=== PATIENT | male | born 1945 | race Caucasian/White ===

== ENCOUNTER 2023-05-30 16:11 | Inpatient (IN) ==
--- NOTE | 2023-05-30 17:18 | Emergency Department Note ---
Impression & Plan Hypotension, Weakness, Anemia, Pericardial effusion, Acute UTI, Debilitated ED Provider Note NAME: REKHA CRUZ AGE: 77 SEX: M : 1945 ARRIVES VIA: Walk-In INFORMANT: [Patient][family] ED PROVIDER(S): [Kristian Gaitan MD] CHIEF COMPLAINT: Pain, weakness HISTORY OF PRESENT ILLNESS: The patient is a 77-year-old male who has had issues for a month. He has been nauseated and has had no appetite and has been diffusely weak. He was discharged from [facility] 3 days ago for acute renal failure. He still has a Rodriguez in place as he was not able to urinate at discharge. As per his family, the patient has gone downhill since discharge. He is too weak to stand, home health today could not help him, his could not help him, they had to call the ambulance. The patient states that he is nauseated and has diffuse abdominal pain. His has noticed that his urine color in the Rodriguez catheter has become quite dark. She is concerned again for dehydration. There has been no cough or cold, no chest pain. He has not fallen. As per his family, the patient is not safe at home. Of note, the patient Xarelto has been on hold now for about a month. PMHx/PSHx/Social Hx: See Below PHYSICAL EXAM: GENERAL: Patient is in no acute distress. HEENT: No acute trauma, normocephalic atraumatic, mucous membranes dry, no nasal congestion. NECK: No stridor, no adenopathy, no meningismus, trachea is midline. LUNGS: Clear to auscultation bilaterally, no wheeze, no rhonchi, breath sounds equal. Breath sounds diminished bilaterally HEART: Without murmurs gallops or rubs, regular rate and rhythm. Heart tones are quite distant. ABDOMEN: Soft, diffusely mildly tender, no significant distention. Rodriguez catheter in place. EXTREMITIES: No cyanosis, full range of motion of all the joints without pain or difficulty. NEUROLOGIC: Oriented x 3, no acute motor or sensory deficits, no focal weakness. SKIN: No jaundice, no diaphoresis. Rectal: Brown stool, heme-negative. DIFFERENTIAL DIAGNOSIS: Acute renal failure, dehydration, electrolyte imbalance, dehydration, UTI, debilitation, cardiac ischemia/MS, among others. EMERGENCY DEPARTMENT PROCEDURES: MEDICAL DECISION MAKING: There is no leukocytosis. The patient is anemic. I did perform a rectal exam, stool was brown and heme-negative. There was a normal platelet count. Sodium slightly low but not in need of emergent correction. There was no renal failure. Magnesium somewhat low at 1.6. No concerning liver enzyme elevation. The patient appeared to be in a euthyroid state. ECG showed atrial fibrillation, no obvious acute ischemia. Cardiac enzyme testing x 1 was not consistent with acute cardiac injury. Urinalysis did show potential infection, urine culture is pending. COVID test returned negative. Chest x-ray did not show any obvious pneumonia or concerning CHF. Abdominal and pelvis CT shows a pericardial effusion, no urinary or bowel obstruction. On exam, the patient was somewhat hypotensive. He appeared dehydrated clinically. The patient was given a total of 1 L of saline for hydration. He received IV magnesium for the low magnesium value. He received IV ceftriaxone as antibiotic coverage. The patient presents weak, somewhat debilitated. He was found to be hypotensive. There was a pericardial effusion noted on CT, he was anemic. He may have a UTI. Given the circumstances, given his recent discharge and failure to improve outpatient, repeat hospitalization was felt warranted. I suspect his presentation is multifactorial. I spoke with the patient and family. I spoke with case management, the on-call hospitalist was consulted. The patient does seem somewhat improved since treatment here in the ED. Prior/Outside records/notes reviewed: None ECG per my interpretation: Indication was weakness. The ECG shows atrial fibrillation with a rate of 109. There is diffuse nonspecific ST change. There is no acute ST elevation, no PVCs. The QTc is 401. Continuous Cardiac Monitoring per my interpretation: An order was placed for continuous cardiac monitoring. The monitor shows a rate of 99 with atrial fibrillation. Imaging/x-ray results per my interpretation: Chest x-ray does not show concerning CHF or obvious pneumonia. There is no pneumothorax. Some atelectasis was seen. Chronic Medical/Social conditions affecting care: Advanced age. Care/Management discussed with: Case management, the on-call hospitalist. Level of care consideration(s): After review of the information above and other included data: --I believe the patient requires escalation of care to admission Critical Care Note: I have personally spent 41 minutes of critical care time in the direct management of this patient. This includes bedside care, interpretation of diagnostic studies, and testing, discussion with consultants, patient, and family members, and other required patient management activities. This 41 minutes is in excess of all separately billable procedures. DISPOSITION: Admission Past Med/Surg History Medical History Esophageal dilatation Weight loss over 35 pounds over past month. History of radiation exposure 1986 History of stroke 2001 - no residual effects. History of colon polyps Mass of colon CT scan [facility] 05/03/23. Hemorrhoids internal Kidney lesion lesions on kidneys per CT scan/ [place] 2-3 weeks ago/talk of samantha with kidney Dr. - pt has not received follow up phone call. Rectal bleeding Neuropathy CAD (coronary artery disease) On anticoagulant therapy Hypothyroidism Prophylactic antibiotic [facility] use of antibiotic>hx artificial joint infection Osteoarthritis History of bladder cancer treated surgically [place] (hard of hearing) reads lips Seizure-like activity hx 2014 - neuro work up neg for seizures - no issues since (follows with [facility]) HLD (hyperlipidemia) HTN (hypertension) History of atrial fibrillation follows with Dr. Carney; on xarelto (currently on hold due to recatal bleeding) hx cardioversion x2 ? History of myocardial infarction x 2 (1986, 2001) History of esophageal dilatation Dysphagia Surgical History History of left-sided carotid endarterectomy History of hernia surgery x2 Pacemaker passing out/reason for pacemaker. last checked : "recent check by Dr. Carney"/[facility] History of tonsillectomy History of appendectomy History of left knee replacement + revision surgery History of cataract surgery rt/left History of parathyroidectomy History of bladder surgery TURBT H/O heart artery stent x 4 History of cardiac cath 05/2020 -- CP -- [facility] - no stents mult cardiac cath between [id number] (4 stents placed total) - [facility] and [facility] in [place], [place] History of colonoscopy History of esophagogastroduodenoscopy (EGD) Family History Other No family history of adverse response to anesthesia Social History Smoking Status: Never smoker Second Hand Exposure: No; Do You Dip or Chew Tobacco: No; Hx Alcohol Use: No Preferred Language: Romanian Communication Ability: Effective Communication Ability Comment: pt is [place]/pt does phone interview/per pt preference. Consulting Solution Director Required: No Beliefs That Will Affect Care: None Current Living Situation: Spouse Feels Safe at Home: Yes Assistive Devices: Cane, Denture - Upper and Denture - Lower Allergies Allergies Allergy/AdvReac Type Severity Reaction Status Date / Time azithromycin Allergy Severe Swelling Verified 05/30/23 19:49 [From Zithromax Z-Brady] of Lip/Tongue/Throat ethyl alcohol Allergy Intermediate "rubbing Verified 05/30/23 23:28 alcohol" caused blisters isopropyl alcohol Allergy Intermediate "rubbing Verified 05/30/23 23:28 alcohol" caused blisters latex Allergy Intermediate blisters Verified 05/30/23 19:49 verapamil AdvReac Severe asystole Verified 05/30/23 19:49 Home Meds Home Medications Medication Instructions Recorded Confirmed atorvastatin 40 mg tablet 40 mg PO HS 02/16/21 05/30/23 cholecalciferol (vitamin D3) 125 125 mcg PO QAM 02/16/21 05/30/23 mcg (5,000 unit) tablet (Vitamin D3) finasteride 5 mg tablet 5 mg PO DAILY 02/16/21 05/30/23 isosorbide mononitrate 60 mg 60 mg PO QPM 02/16/21 05/30/23 tablet,extended release 24 hr lamotrigine 100 mg tablet 100 mg PO BID 02/16/21 05/30/23 levothyroxine 75 mcg tablet 75 mcg PO 5XWK 02/16/21 05/30/23 pantoprazole 40 mg tablet,delayed 40 mg PO QAM 02/16/21 05/30/23 release ranolazine 1,000 mg 1,000 mg PO BID 02/16/21 05/30/23 tablet,extended release,12 hr rivaroxaban 20 mg tablet (Xarelto) 20 mg PO HS 02/16/21 05/30/23 amiodarone 200 mg tablet 200 mg PO QPM 05/03/23 05/30/23 gabapentin 300 mg capsule 300 mg PO TID 05/03/23 05/30/23 ketoconazole 2 % topical cream 1 applic topical UD PRN Skin 05/03/23 05/30/23 Irritation/openings /none current nitroglycerin 0.4 mg sublingual 0.4 mg sublingual .[id number] PRN 05/03/23 05/30/23 tablet Chest Pain ondansetron 8 mg disintegrating 8 mg PO UD PRN Nausea And Vomiting 05/03/23 05/30/23 tablet dicyclomine 10 mg capsule 10 mg PO BID 05/10/23 05/30/23 promethazine 25 mg tablet 25 mg PO UD PRN n/v 05/10/23 05/30/23 sulfamethoxazole 800 1 tab PO Q12H 05/10/23 05/30/23 mg-trimethoprim 160 mg tablet (Bactrim DS) ferrous sulfate 27 mg iron tablet 27 mg PO DAILY 05/30/23 05/30/23 ramipril 5 mg capsule 5 mg PO DAILY 05/30/23 05/30/23 sotalol 120 mg tablet 120 mg PO BID 05/30/23 05/30/23 Previous Rx's Medication Instructions Recorded peg 3350-electrolytes 236 240 ml PO Q10M #4,000 mL 05/08/23 gram-22.74 gram-6.74 gram-5.86 gram solution (Golytely) linaclotide 145 mcg capsule 145 mcg PO DAILY #30 caps 05/14/23 (Linzess) sodium sul 1.479 gram-potas ch See Rx Instructions PO .COMPLEX 05/16/23 0.188 gram-magnes sul 0.225 gram #24 tabs tablet (Sutab) Results & Data (ED) Vital Signs Vital Signs - 24 hr 05/30/23 16:24 05/30/23 16:39 05/30/23 17:13 Temperature 37.2 C Temperature Source Temporal Artery Scan Pulse Rate 98 H Pulse Rate [Apical] 99 H Respiratory Rate 20 18 Respiratory Effort / Characteristics Non-Labored Spontaneous Respiratory Depth Normal Respiratory Pattern Regular Blood Pressure 87/58 L Blood Pressure [Right Arm] 102/70 Blood Pressure Mean 67 Blood Pressure Mean [Right Arm] 80 Blood Pressure Position [Right Arm] Semi-fowlers Pulse Oximetry 96 97 99 Oxygen Delivery Method Room Air Room Air Room Air Sepsis Recent Fever Within 48 Hours No Sepsis New/Unexplained Change in Mental Status N/A Sepsis Action Taken by Nursing No Action Required 05/30/23 18:12 05/30/23 19:00 05/30/23 19:47 Temperature Temperature Source Pulse Rate 107 H Pulse Rate [Apical] 92 H 100 H Respiratory Rate 14 18 Respiratory Effort / Characteristics Non-Labored Spontaneous Non-Labored Spontaneous Respiratory Depth Normal Normal Respiratory Pattern Regular Regular Blood Pressure Blood Pressure [Right Arm] 94/57 L 86/65 L Blood Pressure Mean Blood Pressure Mean [Right Arm] 69 72 Blood Pressure Position [Right Arm] Semi-fowlers Semi-fowlers Pulse Oximetry 92 95 Oxygen Delivery Method Room Air Room Air Sepsis Recent Fever Within 48 Hours Sepsis New/Unexplained Change in Mental Status Sepsis Action Taken by Nursing 05/30/23 20:00 05/30/23 20:43 05/30/23 21:00 Temperature Temperature Source Pulse Rate 95 H Pulse Rate [Apical] 105 H 86 Respiratory Rate 18 16 Respiratory Effort / Characteristics Non-Labored Spontaneous Non-Labored Spontaneous Respiratory Depth Normal Normal Respiratory Pattern Regular Regular Blood Pressure Blood Pressure [Right Arm] 113/67 104/71 Blood Pressure Mean Blood Pressure Mean [Right Arm] 82 82 Blood Pressure Position [Right Arm] Semi-fowlers Semi-fowlers Pulse Oximetry 95 93 Oxygen Delivery Method Room Air Room Air Sepsis Recent Fever Within 48 Hours Sepsis New/Unexplained Change in Mental Status Sepsis Action Taken by Correction Medications Current Medication List: was personally reviewed by me Laboratory Data Attestation: I reviewed the patient's lab results. 05/30/23 17:45 05/30/23 17:45 Lab Results 05/30/23 05/30/23 Range/Units 17:45 17:51 WBC 7.46 (4.8-10.8) K/ul RBC 3.26 L (4.70-6.10) M/uL Hgb 10.5 L (14.0-18.0) g/dl Hct 30.5 L (42.0-52.0) % MCV 93.6 (80.0-100.0) fL MCH 32.2 (25.0-34.0) pg MCHC 34.4 (32.0-36.0) g/dL RDW Std Deviation 45.7 (36.4-46.3) fL RDW Coeff of Seamus 13.4 (11.5-14.5) % Plt Count 267 (130-400) K/uL MPV 9.3 L (9.4-12.4) fL Immature Gran % (Auto) 0.8 % Neut % (Auto) 78.5 % Lymph % (Auto) 9.5 % [place] % (Auto) 9.5 % Eos % (Auto) 1.2 % Baso % (Auto) 0.5 % Neut # (Auto) 5.85 (1.40-6.50) K/uL Lymph # (Auto) 0.71 L (1.20-3.40) K/uL [place] # (Auto) 0.71 H (0.11-0.59) K/uL Eos # (Auto) 0.09 (0.00-0.50) K/uL Baso # (Auto) 0.04 (0.00-0.20) K/uL Immature Gran # (Auto) 0.06 (0.01-0.20) K/uL Sodium 132 L (136-145) mmol/L Potassium 4.1 (3.5-5.1) mmol/L Chloride 100 (98-107) mmol/L Carbon Dioxide 25 (21-32) mmol/L Anion Gap 7 (3-11) BUN 11 (6-23) mg/dl Creatinine 0.66 (0.6-1.4) mg/dl Est Cr Clr Drug Dosing 90.8 ml/min Est GFR ( Amer) 106.6 ml/min Est GFR (Non-Af Amer) 92.0 ml/min BUN/Creatinine Ratio 16.7 (10-20) Glucose 96 (70-99(Fasting)) mg/dl Calcium 8.3 L (8.6-10.3) mg/dl Magnesium 1.6 L (1.7-2.4) mg/dl Total Bilirubin 0.9 (0.2-1.0) mg/dl AST 38 (13-39) U/L ALT 38 (7-52) U/L Alkaline Phosphatase 115 H (34-104) U/L Troponin I High Sens 6.4 (0-20) pg/ml Total Protein 5.3 L (6.0-8.3) gm/dl Albumin 3.2 L (3.4-5.0) gm/dl Globulin 2.1 L (2.5-4.0) gm/dl Albumin/Globulin Ratio 1.5 (0.9-2) TSH 4.287 (0.300-4.500) uIu/ml Urine Color Dark Yellow Urine Appearance Cloudy A (Clear) Urine pH 7.5 (4.5-7.5) Ur Specific [place] 1.016 (1.000-1.030) Urine Protein 1+ H (Negative) Urine Glucose (UA) Negative (Negative) Urine Ketones Negative (Negative) Urine Blood 2+ H (Negative) Urine Nitrite Negative (Negative) Urine Bilirubin Negative (Negative) Urine Urobilinogen Positive H (Negative) Ur Leukocyte Esterase 3+ H (Negative) Urine WBC (Auto) >30 H (0-5) /hpf Urine RBC (Auto) 5-10 H (0-4) /hpf U Hyaline Cast (Auto) 0 (0-5) /lpf U Epithel Cells (Auto) >30 H (0-5) /lpf Urine Bacteria (Auto) 3+ H (Negative) Urine Crystals Calcium Oxalate A (None Prsent) Calcium Oxalate Crystal Present A (None Prsent) SARS-CoV-2, RNA, NAAT NEGATIVE (NEGATIVE) Administered Medications Discontinued Medications Sodium Chloride (Nss) 500 mls @ 999 mls/hr IV .Q31M STEVE Stop: 05/30/23 17:45 Last Infusion: 05/30/23 18:42 Dose: Infused Documented By: Admin: 05/30/23 17:56 Dose: 999 mls/hr Documented By: STEPHANE Magnesium Sulfate/Dextrose (Magnesium Sulfate / D5w) 1 gm in 100 mls @ 100 mls/hr IV NOW STA Stop: 05/30/23 19:28 Last Infusion: 05/30/23 20:13 Dose: Infused Documented By: Admin: 05/30/23 18:42 Dose: 100 mls/hr Documented By: STEPHANE Sodium Chloride (Nss) 500 mls @ 999 mls/hr IV .Q31M ONE Stop: 05/30/23 20:00 Last Infusion: 05/30/23 20:13 Dose: Infused Documented By: Admin: 05/30/23 19:36 Dose: 999 mls/hr Documented By: STEPHANE Ceftriaxone Sodium (Rocephin) 2,000 mg in 50 mls @ 100 mls/hr IV NOW STA Stop: 05/30/23 19:59 Last Infusion: 05/30/23 20:13 Dose: Infused Documented By: Admin: 05/30/23 19:39 Dose: 100 mls/hr Documented By: STEPHANE Albumin Human (Albumin 25%) 25 gm in 100 mls @ 50 mls/hr IV ONE ONE Stop: 05/30/23 22:14 Last Infusion: 05/30/23 22:38 Dose: Infused Documented By: Admin: 05/30/23 20:31 Dose: 50 mls/hr Documented By: STEPHANE Digoxin 250 mcg/ Syringe 10 mls @ 2 mls/min IV NOW STA Stop: 05/30/23 20:20 Last Admin: 05/30/23 20:43 Dose: 2 mls/min Documented By: STEPHANE Magnesium Sulfate/Dextrose (Magnesium Sulfate / D5w) 1 gm in 100 mls @ 50 mls/hr IV ONE ONE Stop: 05/30/23 22:15 Last Infusion: 05/30/23 22:38 Dose: Infused Documented By: Admin: 05/30/23 20:32 Dose: 50 mls/hr Documented By: STEPHANE Piperacillin Sod/Tazobactam Sod (Zosyn) 4.5 gm in 100 mls @ 200 mls/hr IV NOW ONE Stop: 05/30/23 21:14 Last Infusion: 05/30/23 22:38 Dose: Infused Documented By: Admin: 05/30/23 21:25 Dose: 200 mls/hr Documented By: STEPHANE Imaging Data Radiologist's Impression: Abdomen/Pelvis CT 05/30/23 17:13 Exam(s): CT ABDOMEN + PELVIS Without Contrast EXAM: CT Abdomen and Pelvis Without Intravenous Contrast CLINICAL HISTORY: Reason for exam: poss urinary obstruction, pain. TECHNIQUE: Axial computed tomography images of the abdomen and pelvis without intravenous contrast. CTDI is 24.03 mGy and DLP is 1148.66 mGy-cm. Automated exposure control was utilized for the study. A dose lowering technique was utilized adhering to the principles of ALARA. COMPARISON: No relevant prior studies available. FINDINGS: Lung bases: Compressive atelectasis at the lung bases. Pleural space: Small layering pleural effusions. Heart: Coronary artery atherosclerosis. Normal heart size. Large pericardial effusion measuring 14 mm. Low-attenuation cardiac blood pool consistent with anemia. Partially imaged cardiac pacer leads. ABDOMEN: Liver: Unremarkable. Gallbladder and bile ducts: Layering gallbladder sludge or small stones. No cholecystitis or biliary dilatation. Pancreas: Unremarkable. No ductal dilation. Spleen: Unremarkable. No splenomegaly. Adrenals: Unremarkable. No mass. Kidneys and ureters: Multiple nonobstructing bilateral kidney stones measuring up to 3 mm. No hydronephrosis. Stomach and bowel: No bowel obstruction. Increased colonic stool burden. Distal colonic diverticula without diverticulitis. PELVIS: Appendix: Appendix not identified. Bladder: Urinary bladder decompressed around a Rodriguez catheter. Bladder wall appears thickened and inflamed. No stones. Reproductive: Prostate is small in size or surgically absent. ABDOMEN and PELVIS: Intraperitoneal space: Mesenteric edema, presacral fat stranding, and trace pelvic ascites. No free air. Bones/joints: No acute fracture. No dislocation. Age-related degenerative changes in the spine. Joint space narrowing in both hips. Soft tissues: Low anterior abdominal surgical clips suggesting previous hernia repair. Mild anasarca. Vasculature: Atherosclerosis. No aortic aneurysm. Lymph nodes: Unremarkable. No enlarged lymph nodes. IMPRESSION: 1. Nonobstructing kidney stones. No hydronephrosis. 2. Bladder wall thickening concerning for cystitis. Correlate with urinalysis. 3. Small pleural effusions and bibasilar atelectasis. 4. Pericardial effusion measuring 15 mm. 5. Anemia. Electronically signed by: Kraig Sanford M.D. 05/30/23 19:34 PM Chest X-Ray 05/30/23 17:13 XR chest 1V portable HISTORY: weakness COMPARISON: Chest 05/03/2023. FINDINGS: No pneumothorax. The trace right pleural effusion. The heart is normal in size. Left-sided pacemaker noted. No acute fractures. Progressive interstitial/vascular thickening consistent with mild pulmonary edema. Patchy densities within the left lung base. IMPRESSION: 1. Interval development of mild interstitial pulmonary edema and a trace right pleural effusion. 2. Patchy densities at the left lung base may represent atelectasis or a pneumonia. ACT 112: Negative or not required by law. Electronically signed by: Kashif Sanchez M.D. 05/30/2023 6:16 PM Discharge Plan Visit Data Chief Complaint: Pain (Generalized) Stated Complaint: ACUTE KID FAIL, FAIL TO THRIVE, REF BY DOC ED Provider: Kristian Gaitan Discharge Problem: Hypotension, Weakness, Anemia, Pericardial effusion, Acute UTI, Debilitated Patient Disposition: Admitted As Inpatient Condition: Fair Discharge Instructions Interventions: ED Discharge Assessment Last Done: 05/30/23 22:48 Discharge Problem: Hypotension Qualifiers: Hypotension type: unspecified hypotension type Qualified Code(s): I95.9 - Hypotension, unspecified Anemia Qualifiers: Anemia type: unspecified type Qualified Code(s): D64.9 - Anemia, unspecified
[2023-05-30] MEDS: SODIUM CHLORIDE 0.9% 500 ML IV SCH (17:56)
[2023-05-30 18:14] LABS: Basophils # (auto) 0.04 K/uL (0.00-0.20); Basophils % (auto) 0.5 %; Eosinophils # (auto) 0.09 K/uL (0.00-0.50); Eosinophils % (auto) 1.2 %; Hematocrit (blood only) 30.5 % (42.0-52.0); Hemoglobin 10.5 g/dl (14.0-18.0); Immature Granulocytes # (auto) 0.06 K/uL (0.01-0.20); Immature Granulocytes % (auto) 0.8 %; Lymphocytes # (auto) 0.71 K/uL (1.20-3.40); Lymphocytes % (auto) 9.5 %; Mean Corpuscular Hemoglobin 32.2 pg (25.0-34.0); Mean Corpuscular Hgb Conc 34.4 g/dL (32.0-36.0); Mean Corpuscular Volume 93.6 fL (80.0-100.0); Mean Platelet Volume 9.3 fL (9.4-12.4); Monocytes # (auto) 0.71 K/uL (0.11-0.59); Monocytes % (auto) 9.5 %; Neutrophils # (auto) 5.85 K/uL (1.40-6.50); Neutrophils % (auto) 78.5 %; Platelet Count 267 K/uL (130-400); RDW Coefficient of Variation 13.4 % (11.5-14.5); RDW Standard Deviation 45.7 fL (36.4-46.3); Red Blood Count 3.26 M/uL (4.70-6.10); White Blood Count 7.46 K/ul (4.8-10.8)
--- NOTE | 2023-05-30 18:18 | XRay Report ---
XR chest 1V portable HISTORY: weakness COMPARISON: Chest 05/03/2023. FINDINGS: No pneumothorax. The trace right pleural effusion. The heart is normal in size. Left-sided pacemaker noted. No acute fractures. Progressive interstitial/vascular thickening consistent with mil d pulmonary edema. Patchy densities within the left lung base. IMPRESSION: 1. Interval development of mild interstitial pulmonary edema and a trace right pleural effusion. 2. Patchy densities at the left lung base may represent atelectasis or a pneumonia. ACT 112: Negative or not required by law. Electronically signed by: Kashif Sanchez M.D. 05/30/2023 6:16 PM
[2023-05-30 18:24] LABS: Albumin Globulin Ratio 1.5 (0.9-2); Albumin Level 3.2 gm/dl (3.4-5.0); BUN Creatinine Ratio 16.7 (10-20); Bilirubin,Total 0.9 mg/dl (0.2-1.0); Calcium 8.3 mg/dl (8.6-10.3); Creatinine Clr Calc Pharmacy 90.8 ml/min; Est GFR (African American) 106.6 ml/min; Globulin 2.1 gm/dl (2.5-4.0); Magnesium 1.6 mg/dl (1.7-2.4); Potassium 4.1 mmol/L (3.5-5.1); Total Protein 5.3 gm/dl (6.0-8.3)
[2023-05-30 18:31] LABS: Troponin I High Sensitivity 6.4 pg/ml (0-20)
[2023-05-30 18:40] LABS: Thyroid Stimulating Hormone 4.287 uIu/ml (0.300-4.500)
[2023-05-30] MEDS: MAGNESIUM SULFATE / D5W 1 GM/100 ML BAG IV STA (18:42)
[2023-05-30 19:03] LABS: Appearance Urine Cloudy (Clear); Bacteria Urine Automated 3+ (Negative); Bilirubin Urine Negative (Negative); Blood Urine 2+ (Negative); Color Urine Dark Yellow; Epithelial Cell Urine Auto >30 /lpf (0-5); Glucose Urine UA Negative (Negative); Ketones Urine Negative (Negative); Leukocyte Esterase Urine 3+ (Negative); Nitrite Urine Negative (Negative); Specific Gravity Urine 1.016 (1.000-1.030); Urobilinogen Urine Positive (Negative); WBC Urine Automated >30 /hpf (0-5); pH Urine 7.5 (4.5-7.5)
[2023-05-30 19:14] LABS: Protein Urine 1+ (Negative)
[2023-05-30 19:27] LABS: Calcium Oxalate Crystals Urine Present (None Prsent); Cast Urine Automated 0 /lpf (0-5)
--- NOTE | 2023-05-30 19:35 | CT Scan Report ---
Exam(s): CT ABDOMEN + PELVIS Without Contrast EXAM: CT Abdomen and Pelvis Without Intravenous Contrast CLINICAL HISTORY: Reason for exam: poss urinary obstruction, pain. TECHNIQUE: Axial computed tomography images of the abdomen and pelvis without intravenous contrast. CTDI is 24.03 mGy and DLP is 1148.66 mGy-cm. Automated exposure control was utilized for the study. A dose lowering technique was utilized adhering to the principles of ALARA. COMPARISON: No relevant prior studies available. FINDINGS: Lung bases: Compressive atelectasis at the lung bases. Pleural space: Small layering pleural effusions. Heart: Coronary artery atherosclerosis. Normal heart size. Large pericardial effusion measuring 14 mm. Low-attenuation cardiac blood pool consistent with anemia. Partially imaged cardiac pacer leads. ABDOMEN: Liver: Unremarkable. Gallbladder and bile ducts: Layering gallbladder sludge or small stones. No cholecystitis or biliary dilatation. Pancreas: Unremarkable. No ductal dilation. Spleen: Unremarkable. No splenomegaly. Adrenals: Unremarkable. No mass. Kidneys and ureters: Multiple nonobstructing bilateral kidney stones measuring up to 3 mm. No hydronephrosis. Stomach and bowel: No bowel obstruction. Increased colonic stool burden. Distal colonic diverticula without diverticulitis. PELVIS: Appendix: Appendix not identified. Bladder: Urinary bladder decompressed around a Rodriguez catheter. Bladder wall appears thickened and inflamed. No stones. Reproductive: Prostate is small in size or surgically absent. ABDOMEN and PELVIS: Intraperitoneal space: Mesenteric edema, presacral fat stranding, and trace pelvic ascites. No free air. Bones/joints: No acute fracture. No dislocation. Age-related degenerative changes in the spine. Joint space narrowing in both hips. Soft tissues: Low anterior abdominal surgical clips suggesting previous hernia repair. Mild anasarca. Vasculature: Atherosclerosis. No aortic aneurysm. Lymph nodes: Unremarkable. No enlarged lymph nodes. IMPRESSION: 1. Nonobstructing kidney stones. No hydronephrosis. 2. Bladder wall thickening concerning for cystitis. Correlate with urinalysis. 3. Small pleural effusions and bibasilar atelectasis. 4. Pericardial effusion measuring 15 mm. 5. Anemia. Electronically signed by: Kraig Sanford M.D. 05/30/23 19:34 PM
[2023-05-30] MEDS: SODIUM CHLORIDE 0.9% 500 ML IV ONE (19:36)
[2023-05-30] MEDS: cefTRIAXone SODIUM 2,000 MG/50 ML BAG IV STA (19:39)
[2023-05-30] MEDS: ALBUMIN 25% 25 GM/100 ML VIAL IV ONE (20:31)
[2023-05-30] MEDS: MAGNESIUM SULFATE / D5W 1 GM/100 ML BAG IV ONE (20:32)
[2023-05-30] MEDS: DIGOXIN 250 MCG in SYRINGE 9 ML IV STA (20:43)
[2023-05-30] MEDS: PIPERACILLIN/TAZOBACTAM 4.5 GM/100 ML BAG IV ONE (21:25)
--- NOTE | 2023-05-30 21:34 | History & Physical Report ---
Date of Service May 30, 2023 Assessment & Plan (1) Hypotension: Plan: Multifactorial: Hypovolemia from decreased p.o. intake Possible sepsis from complicated UTI, history of BPH, history of bladder cancer status post surgery, patient discharged with Rodriguez catheter for urinary retention during recent confinement at [facility] do boys ? Pericardial effusion contributory Episodic LGIB, possible colonic malignancy; occasional dark stool likely from iron tablets given negative FOBT at the ER as per ER provider account. Multiple home BP meds contributory chronic HF, equivocal volume status given pulmonary congestion on imaging Acute on chronic anemia secondary to above LGIB, possible dilutional anemia given recent confinement at [facility] for renal failure which required IV hydration hx CAD/CVA as per records A-fib, slightly elevated secondary to illness, Xarelto currently on hold hyperlipidemia, on statin Rx history E. 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, patient mentating fairly well but struggles with some historical details GERD, on PPI Bilateral renal masses, possible malignancy Possible functional disability/deconditioning PCU IV albumin for BP support CS, Zosyn TTE Re: Pericardial effusion Hold ramipril and isosorbide mononitrate for now given hypotension Continue ranolazine, sotalol with BP hold parameters May need inpatient Cardiology eval for pericardial effusion pending TTE results Follow H&H, transfuse PRBC if hemoglobin less than 8 and or for symptomatic anemia Retrieve records from recent confinement at [facility] GI consult re: LGIB, history colonic mass (Outpatient colonoscopy scheduled next week as per ) Urology consult Re: Urinary retention, kidney tumors as per patient request ISS BG goal 1 10-1 40, carb count coverage, check hemoglobin A1c PT OT eval once medically stable DVT prophylaxis. SCDs Re: Episodic LGIB DNR as per patient as per patient directives. Patient requesting updates providers. Ms. Linda Ge, contact #[phone]. Total critical care time was 40 minutes. Text document was generated using [employer] voice recognition software. It may contain grammatical or spelling errors. Kindly contact undersigned for clarification of any documentation item in question. History of Present Illness Chief Complaint: Generalized weakness Primary Care Provider: Kristian Smallwood History obtained from patient and records. Medical history significant for chronic diastolic HF, CAD status post stent, CVA as per records, PVD status post surgery, SSS status post PPM currently off Xarelto, hypertension, hyperlipidemia, history E. coli bacteremia secondary to knee surgery on lifelong Bactrim Rx, hypothyroidism, seizure disorder, dementia as per records, BPH, GERD, bladder cancer status post surgery, hyperparathyroidism status post surgery, chronic anemia (baseline hemoglobin of 12). Patient seen at [facility] ER last month for generalized weakness, nausea, abdominal pain. CT abdomen pelvis showed: 1. Masslike circumferential wall thickening of the rectum with perirectal inflammatory stranding and subcentimeter perirectal lymph nodes. Findings are concerning for a primary colorectal malignancy. Nonemergent GI consultation with colonoscopy is needed. 2. There are bilateral renal masses measuring up to 4 cm suggestive of malignancy. Patient and family instructed to follow-up with GI, urology, and cancer specialist outpatient. Outpatient [facility] GI endoscopy 2 weeks ago. EGD showed submucosal nodule in duodenum. Colonoscopy showed stools/inadequate prep which precluded specimen collection. [facility] GI specialist referred patient to G specialist who recommended repeat colonoscopy with transrectal ultrasound following 2-day bowel prep within the next 3 months as per outpatient notes. Tentative schedule at [facility] next week as per . Recent [facility] admission last week for fall, acute renal failure. Patient discharged 3 days ago with a Rodriguez catheter for urinary retention. Patient feels patient got sent home to [facility] and would have benefited from inpatient rehab. At home, patient noted achy generalized abdominal pain. Dark urine. Episodic hematochezia. Stools are occasionally dark as per . Patient denies chest pain, SOB, cough symptoms. Family with patient safety concerns at home given increasing weakness. Home nurse recommended ER evaluation. SBP 80s upon arrival at the ER. 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 Allergies Allergy/AdvReac Type Severity Reaction Status Date / Time azithromycin Allergy Severe Swelling Verified 05/30/23 19:49 [From Zithromax Z-Brady] of Lip/Tongue/Throat ethyl alcohol Allergy Intermediate "rubbing Verified 05/30/23 23:28 alcohol" caused blisters isopropyl alcohol Allergy Intermediate "rubbing Verified 05/30/23 23:28 alcohol" caused blisters latex Allergy Intermediate blisters Verified 05/30/23 19:49 verapamil AdvReac Severe asystole Verified 05/30/23 19:49 Home Medications Medication Instructions Recorded Confirmed Type atorvastatin 40 mg tablet 40 mg PO HS 02/16/21 05/30/23 History cholecalciferol (vitamin D3) 125 125 mcg PO QAM 02/16/21 05/30/23 History mcg (5,000 unit) tablet (Vitamin D3) finasteride 5 mg tablet 5 mg PO DAILY 02/16/21 05/30/23 History isosorbide mononitrate 60 mg 60 mg PO QPM 02/16/21 05/30/23 History tablet,extended release 24 hr lamotrigine 100 mg tablet 100 mg PO BID 02/16/21 05/30/23 History levothyroxine 75 mcg tablet 75 mcg PO 5XWK 02/16/21 05/30/23 History pantoprazole 40 mg tablet,delayed 40 mg PO QAM 02/16/21 05/30/23 History release ranolazine 1,000 mg 1,000 mg PO BID 02/16/21 05/30/23 History tablet,extended release,12 hr rivaroxaban 20 mg tablet (Xarelto) 20 mg PO HS 02/16/21 05/30/23 History amiodarone 200 mg tablet 200 mg PO QPM 05/03/23 05/30/23 History gabapentin 300 mg capsule 300 mg PO TID 05/03/23 05/30/23 History ketoconazole 2 % topical cream 1 applic topical UD PRN Skin 05/03/23 05/30/23 History Irritation/openings /none current nitroglycerin 0.4 mg sublingual 0.4 mg sublingual .[id number] PRN 05/03/23 05/30/23 History tablet Chest Pain ondansetron 8 mg disintegrating 8 mg PO UD PRN Nausea And Vomiting 05/03/23 05/30/23 History tablet peg 3350-electrolytes 236 240 ml PO Q10M #4,000 mL 05/08/23 05/30/23 Rx gram-22.74 gram-6.74 gram-5.86 gram solution (Golytely) dicyclomine 10 mg capsule 10 mg PO BID 05/10/23 05/30/23 History promethazine 25 mg tablet 25 mg PO UD PRN n/v 05/10/23 05/30/23 History sulfamethoxazole 800 1 tab PO Q12H 05/10/23 05/30/23 History mg-trimethoprim 160 mg tablet (Bactrim DS) linaclotide 145 mcg capsule 145 mcg PO DAILY #30 caps 05/14/23 05/30/23 Rx (Linzess) sodium sul 1.479 gram-potas ch See Rx Instructions PO .COMPLEX 05/16/23 05/30/23 Rx 0.188 gram-magnes sul 0.225 gram #24 tabs tablet (Sutab) ferrous sulfate 27 mg iron tablet 27 mg PO DAILY 05/30/23 05/30/23 History ramipril 5 mg capsule 5 mg PO DAILY 05/30/23 05/30/23 History sotalol 120 mg tablet 120 mg PO BID 05/30/23 05/30/23 History Past Med/Surg History Medical History (Updated 05/31/23 @ 03:21 by Jayro Rose MD) Hypotension Esophageal dilatation Weight loss over 35 pounds over past month. History of radiation exposure 1986 History of stroke 2001 - no residual effects. History of colon polyps Mass of colon CT scan [facility] 05/03/23. Hemorrhoids internal Kidney lesion lesions on kidneys per CT scan/ [place] 2-3 weeks ago/talk of samantha with kidney - pt has not received follow up phone call. 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 Carney; on xarelto (currently on hold due to recatal bleeding) hx cardioversion x2 ? History of myocardial infarction x 2 (1986, 2001) History of esophageal dilatation Dysphagia Surgical History History of left-sided carotid endarterectomy History of hernia surgery x2 Pacemaker passing out/reason for pacemaker. last checked : "recent check by Dr. Carney"/[facility] History of tonsillectomy History of appendectomy History of left knee replacement + revision surgery History of cataract surgery rt/left History of parathyroidectomy History of bladder surgery TURBT H/O heart artery stent x 4 History of cardiac cath 05/2020 -- CP -- [facility] - no stents mult cardiac cath between 5120-3516 (4 stents placed total) - [facility] and [facility] in [place], [place] History of colonoscopy History of esophagogastroduodenoscopy (EGD) Family History Other No family history of adverse response to anesthesia Social History Smoking Status: Never smoker Second Hand Exposure: No; Do You Dip or Chew Tobacco: No; Hx Alcohol Use: No Hx Substance Use: No Preferred Language: Luxembourgish Communication Ability: Effective Communication Ability Comment: pt is [place]/pt does phone interview/per pt preference. Hr Assistant Required: No Beliefs That Will Affect Care: None Current Living Situation: Spouse Other Information That Helps Us Care for You: No Feels Safe at Home: Yes Safety Concerns: Feels Safe At This Time Assistive Devices: Cane and Denture - Upper Review of Systems Review of Systems: As per HPI, all other systems reviewed and negative Physical Exam Physical Exam: GENERAL: Comfortable, pleasant, no respiratory distress SKIN: Pallor, warm HEENT: Pale palpebral conjunctivae, no ptosis, dry buccal mucosa NECK : Supple, no tenderness CHEST : Decreased breath sounds, no tenderness HEART : Irregular, no obvious murmurs ABDOMEN: Some distention, nontender EXTREMITIES : no LE swelling/tenderness, no other conspicuous deformities noted NEUROLOGIC : Coherent, no facial asymmetry, no other gross focality Results & Data Results & Data Vital Signs (Past 12 Hours) Vital Signs Temp Pulse Pulse Resp BP BP Pulse Ox 05/30/23 21:00 86 16 104/71 93 05/30/23 20:43 95 H 05/30/23 20:00 105 H 18 113/67 95 05/30/23 19:47 107 H 05/30/23 19:00 100 H 18 86/65 L 95 05/30/23 18:12 92 H 14 94/57 L 92 05/30/23 17:13 99 05/30/23 16:39 99 H 18 102/70 97 05/30/23 16:24 37.2 C 98 H 20 87/58 L 96 O2 Del Method 05/30/23 21:00 Room Air 05/30/23 20:43 05/30/23 20:00 Room Air 05/30/23 19:47 05/30/23 19:00 Room Air 05/30/23 18:12 Room Air 05/30/23 17:13 Room Air 05/30/23 16:39 Room Air 05/30/23 16:24 Room Air Laboratory Results Laboratory Results WBC 7.46 K/ul (4.8-10.8) 05/30/23 17:45 RBC 3.26 M/uL (4.70-6.10) L 05/30/23 17:45 Hgb 10.5 g/dl (14.0-18.0) L 05/30/23 17:45 Hct 30.5 % (42.0-52.0) L 05/30/23 17:45 MCV 93.6 fL (80.0-100.0) 05/30/23 17:45 MCH 32.2 pg (25.0-34.0) 05/30/23 17:45 MCHC 34.4 g/dL (32.0-36.0) 05/30/23 17:45 RDW Std Deviation 45.7 fL (36.4-46.3) 05/30/23 17:45 RDW Coeff of Seamus 13.4 % (11.5-14.5) 05/30/23 17:45 Plt Count 267 K/uL (130-400) 05/30/23 17:45 MPV 9.3 fL (9.4-12.4) L 05/30/23 17:45 Immature Gran % (Auto) 0.8 % 05/30/23 17:45 Neut % (Auto) 78.5 % 05/30/23 17:45 Lymph % (Auto) 9.5 % 05/30/23 17:45 Archuleta % (Auto) 9.5 % 05/30/23 17:45 Eos % (Auto) 1.2 % 05/30/23 17:45 Baso % (Auto) 0.5 % 05/30/23 17:45 Neut # (Auto) 5.85 K/uL (1.40-6.50) 05/30/23 17:45 Lymph # (Auto) 0.71 K/uL (1.20-3.40) L 05/30/23 17:45 Archuleta # (Auto) 0.71 K/uL (0.11-0.59) H 05/30/23 17:45 Eos # (Auto) 0.09 K/uL (0.00-0.50) 05/30/23 17:45 Baso # (Auto) 0.04 K/uL (0.00-0.20) 05/30/23 17:45 Immature Gran # (Auto) 0.06 K/uL (0.01-0.20) 05/30/23 17:45 Sodium 132 mmol/L (136-145) L 05/30/23 17:45 Potassium 4.1 mmol/L (3.5-5.1) 05/30/23 17:45 Chloride 100 mmol/L (98-107) 05/30/23 17:45 Carbon Dioxide 25 mmol/L (21-32) 05/30/23 17:45 Anion Gap 7 (3-11) 05/30/23 17:45 BUN 11 mg/dl (6-23) 05/30/23 17:45 Creatinine 0.66 mg/dl (0.6-1.4) 05/30/23 17:45 Est Cr Clr Drug Dosing 90.8 ml/min 05/30/23 17:45 Est GFR ( Amer) 106.6 ml/min 05/30/23 17:45 Est GFR (Non-Af Amer) 92.0 ml/min 05/30/23 17:45 BUN/Creatinine Ratio 16.7 (10-20) 05/30/23 17:45 Glucose 96 mg/dl (70-99(Fasting)) 05/30/23 17:45 Calcium 8.3 mg/dl (8.6-10.3) L 05/30/23 17:45 Magnesium 1.6 mg/dl (1.7-2.4) L 05/30/23 17:45 Total Bilirubin 0.9 mg/dl (0.2-1.0) 05/30/23 17:45 AST 38 U/L (13-39) 05/30/23 17:45 ALT 38 U/L (7-52) 05/30/23 17:45 Alkaline Phosphatase 115 U/L (34-104) H 05/30/23 17:45 Troponin I High Sens 6.4 pg/ml (0-20) 05/30/23 17:45 Total Protein 5.3 gm/dl (6.0-8.3) L 05/30/23 17:45 Albumin 3.2 gm/dl (3.4-5.0) L 05/30/23 17:45 Globulin 2.1 gm/dl (2.5-4.0) L 05/30/23 17:45 Albumin/Globulin Ratio 1.5 (0.9-2) 05/30/23 17:45 TSH 4.287 uIu/ml (0.300-4.500) 05/30/23 17:45 Urine Color Dark Yellow 05/30/23 17:51 Urine Appearance Cloudy (Clear) A 05/30/23 17:51 Urine pH 7.5 (4.5-7.5) 05/30/23 17:51 Ur Specific [place] 1.016 (1.000-1.030) 05/30/23 17:51 Urine Protein 1+ (Negative) H 05/30/23 17:51 Urine Glucose (UA) Negative (Negative) 05/30/23 17:51 Urine Ketones Negative (Negative) 05/30/23 17:51 Urine Blood 2+ (Negative) H 05/30/23 17:51 Urine Nitrite Negative (Negative) 05/30/23 17:51 Urine Bilirubin Negative (Negative) 05/30/23 17:51 Urine Urobilinogen Positive (Negative) H 05/30/23 17:51 Ur Leukocyte Esterase 3+ (Negative) H 05/30/23 17:51 Urine WBC (Auto) >30 /hpf (0-5) H 05/30/23 17:51 Urine RBC (Auto) 5-10 /hpf (0-4) H 05/30/23 17:51 U Hyaline Cast (Auto) 0 /lpf (0-5) 05/30/23 17:51 U Epithel Cells (Auto) >30 /lpf (0-5) H 05/30/23 17:51 Urine Bacteria (Auto) 3+ (Negative) H 05/30/23 17:51 Urine Crystals Calcium Oxalate (None Prsent) A 05/30/23 17:51 Calcium Oxalate Crystal Present (None Prsent) A 05/30/23 17:51 SARS-CoV-2, RNA, NAAT NEGATIVE (NEGATIVE) 05/30/23 17:51 Impressions Abdomen/Pelvis CT 05/30/23 17:13 Exam(s): CT ABDOMEN + PELVIS Without Contrast EXAM: CT Abdomen and Pelvis Without Intravenous Contrast CLINICAL HISTORY: Reason for exam: poss urinary obstruction, pain. TECHNIQUE: Axial computed tomography images of the abdomen and pelvis without intravenous contrast. CTDI is 24.03 mGy and DLP is 1148.66 mGy-cm. Automated exposure control was utilized for the study. A dose lowering technique was utilized adhering to the principles of ALARA. COMPARISON: No relevant prior studies available. FINDINGS: Lung bases: Compressive atelectasis at the lung bases. Pleural space: Small layering pleural effusions. Heart: Coronary artery atherosclerosis. Normal heart size. Large pericardial effusion measuring 14 mm. Low-attenuation cardiac blood pool consistent with anemia. Partially imaged cardiac pacer leads. ABDOMEN: Liver: Unremarkable. Gallbladder and bile ducts: Layering gallbladder sludge or small stones. No cholecystitis or biliary dilatation. Pancreas: Unremarkable. No ductal dilation. Spleen: Unremarkable. No splenomegaly. Adrenals: Unremarkable. No mass. Kidneys and ureters: Multiple nonobstructing bilateral kidney stones measuring up to 3 mm. No hydronephrosis. Stomach and bowel: No bowel obstruction. Increased colonic stool burden. Distal colonic diverticula without diverticulitis. PELVIS: Appendix: Appendix not identified. Bladder: Urinary bladder decompressed around a Rodriguez catheter. Bladder wall appears thickened and inflamed. No stones. Reproductive: Prostate is small in size or surgically absent. ABDOMEN and PELVIS: Intraperitoneal space: Mesenteric edema, presacral fat stranding, and trace pelvic ascites. No free air. Bones/joints: No acute fracture. No dislocation. Age-related degenerative changes in the spine. Joint space narrowing in both hips. Soft tissues: Low anterior abdominal surgical clips suggesting previous hernia repair. Mild anasarca. Vasculature: Atherosclerosis. No aortic aneurysm. Lymph nodes: Unremarkable. No enlarged lymph nodes. IMPRESSION: 1. Nonobstructing kidney stones. No hydronephrosis. 2. Bladder wall thickening concerning for cystitis. Correlate with urinalysis. 3. Small pleural effusions and bibasilar atelectasis. 4. Pericardial effusion measuring 15 mm. 5. Anemia. Electronically signed by: Kraig Sanford M.D. 05/30/23 19:34 PM Chest X-Ray 05/30/23 17:13 XR chest 1V portable HISTORY: weakness COMPARISON: Chest 05/03/2023. FINDINGS: No pneumothorax. The trace right pleural effusion. The heart is normal in size. Left-sided pacemaker noted. No acute fractures. Progressive interstitial/vascular thickening consistent with mild pulmonary edema. Patchy densities within the left lung base. IMPRESSION: 1. Interval development of mild interstitial pulmonary edema and a trace right pleural effusion. 2. Patchy densities at the left lung base may represent atelectasis or a pneumonia. ACT 112: Negative or not required by law. Electronically signed by: Kashif Sanchez M.D. 05/30/2023 6:16 PM Diagnostic Findings EKG as per my interpretation : Rate 110, A-fib, normal axis, nonspecific T wave abnormalities (1) Hypotension Hypotension type: unspecified hypotension type Qualified Code(s): I95.9 - Hypotension, unspecified
[2023-05-30] MEDS ORDERED: traMADol HCL 50 MG TABLET PO PRN (21:40)
[2023-05-30] MEDS ORDERED: ACETAMINOPHEN 325 MG TAB PO PRN (23:24)
[2023-05-31 00:22] LABS: Hematocrit (blood only) 25.6 % (42.0-52.0); Hemoglobin 8.7 g/dl (14.0-18.0); Reticulocyte % 2.09 % (0.50-2.00); Reticulocytes # 0.06 10^6/uL (0.020-0.100)
[2023-05-31 00:57] LABS: Ferritin 277.7 ng/ml (8-388)
[2023-05-31 01:03] LABS: Folate (Folic Acid),Ser orPlas 8.66 ng/ml (>5.38)
[2023-05-31] MEDS: AMIODARONE 200 MG TAB PO ONE (01:47)
[2023-05-31] MEDS: ATORVASTATIN 40 MG TAB PO SCH (01:47)
[2023-05-31] MEDS ORDERED: CARBOHYDRATES FOR HYPOGLYCEMIA PO PRN (03:01)
[2023-05-31] MEDS ORDERED: GLUCOSE 40% GEL 15 GM TUBE PO PRN (03:01)
[2023-05-31] MEDS ORDERED: GLUCAGON FOR INJ 1 MG VIAL SQ PRN (03:01)
[2023-05-31] MEDS ORDERED: DEXTROSE 50% 50 ML SYRINGE IV PRN (03:01)
[2023-05-31] MEDS ORDERED: GLUCOSE 10 TAB/TUBE PO PRN (03:01)
[2023-05-31] MEDS: PIPERACILLIN/TAZOBACTAM 4.5 GM in DEXTROSE 5% MINI-B 100 ML IV SCH (03:57)
[2023-05-31 04:48] LABS: Basophils # (auto) 0.02 K/uL (0.00-0.20); Basophils % (auto) 0.4 %; Eosinophils % (auto) 2.1 %; Hematocrit (blood only) 25.6 % (42.0-52.0); Hemoglobin 8.8 g/dl (14.0-18.0); Immature Granulocytes # (auto) 0.04 K/uL (0.01-0.20); Immature Granulocytes % (auto) 0.9 %; Lymphocytes # (auto) 0.58 K/uL (1.20-3.40); Lymphocytes % (auto) 12.3 %; Mean Corpuscular Hemoglobin 31.9 pg (25.0-34.0); Mean Corpuscular Hgb Conc 34.4 g/dL (32.0-36.0); Mean Corpuscular Volume 92.8 fL (80.0-100.0); Mean Platelet Volume 9.2 fL (9.4-12.4); Monocytes # (auto) 0.52 K/uL (0.11-0.59); Monocytes % (auto) 11.1 %; Neutrophils # (auto) 3.44 K/uL (1.40-6.50); Neutrophils % (auto) 73.2 %; Platelet Count 221 K/uL (130-400); RDW Coefficient of Variation 13.5 % (11.5-14.5); RDW Standard Deviation 45.6 fL (36.4-46.3); Red Blood Count 2.76 M/uL (4.70-6.10)
[2023-05-31 05:03] LABS: BUN Creatinine Ratio 16.1 (10-20); Calcium 7.9 mg/dl (8.6-10.3); Est GFR (Non-African American) 98.4 ml/min; Potassium 3.8 mmol/L (3.5-5.1)
[2023-05-31] MEDS: LEVOTHYROXINE SODIUM 75 MCG TABLET PO SCH (06:42)
[2023-05-31 07:46] LABS: Estimated Average Glucose 123 mg/dl; Hemoglobin A1C 5.9 % (4.5-5.6)
[2023-05-31] MEDS ORDERED: FERROUS SULFATE 325 MG TAB PO SCH (09:00)
[2023-05-31] MEDS ORDERED: PANTOprazole 40 MG TAB PO SCH (09:00)
[2023-05-31] MEDS ORDERED: PANTOprazole 40 MG in SYRINGE 0 ML IV SCH (09:00)
[2023-05-31] MEDS: INSULIN ASPART PER UNIT CHARGE SC SCH (09:37)
[2023-05-31] MEDS: PANTOprazole 40 MG TAB PO SCH (09:38)
[2023-05-31] MEDS: LINACLOTIDE 145 MCG CAPSULE PO SCH (09:38)
[2023-05-31] MEDS: lamoTRIgine 100 MG TAB PO SCH (09:38)
[2023-05-31] MEDS: GABAPENTIN 100 MG CAP PO SCH (09:38)
[2023-05-31] MEDS: FINASTERIDE 5 MG TAB PO SCH (09:39)
--- NOTE | 2023-05-31 09:54 | Gastrointestinal Consultation ---
Date of Consultation May 31, 2023 Assessment & Plan (1) Anemia: (2) Abnormal CT of the abdomen: Plan Patient does not appear to be actively GI bleeding. He reports none since inpatient and rectal exam in ED was hemoccult negative. He feels like he is weak, which seems to be his biggest concern currently. I discussed the case with Dr. Whitfield who helped advise on plan. - start the patient on clears today. - will start miralax 17gm BID. - will plan to start a golytely prep on Saturday. - Plan is to scope him on Saturday of next week as planned. Supervising Physician Co-Signing Physician Notes I saw the patient and agree with the findings as documented by JOE Reddy History of Present Illness Reason for Consultation: LGIB, planned colonoscopy next week per . Requesting Physician: Jayro Rose Attending Physician: Chaparro Ivory MD History of Present Illness Patient is a 77 year old male who has had issues for the past month with nausea and has had no appetite and has been diffusely weak. He was discharged from [facility] 3 days ago for acute renal failure. he tells me he is upset that they sent him home due to how weak he feels. He then decided to come to [facility] for evaluation. He tells me that outside of some mild rectal bleeding 3 days prior to admission that he has not had any further bleeding. He denies any current nausea. He has not moved his bowels since he has been here but admits he has not been eating well. he denies vomiting, dysphagia, heartburn, abdominal pain, or melena. Upon evaluation in the ED, per ED note, he tested hemoccult negative on rectal exam. He underwent a colonoscopy and EGD on 05/14/23 showing inadequate prep on colonoscopy. there was an esophaeal dilation performed. there was also a submu cosal nodule in the duodenum which he has been referred for an EUS as outpatient. He is planned for repeat colonoscopy on 06/03 due to a masslike thickening of the rectum seen on CT 05/03/23. Allergies Allergy/AdvReac Type Severity Reaction Status Date / Time azithromycin Allergy Severe Swelling Verified 05/30/23 19:49 [From Zithromax Z-Brady] of Lip/Tongue/Throat ethyl alcohol Allergy Intermediate "rubbing Verified 05/30/23 23:28 alcohol" caused blisters isopropyl alcohol Allergy Intermediate "rubbing Verified 05/30/23 23:28 alcohol" caused blisters latex Allergy Intermediate blisters Verified 05/30/23 19:49 verapamil AdvReac Severe asystole Verified 05/30/23 19:49 Home Medications Medication Instructions Recorded Confirmed Type atorvastatin 40 mg tablet 40 mg PO HS 02/16/21 05/30/23 History cholecalciferol (vitamin D3) 125 125 mcg PO QAM 02/16/21 05/30/23 History mcg (5,000 unit) tablet (Vitamin D3) finasteride 5 mg tablet 5 mg PO DAILY 02/16/21 05/30/23 History isosorbide mononitrate 60 mg 60 mg PO QPM 02/16/21 05/30/23 History tablet,extended release 24 hr lamotrigine 100 mg tablet 100 mg PO BID 02/16/21 05/30/23 History levothyroxine 75 mcg tablet 75 mcg PO 5XWK 02/16/21 05/30/23 History pantoprazole 40 mg tablet,delayed 40 mg PO QAM 02/16/21 05/30/23 History release ranolazine 1,000 mg 1,000 mg PO BID 02/16/21 05/30/23 History tablet,extended release,12 hr rivaroxaban 20 mg tablet (Xarelto) 20 mg PO HS 02/16/21 05/30/23 History amiodarone 200 mg tablet 200 mg PO QPM 05/03/23 05/30/23 History gabapentin 300 mg capsule 300 mg PO TID 05/03/23 05/30/23 History ketoconazole 2 % topical cream 1 applic topical UD PRN Skin 05/03/23 05/30/23 History Irritation/openings /none current nitroglycerin 0.4 mg sublingual 0.4 mg sublingual .[id number] PRN 05/03/23 05/30/23 History tablet Chest Pain ondansetron 8 mg disintegrating 8 mg PO UD PRN Nausea And Vomiting 05/03/23 05/30/23 History tablet peg 3350-electrolytes 236 240 ml PO Q10M #4,000 mL 05/08/23 05/30/23 Rx gram-22.74 gram-6.74 gram-5.86 gram solution (Golytely) dicyclomine 10 mg capsule 10 mg PO BID 05/10/23 05/30/23 History promethazine 25 mg tablet 25 mg PO UD PRN n/v 05/10/23 05/30/23 History sulfamethoxazole 800 1 tab PO Q12H 05/10/23 05/30/23 History mg-trimethoprim 160 mg tablet (Bactrim DS) linaclotide 145 mcg capsule 145 mcg PO DAILY #30 caps 05/14/23 05/30/23 Rx (Linzess) sodium sul 1.479 gram-potas ch See Rx Instructions PO .COMPLEX 05/16/23 05/30/23 Rx 0.188 gram-magnes sul 0.225 gram #24 tabs tablet (Sutab) ferrous sulfate 27 mg iron tablet 27 mg PO DAILY 05/30/23 05/30/23 History ramipril 5 mg capsule 5 mg PO DAILY 05/30/23 05/30/23 History sotalol 120 mg tablet 120 mg PO BID 05/30/23 05/30/23 History Patient History Medical History (Updated 05/31/23 @ 10:01 by Gilmar Dooley PA-C) Hypotension Esophageal dilatation Weight loss over 35 pounds over past month. History of radiation exposure 1986 History of stroke 2001 - no residual effects. History of colon polyps Mass of colon CT scan [facility] 05/03/23. Hemorrhoids internal Kidney lesion lesions on kidneys per CT scan/ [place] 2-3 weeks ago/talk of samantha with kidney - pt has not received follow up phone call. 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 Carney; on xarelto (currently on hold due to recatal bleeding) hx cardioversion x2 ? History of myocardial infarction x 2 (1986, 2001) History of esophageal dilatation Dysphagia Surgical History History of left-sided carotid endarterectomy History of hernia surgery x2 Pacemaker passing out/reason for pacemaker. last checked : "recent check by Dr. Carney"/[facility] History of tonsillectomy History of appendectomy History of left knee replacement + revision surgery History of cataract surgery rt/left History of parathyroidectomy History of bladder surgery TURBT H/O heart artery stent x 4 History of cardiac cath 05/2020 -- CP -- [facility] - no stents mult cardiac cath between 4618-0130 (4 stents placed total) - [facility] and [facility] in [place], [place] History of colonoscopy History of esophagogastroduodenoscopy (EGD) Family History Other No family history of adverse response to anesthesia Social History Smoking Status: Never smoker Second Hand Exposure: No; Do You Dip or Chew Tobacco: No; Hx Alcohol Use: No Hx Substance Use: No Preferred Language: Kiswahili Communication Ability: Effective Communication Ability Comment: pt is [place]/pt does phone interview/per pt preference. Contaminated Land Consultant Required: No Beliefs That Will Affect Care: None Current Living Situation: Spouse Other Information That Helps Us Care for You: No Feels Safe at Home: Yes Safety Concerns: Feels Safe At This Time Assistive Devices: Cane and Walker Review of Systems Review of Systems: All systems reviewed & are unremarkable except as noted in HPI & below Physical Exam Constitutional: WD/WN, vitals as above Respiratory: normal respiratory effort, lungs clear to auscultation Cardiovascular: RRR, no murmur, no edema Gastrointestinal (Abdomen): normal bowel sounds, soft, nontender, no hepatosplenomegaly Psychiatric: Orientation: alert and oriented x 3 Affect: euthymic affect Results & Data Vital Signs (Past 12 Hours) Vital Signs Temp Pulse Resp BP Pulse Ox Pulse Ox O2 Del Method 05/31/23 07:17 98.1 F 84 18 108/69 91 Room Air 05/31/23 02:57 98.1 F 95 H 18 114/70 91 Room Air 05/30/23 23:24 97 05/30/23 23:15 97.7 F 97 H 18 96/58 L 97 Room Air O2 Del Method 05/31/23 07:17 05/31/23 02:57 03/21/24 23:24 Room Air 05/30/23 23:[address] ABDOMEN + PELVIS Without Contrast EXAM: CT Abdomen and Pelvis Without Intravenous Contrast CLINICAL HISTORY: Reason for exam: poss urinary obstruction, pain. TECHNIQUE: Axial computed tomography images of the abdomen and pelvis without intravenous contrast. CTDI is 24.03 mGy and DLP is 1148.66 mGy-cm. Automated exposure control was utilized for the study. A dose lowering technique was utilized adhering to the principles of ALARA. COMPARISON: No relevant prior studies available. FINDINGS: Lung bases: Compressive atelectasis at the lung bases. Pleural space: Small layering pleural effusions. Heart: Coronary artery atherosclerosis. Normal heart size. Large pericardial effusion measuring 14 mm. Low-attenuation cardiac blood pool consistent with anemia. Partially imaged cardiac pacer leads. ABDOMEN: Liver: Unremarkable. Gallbladder and bile ducts: Layering gallbladder sludge or small stones. No cholecystitis or biliary dilatation. Pancreas: Unremarkable. No ductal dilation. Spleen: Unremarkable. No splenomegaly. Adrenals: Unremarkable. No mass. Kidneys and ureters: Multiple nonobstructing bilateral kidney stones measuring up to 3 mm. No hydronephrosis. Stomach and bowel: No bowel obstruction. Increased colonic stool burden. Distal colonic diverticula without diverticulitis. PELVIS: Appendix: Appendix not identified. Bladder: Urinary bladder decompressed around a Rodriguez catheter. Bladder wall appears thickened and inflamed. No stones. Reproductive: Prostate is small in size or surgically absent. ABDOMEN and PELVIS: Intraperitoneal space: Mesenteric edema, presacral fat stranding, and trace pelvic ascites. No free air. Bones/joints: No acute fracture. No dislocation. Age-related degenerative changes in the spine. Joint space narrowing in both hips. Soft tissues: Low anterior abdominal surgical clips suggesting previous hernia repair. Mild anasarca. Vasculature: Atherosclerosis. No aortic aneurysm. Lymph nodes: Unremarkable. No enlarged lymph nodes. IMPRESSION: 1. Nonobstructing kidney stones. No hydronephrosis. 2. Bladder wall thickening concerning for cystitis. Correlate with urinalysis. 3. Small pleural effusions and bibasilar atelectasis. 4. Pericardial effusion measuring 15 mm. 5. Anemia. Electronically signed by: Kraig Sanford M.D. 05/30/23 19:34 PM Coding Level of Care Code 06635 INT INP/OBS CARE 2/55MIN Diagnoses Anemia D64.9 Anemia type: unspecified type Abnormal CT of the abdomen R93.5 (1) Anemia Anemia type: unspecified type Qualified Code(s): D64.9 - Anemia, unspecified
--- NOTE | 2023-05-31 12:11 | Electrocardiogram Report ---
Test Reason : Blood Pressure : / mmHG Vent. Rate : 109 BPM Atrial Rate : 000 BPM P-R Int : 000 ms QRS Dur : 092 ms QT Int : 298 ms P-R-T Axes : 000 026 232 degrees QTc Int : 401 ms Atrial fibrillation with rapid ventricular response Nonspecific T wave abnormality Abnormal ECG When compared with ECG of 03-MAY-2023 17:30, Atrial fibrillation has replaced Electronic atrial pacemaker Nonspecific T wave abnormality now evident in Inferior leads Nonspecific T wave abnormality now evident in Anterolateral leads QT has shortened Confirmed by Noe Gooden ([id number]) on 05/31/2023 12:11:00 PM Referred By: REFERRED SELF Confirmed By:Matteo Gooden
[2023-05-31] MEDS: POLYETHYLENE (MIRALAX) 17 GM PACK PO SCH (12:29)
--- OUTSIDE RECORDS SUMMARY | 2023-05-31 12:42 | External Medical Summary | Summary of Care ---
Author Name Unknown Organization [facility] Address [address] [place] [address] Phone [phone] Care Team Providers Care Float Operator Name Role Phone Kristian Smallwood DO Primary Care Provider [phone] Reason for Visit * Reason Onset Date Comments Appointment 05/27/2023 Encounter Details Date Type Department Care Team (Late st Contact Info) Description 05/27/2023 Telephone Gastroenterology, [facility] [address] [place] [address] Sharona Garza DO [address] [place] [address] Appointment Allergies Active Allergy Reactions Criticality Noted Date Comments Alcohol 06/07/2016 Azithromycin Edema face/lips/tongue High 04/04/2016 SOB and swelling of mouth Other reaction(s): Edema face/lips/tongue SOB and swelling of mouth Other reaction(s): Edema face/lips/tongue SOB and swelling of mouth Other reaction(s): Edema face/lips/tongue SOB and swelling of mouth Other reaction(s): Edema face/lips/tongue SOB and swelling of mouth Carvedilol 08/26/2019 Nausea Cephalexin 08/26/2019 Clopidogrel 11/01/2016 Ethanol 08/26/2019 Isopropyl Alcohol Rash High 04/04/2016 Blisters on skin Other reaction(s): Blisters Other reaction(s): Other (Please comment) Blisters on skin Latex Other (Please comment) 04/04/2016 blisters Other reaction(s): Other (Please comment) blisters Verapamil High 08/26/2019 Other reaction(s): Shock Other reaction(s): Shock Intra-arterial administration during cath documented as of this encounter (statuses as of 05/29/2023) Medications Medication Sig Dispensed Refills Start Date End Date Status pantoprazole (PROTONIX) 40 MG TBEC Take 40 mg by mouth daily. 0 Active sulfamethoxazole-t rimethoprim DS (BACTRIM DS) 800-160 MG per tablet Take 1 Tab by mouth every 12 hours. 0 Active finasteride (PROSCAR) 5 MG Tablet Take 5 mg by mouth daily. 0 Active Isosorbide Mononitrate ER 60 MG Oral Tablet Extended Release 24 Hour (Imdur) Take 60 mg by mouth daily. 0 Active Nitroglycerin 0.4 MG Sublingual Tablet Sublingual (Nitrostat) Place 0.4 mg under the tongue every 5 minutes as needed for Pain, Chest. 0 Active Ramipril 5 MG Oral Capsule (Altace) Take 5 mg by mouth daily. 0 Active Ranolazine ER 1000 MG Oral Tablet Extended Release 12 Hour (Ranexa) Take 1,000 mg by mouth 2 times a day. 0 Active Sotalol HCl 120 MG Oral Tablet Take 120 mg by mouth 2 times a day. 0 Active lamoTRIgine 100 MG Oral Tablet (LaMICtal) Take 1 Tab by mouth 2 times a day. 0 10/24/2020 Active Ferrous Gluconate 240 (27 Fe) MG Oral Tablet Take 1 Tablet by mouth in the morning. 0 Active Dicyclomine HCl 10 MG Oral Capsule (Bentyl) Take 1 Capsule (10 mg) by mouth in the morning and 1 Capsule (10 mg) before bedtime. 0 Active Rivaroxaban 20 MG Oral Tablet (Xarelto) Take 1 Tablet (20 mg) by mouth at bedtime. 0 Active Ketoconazole 1 % External Shampoo Apply 1 Application Dosing Unit topically to affected area. Apply to scalp asdiirected 0 Active Vitamin D3 125 MCG (5000 UT) Oral Capsule Take 1 Capsule (5,000 Units) by mouth in the morning. 0 Active Iron 240 (27 Fe) MG Oral Tablet Take 1 Tablet by mouth in the morning. 0 Active Atorvastatin Calcium 40 MG Oral Tablet (Lipitor) Take 1 Tablet (40 mg) by mouth at bedtime. 0 Active Levothyroxine Sodium 75 MCG Oral Capsule (Tirosint) Take 75 mcg by mouth in the morning. (at least 30 min prior to breakfast or other meds) Take Mon-Fri-. Do not take on Sat-Sun. 0 Active Doxycycline Hyclate 100 MG Oral Capsule Take 1 Capsule (100 mg) by mouth in the morning and 1 Capsule (100 mg) before bedtime. For 10 days. 0 Active Pantoprazole Sodium 40 MG Oral Tablet Delayed Release (Protonix) TAKE ONE TABLET BY MOUTH EVERY DAY 90 Tablet 1 08/27/2022 08/27/2023 Active lamoTRIgine 100 MG Oral Tablet (LaMICtal) TAKE ONE TABLET BY MOUTH TWICE A DAY 180 Tablet 3 07/18/2022 07/18/2023 Active Ramipril 5 MG Oral Capsule (Altace) TAKE ONE CAPSULE BY MOUTH EVERY DAY 90 Capsule 4 07/04/2022 07/04/2023 Active Levothyroxine Sodium 75 MCG Oral Tablet (Levoxyl) take 1 tablet by mouth every day 45 minutes before the first meal of the day with a glass of water except for saturday and saturday 90 Tablet 3 10/11/2022 Active Isosorbide Mononitrate ER 60 MG Oral Tablet Extended Release 24 Hour (Imdur) take 1 tablet by mouth every day 90 Tablet 3 10/11/2022 Active Ranolazine ER 1000 MG Oral Tablet Extended Release 12 Hour take 1 tablet by mouth twice a day 180 Tablet 3 01/03/2023 Active documented as of this encounter (statuses as of 05/29/2023) Active Problems No known active problems documented as of this encounter (statuses as of 05/29/2023) Social History Tobacco Use Types Packs/Day Years Used Date Smoking Tobacco: Never Smokeless Tobacco: Never Alcohol Use Standard Drinks/Week Comments No 0 (1 standard drink = 0.6 oz pur e alcohol) Sex and Gender Information Value Date Recorded Sex Assigned at Not on file Gender Identity Not on file Sexual Orientation Not on file Job Start Date Occupation Industry Not on file Not on file Not on file documented as of this encounter Miscellaneous Notes * Telephone Encounter - Susie Gonsales OSA - 05/27/2023 4:16 PM EDT Re: records from Dr. Whitfield for an eus for submocosal colon lesion Please review records and advise. documented in this encounter Plan of Treatment Health Maintenance Due Date Last Done Comments Depression Screening 1957 Hepatitis C Screening 06/12/1961 TSH 06/12/1961 Zoster Vaccines (1 of 2) 06/12/1993 Pneumococcal Vaccine: 65+ Years (1 of 1 - PCV) 06/12/2008 COVID-19 Vaccine (1 - 2022-2 4 season) 2022 Influenza Vaccine (FLU shot) (#1) 2022 11/20/2021, 11/28/2020 DTaP,Tdap,and Td Vaccines (2 - Td or Tdap) 02/01/2031 02/01/2021 GARDASIL-HPV IMMUNIZATION SERIES Aged Out No longer eligible b ased on patient's age to complete this topic Hepatitis B Aged Out No longer eligi ble based on patient's age to complete this topic MENINGOCOCCAL (MENACTRA/MENVEO) Aged Out No longer eligible b ased on patient's age to complete this topic documented as of this encounter Medical Devices Not on filedocumented as of this encounter Care Teams Float Operator Relationship Specialty Start Date End Date Kristian Smallwood DO [address] [place] [address] PCP - General Family Medicine 03/23/16 documented as of this encounter
--- OUTSIDE RECORDS SUMMARY | 2023-05-31 12:42 | External Medical Summary | Summary of Care ---
Author Name Unknown Organization [facility] Address [address] [place] [place] [address] Phone [phone] Care Team Providers Care Chainstitch Elastic Attacher Name Role Phone Kristian Smallwood DO Primary Care Provider [phone] Reason for Visit * Reason Onset Date Comments Appointment 05/27/2023 Encounter Details Date Type Department Care Team (Late st Contact Info) Description 05/27/2023 Telephone Gastroenterology, [facility] [address] [place] [address] Sharona Garza DO [address] [place] [address] Appointment Allergies Active Allergy Reactions Criticality Noted [...] as of this encounter (statuses as of 05/27/2023) Medications Medication Sig Dispensed Refills Start Date [...] as of this encounter (statuses as of 05/27/2023) Active Problems No known active problems documented as of this encounter (statuses as of 05/27/2023) Social History Tobacco Use Types Packs/Day Years [...] filedocumented as of this encounter Care Teams Chainstitch Elastic Attacher Relationship Specialty Start Date End Date Kristian Smallwood DO [address] [place] [address] PCP - General Family Medicine 03/23/16 documented as of this encounter
--- OUTSIDE RECORDS SUMMARY | 2023-05-31 12:42 | External Medical Summary | Summary of Care ---
Author Name Unknown Organization [facility] Address [address] [place] [place] [place] [address] Phone [phone] Care Team Providers Care Graffiti Cleaner Name Role Phone Kristian Smallwood DO Primary Care Provider [phone] Reason for Visit * Reason Onset Date Comments Appointment 05/27/2023 Encounter Details Date Type Department Care Team (Late st Contact Info) Description 05/27/2023 Telephone Gastroenterology, [facility] [address] [place] [address] Sharona Garza DO [address] [place] [address] Appointment Allergies Active Allergy Reactions Criticality Noted [...] as of this encounter (statuses as of 05/30/2023) Medications Medication Sig Dispensed Refills Start Date [...] as of this encounter (statuses as of 05/30/2023) Active Problems No known active problems documented as of this encounter (statuses as of 05/30/2023) Social History Tobacco Use Types Packs/Day Years [...] encounter Miscellaneous Notes * Telephone Encounter - Sharona Garza DO - 05/30/2023 10:00 AM EDT The patient had an incomplete colonoscopy and thus appears to need same time. He will need a 2-day bowel preparation as he had a poor preparation with his examination earlier this month. We can do a transrectal ultrasound at the same time for wallthicking seen on CT. Timing: within 12 weeks Any provider 2 day bowel preparation * Telephone Encounter - Susie Gonsales OSA [...] filedocumented as of this encounter Care Teams Graffiti Cleaner Relationship Specialty Start Date End Date Kristian Smallwood DO [address] [place] [address] PCP - General Family Medicine 03/23/16 documented as of this encounter
--- NOTE | 2023-05-31 14:36 | Urology Consultation ---
Date of Consultation May 31, 2023 Assessment & Plan (1) Urinary retention: (2) Acute UTI: (3) Renal mass: Plan 77 year old male admitted with hypotension, hematochezia, generalized weakness. Urology asked to evaluate patient due to urinary retention and CT findings of renal mass. Afebrile and hemodynamically stable. Labs reviewedWBC 4.70, hemoglobin 8.8, creatinine 0.56. Urine culture prelim gram-negative bacilli; Blood cultures pending. No acute urological intervention warranted. Rodriguez catheter in place for bladder decompression and appears to be draining appropriately. Continue to monitor. Would recommend maintaining Rodriguez catheter for at least 7-10 days and while treating infection. We can arrange void trial as an outpatient in the urology clinic. Further management of the bilateral renal masses can be discussed as an outpatient. Continue antibiotics and tailor as culture data becomes available. Continue supportive care. Plan for outpatient follow-up with urology service as scheduled. Urology will sign off. Please call with any further questions, concerns, or changes in patient status. History of Present Illness Attending Physician: Chaparro Ivory MD History of Present Illness 77 year old male admitted with hypotension, hematochezia, generalized weakness. PMHx includes chronic diastolic HF, CAD status post stent, CVA as per records, PVD status post surgery, SSS status post PPM currently off Xarelto, hypertension, hyperlipidemia, history E. coli bacteremia secondary to knee surgery on lifelong Bactrim Rx, hypothyroidism, seizure disorder, dementia as per records, BPH, GERD, bladder cancer status post surgery, hyperparathyroidism status post surgery, chronic anemia He was recently admitted to [facility] after a fall. Found to have acute renal failure. Had Rodriguez placed for urinary retention. Per patient/, he failed a voiding trial on Friday 05/26 and the Rodriguez catheter was replaced. He presented to [facility] ED on 05/30/23 due to generalized weakness and ill feelings. He was also recently found to have b/l renal masses on CT imaging. Urology consulted for urinary retention and renal mass. Patient was examined at bedside this afternoon. He is awake and sitting in bedside chair on arrival. No acute distress. at bedside. Denies any pain or discomfort at present. Denies fever, chills, nausea, vomiting. Rodriguez draining clear yellow urine. Patient reports a hx of bladder cancer with what sounds like TURBT several years ago. He is unsure of exact details. He is not currently following with a urologist. CT abdomen pelvis without contrast 05/30/2023- 1. Nonobstructing kidney stones. No hydronephrosis. 2. Bladder wall thickening concerning for cystitis. Correlate with urinalysis. 3. Small pleural effusions and bibasilar atelectasis. 4. Pericardial effusion measuring [address] abdomen pelvis with contrast 05/03/2023- 1. Masslike circumferential wall thickening of the rectum with perirectal inflammatory stranding and subcentimeter perirectal lymph nodes. Findings are concerning for a primary colorectal malignancy. Nonemergent GI consultation with colonoscopy is needed. 2. There are bilateral renal masses measuring up to 4 cm suggestive of malignancy. 3. Nonobstructing bilateral nephrolithiasis. 4. Nonspecific urinary bladder wall thickening. Correlate with urinalysis. 5. Constipation. 6. Healing subacute nondisplaced fractures of the left L3 transverse process, right posterior medial 10th, 11th and 12th ribs. Allergies Allergy/AdvReac Type Severity Reaction Status Date / Time azithromycin Allergy Severe Swelling Verified 05/30/23 19:49 [From Zithromax Z-Brady] of Lip/Tongue/Throat ethyl alcohol Allergy Intermediate "rubbing Verified 05/30/23 23:28 alcohol" caused blisters isopropyl alcohol Allergy Intermediate "rubbing Verified 05/30/23 23:28 alcohol" caused blisters latex Allergy Intermediate blisters Verified 05/30/23 19:49 verapamil AdvReac Severe asystole Verified 05/30/23 19:49 Home Medications Medication Instructions Recorded Confirmed Type atorvastatin 40 mg tablet 40 mg PO HS 02/16/21 05/30/23 History cholecalciferol (vitamin D3) 125 125 mcg PO QAM 02/16/21 05/30/23 History mcg (5,000 unit) tablet (Vitamin D3) finasteride 5 mg tablet 5 mg PO DAILY 02/16/21 05/30/23 History isosorbide mononitrate 60 mg 60 mg PO QPM 02/16/21 05/30/23 History tablet,extended release 24 hr lamotrigine 100 mg tablet 100 mg PO BID 02/16/21 05/30/23 History levothyroxine 75 mcg tablet 75 mcg PO 5XWK 02/16/21 05/30/23 History pantoprazole 40 mg tablet,delayed 40 mg PO QAM 02/16/21 05/30/23 History release ranolazine 1,000 mg 1,000 mg PO BID 02/16/21 05/30/23 History tablet,extended release,12 hr rivaroxaban 20 mg tablet (Xarelto) 20 mg PO HS 02/16/21 05/30/23 History amiodarone 200 mg tablet 200 mg PO QPM 05/03/23 05/30/23 History gabapentin 300 mg capsule 300 mg PO TID 05/03/23 05/30/23 History ketoconazole 2 % topical cream 1 applic topical UD PRN Skin 05/03/23 05/30/23 History Irritation/openings /none current nitroglycerin 0.4 mg sublingual 0.4 mg sublingual .[id number] PRN 05/03/23 05/30/23 History tablet Chest Pain ondansetron 8 mg disintegrating 8 mg PO UD PRN Nausea And Vomiting 05/03/23 05/30/23 History tablet peg 3350-electrolytes 236 240 ml PO Q10M #4,000 mL 05/08/23 05/30/23 Rx gram-22.74 gram-6.74 gram-5.86 gram solution (Golytely) dicyclomine 10 mg capsule 10 mg PO BID 05/10/23 05/30/23 History promethazine 25 mg tablet 25 mg PO UD PRN n/v 05/10/23 05/30/23 History sulfamethoxazole 800 1 tab PO Q12H 05/10/23 05/30/23 History mg-trimethoprim 160 mg tablet (Bactrim DS) linaclotide 145 mcg capsule 145 mcg PO DAILY #30 caps 05/14/23 05/30/23 Rx (Linzess) sodium sul 1.479 gram-potas ch See Rx Instructions PO .COMPLEX 05/16/23 05/30/23 Rx 0.188 gram-magnes sul 0.225 gram #24 tabs tablet (Sutab) ferrous sulfate 27 mg iron tablet 27 mg PO DAILY 05/30/23 05/30/23 History ramipril 5 mg capsule 5 mg PO DAILY 05/30/23 05/30/23 History sotalol 120 mg tablet 120 mg PO BID 05/30/23 05/30/23 History Patient History Medical History (Updated 05/31/23 @ 14:29 by DEEPTHI Staton) Hypotension Esophageal dilatation Weight loss over 35 pounds over past month. History of radiation exposure 1986 History of stroke 2001 - no residual effects. History of colon polyps Mass of colon CT scan [facility] 05/03/23. Hemorrhoids internal Kidney lesion lesions on kidneys per CT scan/ [place] 2-3 weeks ago/talk of samantha with kidney - pt has not received follow up phone call. Rectal bleeding Neuropathy CAD (coronary artery disease) On anticoagulant therapy Hypothyroidism Prophylactic antibiotic medical terminologist use of antibiotic>hx artificial joint infection Osteoarthritis History of bladder cancer treated surgically S[place]IA (hard of hearing) reads lips Seizure-like activity hx 2014 - neuro work up neg for seizures - no issues since (follows with [facility]) HLD (hyperlipidemia) HTN (hypertension) History of atrial fibrillation follows with Dr. Carney; on xarelto (currently on hold due to recatal bleeding) hx cardioversion x2 ? History of myocardial infarction x 2 (1986, 2001) History of esophageal dilatation Dysphagia Surgical History History of left-sided carotid endarterectomy History of hernia surgery x2 Pacemaker passing out/reason for pacemaker. last checked : "recent check by Dr. Carney"/[facility] History of tonsillectomy History of appendectomy History of left knee replacement + revision surgery History of cataract surgery rt/left History of parathyroidectomy History of bladder surgery TURBT H/O heart artery stent x 4 History of cardiac cath 05/2020 -- CP -- [facility] - no stents mult cardiac cath between [id number] (4 stents placed total) - [facility] and [facility] in [place], [place] History of colonoscopy History of esophagogastroduodenoscopy (EGD) Family History Other No family history of adverse response to anesthesia Social History Smoking Status: Never smoker Second Hand Exposure: No; Do You Dip or Chew Tobacco: No; Hx Alcohol Use: No Hx Substance Use: No Preferred Language: Angolan Communication Ability: Effective Communication Ability Comment: pt is [place]/pt does phone interview/per pt preference. Nurse Case Manager Required: No Beliefs That Will Affect Care: None Current Living Situation: Spouse Feels Safe at Home: Yes Assistive Devices: Cane and Walker Review of Systems Review of Systems: All systems reviewed & are unremarkable except as noted in HPI & below Physical Exam Constitutional: no acute distress Neck: normal visual inspection Respiratory: no respiratory distress and no labored breathing Musculoskeletal: Head/Neck/Chest: normocephalic Skin: No visible rashes or lesions to exposed skin areas Neurologic: moves all extremities and awake Psychiatric: Orientation: alert, oriented x 3 and cooperative Genitourinary: Rodriguez draining clear yellow urine Results & Data Vital Signs (Past 12 Hours) Vital Signs Temp Pulse Resp BP Pulse Ox O2 Del Method 05/31/23 11:08 36.8 C 87 19 115/75 94 Room Air 05/31/23 07:17 36.7 C 84 18 108/69 91 Room Air 05/31/23 02:57 36.7 C 95 H 18 114/70 91 Room Air PG Care Time/CCT Total # of Minutes Spent Total Time Spent with Patient: Total time spent is greater than 50% in coordination of care (as documented) at patient's floor/unit and/or counseling patient: Coding Level of Care Code 75586 INT INP/OBS CARE 2/55MIN Diagnoses Urinary retention R33.9 Acute UTI N39.0 Renal mass N28.89
--- NOTE | 2023-05-31 15:07 | Hospitalist Progress Note ---
Date of Service May 31, 2023 Assessment & Plan (1) Hypotension: Plan: Per admitting service notes with addendum: Multifactorial: Hypovolemia from decreased p.o. intake Possible sepsis from complicated UTI, history of BPH, history of bladder cancer status post surgery, patient discharged with Rodriguez catheter for urinary retention during recent confinement at [facility] ? Pericardial effusion contributory Episodic LGIB, possible colonic malignancy; occasional dark stool likely from iron tablets given negative FOBT at the ER as per ER provider account. Multiple home BP meds contributory 05/30 Blood pressure improving Hold usual BP meds for now Urine and blood culture pending Continue empiric Zosyn Echocardiogram pending No signs and symptoms of pericarditis at this point but will monitor closely No recurrence of hematochezia Hemoglobin is stable For colonoscopy on Saturday per GI service chronic HF -Euvolemic at this time Acute on chronic anemia secondary to above LGIB, possible dilutional anemia given recent confinement at [facility] for renal failure which required IV hydration -Hemoglobin stable around 8 -Continue to monitor hx CAD/CVA as per records A-fib - Xarelto currently on hold hyperlipidemia, on statin Rx history E. coli bacteremia secondary to knee surgery on lifelong Bactrim -Currently on Zosyn hypothyroidism, euthyroid as of today's TSH seizure disorder on Lamictal dementia GERD, on PPI Bilateral renal masses, possible malignancy Possible functional disability/deconditioning PT OT eval once medically stable DVT prophylaxis. SCDs Re: Episodic LGIB DNR as per patient as per patient directives. Disposition Will need PT and OT evaluation May need to transition to acute rehab versus half-way facility Admission and Anticipated Discharge Date Admission Date: May 30, 2023 Subjective Follow-up for hypotension, abdominal pain, etc. Seen resting in bedside chair, comfortable, in good spirits Patient's Brittany at the bedside visiting Patient states he feels better overall compared to yesterday Is actually able to ambulate in the hallways today Strength is improving Abdominal pain resolved, no nausea or vomiting No fevers or chills No recurrence of hematochezia Denies chest pain, shortness of breath, palpitations, dizziness No other new symptoms Review of Systems Review of Systems: all noted and negative except for above Physical Exam Physical Exam: General- oriented x 3, not in distress, speaks in sentences with no effort or accessory muscle use Eyes- anicteric Neck- no JVD Lungs- clear breath sounds bilaterally, no rales/wheezes Heart- normal rate, regular rhythm; no murmurs Abdomen- normal bowel sounds, nondistended, soft, nontender Rodriguez catheter in place-draining dark yellow urine Extremities- no pretibial edema, no calf tenderness Neuro- alert, oriented x 3; no gross focal neurologic deficits Skin- warm & dry Results & Data Results & Data Vital Signs (Past 12 Hours) Vital Signs Temp Pulse Pulse Resp BP Pulse Ox O2 Del Method 05/31/23 11:08 36.8 C 87 19 115/75 94 Room Air 05/31/23 10:00 95 H 05/31/23 07:17 36.7 C 84 18 108/69 91 Room Air all noted and reviewed including below (1) Hypotension Hypotension type: unspecified hypotension type Qualified Code(s): I95.9 - Hypotension, unspecified
[2023-05-31] MEDS: AMIODARONE 200 MG TAB PO SCH (20:46)
[2023-05-31] MEDS: SOTALOL HCL 80 MG TAB PO SCH (20:48)
[2023-05-31] MEDS: RANOLAZINE 500 MG ER TAB PO SCH (20:50)
[2023-06-01 09:18] LABS: Basophils # (auto) 0.04 K/uL (0.00-0.20); Basophils % (auto) 0.8 %; Eosinophils # (auto) 0.12 K/uL (0.00-0.50); Eosinophils % (auto) 2.3 %; Hematocrit (blood only) 30.6 % (42.0-52.0); Hemoglobin 10.2 g/dl (14.0-18.0); Immature Granulocytes # (auto) 0.04 K/uL (0.01-0.20); Immature Granulocytes % (auto) 0.8 %; Lymphocytes # (auto) 0.48 K/uL (1.20-3.40); Lymphocytes % (auto) 9.1 %; Mean Corpuscular Hemoglobin 31.9 pg (25.0-34.0); Mean Corpuscular Hgb Conc 33.3 g/dL (32.0-36.0); Mean Corpuscular Volume 95.6 fL (80.0-100.0); Mean Platelet Volume 9.1 fL (9.4-12.4); Monocytes # (auto) 0.47 K/uL (0.11-0.59); Monocytes % (auto) 8.9 %; Neutrophils # (auto) 4.11 K/uL (1.40-6.50); Neutrophils % (auto) 78.1 %; Platelet Count 254 K/uL (130-400); RDW Coefficient of Variation 13.6 % (11.5-14.5); RDW Standard Deviation 47.3 fL (36.4-46.3); White Blood Count 5.26 K/ul (4.8-10.8)
[2023-06-01 09:27] LABS: BUN Creatinine Ratio 10.2 (10-20); Calcium 8.3 mg/dl (8.6-10.3); Creatinine Clr Calc Pharmacy 101.5 ml/min; Est GFR (African American) 111.6 ml/min; Est GFR (Non-African American) 96.3 ml/min
[2023-06-01] MEDS: cefTRIAXone SODIUM 2,000 MG in DEXTROSE 5 % MINI-B 50 ML IV SCH (09:58)
--- NOTE | 2023-06-01 11:19 | Hospitalist Progress Note ---
Date of Service June 01, 2023 Assessment & Plan (1) Hypotension: Plan: Per admitting service notes with addendum: Multifactorial: Hypovolemia from decreased p.o. intake Possible sepsis from complicated UTI, history of BPH, history of bladder cancer status post surgery, patient discharged with Rodriguez catheter for urinary retention during recent confinement at [facility] ? Pericardial effusion contributory Episodic LGIB, possible colonic malignancy; occasional dark stool likely from iron tablets given negative FOBT at the ER as per ER provider account. Multiple home BP meds contributory 05/31 Blood pressure improving Hold usual BP meds for now Urine culture (obtained from Rodriguez): E coli Blood culture: negative so far transition empiric Zosyn--> Ceftriaxone IV Echocardiogram noted: moderate pericardial effusion will consult Cardiology No recurrence of hematochezia Hemoglobin is stable For colonoscopy on Saturday per GI service chronic HF -Euvolemic at this time Acute on chronic anemia secondary to above LGIB, possible dilutional anemia given recent confinement at [facility] for renal failure which required IV hydration -Hemoglobin stable around 8->10 -Continue to monitor hx CAD/CVA as per records A-fib - Xarelto currently on hold hyperlipidemia, on statin Rx history E. coli bacteremia secondary to knee surgery on lifelong Bactrim -Currently on Zosyn hypothyroidism, euthyroid as of today's TSH seizure disorder on Lamictal dementia GERD, on PPI Bilateral renal masses, possible malignancy Possible functional disability/deconditioning PT OT eval once medically stable DVT prophylaxis. SCDs Re: Episodic LGIB DNR as per patient as per patient directives. Disposition Will need PT and OT evaluation May need to transition to acute rehab versus group home facility Admission and Anticipated Discharge Date Admission Date: May 30, 2023 Subjective ff up for weakness, etc seen resting in chair, comfortable in good spirits states he feels that he is improving able to ambulate in the halls this morning, no issues no abdominal pain, nausea, hematochezia no fever/chills no chest pain, dyspnea, palpitations, dizziness no other symptoms Review of Systems Review of Systems: all noted and negative except for above Physical Exam Physical Exam: General- oriented x 3, not in distress, speaks in sentences with no effort or accessory muscle use Eyes- anicteric Neck- no JVD Lungs- clear breath sounds bilaterally, no rales/wheezes Heart- normal rate, regular rhythm; no murmurs Abdomen- normal bowel sounds, nondistended, soft, nontender Rodriguez cath: yellow urine Extremities- no pretibial edema, no calf tenderness Neuro- alert, oriented x 3; no gross focal neurologic deficits Skin- warm & dry Results & Data Results & Data Vital Signs (Past 12 Hours) Vital Signs Temp Pulse Resp BP Pulse Ox O2 Del Method 06/01/23 07:29 36.4 C L 77 18 99/64 L 91 Room Air 06/01/23 03:46 36.9 C 80 18 96/63 L 91 Room Air all noted and reviewed including below (1) Hypotension Hypotension type: unspecified hypotension type Qualified Code(s): I95.9 - Hypotension, unspecified
--- NOTE | 2023-06-01 13:46 | Communication Note ---
Date of Service: June 01, 2023 pt had large bm yesterday, doing miralax bid, walking around hallway today, continue miralax bid and will see how he's doing tomorrow to determine scope vs. saturday. Kamron Whitfield MD Gastroenterology
[2023-06-01] MEDS: ADVANCED PROBIOTIC 625 MG CAPSULE PO SCH (14:12)
--- NOTE | 2023-06-01 19:51 | Cardiology Consultation ---
Date of Consultation June 01, 2023 Assessment & Plan (1) Pericardial effusion: (2) Hypotension: (3) Debilitated: (4) Anemia: (5) Weakness: Plan 1. Pericardial effusion 2. Hypotension imporved 3. Generalized weakness 4. Lower GI bleed 5. CAD 6. Atrial fibrillation 7. SSD s/p Dual chamber PPM [facility] Pericardial effusion: echo during this admission shows moderate size pericardial effusion without signs of tamponade. clinically no evidence of tamponade no symptoms of pericarditis. heart rate is stable in atrial fibrillation. rate controlled blood pressure low multifactorial poor PO intake ,multiple medications repeat echocardiogram next week to reassess size of effusion. if effusion size is stable would than consider restarting anticoagulation Atrial fibrillation: do not have his most recent records from cardiology. his med list currently shows both sotalol and amiodarone unable to clarify this with information available. he is known history of paroxysmal atrial fibrillation on Xarelto history of cardioversion in November 2019 and October 2021. as per his most recent cardiology note available heart rates have been fast in March plan was to switch from sotalol to amiod arone we will hold off on sotalol continue with amiodarone Xarelto on hold because of GI bleeds and for colonoscopy Coronary artery disease history of coronary artery disease with multiple stenting in the past most recent cardiac catheterization May 2020 with nonobstructive disease has been on isosorbide mononitrate and Ranexa with low blood pressure agree with discontinuation of isosorbide mononitrate Dual-chamber [employer] pacemaker; as per battery life has close to 6 months and needs a change I spent a total of 70 minutes coordinating, documenting, and providing care for this patient excluding time spent in the performance of separately billed services or time spent by another provider/QHP. History of Present Illness Reason for Consultation: pericardial effusion Requesting Physician: Mateo meeks Attending Physician: Chaparro Ivory MD History of Present Illness 77-year-old male presented to the emergency room with generalized weakness, nausea ,decreased appetite rectal bleeding history of complicated UTI history of bladder cancer post surgery, episodic lower GI bleed, acute on chronic anemia, coronary artery disease. as per patient has not been feeling well since April had admissions in the at [facility] most recent week ago for falls and acute kidney injury, since he was discharged home has been very weak dark urine and occasional lower GI bleed. patient follows with Cardiology at [facility] cardiac history history of coronary artery disease since 2001 cardiac catheterization in 2001 underwent stenting to left circumflex, PCI to OM1 in 2006, permanent pacemaker [employer] dual-chamber May 12, 2008, cardiac cat heterization 2010 left PDA 70% underwent drug-eluting stent complicated by distal wire dissection and occlusion of terminal portion of the left posterior descending artery, October 2010 bare metal stenting to RCA, pacemaker generator change December 2013, cardiac arrest PA immediately after administration of verapamil cardiac catheterization at that time obstructive disease medical management, most recent cardiac catheterization May 2020 lad 30% stenosis small diagonal 50%, distal circumflex 30% mid RCA 30% medical management. Paroxysmal atrial fibrillation cardioversion in 1999October 2021 coronary artery , on sotalol recently started on amiodarone Allergies Allergy/AdvReac Type Severity Reaction Status Date / Time azithromycin Allergy Severe Swelling Verified 05/30/23 19:49 [From Zithromax Z-Brady] of Lip/Tongue/Throat ethyl alcohol Allergy Intermediate "rubbing Verified 05/30/23 23:28 alcohol" caused blisters isopropyl alcohol Allergy Intermediate "rubbing Verified 05/30/23 23:28 alcohol" caused blisters latex Allergy Intermediate blisters Verified 05/30/23 19:49 verapamil AdvReac Severe asystole Verified 05/30/23 19:49 Home Medications Medication Instructions Recorded Confirmed Type atorvastatin 40 mg tablet 40 mg PO HS 02/16/21 05/30/23 History cholecalciferol (vitamin D3) 125 125 mcg PO QAM 02/16/21 05/30/23 History mcg (5,000 unit) tablet (Vitamin D3) finasteride 5 mg tablet 5 mg PO DAILY 02/16/21 05/30/23 History isosorbide mononitrate 60 mg 60 mg PO QPM 02/16/21 05/30/23 History tablet,extended release 24 hr lamotrigine 100 mg tablet 100 mg PO BID 02/16/21 05/30/23 History levothyroxine 75 mcg tablet 75 mcg PO 5XWK 02/16/21 05/30/23 History pantoprazole 40 mg tablet,delayed 40 mg PO QAM 02/16/21 05/30/23 History release ranolazine 1,000 mg 1,000 mg PO BID 02/16/21 05/30/23 History tablet,extended release,12 hr rivaroxaban 20 mg tablet (Xarelto) 20 mg PO HS 02/16/21 05/30/23 History amiodarone 200 mg tablet 200 mg PO QPM 05/03/23 05/30/23 History gabapentin 300 mg capsule 300 mg PO TID 05/03/23 05/30/23 History ketoconazole 2 % topical cream 1 applic topical UD PRN Skin 05/03/23 05/30/23 History Irritation/openings /none current nitroglycerin 0.4 mg sublingual 0.4 mg sublingual .[id number] PRN 05/03/23 05/30/23 History tablet Chest Pain ondansetron 8 mg disintegrating 8 mg PO UD PRN Nausea And Vomiting 05/03/23 05/30/23 History tablet peg 3350-electrolytes 236 240 ml PO Q10M #4,000 mL 05/08/23 05/30/23 Rx gram-22.74 gram-6.74 gram-5.86 gram solution (Golytely) dicyclomine 10 mg capsule 10 mg PO BID 05/10/23 05/30/23 History promethazine 25 mg tablet 25 mg PO UD PRN n/v 05/10/23 05/30/23 History sulfamethoxazole 800 1 tab PO Q12H 05/10/23 05/30/23 History mg-trimethoprim 160 mg tablet (Bactrim DS) linaclotide 145 mcg capsule 145 mcg PO DAILY #30 caps 05/14/23 05/30/23 Rx (Linzess) sodium sul 1.479 gram-potas ch See Rx Instructions PO .COMPLEX 05/16/23 05/30/23 Rx 0.188 gram-magnes sul 0.225 gram #24 tabs tablet (Sutab) ferrous sulfate 27 mg iron tablet 27 mg PO DAILY 05/30/23 05/30/23 History ramipril 5 mg capsule 5 mg PO DAILY 05/30/23 05/30/23 History sotalol 120 mg tablet 120 mg PO BID 05/30/23 05/30/23 History Patient History Medical History (Updated 05/31/23 @ 14:29 by DEEPTHI Staton) Hypotension Esophageal dilatation Weight loss over 35 pounds over past month. History of radiation exposure 1986 History of stroke 2001 - no residual effects. History of colon polyps Mass of colon CT scan [facility] 05/03/23. Hemorrhoids internal Kidney lesion lesions on kidneys per CT scan/ [place] 2-3 weeks ago/talk of samantha with kidney - pt has not received follow up phone call. Rectal bleeding Neuropathy CAD (coronary artery disease) On anticoagulant therapy Hypothyroidism Prophylactic antibiotic shelter use of antibiotic>hx artificial joint infection Osteoarthritis History of bladder cancer treated surgically [place] (hard of hearing) reads lips Seizure-like activity hx 2014 - neuro work up neg for seizures - no issues since (follows with [facility]) HLD (hyperlipidemia) HTN (hypertension) History of atrial fibrillation follows with Dr. Carney; on xarelto (currently on hold due to recatal bleeding) hx cardioversion x2 ? History of myocardial infarction x 2 (1986, 2001) History of esophageal dilatation Dysphagia Surgical History History of left-sided carotid endarterectomy History of hernia surgery x2 Pacemaker passing out/reason for pacemaker. last checked : "recent check by Dr. Carney"/[facility] History of tonsillectomy History of appendectomy History of left knee replacement + revision surgery History of cataract surgery rt/left History of parathyroidectomy History of bladder surgery TURBT H/O heart artery stent x 4 History of cardiac cath 05/2020 -- CP -- [facility] - no stents mult cardiac cath between [id number] (4 stents placed total) - [facility] and [facility] in [place], [place] History of colonoscopy History of esophagogastroduodenoscopy (EGD) Family History Other No family history of adverse response to anesthesia Social History Smoking Status: Never smoker Second Hand Exposure: No; Do You Dip or Chew Tobacco: No; Hx Alcohol Use: No Hx Substance Use: No Preferred Language: Icelandic Communication Ability: Effective Communication Ability Comment: pt is [place]ak/pt does phone interview/per pt preference. Shipping Inspector Required: No Beliefs That Will Affect Care: None Current Living Situation: Spouse Feels Safe at Home: Yes Safety Concerns: Feels Safe At This Time Assistive Devices: Cane and Walker Review of Systems Constitutional: + fatigue, + malaise and + anorexia Eyes: no worsening vision Respiratory: + dyspnea and + dyspnea on exertion Cardiovascular: + dyspnea, + dyspnea on exertion and + o rthopnea; no chest pain, no paroxysmal nocturnal dyspnea and no syncope Gastrointestinal: + nausea and + blood in stools Genitourinary: + urinary frequency Musculoskeletal: + muscle weakness Neurologic: + unsteadiness, + falls and + generalize d weakness Psychiatric: + change in appetite Endocrine: + fatigue Physical Exam Constitutional: + frail appearing Eyes: no conjunctival abnormality Neck: Thyroid: no thyromegaly Respiratory: normal respiratory effort; no audible wheezes Auscultation: no rales and no rhonchi Cardiovascular: Rate/Rhythm: regular rate and regular rhythm Heart Sounds: + murmur Extremities: no edema Gastrointestinal (Abdomen): Percussion/Palpation: abdomen soft; no guarding Neurologic: awake Psychiatric: Orientation: alert and oriented to place Results & Data Vital Signs (Past 12 Hours) Vital Signs Temp Pulse Pulse Resp BP Pulse Ox O2 Del Method 06/01/23 16:50 36.4 C L 81 18 108/62 93 Room Air 06/01/23 16:10 67 06/01/23 11:55 36.8 C 60 18 107/69 94 Room Air 06/01/23 08:10 60 (2) Hypotension Hypotension type: unspecified hypotension type Qualified Code(s): I95.9 - Hypotension, unspecified (4) Anemia Anemia type: unspecified type Qualified Code(s): D64.9 - Anemia, unspecified
--- NOTE | 2023-06-02 10:04 | Hospitalist Progress Note ---
Date of Service June 02, 2023 Assessment & Plan (1) Hypotension: Plan: Per admitting service notes with addendum: Multifactorial: Hypovolemia from decreased p.o. intake Possible sepsis from complicated UTI, history of BPH, history of bladder cancer status post surgery, patient discharged with [facility] catheter for urinary retention during recent confinement at [facility] ? Pericardial effusion contributory Episodic LGIB, possible colonic malignancy; occasional dark stool likely from iron tablets given negative FOBT at the ER as per ER provider account. Multiple home BP meds contributory 06/01 Blood pressure improving Hold usual BP meds for now Urine culture (obtained from [facility]): E coli Blood culture: negative so far transition empiric Zosyn--> Ceftriaxone IV Echocardiogram noted: moderate pericardial effusion consulted Cardiology "repeat echocardiogram next week to reassess size of effusion. if effusion size is stable would than consider restarting anticoagulation" No recurrence of hematochezia Hemoglobin is stable For colonoscopy tomorrow per GI service golytely prep tonight chronic HF -Euvolemic at this time Acute on chronic anemia secondary to above LGIB, possible dilutional anemia given recent confinement at [facility] for renal failure which required IV hydration -Hemoglobin stable around 8->10 -Continue to monitor hx CAD/CVA as per records A-fib - Xarelto currently on hold hyperlipidemia, on statin Rx history E. 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 SCDs Re: Episodic LGIB DNR as per patient as per patient directives. Disposition PT and OT evaluation May need to transition to acute rehab versus long-term facility Admission and Anticipated Discharge Date Admission Date: May 30, 2023 Subjective ff up for weakness, GI bleed, etc seen resting in chair, comfortable, pleasant states he feels fine overall no hematochezia, abdominal pain, nausea no chest pain, dyspnea, palpitations, dizziness no other symptoms Review of Systems Review of Systems: all noted and negative except for above Physical Exam Physical Exam: General- oriented x 3, not in distress, speaks in sentences with no effort or accessory muscle use Eyes- anicteric Neck- no JVD Lungs- clear BS BL Heart- normal rate, regular rhythm; no murmurs Abdomen- normal bowel sounds, nondistended, soft, nontender Extremities- no pretibial edema, no calf tenderness Neuro- alert, oriented x 3; no gross focal neurologic deficits Skin- warm & dry Results & Data Results & Data Vital Signs (Past 12 Hours) Vital Signs Temp Pulse Resp BP Pulse Ox Pulse Ox O2 Del Method 06/02/23 07:35 36.6 C 63 18 131/74 96 Room Air 06/02/23 03:00 36.6 C 69 16 99/50 L 91 Room Air 06/01/23 23:02 36.8 C 58 L 18 103/64 93 Room Air 06/01/23 23:00 93 O2 Del Method 06/02/23 07:35 06/02/23 03:00 06/01/23 23:02 06/01/23 23:00 Room Air all noted and reviewed including below (1) Hypotension Hypotension type: unspecified hypotension type Qualified Code(s): I95.9 - Hypotension, unspecified
--- NOTE | 2023-06-02 13:32 | Communication Note ---
Date of Service: June 02, 2023 pt having good bowel movements, had one this morning, doing well. recs: --golytely 4 L prep starting 6 pm tonight --colonoscopy tomorrow to further evaluate his abnormal imaging --continue miralax BID --clear liquids today, NPO post midnight except for prep Kamron Whitfield MD Gastroenterology
[2023-06-02] MEDS: LAVAGE SOLUTION 4000ML PO SCH (18:01)
--- NOTE | 2023-06-02 18:22 | Cardiology Progress Note ---
Date of Service June 02, 2023 Assessment & Plan (1) Pericardial effusion: (2) Hypotension: (3) Debilitated: (4) Anemia: (5) Weakness: Plan 1. Pericardial effusion 2. Hypotension improved 3. Generalized weakness 4. Lower GI bleed 5. CAD with mutiple PCI 6. Atrial fibrillation prior cardioversion 7. SSD s/p Dual chamber PPM [facility] Pericardial effusion: echo during this admission shows moderate size pericardial effusion without signs of tamponade. clinically no evidence of tamponade no symptoms of pericarditis. repeat echocardiogram next week to reassess size of effusion. if effusion size is stable restart anticoagulation Atrial fibrillation: known history of paroxysmal atrial fibrillation on Xarelto history of cardioversion in November 2019 and October 2021. as per his most recent cardiology note available heart rates have been fast in March plan was to switch from sotalol to amiodarone but on home meds has been on both sotalol and amiodarone unable to clarify based on records available if he was weaned of sotalol discontinue sotalol continue with amiodarone Xarelto on hold for colonoscopy on saturday Coronary artery disease history of coronary artery disease with multiple stenting in the past most recent cardiac catheterization May 2020 with nonobstructive disease has been on isosorbide mononitrate and Ranexa with low blood pressure agree with discontinuation of isosorbide mononitrate Dual-chamber [employer] pacemaker; as per battery life has less than 6 months I spent a total of 40 minutes coordinating, documenting, and providing care for this patient excluding time spent in the performance of separately billed services or time spent by another provider/QHP. Admission and Anticipated Discharge Date Admission Date: May 30, 2023 Subjective Patient seen and examined he is feeling better was able to walk in the hallways today Shortness of breath is improved no further blood in stools Review of Systems Constitutional: + fatigue Respiratory: + cough and + dyspnea on exertion Cardiovascular: + dyspnea on exertion; no chest pain, no orthopnea, no paroxysmal nocturnal dyspnea and no edema Gastrointestinal: + change in stools and + blood in stools Musculoskeletal: + muscle weakness Results & Data Vital Signs (Past 12 Hours) Vital Signs Temp Pulse Resp BP Pulse Ox O2 Del Method 06/02/23 15:48 36.6 C 76 18 101/75 92 Room Air 06/02/23 11:16 36.8 C 79 18 123/79 97 Room Air 06/02/23 07:35 36.6 C 63 18 131/74 96 Room Air Laboratory Results Laboratory Results WBC 5.26 K/ul (4.8-10.8) 06/01/23 08:47 RBC 3.20 M/uL (4.70-6.10) L 06/01/23 08:47 Hgb 10.2 g/dl (14.0-18.0) L 06/01/23 08:47 Hct 30.6 % (42.0-52.0) L 06/01/23 08:47 MCV 95.6 fL (80.0-100.0) 06/01/23 08:47 MCH 31.9 pg (25.0-34.0) 06/01/23 08:47 MCHC 33.3 g/dL (32.0-36.0) 06/01/23 08:47 RDW Std Deviation 47.3 fL (36.4-46.3) H 06/01/23 08:47 RDW Coeff of Seamus 13.6 % (11.5-14.5) 06/01/23 08:47 Plt Count 254 K/uL (130-400) 06/01/23 08:47 MPV 9.1 fL (9.4-12.4) L 06/01/23 08:47 Immature Gran % (Auto) 0.8 % 06/01/23 08:47 Neut % (Auto) 78.1 % 06/01/23 08:47 Lymph % (Auto) 9.1 % 06/01/23 08:47 Mower % (Auto) 8.9 % 06/01/23 08:47 Eos % (Auto) 2.3 % 06/01/23 08:47 Baso % (Auto) 0.8 % 06/01/23 08:47 Reticulocyte % (Auto) 2.09 % (0.50-2.00) H 05/30/23 23:43 Neut # (Auto) 4.11 K/uL (1.40-6.50) 06/01/23 08:47 Lymph # (Auto) 0.48 K/uL (1.20-3.40) L 06/01/23 08:47 Mower # (Auto) 0.47 K/uL (0.11-0.59) 06/01/23 08:47 Eos # (Auto) 0.12 K/uL (0.00-0.50) 06/01/23 08:47 Baso # (Auto) 0.04 K/uL (0.00-0.20) 06/01/23 08:47 Reticulocyte # 0.060 10^6/uL (0.020-0.100) 05/30/23 23:43 Immature Gran # (Auto) 0.04 K/uL (0.01-0.20) 06/01/23 08:47 Sodium 130 mmol/L (136-145) L 06/01/23 08:47 Potassium 4.0 mmol/L (3.5-5.1) 06/01/23 08:47 Chloride 100 mmol/L (98-107) 06/01/23 08:47 Carbon Dioxide 25 mmol/L (21-32) 06/01/23 08:47 Anion Gap 5 (3-11) 06/01/23 08:47 BUN 6 mg/dl (6-23) 06/01/23 08:47 Creatinine 0.59 mg/dl (0.6-1.4) L 06/01/23 08:47 Est Cr Clr Drug Dosing 101.5 ml/min 06/01/23 08:47 Est GFR ( Amer) 111.6 ml/min 06/01/23 08:47 Est GFR (Non-Af Amer) 96.3 ml/min 06/01/23 08:47 BUN/Creatinine Ratio 10.2 (10-20) 06/01/23 08:47 Glucose 105 mg/dl (70-99(Fasting)) H 06/01/23 08:47 POC Glucose 85 mg/dl (70-99) 06/01/23 08:00 Estimat Average Glucose 123 mg/dl 05/31/23 04:27 Hemoglobin A1c 5.9 % (4.5-5.6) H 05/31/23 04:27 Lactate 1.0 mmol/L (0.4-2.0) 05/30/23 23:32 Calcium 8.3 mg/dl (8.6-10.3) L 06/01/23 08:47 Magnesium 1.6 mg/dl (1.7-2.4) L 05/30/23 17:45 Iron 22 mcg/dl (35-175) L 05/30/23 23:32 Transferrin 126 mg/dl (200-360) L 05/30/23 23:32 Ferritin 277.7 ng/ml (8-388) 05/30/23 23:32 Total Bilirubin 0.9 mg/dl (0.2-1.0) 05/30/23 17:45 AST 38 U/L (13-39) 05/30/23 17:45 ALT 38 U/L (7-52) 05/30/23 17:45 Alkaline Phosphatase 115 U/L (34-104) H 05/30/23 17:45 Troponin I High Sens 6.4 pg/ml (0-20) 05/30/23 17:45 B-Natriuretic Peptide 330 pg/ml (0-100) H 05/30/23 23:32 Total Protein 5.3 gm/dl (6.0-8.3) L 05/30/23 17:45 Albumin 3.2 gm/dl (3.4-5.0) L 05/30/23 17:45 Globulin 2.1 gm/dl (2.5-4.0) L 05/30/23 17:45 Albumin/Globulin Ratio 1.5 (0.9-2) 05/30/23 17:45 Vitamin B12 308 pg/ml (180-914) 05/30/23 23:32 Folate 8.66 ng/ml (>5.38) 05/30/23 23:32 TSH 4.287 uIu/ml (0.300-4.500) 05/30/23 17:45 Urine Color Dark Yellow 05/30/23 17:51 Urine Appearance Cloudy (Clear) A 05/30/23 17:51 Urine pH 7.5 (4.5-7.5) 05/30/23 17:51 Ur Specific [place] 1.016 (1.000-1.030) 05/30/23 17:51 Urine Protein 1+ (Negative) H 05/30/23 17:51 Urine Glucose (UA) Negative (Negative) 05/30/23 17:51 Urine Ketones Negative (Negative) 05/30/23 17:51 Urine Blood 2+ (Negative) H 05/30/23 17:51 Urine Nitrite Negative (Negative) 05/30/23 17:51 Urine Bilirubin Negative (Negative) 05/30/23 17:51 Urine Urobilinogen Positive (Negative) H 05/30/23 17:51 Ur Leukocyte Esterase 3+ (Negative) H 05/30/23 17:51 Urine WBC (Auto) >30 /hpf (0-5) H 05/30/23 17:51 Urine RBC (Auto) 5-10 /hpf (0-4) H 05/30/23 17:51 U Hyaline Cast (Auto) 0 /lpf (0-5) 05/30/23 17:51 U Epithel Cells (Auto) >30 /lpf (0-5) H 05/30/23 17:51 Urine Bacteria (Auto) 3+ (Negative) H 05/30/23 17:51 Urine Crystals Calcium Oxalate (None Prsent) A 05/30/23 17:51 Calcium Oxalate Crystal Present (None Prsent) A 05/30/23 17:51 SARS-CoV-2, RNA, NAAT NEGATIVE (NEGATIVE) 05/30/23 17:51 Blood Type A Positive 05/30/23 23:43 Antibody Screen NEGATIVE 05/30/23 23:43 Impressions (2) Hypotension Hypotension type: unspecified hypotension type Qualified Code(s): I95.9 - Hypotension, unspecified (4) Anemia Anemia type: unspecified type Qualified Code(s): D64.9 - Anemia, unspecified
[2023-06-03 05:15] LABS: Basophils # (auto) 0.03 K/uL (0.00-0.20); Basophils % (auto) 0.5 %; Eosinophils # (auto) 0.12 K/uL (0.00-0.50); Eosinophils % (auto) 2.1 %; Hematocrit (blood only) 29.7 % (42.0-52.0); Immature Granulocytes # (auto) 0.04 K/uL (0.01-0.20); Immature Granulocytes % (auto) 0.7 %; Lymphocytes # (auto) 0.52 K/uL (1.20-3.40); Lymphocytes % (auto) 8.9 %; Mean Corpuscular Hemoglobin 31.7 pg (25.0-34.0); Mean Corpuscular Hgb Conc 33.7 g/dL (32.0-36.0); Mean Corpuscular Volume 94.3 fL (80.0-100.0); Mean Platelet Volume 9.1 fL (9.4-12.4); Monocytes # (auto) 0.66 K/uL (0.11-0.59); Monocytes % (auto) 11.3 %; Neutrophils # (auto) 4.45 K/uL (1.40-6.50); Neutrophils % (auto) 76.5 %; Platelet Count 279 K/uL (130-400); RDW Coefficient of Variation 13.3 % (11.5-14.5); RDW Standard Deviation 45.7 fL (36.4-46.3); Red Blood Count 3.15 M/uL (4.70-6.10); White Blood Count 5.82 K/ul (4.8-10.8)
[2023-06-03 05:26] LABS: Calcium 8.2 mg/dl (8.6-10.3); Creatinine Clr Calc Pharmacy 139.3 ml/min; Est GFR (African American) 127.1 ml/min; Est GFR (Non-African American) 109.7 ml/min; Potassium 3.4 mmol/L (3.5-5.1)
[2023-06-03] MEDS: POTASSIUM CHLORIDE CRTAB 20 MEQ TABCR PO STA (08:46)
--- NOTE | 2023-06-03 08:55 | History & Physical Bridge Note ---
Date of Service June 03, 2023 History & Physical Bridge Note I have examined the patient, reviewed the History & Physical and in the interval since the performance of the History & Physical I have noted the following changes of clinical significance: no changes noted Supervising Physician Co-Signing Physician Notes proceed with colonoscopy. risks/benefits and procedure discussed with patient, who agrees to proceed
--- NOTE | 2023-06-03 09:25 | Anesthesiology Consultation ---
Date of Service June 03, 2023 History Surgery Operation Date: 06/03/23 17:15 Proposed Procedures p Colonoscopy Dr. Roseann Whitfield MD Height/Weight Height: 5 ft 9 in Weight: 80.4 kg Allergies Allergy/AdvReac Type Severity Reaction Status Date / Time azithromycin Allergy Severe Swelling Verified 05/30/23 19:49 [From Zithromax Z-Brady] of Lip/Tongue/Throat ethyl alcohol Allergy Intermediate "rubbing Verified 05/30/23 23:28 alcohol" caused blisters isopropyl alcohol Allergy Intermediate "rubbing Verified 05/30/23 23:28 alcohol" caused blisters latex Allergy Intermediate blisters Verified 05/30/23 19:49 verapamil AdvReac Severe asystole Verified 05/30/23 19:49 Medications Home Medications Medication Instructions Recorded Confirmed Last Taken atorvastatin 40 mg tablet 40 mg PO HS 02/16/21 05/30/23 05/29/23 cholecalciferol (vitamin D3) 125 125 mcg PO QAM 02/16/21 05/30/23 05/30/23 mcg (5,000 unit) tablet (Vitamin D3) finasteride 5 mg tablet 5 mg PO DAILY 02/16/21 05/30/23 05/30/23 isosorbide mononitrate 60 mg 60 mg PO QPM 02/16/21 05/30/23 05/29/23 tablet,extended release 24 hr lamotrigine 100 mg tablet 100 mg PO BID 02/16/21 05/30/23 05/30/23 08:00 levothyroxine 75 mcg tablet 75 mcg PO 5XWK 02/16/21 05/30/23 05/30/23 pantoprazole 40 mg tablet,delayed 40 mg PO QAM 02/16/21 05/30/23 05/30/23 release ranolazine 1,000 mg 1,000 mg PO BID 02/16/21 05/30/23 05/30/23 08:00 tablet,extended release,12 hr rivaroxaban 20 mg tablet (Xarelto) 20 mg PO HS 02/16/21 05/30/23 04/30/23 amiodarone 200 mg tablet 200 mg PO QPM 05/03/23 05/30/23 05/13/23 gabapentin 300 mg capsule 300 mg PO TID 05/03/23 05/30/23 05/13/23 ketoconazole 2 % topical cream 1 applic topical UD PRN Skin 05/03/23 05/30/23 05/12/23 Irritation/openings /none current nitroglycerin 0.4 mg sublingual 0.4 mg sublingual .[id number] PRN 05/03/23 05/30/23 Unknown tablet Chest Pain ondansetron 8 mg disintegrating 8 mg PO UD PRN Nausea And Vomiting 05/03/23 05/30/23 Unknown tablet peg 3350-electrolytes 236 240 ml PO Q10M #4,000 mL 05/08/23 05/30/23 05/14/23 05:30 gram-22.74 gram-6.74 gram-5.86 gram solution (Golytely) dicyclomine 10 mg capsule 10 mg PO BID 05/10/23 05/30/23 Unknown promethazine 25 mg tablet 25 mg PO UD PRN n/v 05/10/23 05/30/23 Unknown sulfamethoxazole 800 1 tab PO Q12H 05/10/23 05/30/23 05/30/23 08:00 mg-trimethoprim 160 mg tablet (Bactrim DS) linaclotide 145 mcg capsule 145 mcg PO DAILY #30 caps 05/14/23 05/30/23 05/30/23 (Linzess) sodium sul 1.479 gram-potas ch See Rx Instructions PO .COMPLEX 05/16/23 05/30/23 Unknown 0.188 gram-magnes sul 0.225 gram #24 tabs tablet (Sutab) ferrous sulfate 27 mg iron tablet 27 mg PO DAILY 05/30/23 05/30/23 05/30/23 ramipril 5 mg capsule 5 mg PO DAILY 05/30/23 05/30/23 05/30/23 sotalol 120 mg tablet 120 mg PO BID 05/30/23 05/30/23 05/30/23 08:00 Active Medications Generic Name Dose Route Start Last Admin Trade Name Freq PRN Reason Stop Dose Admin Amiodarone HCl 200 mg 05/31/23 21:00 06/02/23 20:53 Amiodarone 200 Mg Tab PO 06/30/23 20:59 200 mg QPM STEVE Administration Atorvastatin Calcium 40 mg 05/30/23 23:24 06/02/23 20:53 Atorvastatin 40 Mg Tab PO 06/29/23 23:23 40 mg HS STEVE Administration Finasteride 5 mg 05/31/23 09:00 06/03/23 08:44 Finasteride 5 Mg Tab PO 06/30/23 08:59 5 mg DAILY STEVE Administration Gabapentin 100 mg 05/31/23 09:00 06/03/23 08:44 Gabapentin 100 Mg Cap PO 06/30/23 08:59 100 mg TID STEVE Administration Ceftriaxone Sodium 2,000 mg/ 50 mls @ 100 mls/hr 06/01/23 09:30 06/03/23 09:19 Dextrose IV 06/11/23 09:29 Infused Q24H STEVE Infusion Protocol Lactobacillus Acidophilus 1,250 mg 06/01/23 11:30 06/03/23 08:44 Advanced Probiotic 625 Mg Capsule PO 07/01/23 11:29 1,250 mg DAILY STEVE Administration Lamotrigine 100 mg 05/31/23 09:00 06/03/23 08:45 Lamotrigine 100 Mg Tab PO 06/30/23 08:59 100 mg BID STEVE Administration Protocol Levothyroxine Sodium 75 mcg 05/31/23 06:30 06/03/23 05:56 Levothyroxine Sodium 75 Mcg Tablet PO 06/30/23 06:29 75 mcg [id number] STEVE Administration Linaclotide 145 mcg 05/31/23 09:00 06/03/23 08:45 Linaclotide 145 Mcg Capsule PO 06/30/23 08:59 145 mcg DAILY STEVE Administration Pantoprazole Sodium 40 mg 05/31/23 09:00 06/03/23 08:45 Pantoprazole 40 Mg Tab PO 06/30/23 08:59 40 mg QAM STEVE Administration Polyethylene Glycol 17 gm 05/31/23 10:15 06/03/23 08:40 Polyethylene (Miralax) 17 Gm Pack PO 06/30/23 10:14 Not Given BID STEVE Polyethylene Glycol/Electrolytes 16 dose 06/02/23 17:00 06/02/23 18:01 Lavage Solution 4000ml PO 07/02/23 16:59 16 dose TODAY@1700 STEVE Administration Ranolazine 1,000 mg 05/31/23 21:00 06/03/23 08:45 Ranolazine 500 Mg Er Tab PO 06/30/23 20:59 1,000 mg BID STEVE Administration NPO Date Last Intake of Fluids: 06/03/23 Time Last Intake of Fluids: 08:44 Date Last Intake of Solids: 05/29/23 Past Medical History Medical History (Updated 06/03/23 @ 00:08 by Background Dadaphnie) Hypotension Esophageal dilatation Weight loss over 35 pounds over past month. History of radiation exposure 1986 History of stroke 2001 - no residual effects. History of colon polyps Mass of colon CT scan [facility] 05/03/23. Hemorrhoids internal Kidney lesion lesions on kidneys per CT scan/ [place] 2-3 weeks ago/talk of samantha with kidney - pt has not received follow up phone call. 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 Carney; on xarelto (currently on hold due to recatal bleeding) hx cardioversion x2 ? History of myocardial infarction x 2 (1986, 2001) History of esophageal dilatation Dysphagia Past Family History Family History Other No family history of adverse response to anesthesia Past Surgical History Surgical History History of left-sided carotid endarterectomy History of hernia surgery x2 Pacemaker passing out/reason for pacemaker. last checked : "recent check by Dr. Carney"/[facility] History of tonsillectomy History of appendectomy History of left knee replacement + revision surgery History of cataract surgery rt/left History of parathyroidectomy History of bladder surgery TURBT H/O heart artery stent x 4 History of cardiac cath 05/2020 -- CP -- [facility] - no stents mult cardiac cath between [id number] (4 stents placed total) - [facility] and [facility] in [place], [place] History of colonoscopy History of esophagogastroduodenoscopy (EGD) Social History Smoking Status: Never smoker Do You Dip or Chew Tobacco: No Hx Alcohol Use: No Hx Substance Use: No substance use type: does not use Physical Exam Vital Signs Last Vital Signs Temp 36.5 C 06/03/23 09:13 Pulse 60 06/03/23 09:13 Resp 16 06/03/23 09:13 BP 137/78 06/03/23 09:13 Pulse Ox 94 06/03/23 09:13 O2 Del Method Room Air 06/03/23 09:13 Testing Laboratory Results 06/03/23 04:23 06/03/23 04:23 Hemoglobin A1c 5.9 % (4.5-5.6) H 05/31/23 04:27 Urine Color Dark Yellow 05/30/23 17:51 Urine Appearance Cloudy (Clear) A 05/30/23 17:51 Urine pH 7.5 (4.5-7.5) 05/30/23 17:51 Ur Specific [place] 1.016 (1.000-1.030) 05/30/23 17:51 Urine Protein 1+ (Negative) H 05/30/23 17:51 Urine Glucose (UA) Negative (Negative) 05/30/23 17:51 Urine Ketones Negative (Negative) 05/30/23 17:51 Urine Nitrite Negative (Negative) 05/30/23 17:51 Ur Leukocyte Esterase 3+ (Negative) H 05/30/23 17:51 Urine WBC (Auto) >30 /hpf (0-5) H 05/30/23 17:51 Urine RBC (Auto) 5-10 /hpf (0-4) H 05/30/23 17:51 U Hyaline Cast (Auto) 0 /lpf (0-5) 05/30/23 17:51 U Epithel Cells (Auto) >30 /lpf (0-5) H 05/30/23 17:51 Urine Bacteria (Auto) 3+ (Negative) H 05/30/23 17:51 Blood Type A Positive 05/30/23 23:43 Antibody Screen NEGATIVE 05/30/23 23:43 05/30/23 23:32 Aerobic Blood Culture - Preliminary Blood No growth in Aerobic bottle after 48 hours. Anaerobic Blood Culture - Preliminary No growth in Anaerobic bottle after 48 hours. 05/30/23 23:43 Aerobic Blood Culture - Preliminary Blood No growth in Aerobic bottle after 48 hours. Anaerobic Blood Culture - Preliminary No growth in Anaerobic bottle after 48 hours. 05/30/23 17:51 Urine Culture - Final Urine,Clean Catch Escherichia coli
[2023-06-03] MEDS ORDERED: LAVAGE SOLUTION 4000ML PO SCH (10:15)
--- NOTE | 2023-06-03 10:36 | GI REPORT ---
Patient Name: Greg Ge Procedure Date: 06/03/2023 9:22 AM Date of : 1945 Admit Type: Inpatient Age: 77 Gender: Male Attending MD: Kamron Whitfield MD, Procedure: Colonoscopy Providers: Kamron Whitfield MD Referring MD: Chaparro Ivory Indications: Abnormal CT of the GI tract Medicines: Monitored Anesthesia Care Complications: No immediate complications. Estimated blood loss: None. Estimated Blood Loss: Estimated blood loss: none. Procedure: Pre-Anesthesia Assessment: - Prior Anticoagulants: The patient has taken no anticoagulant or antiplatelet agents. - ASA Grade Assessment: III - A patient with severe systemic disease. After I obtained informed consent, the scope was passed under direct vision. Throughout the procedure, the patient's blood pressure, pulse, and oxygen saturations were monitored continuously. The Colonoscope was introduced through the anus and advanced to the cecum, identified by appendiceal orifice and ileocecal valve. The colonoscopy was performed without difficulty. The patient tolerated the procedure well. The quality of the bowel preparation was poor. Findings: A moderate amount of liquid semi-liquid stool was found in the rectum, in the recto-sigmoid colon, in the sigmoid colon and in the cecum, interfering with visualization. Multiple small-mouthed diverticula were found in the sigmoid colon. Non-bleeding internal hemorrhoids were found during retroflexion. The hemorrhoids were small. No significant abnormality was noted in the rectum. Biopsies were taken with a cold forceps in the rectum for histology. Estimated blood loss: none. Impression: - Preparation of the colon was poor. - Stool in the rectum, in the recto-sigmoid colon, in the sigmoid colon and in the cecum. - Diverticulosis in the sigmoid colon. - Non-bleeding internal hemorrhoids. - Biopsies were taken with a cold forceps for histology in the rectum. Recommendation: - Return patient to [facility] for [facility] care. - Advance diet as tolerated today. - Await pathology results. -outpatient lower EUS to evaluate rectum further. Kamron Whitfield MD 06/03/2023 10:36:34 AM This report has been signed electronically. Note Initiated On: 06/03/2023 9:22 AM Number of Addenda: 0 I attest to the content of the Intraoperative Record and orders documented therein, exceptions below {[id number]}
[2023-06-03] MEDS: PROPOFOL IV EMULSION 10 MG/ML 20 ML VIAL IV ONE (11:18)
[2023-06-03] MEDS: LIDOCAINE 2% 2 ML VIAL/AMP(20MG/ML) INFIL ONE (11:18)
--- NOTE | 2023-06-03 13:05 | Cardiology Progress Note ---
Date of Service June 03, 2023 Assessment & Plan (1) Pericardial effusion: (2) Hypotension: (3) Debilitated: (4) Anemia: (5) Weakness: Plan 1. Pericardial effusion 2. Hypotension improved 3. Generalized weakness 4. Lower GI bleed 5. CAD with mutiple PCI 6. Atrial fibrillation prior cardioversion 7. SSD s/p Dual chamber PPM [facility] Pericardial effusion: Initial echo during this admission shows moderate size pericardial effusion without signs of tamponade. clinically no evidence of tamponade no symptoms of pericarditis. Repeat echocardiogram today demonstrates reduction in size of effusion. Will discuss with Dr. Lewis in regards for consideration of restarting anticoagulation Hypotension: Demonstrates improvement in blood pressures. Currently at target. Generalized weakness/Lower GI bleed: patient for colonoscopy today, will await report. Atrial fibrillation: known history of paroxysmal atrial fibrillation on Xarelto history of cardioversion in November 2019 and October 2021. as per his most recent cardiology note available heart rates have been fast in March plan was to switch from sotalol to amiodarone but on home meds has been on both sotalol and amiodarone unable to clarify based on records available if he was weaned of sotalol discontinue sotalol continue with amiodarone Xarelto on hold for colonoscopy on today Coronary artery disease history of coronary artery disease with multiple stenting in the past most recent cardiac catheterization May 2020 with nonobstructive disease had been on isosorbide mononitrate and Ranexa with low blood pressure. Isosorbide mononitrate has been stopped and BP has normalized. SSS s/p Dual-chamber [facility] pacemaker; as per battery life has less than 6 months Case has been discussed with Dr. Lewis. Further recommendations regarding plan of care as per his assessment. I spent a total of 30 minutes on the date of service in preparation, delivery, documentation of the care provided to the patient excluding any time spent in the performance of separately billed services. DEEPTHI Oglesby [facility] Admission and Anticipated Discharge Date Admission Date: May 30, 2023 Supervising Physician Co-Signing Physician Notes Patient was seen and personally examined. Nauseated after returning from GI procedure. No chest pains or dizziness. No arrhythmias on telemetry. Patient with atrial fibrillation and ventricular paced rhythm GI workup unrevealing at this point still with some nausea Echocardiogram demonstrates slightly smaller pericardial effusion currently without hemodynamic effect Recommend: Reevaluate pacemaker in a.m. given history of possible diminished battery life EKG in a.m. Heart rates currently controlled with amiodarone but in atrial fibrillation. May consider transition to beta-hali alone versus outpatient manage Would repeat echocardiogram in 2 weeks time and if effusion stable resume anticoagulation at that time. Follows with Dr. Rommel Prasad cardiology Subjective 06/03/23: patient was seen an examined at bedside. Recently returned for an endoscopy procedure. Resting comfortably offering no compliants. Denies chest pain, pressure, palpitations, shortness of breath, PND, pre-syncope, or syncope. Labs, vitals, diagnostics, and documentation reviewed. Telemetry demonstrates Paced with underlying SR rates 60-70's, No acute events overnight. Review of Systems Review of Systems: All systems reviewed & are unremarkable except as noted in HPI & below Physical Exam Constitutional: well developed and well nourished; no acute distress Neck: normal visual inspection and trachea midline Respiratory: normal respiratory effort; no respiratory distress and no cough Auscultation: lungs clear to auscultation bilaterally; no crackles, no rales and no rhonchi Cardiovascular: Rate/Rhythm: regular rate and regular rhythm Heart Sounds: normal S1 and normal S2; no murmur Vessels: dorsalis pedis pulses present; no JVD Skin: no rashes, warm and dry Psychiatric: A+Ox3, euthymic affect Results & Data Vital Signs (Past 12 Hours) Vital Signs Temp Pulse Resp BP Pulse Ox O2 Del Method 06/03/23 10:50 60 16 118/76 97 Room Air 06/03/23 10:30 60 16 118/64 95 Room Air 06/03/23 10:16 60 16 89/54 L 100 Room Air 06/03/23 09:13 36.5 C 60 16 137/78 94 Room Air 06/03/23 07:02 36.4 C L 85 18 125/81 91 Room Air 06/03/23 03:00 36.4 C L 62 16 114/71 95 Room Air Laboratory Results CBC 06/03/23 Range/Units 04:23 WBC 5.82 (4.8-10.8) K/ul RBC 3.15 L (4.70-6.10) M/uL Hgb 10.0 L (14.0-18.0) g/dl Hct 29.7 L (42.0-52.0) % Plt Count 279 (130-400) K/uL Neut # (Auto) 4.45 (1.40-6.50) K/uL Lymph # (Auto) 0.52 L (1.20-3.40) K/uL Wells # (Auto) 0.66 H (0.11-0.59) K/uL Eos # (Auto) 0.12 (0.00-0.50) K/uL Baso # (Auto) 0.03 (0.00-0.20) K/uL Comprehensive Metabolic Panel 06/03/23 Range/Units 04:23 Sodium 132 L (136-145) mmol/L Potassium 3.4 L (3.5-5.1) mmol/L Chloride 100 (98-107) mmol/L Carbon Dioxide 25 (21-32) mmol/L BUN 6 (6-23) mg/dl Creatinine 0.43 L (0.6-1.4) mg/dl Glucose 86 (70-99(Fasting)) mg/dl Calcium 8.2 L (8.6-10.3) mg/dl Intake and Output 06/02/23 06/03/23 06/03/23 22:59 06:59 14:59 Intake Total 50 / 50 Output Total 601 / 1227 300 / 1227 Balance -601 / -637 -300 / -637 50 / 50 Intake: IV 50 / 50 cefTRIAXone SODIUM 2,000 mg In 50 / 50 Dextrose 5 % Mini-B 50 ml @ 100 mls/hr IV Q24H [facility] Rx#: [id number] Output: Urine Amount (Catheter) 600 / 1225 300 / 1225 Rodriguez/Indwelling 600 / 1225 300 / 1225 # Bowel Movements 1 / 2 Other: Other Intake Source NPO NPO Weight 80.4 kg 80.4 kg Weight Measurement Method Built in [facility] Patient Weight 06/04/23 06:59 Weight 80.4 kg (2) Hypotension Hypotension type: unspecified hypotension type Qualified Code(s): I95.9 - Hypotension, unspecified (4) Anemia Anemia type: unspecified type Qualified Code(s): D64.9 - Anemia, unspecified
[2023-06-03] MEDS: PROMETHAZINE HCL 6.25 MG in SODIUM CHLORIDE 0.9% 50 ML IV PRN (13:49)
--- NOTE | 2023-06-03 15:39 | Anesthesiology Progress Note ---
Date of Service June 03, 2023 Anesthesia Post Procedure Vital Signs Vital Signs: Temp Pulse Resp BP Pulse Ox Pulse Ox O2 Del Method 06/03/23 10:50 60 16 118/76 97 Room Air 06/03/23 10:30 60 16 118/64 95 Room Air 06/03/23 10:16 60 16 89/54 L 100 Room Air 06/03/23 09:13 36.5 C 60 16 137/78 94 Room Air 06/03/23 07:02 36.4 C L 85 18 125/81 91 Room Air 06/03/23 03:00 36.4 C L 62 16 114/71 95 Room Air 06/02/23 23:00 95 06/02/23 23:00 36.5 C 82 18 106/81 93 Room Air 06/02/23 20:00 36.7 C 61 18 143/88 H 97 Room Air 06/02/23 15:48 36.6 C 76 18 101/75 92 Room Air O2 Del Method 06/03/23 10:50 06/03/23 10:30 06/03/23 10:16 06/03/23 09:13 06/03/23 07:02 06/03/23 03:00 06/02/23 23:00 Room Air 06/02/23 23:00 06/02/23 20:00 06/02/23 15:48 Transfer of Care Handoff Completed per policy Notes Mental Status: alert / awake / arousable and participated in evaluation Nausea / Vomiting: adequately controlled Pain: adequately controlled Airway Patency, RR, SpO2: stable & adequate BP & HR: stable & adequate Hydration State: stable & adequate Anesthetic Complications: no major complications apparent and Pt Satisfied with anesthetic care
--- NOTE | 2023-06-03 16:27 | Hospitalist Progress Note ---
Date of Service June 03, 2023 Assessment & Plan (1) Hypotension: Plan: Per admitting service notes with addendum: Multifactorial: Hypovolemia from decreased p.o. intake Possible sepsis from complicated UTI, history of BPH, history of bladder cancer status post surgery, patient discharged with Rodriguez catheter for urinary retention during recent confinement at [facility] do boys ? Pericardial effusion contributory Episodic LGIB, possible colonic malignancy; occasional dark stool likely from iron tablets given negative FOBT at the ER as per ER provider account. Multiple home BP meds contributory 06/01 Blood pressure improving Hold usual BP meds for now Urine culture (obtained from Rodriguez): E coli Blood culture: negative so far transition empiric Zosyn--> Ceftriaxone IV Echocardiogram noted: moderate pericardial effusion consulted Cardiology "repeat echocardiogram next week to reassess size of effusion. if effusion size is stable would than consider restarting anticoagulation" No recurrence of hematochezia Hemoglobin is stable For colonoscopy tomorrow per GI service feliciano prep tonight 06/02 Blood pressure on the lower end this afternoon Hold usual BP meds for now Continue IV ceftriaxone Repeat echocardiogram showing reduced pericardial effusion, awaiting further recommendations by cardiology service Status post colonoscopy Positive diverticulosis, internal hemorrhoids, biopsy taken chronic HF -Euvolemic at this time Acute on chronic anemia secondary to above LGIB, possible dilutional anemia given recent confinement at [facility] for renal failure which required IV hydration -Hemoglobin stable around 8->10 -Continue to monitor hx CAD/CVA as per records A-fib - Xarelto currently on hold hyperlipidemia, on statin Rx history E. 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 SCDs Re: Episodic LGIB DNR as per patient as per patient directives. Disposition PT and OT evaluation May need to transition to acute rehab versus [facility] facility Admission and Anticipated Discharge Date Admission Date: May 30, 2023 Subjective Follow-up for weakness, GI bleed, UTI, pericardial effusion, etc. Seen resting in bed, sitting up Patient's at the bedside Status post EGD earlier today Had some nausea after drinking apple juice Seems to be resolving Abdominal pain No chest pain, shortness of breath, palpitations, dizziness No other new symptoms Review of Systems Review of Systems: all noted and negative except for above Physical Exam Physical Exam: General- oriented x 3, not in distress, speaks in sentences with no effort or accessory muscle use Eyes- anicteric Neck- no JVD Lungs- clear breath sounds bilaterally, no rales/wheezes Heart- normal rate, regular rhythm; no murmurs Abdomen- normal bowel sounds, nondistended, soft, nontender Extremities- no pretibial edema, no calf tenderness Neuro- alert, oriented x 3; no gross focal neurologic deficits Skin- warm & dry Results & Data Results & Data Vital Signs (Past 12 Hours) Vital Signs Temp Pulse Resp BP Pulse Ox O2 Del Method 06/03/23 15:48 36.5 C 55 L 17 105/64 93 Room Air 06/03/23 10:50 60 16 118/76 97 Room Air 06/03/23 10:30 60 16 118/64 95 Room Air 06/03/23 10:16 60 16 89/54 L 100 Room Air 06/03/23 09:13 36.5 C 60 16 137/78 94 Room Air 06/03/23 07:02 36.4 C L 85 18 125/81 91 Room Air all noted and reviewed including below (1) Hypotension Hypotension type: unspecified hypotension type Qualified Code(s): I95.9 - Hypotension, unspecified
[2023-06-04] MEDS: POTASSIUM CHLORIDE CRTAB 20 MEQ TABCR PO SCH (08:11)
--- NOTE | 2023-06-04 11:53 | Hospitalist Progress Note ---
Date of Service June 04, 2023 Assessment & Plan (1) Hypotension: Plan: Per admitting service notes with addendum: Multifactorial: Hypovolemia from decreased p.o. intake Given IV fluids Blood pressure improved Usual blood pressure medications held Possible sepsis from complicated UTI, history of BPH, history of bladder cancer status post surgery, patient discharged with Rodriguez catheter for urinary retention during recent confinement at [facility] Urine culture (obtained from Rodriguez): E coli Blood culture: negative so far transition empiric Zosyn--> Ceftriaxone IV ?Pericardial effusion contributory no signs of tamponade Echocardiogram noted: moderate pericardial effusion consulted Cardiology "repeat echocardiogram next week to reassess size of effusion. if effusion size is stable would than consider restarting anticoagulation" Episodic LGIB, possible colonic malignancy; occasional dark stool likely from iron tablets given negative FOBT at the ER as per ER provider account. No recurrence of hematochezia Hemoglobin is stable Status post colonoscopy 06/02 Positive diverticulosis, internal hemorrhoids, biopsy taken will need outpatient EUS per GI Possible underlying rectal cancer, renal CA Patient seen at [facility] ER last month for generalized weakness, nausea, abdominal pain. CT abdomen pelvis showed: 1. Masslike circumferential wall thickening of the rectum with perirectal inflammatory stranding and subcentimeter perirectal lymph nodes. Findings are concerning for a primary colorectal malignancy. Nonemergent GI consultation with colonoscopy is needed. 2. There are bilateral renal masses measuring up to 4 cm suggestive of malignancy. Set to follow-up with outpatient oncology chronic HF -Euvolemic at this time Acute on chronic anemia secondary to above LGIB, possible dilutional anemia given recent confinement at [facility] for renal failure which required IV hydration -Hemoglobin stable around 8->10 -Continue to monitor hx CAD/CVA as per records Sick sinus syndrome status post pacemaker -Battery life less than 6 months as per Cardiology service following A-fib - Xarelto currently on hold -On amiodarone, sotalol, ranolazine Cardiology service evaluating above regimen, may need to discontinue some of above meds hyperlipidemia, on statin Rx history E. 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 SCDs Re: Episodic LGIB DNR as per patient as per patient directives. Disposition PT and OT evaluation Lives with his Brittany Admission and Anticipated Discharge Date Admission Date: May 30, 2023 Subjective Follow-up for weakness, hematochezia, etc. Seen resting in bed, sleeping but easily awakened States he feels improved compared to yesterday Nausea resolved, no abdominal pain no chest pain, dyspnea, palpitations, dizziness Would like to ambulate again today No other new symptoms Review of Systems Review of Systems: all noted and negative except for above Physical Exam Physical Exam: General- oriented x 3, not in distress, speaks in sentences with no effort or accessory muscle use Eyes- anicteric Neck- no JVD Lungs- clear breath sounds bilaterally, no crackles Heart- normal rate, regular rhythm; no murmurs Abdomen- normal bowel sounds, nondistended, soft, nontender Extremities- no pretibial edema, no calf tenderness Neuro- alert, oriented x 3; no gross focal neurologic deficits Skin- warm & dry Results & Data Results & Data Vital Signs (Past 12 Hours) Vital Signs Temp Pulse Resp BP Pulse Ox O2 Del Method 06/04/23 11:00 36.6 C 73 18 105/74 94 Room Air 06/04/23 09:00 Room Air 06/04/23 07:50 36.5 C 79 18 116/74 94 Room Air 06/04/23 03:25 36.6 C 77 16 106/68 92 Room Air all noted and reviewed including below (1) Hypotension Hypotension type: unspecified hypotension type Qualified Code(s): I95.9 - Hypotension, unspecified
--- NOTE | 2023-06-04 13:07 | Electrocardiogram Report ---
Test Reason : Blood Pressure : / mmHG Vent. Rate : 056 BPM Atrial Rate : 055 BPM P-R Int : 000 ms QRS Dur : 082 ms QT Int : 608 ms P-R-T Axes : 000 016 004 degrees QTc Int : 586 ms Poor data quality, interpretation may be adversely affected Junctional rhythm Nonspecific ST and T wave abnormality Abnormal ECG When compared with ECG of 30-MAY-2023 17:59, Junctional rhythm has replaced Atrial fibrillation Vent. rate has decreased BY [address] elevation now present in Lateral leads QT has lengthened Confirmed by Rodger Almonte ([id number]) on 06/04/2023 1:07:02 PM Referred By: REFERRED SELF Confirmed By:Rodger Almonte
--- NOTE | 2023-06-04 14:01 | Cardiology Progress Note ---
Date of Service June 04, 2023 Assessment & Plan (1) Pericardial effusion: (2) Hypotension: (3) Debilitated: (4) Anemia: (5) Weakness: Plan 1. Pericardial effusion 2. Hypotension improved 3. Generalized weakness 4. Lower GI bleed 5. CAD with mutiple PCI 6. Atrial fibrillation prior cardioversion 7. SSD s/p Dual chamber PPM st Armaan Pericardial effusion: -Initial echo during this admission shows moderate size pericardial effusion without signs of tamponade. clinically no evidence of tamponade no symptoms of pericarditis. - Repeat echocardiogram yesterday demonstrates reduction in size of effusion. patient is showing clinical improvement from a cardiovascular standpoint. -Recommend that he has a repeat limited echo in 2 weeks to continue to monitor pericardial effusion/resolution. -He should follow up with his laboratory engineer Dr. Carney from [facility] within 2 weeks of discharge. -patient remains in SR at this time. -Decision to restart oral AC therapy can be made pending repeat echo evaluation Hypotension: Demonstrates improvement in blood pressures. Currently at target. Generalized weakness/Lower GI bleed: -No evidence of acute bleed per GI evaluation -Continued monitoring/management per GI/primary team Atrial fibrillation: known history of paroxysmal atrial fibrillation on Xarelto history of cardioversion in November 2019 and October 2021. as per his most recent cardiology note available heart rates have been fast in March plan was to switch from sotalol to amiodarone but on home meds has been on both sotalol and amiodarone unable to clarify based on records available if he was weaned of sotalol discontinue sotalol continue with amiodarone Xarelto on hold. Plan is for repeat echo in 2 weeks, close cardiology follow up with Dr. Carney ([facility]) and decision to be made post echo with regards to restarting oral AC therapy. Coronary artery disease history of coronary artery disease with multiple stenting in the past most recent cardiac catheterization May 2020 with nonobstructive disease had been on isosorbide mononitrate and Ranexa with low blood pressure. Isosorbide mononitrate has been stopped and BP has normalized. SSS s/p Dual-chamber [employer] pacemaker; as per battery life has less than 6 months Case has been discussed with Dr. Lewis. Further recommendations regarding plan of care as per his assessment. I spent a total of 30 minutes on the date of service in preparation, delivery, documentation of the care provided to the patient excluding any time spent in the performance of separately billed services. DEEPTHI Oglesby [facility] Admission and Anticipated Discharge Date Admission Date: May 30, 2023 Supervising Physician Co-Signing Physician Notes Patient was seen and personally examined. Chart medications telemetry reviewed. Full plan and assessment discussed with advanced provider Additional 15 minutes of evaluation time in chart review, documentation performed Patient clinically feels improved but unsteady on his feet earlier today. No arrhythmias on telemetry. No atrial fibrillation. No signs or symptoms of tamponade or volume overload. EKG still with QT prolongation Will continue amiodarone at current dosing. No further sotalol. Will hold Ranexa. No chest pains in hospital Anticipate echocardiogram to be repeated in 2 weeks time Discussed plans with patient and Subjective 06/04/23: Patient seen and examined in follow up today. labs, diagnostics, vitals and documentation reviewed. Patient is out of bed to the chair today and reports feeling much better. Family is also at bedside. Denies any chest pain, pressure, palpitations, shortness of breath, PND, pre-syncope, syncope or edema. Reports improvement in his appetite. Review of telemetry demonstrated paced rhythm rates 56-60bpm BP shows marked improvement since admission. Review of Systems Review of Systems: All systems reviewed & are unremarkable except as noted in HPI & below Physical Exam Constitutional: well developed and well nourished; no acute distress Neck: normal visual inspection and trachea midline Respiratory: normal respiratory effort; no respiratory distress and no cough Auscultation: lungs clear to auscultation bilaterally; no crackles, no rales and no rhonchi Cardiovascular: Rate/Rhythm: regular rate and regular rhythm Heart Sounds: normal S1 and normal S2; no murmur Vessels: dorsalis pedis pulses present; no JVD Skin: no rashes, warm and dry Psychiatric: A+Ox3, euthymic affect Results & Data Vital Signs (Past 12 Hours) Vital Signs Temp Pulse Resp BP Pulse Ox O2 Del Method 06/04/23 11:00 36.6 C 73 18 105/74 94 Room Air 06/04/23 09:00 Room Air 06/04/23 07:50 36.5 C 79 18 116/74 94 Room Air 06/04/23 03:25 36.6 C 77 16 106/68 92 Room Air Laboratory Results Intake and Output 06/03/23 06/04/23 06/04/23 22:59 06:59 14:59 Intake Total 500 / 660.25 60 / 660.25 50 / 50 Output Total 630 / 980 350 / 980 Balance -130 / -319.75 -290 / -319.75 50 / 50 Intake: IV 50 / 50 cefTRIAXone SODIUM 2,000 mg In 50 / 50 Dextrose 5 % Mini-B 50 ml @ 100 mls/hr IV Q24H [facility] Rx#: [id number] Oral 500 / 560 60 / 560 Output: Urine Amount (Catheter) 630 / 980 350 / 980 Rodriguez/Indwelling 630 / 980 350 / 980 Other: Other Intake Source npo/sips Weight 79.5 kg Weight Measurement Method Built in [facility] Diagnostic Findings Echocardiogram 05/31/23 LVEF 65-70% aortic valve sclerosis mild, without significant moderate circumferential pericardial effusion with moderate organization No evidence of tamponade Repeat limited echo 06/03/23 Small to moderate sized pericardial effusion with fibrinous organization involving the apex and right lateral wall predominantly In comparison to study dated 05/31/23 there has been a reduction in effusion size No evidence of tamponade (2) Hypotension Hypotension type: unspecified hypotension type Qualified Code(s): I95.9 - Hypotension, unspecified (4) Anemia Anemia type: unspecified type Qualified Code(s): D64.9 - Anemia, unspecified
--- NOTE | 2023-06-05 15:45 | Cardiology Progress Note ---
Date of Service June 05, 2023 Assessment & Plan (1) Pericardial effusion: (2) Hypotension: (3) Debilitated: (4) Anemia: (5) Weakness: Plan 1. Pericardial effusion 2. Hypotension improved 3. Generalized weakness 4. Lower GI bleed 5. CAD with mutiple PCI 6. Atrial fibrillation prior cardioversion 7. SSD s/p Dual chamber PPM st Armaan Pericardial effusion: -Initial echo during this admission shows moderate size pericardial effusion without signs of tamponade. clinically no evidence of tamponade no symptoms of pericarditis. - Repeat echocardiogram yesterday demonstrates reduction in size of effusion. patient is showing clinical improvement from a cardiovascular standpoint. -Recommend that he has a repeat limited echo in 2 weeks to continue to monitor pericardial effusion/resolution. -He should follow up with his ballaster Dr. Carney from [facility] within 2 weeks of discharge. -patient remains in SR at this time. -Decision to restart oral AC therapy can be made pending repeat echo evaluation Hypotension: Demonstrates improvement in blood pressures. Currently at target. Generalized weakness/Lower GI bleed: -No evidence of acute bleed per GI evaluation -Continued monitoring/management per GI/primary team Atrial fibrillation: known history of paroxysmal atrial fibrillation on Xarelto history of cardioversion in November 2019 and October 2021. as per his most recent cardiology note available heart rates have been fast in March plan was to switch from sotalol to amiodarone but on home meds has been on both sotalol and amiodarone unable to clarify based on records available if he was weaned of sotalol discontinue sotalol continue with amiodarone Xarelto on hold. Plan is for repeat echo in 2 weeks, close cardiology follow up with Dr. Carney ([facility]) and decision to be made post echo with regards to restarting oral AC therapy. Coronary artery disease history of coronary artery disease with multiple stenting in the past most recent cardiac catheterization May 2020 with nonobstructive disease had been on isosorbide mononitrate and Ranexa with low blood pressure. Isosorbide mononitrate has been stopped and BP has normalized. SSS s/p Dual-chamber [employer] pacemaker; as per battery life has less than 6 months Plan as outlined above. Reassess pericardial effusion post hospital discharge. Hold anticoagulation until. Ranolazine discontinued given QT prolongation. Maintaining sinus rhythm with amiodarone 200 mg daily no other changes made. Discussed in detail with patient and family Contact with any additional questions Admission and Anticipated Discharge Date Admission Date: May 30, 2023 Subjective Patient seen and examined, chart, medications, telemetry reviewed. Standing up in room. Lungs improved auscultation. No acute complaints. Telemetry without significant arrhythmias No chest pains or discomfort. Rhythm atrial paced with normal AV conduction Review of Systems Review of Systems: All systems reviewed & are unremarkable except as noted in Subjective Physical Exam Constitutional: no acute distress Eyes: PERRL, conjunctivae normal, anicteric sclerae Neck: trachea midline, no thyromegaly Respiratory: normal respiratory effort, lungs clear to auscultation Cardiovascular: Rate/Rhythm: regular rate and regular rhythm Results & Data Vital Signs (Past 12 Hours) Vital Signs Temp Pulse Resp BP Pulse Ox O2 Del Method 06/05/23 15:24 36.6 C 80 18 126/85 92 Room Air 06/05/23 11:00 36.7 C 80 19 108/75 97 Room Air 06/05/23 07:25 36.7 C 85 19 116/78 94 Room Air 06/05/23 04:09 36.7 C 60 16 117/67 93 Room Air (2) Hypotension Hypotension type: unspecified hypotension type Qualified Code(s): I95.9 - Hypotension, unspecified (4) Anemia Anemia type: unspecified type Qualified Code(s): D64.9 - Anemia, unspecified
--- NOTE | 2023-06-05 16:42 | Hospitalist Progress Note ---
Date of Service June 05, 2023 Assessment & Plan (1) Hypotension: Plan: Possible sepsis from complicated UTI, history of BPH, history of bladder cancer status post surgery. CAUTI, POA Patient presented with hypotension No leukocytosis on presentation Urine culture shows E. coli Blood cultureno growth Continue on IV ceftriaxone; plan to treat for 7 days Remove Rodriguez, trial of void. Pericardial effusion No signs of tamponade Echocardiogram on 05/30 shows EF to 65 to 70%; moderate circumferential pericardial effusion. Echocardiogram on 06/02 shows improvement of tamponade Cardiology recommends following up with his lithographic plate maker to reevaluate; prior to restarting anticoagulation Episodic LGIB, possible colonic malignancy; occasional dark stool likely from iron tablets given negative FOBT at the ER as per ER provider account. No recurrence of hematochezia Hemoglobin is stable Status post colonoscopy 06/02 Positive diverticulosis, internal hemorrhoids, biopsy taken will need outpatient EUS per GI chronic HF -Euvolemic at this time Acute on chronic anemia secondary to above LGIB, possible dilutional anemia given recent confinement at [facility] for renal failure which required IV hydration -Hemoglobin stable around 8->10 -Continue to monitor hx CAD/CVA as per records Sick sinus syndrome status post pacemaker A-fib - Xarelto currently on hold -On amiodarone, sotalol, ranolazine Cardiology service evaluating above regimen, may need to discontinue some of above meds hyperlipidemia, on statin Rx history E. 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 DVT prophylaxis. SCDs Re: Episodic LGIB DNR as per patient as per patient directives. Disposition: Home after digestion of medical issues. Time spent evaluating patient, direct bedside care, chart review, placing orders, interpretation of diagnostic studies, discussion with consultants, patient, and family members, as well as other required patient management activities is 50 minutes Please note the above document was generated using voice recognition software. It may contain grammatical, syntax or spelling errors. Any formal questions or concerns about the content, text or information contained within the body of this dictation should be directly addressed to the provider for clarification Admission and Anticipated Discharge Date Admission Date: May 30, 2023 Subjective Patient seen and examined at bedside. He is sitting up on the chair at the side of the bed comfortably. Review of Systems Review of Systems: All systems reviewed & are unremarkable except as noted in Subjective Physical Exam Physical Exam: Constitutional: Alert oriented x 3; not in distress. Respiratory: b/l clear breath sounds Cardiovascular: RRR, no murmur, no edema Vessels: no JVD or carotid bruit Chest: normal inspection of chest Abdomen: Soft, nontender. Musculoskeletal: no cyanosis or clubbing, extremities motor strength 5/5 Skin: no rashes, warm and dry normal turgor Neurologic: PERRL, EOMI, accommodation nl, no face palsy, no dysarthria CN's II- XI intact bilaterally and moves all extremities Psychiatric: A+Ox3, euthymic affect Results & Data Results & Data Vital Signs (Past 12 Hours) Vital Signs Temp Pulse Resp BP Pulse Ox O2 Del Method 06/05/23 15:24 36.6 C 80 18 126/85 92 Room Air 06/05/23 11:00 36.7 C 80 19 108/75 97 Room Air 06/05/23 07:25 36.7 C 85 19 116/78 94 Room Air (1) Hypotension Hypotension type: unspecified hypotension type Qualified Code(s): I95.9 - Hypotension, unspecified
[2023-06-06 06:33] LABS: Basophils # (auto) 0.05 K/uL (0.00-0.20); Eosinophils # (auto) 0.12 K/uL (0.00-0.50); Eosinophils % (auto) 2.3 %; Hematocrit (blood only) 28.9 % (42.0-52.0); Hemoglobin 9.7 g/dl (14.0-18.0); Immature Granulocytes # (auto) 0.04 K/uL (0.01-0.20); Immature Granulocytes % (auto) 0.8 %; Lymphocytes # (auto) 0.89 K/uL (1.20-3.40); Mean Corpuscular Hgb Conc 33.6 g/dL (32.0-36.0); Mean Corpuscular Volume 95.4 fL (80.0-100.0); Mean Platelet Volume 8.9 fL (9.4-12.4); Monocytes # (auto) 0.55 K/uL (0.11-0.59); Monocytes % (auto) 10.5 %; Neutrophils # (auto) 3.59 K/uL (1.40-6.50); Neutrophils % (auto) 68.4 %; Platelet Count 304 K/uL (130-400); RDW Coefficient of Variation 13.2 % (11.5-14.5); RDW Standard Deviation 46.2 fL (36.4-46.3); Red Blood Count 3.03 M/uL (4.70-6.10); White Blood Count 5.24 K/ul (4.8-10.8)
[2023-06-06 06:34] LABS: Albumin Globulin Ratio 1.5 (0.9-2); Albumin Level 2.9 gm/dl (3.4-5.0); BUN Creatinine Ratio 7.7 (10-20); Bilirubin,Total 0.6 mg/dl (0.2-1.0); Calcium 8.1 mg/dl (8.6-10.3); Creatinine Clr Calc Pharmacy 115.2 ml/min; Est GFR (African American) 117.6 ml/min; Est GFR (Non-African American) 101.4 ml/min; Globulin 1.9 gm/dl (2.5-4.0); Potassium 4.1 mmol/L (3.5-5.1); Total Protein 4.8 gm/dl (6.0-8.3)
--- NOTE | 2023-06-06 15:41 | Discharge Summary ---
Date of Service June 06, 2023 Admission HPI Per Admitting Provider History obtained from patient and records. Medical history significant for chronic diastolic HF, CAD status post stent, CVA as per records, PVD status post surgery, SSS status post PPM currently off Xarelto, hypertension, hyperlipidemia, history E. coli bacteremia secondary to knee surgery on lifelong Bactrim Rx, hypothyroidism, seizure disorder, dementia as per records, BPH, GERD, bladder cancer status post surgery, hyperparathyroidism status post surgery, chronic anemia (baseline hemoglobin of 12). Patient seen at [facility] last month for generalized weakness, nausea, abdominal pain. CT abdomen pelvis showed: 1. Masslike circumferential wall thickening of the rectum with perirectal inflammatory stranding and subcentimeter perirectal lymph nodes. Findings are concerning for a primary colorectal malignancy. Nonemergent GI consultation with colonoscopy is needed. 2. There are bilateral renal masses measuring up to 4 cm suggestive of malignancy. Patient and family instructed to follow-up with GI, urology, and cancer specialist outpatient. Outpatient [facility] endoscopy 2 weeks ago. EGD showed submucosal nodule in duodenum. Colonoscopy showed stools/inadequate prep which precluded specimen collection. [facility] GI specialist referred patient to [facility] specialist who recommended repeat colonoscopy with transrectal ultrasound following 2-day bowel prep within the next 3 months as per outpatient notes. Tentative schedule at [facility] next week as per . Recent [facility] admission last week for fall, acute renal failure. Patient discharged 3 days ago with a Rodriguez catheter for urinary retention. Patient feels patient got sent home to [facility] and would have benefited from inpatient rehab. At home, patient noted achy generalized abdominal pain. Dark urine. Episodic hematochezia. Stools are occasionally dark as per . Patient denies chest pain, SOB, cough symptoms. Family with patient safety concerns at home given increasing weakness. Home nurse recommended ER evaluation. SBP 80s upon arrival at the ER. 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 CAUTI, POA Pericardial effusion Discharge Exam Constitutional: Alert oriented x 3; not in distress. Respiratory: b/l clear breath sounds Cardiovascular: RRR, no murmur, no edema Vessels: no JVD or carotid bruit Chest: normal inspection of chest Abdomen: Soft, nontender. Musculoskeletal: no cyanosis or clubbing, extremities motor strength 5/5 Skin: no rashes, warm and dry normal turgor Neurologic: PERRL, EOMI, accommodation nl, no face palsy, no dysarthria CN's II- XI intact bilaterally and moves all extremities Psychiatric: A+Ox3, euthymic affect Discharge Data Allergies Allergy/AdvReac Type Severity Reaction Status Date / Time azithromycin Allergy Severe Swelling Verified 05/30/23 19:49 [From Zithromax Z-Brady] of Lip/Tongue/Throat ethyl alcohol Allergy Intermediate "rubbing Verified 05/30/23 23:28 alcohol" caused blisters isopropyl alcohol Allergy Intermediate "rubbing Verified 05/30/23 23:28 alcohol" caused blisters latex Allergy Intermediate blisters Verified 05/30/23 19:49 verapamil AdvReac Severe asystole Verified 05/30/23 19:49 Consultations 05/30/23 19:35 ED Decision to Admit Stat 05/30/23 21:40 HIM [Consult Health Information Management] Routine 05/31/23 07:04 Consult Urology Routine 05/31/23 07:05 Consult Gastroenterology Routine 06/01/23 08:31 HIM [Consult Health Information Management] Routine 06/01/23 08:34 Consult Cardiology Routine Procedures Performed Operation Date: 06/03/23 17:15 Actual Procedures p Colonoscopy Biopsy Cytology - Kamron Whitfield MD Ordered Studies 05/30/23 17:13 CT abd pelvis wo con Stat Hospital Course (1) Hypotension: Possible sepsis from complicated UTI, history of BPH, history of bladder cancer status post surgery. CAUTI, POA Patient presented with hypotension No leukocytosis on presentation Urine culture shows E. coli Blood cultureno growth Patient was treated with IV ceftriaxone during the hospitalization. Trial of void was done on June 06, 2023 which was unsuccessful. Patient to follow-up with urology as outpatient for trial of void and evaluation of renal mass Pericardial effusion No signs of tamponade Echocardiogram on 05/30 shows EF to 65 to 70%; moderate circumferential pericardial effusion. Echocardiogram on 06/02 shows improvement of tamponade Cardiology recommends following up with his engineer sergeant to reevaluate; prior to restarting anticoagulation At discharge, sotalol, ranolazine was discontinued. Anemia Episodic LGIB, possible colonic malignancy; occasional dark stool likely from iron tablets given negative FOBT at the ER as per ER provider account. No recurrence of hematochezia Hemoglobin is stable Status post colonoscopy 06/02 Positive diverticulosis, internal hemorrhoids, biopsy taken will need outpatient EUS per GI Patient to follow-up with GI for endoscopic ultrasound as outpatient Please note the above document was generated using voice recognition software. It may contain grammatical, syntax or spelling errors. Any formal questions or concerns about the content, text or information contained within the body of this dictation should be directly addressed to the provider for clarification Total Time Total Time Spent Total Time Spent (In Minutes): 35 Total Time Includes: Examination of the Patient, Discharge Planning, Medication Reconciliation, Communication With Other Providers and Other Discharge Plan Discharge Items Patient Disposition: Home - Self-Care Reason For Visit: HYPOTENSION, COMP UTI Discharge Diagnosis: UTI Pericardial effusion Condition on Discharge: Fair Activity: Resume your previous activity Non-emergency contact: Primary Care Provider Call non-emergency contact if: you have any medication questions and your symptoms worsen Follow-up/Referrals: Wilber Weber MD [Physician] - 06/18/23 11:00 am Dulce Perez MD [Physician] - (The GI office will contact you for a follow up appointment/testing.) Kristian Smallwood D.O. [Primary Care Provider] - 06/11/23 2:40 pm Diet: Regular Addtl Attending Provider Instructions: You were admitted to the hospital due to low blood pressure. The likely cause of the low blood pressure is urinary tract infection and pericardial effusion(fluid surrounding your heart). You completed antibiotic course for the UTI during the hospitalization. You have appointment set up with your PCP on June 11, 2023. You were evaluated by cardiology for pericardial effusion. They recommend that you do not take Xarelto till you follow-up with your engineer sergeant in the next 2 weeks and repeat echocardiogram. The decision about restarting the anticoagulation should be made by your engineer sergeant after the repeat echocardiogram. Stop taking sotalol and ranolazine. The CT abdomen and pelvis done in April 2023 showed masslike circumferential wall thickening of the rectum. You underwent colonoscopy by Dr. Whitfield(from gastroenterology) on June 03, 2023. He recommends that you do outpatient lower endoscopic ultrasound to evaluate further. Please follow-up with gastroenterology. In regards to the urinary retention and bilateral renal mass seen in the CT scan, please follow-up with Dr. Wilber Weber on June 18, 2023. Pending Studies at Discharge: No Stand-Alone Forms: My [place], Smoking Cessation Medications and DC Order Prescriptions: Continued Sutab 1.479-0.188- 0.225 gram tablet See Rx Instructions PO .COMPLEX Qty: 24 0RF Rx Instructions: FOR TEST ON 06/04/23-----TAKE FIRST DOSE AT 6 PM AND SECOND DOSE 6 HOURS PRIOR TO PROCEDURE BIN: [id number] PCN: CN GROUP: [id number] peg 3350-electrolytes [Golytely] 236-22.74-6.74 -5.86 gram recon soln 240 ml PO Q10M Qty: 4000 0RF Rx Instructions: until fecal effluent is clear atorvastatin 40 mg Tablet 40 mg PO HS levothyroxine 75 mcg Tablet 75 mcg PO [id number] Patient Comments: mon - sat in the morning hours. Rx Instructions: Sat//Sat//Sat isosorbide mononitrate 60 mg Tablet Extended Release 24 Hr 60 mg PO QPM pantoprazole 40 mg Tablet,Delayed Release (Dr/Ec) 40 mg PO QAM lamotrigine 100 mg Tablet 100 mg PO BID finasteride 5 mg Tablet 5 mg PO DAILY Patient Comments: might be off of right now cholecalciferol (vitamin D3) [Vitamin D3] 125 mcg (5,000 unit) Tablet 125 mcg PO QAM amiodarone 200 mg tablet 200 mg PO QPM Rx Instructions: NOT ON [facility] MED LIST nitroglycerin 0.4 mg tablet, sublingual 0.4 mg sublingual .[id number] PRN (Reason: Chest Pain) Patient Comments: last use 4 mon ago gabapentin 300 mg capsule 300 mg PO TID Rx Instructions: UNSURE IF PT IS STILL TAKING THIS MED, LAST REFILL 04/18/23 FOR 30 DAYS. ketoconazole 2 % Cream 1 applic TOPICAL UD PRN (Reason: Skin Irritation/openings /none current ) Rx Instructions: buttocks sulfamethoxazole-trimethoprim [Bactrim DS] 800-160 mg Tablet 1 tab PO Q12H Patient Comments: on for life due to ecoli after knee surgery promethazine 25 mg Tablet 25 mg PO UD PRN (Reason: n/v) dicyclomine 10 mg Capsule 10 mg PO BID Patient Comments: off now for surgery/not sure if will re start Rx Instructions: not sure/off now for surgery ramipril 5 mg Capsule 5 mg PO DAILY ferrous sulfate 27 mg iron Tablet 27 mg PO DAILY Held Xarelto 20 mg Tablet 20 mg PO HS Hold Instructions: Resume on 06/25/23. Hold anticoagulation until you see ca rdiology and obtaining echocardiogram Patient Comments: not currently taking off of due to rectal bleeding Rx Instructions: Patient currently holding due to rectal bleeding. Discontinued Linzess 145 mcg capsule 145 mcg PO DAILY Qty: 30 2RF ranolazine 1,000 mg Tablet Extended Release 12 Hr 1,000 mg PO BID ondansetron 8 mg tablet,disintegrating 8 mg PO UD PRN (Reason: Nausea And Vomiting) sotalol 120 mg tablet 120 mg PO BID Discharge Orders: Discharge Order (Routine); Ordered 06/06/23 Ordered By: Umair Garner Admission Data Admit Date/Time: 05/30/23 21:37 Attending Provider: Umair Garner Admit Provider: Jayro Rose Primary Care Provider: Kristian Smallwood Other Providers: Jayro Rose; Ryan Cleveland; Arturo Franklin; Noe Garcia; Minerva Koo; Syed Collins; Diamond Marshall; Grazyna Gillis; Wilber Weber; Cheryl Rothman; Anuel Marks; Jose Hernández; Michael Ariza; Sharona Garza; Christin Ocasio; Willian Zimmer; Saeid Lewis; Anuel Junior; Nick Dillon; Jacobo Borrero; Elizabeth Fair; Andria Butler; Linda Esquivel; Christin Rasheed; Jefry Pollock; Jarret Ramos; Beth Callaway; Erin Vaca; Elder Franco; Christopher Malone Other Interventions: Discharge Summary Assessment (RN) Last Done: 06/06/23 12:02
== END 2023-06-06 13:38 | disposition home health service (06) | DRG 698 ==
LOC: ED 16:11 → SUATTDRO 21:37 → 4W 21:37

== ENCOUNTER 2023-12-23 13:04 | Inpatient (IN) ==
[2023-12-23 14:00] LABS: Basophils # (auto) 0.03 K/uL (0.00-0.20); Basophils % (auto) 0.6 %; Eosinophils # (auto) 0.03 K/uL (0.00-0.50); Eosinophils % (auto) 0.6 %; Hematocrit (blood only) 36.1 % (42.0-52.0); Hemoglobin 11.6 g/dl (14.0-18.0); Immature Granulocytes # (auto) 0.03 K/uL (0.01-0.20); Immature Granulocytes % (auto) 0.6 %; Lymphocytes # (auto) 0.52 K/uL (1.20-3.40); Lymphocytes % (auto) 9.6 %; Mean Corpuscular Hemoglobin 28.9 pg (25.0-34.0); Mean Corpuscular Hgb Conc 32.1 g/dL (32.0-36.0); Mean Platelet Volume 9.3 fL (9.4-12.4); Monocytes % (auto) 11.1 %; Neutrophils # (auto) 4.19 K/uL (1.40-6.50); Neutrophils % (auto) 77.5 %; Platelet Count 132 K/uL (130-400); RDW Standard Deviation 42.7 fL (36.4-46.3); Red Blood Count 4.01 M/uL (4.70-6.10)
[2023-12-23 14:08] LABS: Alanine Aminotransferase 19 U/L (7-52); Albumin Globulin Ratio 1.7 (0.9-2); Albumin Level 3.7 gm/dl (3.4-5.0); Alkaline Phosphatase 178 U/L (34-104); Anion Gap 7 (3-11); Aspartate Aminotransferase 29 U/L (13-39); BUN Creatinine Ratio 11.1 (10-20); Bilirubin,Total 0.7 mg/dl (0.2-1.0); Blood Urea Nitrogen 9 mg/dl (6-23); Calcium 8.2 mg/dl (8.6-10.3); Carbon Dioxide 25 mmol/L (21-32); Chloride 100 mmol/L (98-107); Globulin 2.2 gm/dl (2.5-4.0); Glucose 124 mg/dl (70-99(Fasting)); Potassium 4.2 mmol/L (3.5-5.1); Sodium 132 mmol/L (136-145); Total Protein 5.9 gm/dl (6.0-8.3)
[2023-12-23 14:39] LABS: Appearance Urine Clear (Clear); Bacteria Urine Automated None Seen (None Seen); Bilirubin Urine Negative (Negative); Blood Urine Trace (Negative); Cast Urine Automated 0-2 /lpf (0-2); Color Urine Yellow; Epithelial Cell Urine Auto 0-2 /hpf (0-2); Glucose Urine UA Negative (Negative); Ketones Urine Negative (Negative); Leukocyte Esterase Urine 2+ (Negative); Nitrite Urine Negative (Negative); Protein Urine Trace (Negative); RBC Urine Automated 0-2 /hpf (0-2); Specific Gravity Urine 1.016 (1.000-1.030); Urobilinogen Urine Negative (Negative); WBC Urine Automated >50 /hpf (0-5); pH Urine 6.5 (4.5-7.5)
[2023-12-23] MEDS: SODIUM CHLORIDE 0.9% 500 ML IV STA (14:55)
--- NOTE | 2023-12-23 15:24 | Emergency Department Note ---
History of Present Illness General Chief Complaint: Flank Pain Stated Complaint: RT FLANK/UNDER RIB PAIN Time Seen by Provider: 12/23/23 14:10 Source: patient and family History of Present Illness Provider Complaint: abdominal pain and flank pain Onset (ago): 3 month(s) Pain Consistency: intermittent Location: R flank Radiation: RLQ Severity: moderate Maximum Pain Intensity: 8 Current Pain Intensity: 8 Quality: + aching Relieved By: + nothing Exacerbated By: + nothing Context: no foreign travel, no possible food poisoning, no sick contacts, no recent antibiotic use, no recent surgery/procedure or no recent injury Associated Symptoms: + nausea and + vomiting; no fever, no chills, no dysuria, no hematemesis, no melena, no hematuria, no headache, no chest pain and no breathing difficulty Home Medications Medication Instructions Recorded Confirmed Type atorvastatin 40 mg tablet 40 mg PO HS 02/16/21 12/23/23 History cholecalciferol (vitamin D3) 125 125 mcg PO QAM 02/16/21 12/23/23 History mcg (5,000 unit) tablet (Vitamin D3) isosorbide mononitrate 60 mg 60 mg PO UD 02/16/21 12/23/23 History tablet,extended release 24 hr pantoprazole 40 mg tablet,delayed 40 mg PO QAM 02/16/21 12/23/23 History release rivaroxaban 20 mg tablet (Xarelto) 20 mg PO UD 02/16/21 12/23/23 History gabapentin 300 mg capsule 300 mg PO TID 05/03/23 12/23/23 History ketoconazole 2 % topical cream 1 applic topical UD PRN Skin 05/03/23 12/23/23 History Irritation/openings /none current nitroglycerin 0.4 mg sublingual 0.4 mg sublingual .[id number] PRN 05/03/23 12/23/23 History tablet Chest Pain dicyclomine 10 mg capsule 10 mg PO BID 05/10/23 12/23/23 History sulfamethoxazole 800 1 tab PO Q12H 05/10/23 12/23/23 History mg-trimethoprim 160 mg tablet (Bactrim DS) ramipril 5 mg capsule 5 mg PO DAILY 05/30/23 12/23/23 History tamsulosin 0.4 mg capsule 0.4 mg PO DAILY #90 caps 06/18/23 12/23/23 Rx lamotrigine 100 mg tablet 100 mg PO BID 12/23/23 12/23/23 History lenvatinib 20 mg/day (10 mg x 2) 20 mg PO BID 12/23/23 12/23/23 History capsule (Lenvima) vibegron 75 mg tablet 75 mg PO UD 12/23/23 12/23/23 History Allergies Allergy/AdvReac Type Severity Reaction Status Date / Time azithromycin Allergy Severe Swelling Verified 12/06/23 07:56 [From Zithromax Z-Brady] of Lip/Tongue/Throat ethyl alcohol Allergy Intermediate "rubbing Verified 12/06/23 07:56 alcohol" caused blisters isopropyl alcohol Allergy Intermediate "rubbing Verified 12/06/23 07:56 alcohol" caused blisters latex Allergy Intermediate blisters Verified 12/06/23 07:56 carvedilol Allergy Verified 12/06/23 07:56 clopidogrel Allergy Verified 12/06/23 07:56 verapamil AdvReac Severe asystole Verified 12/06/23 07:56 Past Med/Surg History Problem List (Updated 12/23/23 @ 18:02 by Nikita Chapman MD) Cholelithiasis (Acute) Right sided abdominal pain (Acute) Pulmonary nodule Transient visual loss (Acute) TIA (transient ischemic attack) (Acute) Urinary urgency Phimosis Abdominal distention Scrotal swelling Renal mass Urinary retention Abnormal CT of the abdomen Hypotension (Acute) Debilitated (Acute) Acute UTI (Acute) Pericardial effusion (Acute) Anemia (Acute) Weakness (Acute) Dysphagia Encounter for pre-operative examination Medical History Esophageal dilatation Weight loss over 35 pounds over past month. History of radiation exposure 1986 History of stroke 2001 - no residual effects. History of colon polyps Mass of colon CT scan [facility] 05/03/23. Hemorrhoids internal Kidney lesion lesions on kidneys per CT scan/ [place] 2-3 weeks ago/talk of samantha with kidney - pt has not received follow up phone call. Rectal bleeding Neuropathy CAD (coronary artery disease) On anticoagulant therapy Hypothyroidism Prophylactic antibiotic assisted use of antibiotic>hx artificial joint infection Osteoarthritis History of bladder cancer treated surgically 1980s CIRCLE (hard of hearing) reads lips Seizure-like activity hx 2014 - neuro work up neg for seizures - no issues since (follows with [facility]) HLD (hyperlipidemia) HTN (hypertension) History of atrial fibrillation follows with Dr. Carney; on xarelto (currently on hold due to recatal bleeding) hx cardioversion x2 ? History of myocardial infarction x 2 (1986, 2001) History of esophageal dilatation Dysphagia Surgical History History of left-sided carotid endarterectomy History of hernia surgery x2 Pacemaker passing out/reason for pacemaker. last checked : "recent check by Dr. Carney"/[facility] History of tonsillectomy History of appendectomy History of left knee replacement + revision surgery History of cataract surgery rt/left History of parathyroidectomy History of bladder surgery TURBT H/O heart artery stent x 4 History of cardiac cath 05/2020 -- CP -- [facility] - no stents mult cardiac cath between [id number] (4 stents placed total) - [facility] and [facility] in [place], [place] History of colonoscopy History of esophagogastroduodenoscopy (EGD) Family History Father Prostate cancer Diabetes Heart disease Hypertension Mother Diabetes Hypertension Breast cancer Other No family history of adverse response to anesthesia Social History Smoking Status: Never smoker Second Hand Exposure: No; Do You Dip or Chew Tobacco: No; Hx Alcohol Use: No Hx Substance Use: No Preferred Language: Korean Communication Ability: Effective Communication Ability Comment: pt is jena/pt does phone interview/per pt preference. 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 Feels Safe at Home: Yes Assistive Devices: Cane and Walker Physical Exam 2 Vital Signs: Vital Signs - 24 hr 12/23/23 13:17 12/23/23 14:28 12/23/23 14:42 Temperature 36.9 C Temperature Source Temporal Artery Sc an Pulse Rate 105 H 92 H Pulse Rate [Right Finger] 98 H Respiratory Rate 18 26 H Respiratory Effort / Characteristics Non-Labored Sponta neous Non-Labored Sponta neous Respiratory Depth Normal Normal Respiratory Patter n Regular Blood Pressure 118/85 Blood Pressure [Ri ght Arm] 115/87 Blood Pressure Dee n 96 Blood Pressure Dee n [Right Arm] 96 Pulse Oximetry 95 98 Oxygen Delivery Me thod Room Air Room Air Sepsis Recent Feve r Within 48 Hours No Sepsis New/Unexpla ined Change in Men sherry Status N/A Sepsis Action Take n by Nursing No Action Required 12/23/23 16:28 Temperature Temperature Source Pulse Rate Pulse Rate [Right Finger] 89 Respiratory Rate 18 Respiratory Effort / Characteristics Respiratory Depth Respiratory Patter n Blood Pressure Blood Pressure [Ri ght Arm] 135/109 H Blood Pressure Dee n Blood Pressure Dee n [Right Arm] 117 Pulse Oximetry 93 Oxygen Delivery Me thod Room Air Sepsis Recent Feve r Within 48 Hours Sepsis New/Unexpla ined Change in Men sherry Status Sepsis Action Take n by Nursing Physical Exam: Physical Exam GENERAL: oriented to person, place, and time. appears well-developed and well- nourished. She does not appear distressed. HENT: Exam performed. -Head: Normocephalic and atraumatic. -Right Ear: External ear normal. No mastoid erythema -Left Ear: External ear normal. No mastoid erythema -Mouth/Throat: The oropharynx is clear and moist. No trismus in the jaw. No dental abscesses or uvula swelling. No oropharyngeal exudate or tonsillar abscesses. EYES: Conjunctivae and EOM are normal.Right eye exhibits no discharge. Left eye exhibits no discharge. No scleral icterus. NECK: Normal range of motion. Neck supple. No JVD present. No tracheal deviation and normal range of motion present. CV: Normal rate, regular rhythm, normal heart sounds and intact distal pulses. There is no peripheral edema. Palpable radial pulses bue. PULM/CHEST: Effort normal and breath sounds normal. No respiratory distress. No stridor. no wheezes.no rales. -Chest Wall: no tenderness to palpation ABD: The abdomen is soft. Bowel sounds are normal. no distension. No mass is present. There is tenderness to palpation of the right upper quadrant and right lower quadrant. There is no rebound, no guarding, no Gomez's sign. Rovsig negative. No CVA tenderness bilaterally. MUSC/SKEL: Normal range of motion. There is no peripheral edema, tenderness or deformity. NEURO: Motor and sensation grossly intact. SKIN: Skin is warm and dry. not diaphoretic. PSYCH: normal mood and affect. Behavior is normal. Judgment and thought content normal. Course Course 1410: The patient was evaluated in room A3. A complete history and physical exam was performed Cardiac monitoring: An order was placed for continuous cardiac monitoring. The monitor shows a rate of 90 with sinus rhythm interpreted by me 1638: Vital signs stable. Labs show normal white blood cell count 5.4. Hemoglobin 11.6. Total bilirubin within normal limits. AST ALT within normal limits. Alkaline phosphatase at 178 which is chronically elevated. Imaging shows possible cholelithiasis with pericholecystic stranding suggestive of acute cholecystitis. Discussed the case with Karie Pierre who is working with Dr. Weiss today. She recommends admission to medicine and ultrasound. Patient be admitted to the [facility] hospitalist team. Administered Medications Discontinued Medications Sodium Chloride (Nss) 500 mls @ 999 mls/hr IV .Q31M STA Stop: 12/23/23 13:53 Last Infusion: 12/23/23 16:12 Dose: Infused Documented By: MARIA ALEJANDRA Admin: 12/23/23 14:55 Dose: 999 mls/hr Documented By: LEONA Medical Decision Making Medical Records Attestation: I reviewed the patient's medical records. External medical records reviewed. External medical records were obtained by Fani collections manager from the [employer] system. 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 According to the paperwork from [facility] the patient has a family history of clear-cell carcinoma. Patient met with urology and given the small size of it they elected to have it treated by percutaneous ablation of the tumor which was done by IR on November 19, 2023. Laboratory Data Attestation: I reviewed the patient's lab results. 12/23/23 13:32 12/23/23 13:32 Lab Results 12/23/23 12/23/23 Range/Units 13:32 Unknown WBC 5.40 (4.8-10.8) K/ul RBC 4.01 L (4.70-6.10) M/uL Hgb 11.6 L (14.0-18.0) g/dl Hct 36.1 L (42.0-52.0) % MCV 90.0 (80.0-100.0) fL MCH 28.9 (25.0-34.0) pg MCHC 32.1 (32.0-36.0) g/dL RDW Std Deviation 42.7 (36.4-46.3) fL RDW Coeff of Seamus 13.0 (11.5-14.5) % Plt Count 132 (130-400) K/uL MPV 9.3 L (9.4-12.4) fL Immature Gran % (Auto) 0.6 % Neut % (Auto) 77.5 % Lymph % (Auto) 9.6 % [place] % (Auto) 11.1 % Eos % (Auto) 0.6 % Baso % (Auto) 0.6 % Neut # (Auto) 4.19 (1.40-6.50) K/uL Lymph # (Auto) 0.52 L (1.20-3.40) K/uL [place] # (Auto) 0.60 H (0.11-0.59) K/uL Eos # (Auto) 0.03 (0.00-0.50) K/uL Baso # (Auto) 0.03 (0.00-0.20) K/uL Immature Gran # (Auto) 0.03 (0.01-0.20) K/uL Sodium 132 L (136-145) mmol/L Potassium 4.2 (3.5-5.1) mmol/L Chloride 100 (98-107) mmol/L Carbon Dioxide 25 (21-32) mmol/L Anion Gap 7 (3-11) BUN 9 (6-23) mg/dl Creatinine 0.81 (0.6-1.4) mg/dl Est Cr Clr Drug Dosing Not Reportable eGFR 89.13 BUN/Creatinine Ratio 11.1 (10-20) Glucose 124 H (70-99(Fasting)) mg/dl Calcium 8.2 L (8.6-10.3) mg/dl Total Bilirubin 0.7 (0.2-1.0) mg/dl AST 29 (13-39) U/L ALT 19 (7-52) U/L Alkaline Phosphatase 178 H (34-104) U/L Total Protein 5.9 L (6.0-8.3) gm/dl Albumin 3.7 (3.4-5.0) gm/dl Globulin 2.2 L (2.5-4.0) gm/dl Albumin/Globulin Ratio 1.7 (0.9-2) Urine Color Yellow Urine Appearance Clear (Clear) Urine pH 6.5 (4.5-7.5) Ur Specific [place] 1.016 (1.000-1.030) Urine Protein Trace H (Negative) Urine Glucose (UA) Negative (Negative) Urine Ketones Negative (Negative) Urine Blood Trace H (Negative) Urine Nitrite Negative (Negative) Urine Bilirubin Negative (Negative) Urine Urobilinogen Negative (Negative) Ur Leukocyte Esterase 2+ H (Negative) Urine WBC (Auto) >50 H (0-5) /hpf Urine RBC (Auto) 0-2 (0-2) /hpf U Hyaline Cast (Auto) 0-2 (0-2) /lpf U Epithel Cells (Auto) 0-2 (0-2) /hpf Urine Bacteria (Auto) None Seen (None Seen) Imaging Data Radiologist's Impression: Abdomen/Pelvis CT 12/23/23 14:11 CT OF THE ABDOMEN AND PELVIS WITHOUT CONTRAST CLINICAL HISTORY: Right flank pain. COMPARISON STUDY: CT of the abdomen and pelvis November 13, 2023. TECHNIQUE: Axial images of the abdomen and pelvis were obtained without IV contrast. Images were reviewed in the axial, sagittal, and coronal planes. Automated exposure control was utilized for the study. A dose lowering technique was utilized adhering to the principles of ALARA. FINDINGS: Small bilateral pleural effusions, right larger than left, have slightly decreased in size since CT of November 13, 2023. A small pericardial effusion is unchanged. Ground glass opacities within the lower lobes are present. No pneumatosis, free air or portal venous gas is present. Small bilateral renal calculi measure up to 3 mm. There are no ureteral calculi. There is no hydronephrosis. Bilateral renal lesions are better depicted on CT of August 20, 2023. These include a 3.3 cm left renal lesion on image [id number]. Dilation of the abdomen and pelvis is suboptimal on this unenhanced exam. There is mild body wall edema. Enhanced images of liver, spleen, adrenal glands and pancreas are unremarkable. There are gallstones within the gallbladder. There is pericholecystic stranding. This was shown on prior exam. The gallbladder is not significantly distended. There is no evidence for a bowel obstruction. Bladder wall thickening is unchanged. No fluid collections are present. No lymphadenopathy. IMPRESSION: 1. Cholelithiasis with pericholecystic stranding which was shown on prior exam. Although not highly suggestive, acute cholecystitis cannot be excluded. If right upper quadrant pain, ultrasound is recommended. 2. Bilateral nephrolithiasis. No ureteral calculi or hydronephrosis. 3. Bilateral renal masses better depicted on contrast enhanced CT of August 20, 2023. 4. Small bilateral pleural effusions which have decreased in size since prior exam. Associated airspace opacities favor atelectasis. An infectious process is considered less likely. ACT 112: Negative or not required by law. Electronically signed by: Andrew Hankins M.D. 12/23/2023 3:43 PM ECG Data Attestation: I personally reviewed and interpreted this ECG as follows: Rate (beats per minute): 106 Rhythm: atrial fibrillation Findings: no ST depression, no ST elevation or no prolonged QT MDM Narrative 1410: The patient was evaluated in room A3. A complete history and physical exam was performed Cardiac monitoring: An order was placed for continuous cardiac monitoring. The monitor shows a rate of 90 with sinus rhythm interpreted by me 1638: Vital signs stable. Labs show normal white blood cell count 5.4. Hemoglobin 11.6. Total bilirubin within normal limits. AST ALT within normal limits. Alkaline phosphatase at 178 which is chronically elevated. Imaging shows possible cholelithiasis with pericholecystic stranding suggestive of acute cholecystitis. Discussed the case with Karie Pierre who is working with Dr. Weiss today. She recommends admission to medicine and ultrasound. Patient be admitted to the [facility] hospitalist team. Impression & Plan Cholelithiasis, Right sided abdominal pain Discharge Plan Visit Data Chief Complaint: Flank Pain Stated Complaint: RT FLANK/UNDER RIB PAIN ED Provider: Nikita Chapman Discharge Problem: Cholelithiasis, Right sided abdominal pain Patient Disposition: Being Evaluated by Hospitalist Forms Stand Alone Forms: My IfOnly Prescriptions Prescriptions: No Action tamsulosin 0.4 mg capsule 0.4 mg PO DAILY Qty: 90 3RF atorvastatin 40 mg Tablet 40 mg PO HS isosorbide mononitrate 60 mg Tablet Extended Release 24 Hr 60 mg PO UD Rx Instructions: 60 mg po daily They think he takes it BID. Fill history 10/20 shows daily pantoprazole 40 mg Tablet,Delayed Release (Dr/Ec) 40 mg PO QAM cholecalciferol (vitamin D3) [Vitamin D3] 125 mcg (5,000 unit) Tablet 125 mcg PO QAM Xarelto 20 mg Tablet 20 mg PO UD Hold Instructions: Resume on 06/25/23. Hold anticoagulation until you see cardiology and obtaining echocardiogram Patient Comments: not currently taking off of due to rectal bleeding Rx Instructions: 20 mg po hs. Still on hold nitroglycerin 0.4 mg tablet, sublingual 0.4 mg sublingual .[id number] PRN (Reason: Chest Pain) Patient Comments: last use 4 mon ago gabapentin 300 mg capsule 300 mg PO TID Rx Instructions: UNSURE IF PT IS STILL TAKING THIS MED, LAST REFILL 04/18/23 FOR 30 DAYS. ketoconazole 2 % Cream 1 applic TOPICAL UD PRN (Reason: Skin Irritation/openings /none current ) Rx Instructions: buttocks sulfamethoxazole-trimethoprim [Bactrim DS] 800-160 mg Tablet 1 tab PO Q12H Patient Comments: on for life due to ecoli after knee surgery dicyclomine 10 mg Capsule 10 mg PO BID Patient Comments: off now for surgery/not sure if will re start Rx Instructions: not sure/off now for surgery ramipril 5 mg Capsule 5 mg PO DAILY lamotrigine 100 mg tablet 100 mg PO BID Lenvima 20 mg/day (10 mg x 2) capsule 20 mg PO BID vibegron 75 mg tablet 75 mg PO UD Rx Instructions: 75 mg po daily theyre not sure of medication Referrals Referrals: Kristian Smallwood D.O. [Primary Care Provider] -
--- NOTE | 2023-12-23 15:46 | CT Scan Report ---
CT OF THE ABDOMEN AND PELVIS WITHOUT CONTRAST CLINICAL HISTORY: Right flank pain. COMPARISON STUDY: CT of the abdomen and pelvis November 13, 2023. TECHNIQUE: Axial images of the abdomen and pelvis were obtained without IV contrast. Images were revi ewed in the axial, sagittal, and coronal planes. Automated exposure control was utilized for the charissa dy. A dose lowering technique was utilized adhering to the principles of ALARA. FINDINGS: Small bilateral pleural effusions, right larger than left, have slightly decreased in size since CT of November 13, 2023. A small pericardial effusion is unchanged. Ground glass opacities with in the lower lobes are present. No pneumatosis, free air or portal venous gas is present. Small bilat eral renal calculi measure up to 3 mm. There are no ureteral calculi. There is no hydronephrosis. Michael ateral renal lesions are better depicted on CT of August 20, 2023. These include a 3.3 cm left renal le milind on image [id number]. Dilation of the abdomen and pelvis is suboptimal on this unenhanced exam. Ther e is mild body wall edema. Enhanced images of liver, spleen, adrenal glands and pancreas are unremark able. There are gallstones within the gallbladder. There is pericholecystic stranding. This was shown on prior exam. The gallbladder is not significantly distended. There is no evidence for a bowel obst ruction. Bladder wall thickening is unchanged. No fluid collections are present. No lymphadenopathy. IMPRESSION: 1. Cholelithiasis with pericholecystic stranding which was shown on prior exam. Although not highly s uggestive, acute cholecystitis cannot be excluded. If right upper quadrant pain, ultrasound is recomm ended. 2. Bilateral nephrolithiasis. No ureteral calculi or hydronephrosis. 3. Bilateral renal masses better depicted on contrast enhanced CT of August 20, 2023. 4. Small bilateral pleural effusions which have decreased in size since prior exam. Associated airspa ce opacities favor atelectasis. An infectious process is considered less likely. ACT 112: Negative or not required by law. Electronically signed by: Andrew Hankins M.D. 12/23/2023 3:43 PM
--- NOTE | 2023-12-23 17:05 | History & Physical Report ---
Date of Service December 23, 2023 Assessment & Plan (1) Cholelithiasis: (2) Right sided abdominal pain: (3) Metastatic clear cell carcinoma of kidney: (4) HTN (hypertension): (5) History of atrial fibrillation: (6) Dysphagia: (7) (HFpEF) heart failure with preserved ejection fraction: Plan This is an 78yo M with a PMH of metastatic clear-cell carcinoma of the kidney, HFpEF, CAD status post stent, CVA as per records, PVD status post surgery, SSS status post PPM, hypertension, hyperlipidemia, history E. 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 Right sided abdominal pain Chloelithiasis Progressive R sided abd pain x 3 months No F/C, VSS CT abd/pelvis with cholelithiasis with pericholecystic stranding which was shown on prior exam. Although not highly suggestive, acute cholecystitis cannot be excluded. If right upper quadrant pain, ultrasound is recommended Gen surg evaluated - feel CT findings are non-specific and recommended GB u ltrasound - results pending If ultrasound equivocal may need HIDA scan to rule out acute cholecystitis Gen surg following - clears for dinner and NPO after midnight Gentle IV fluids, empiric Zosyn for possible cholecystitis and abnormal UA with urine cx pending Tylenol/tramadol for pain control Metastatic clear cell carcinoma of the kidney S/p recent ablation procedure at [facility], following with Dr. Chew Start Keytruda on 12/17, due in 2 weeks. Hold Lenvima for now given acute issues History of CAD Continue statin, Imdur HTN Optimize pain control, continue ramipril Sick sinus syndrome S/p pacemaker Atrial fibrillation Xarelto currently on hold due to history of multiple GI bleeds Continue Sotalol BID History E. coli bacteremia 2/2 to knee surgery on lifelong Bactrim Currently on Zosyn Resume Bactrim once empiric abx dc'd Seizure disorder Continue Lamictal Dementia DVT Ppx: SCDs for now Code status: DNR/DNI PCP: Selin Alcaraz) Dispo: admitted to med/surg Patient seen in collaboration with Dr. Whitaker. Please see addendum. I spent a total of 75 minutes coordinating, documenting, and providing care for this patient excluding time spent in the performance of separately billed services. History of Present Illness Chief Complaint: abdominal pain Primary Care Provider: Kristian Smallwood This is an 78yo M with a PMH of metastatic clear-cell carcinoma of the kidney, HFpEF, CAD status post stent, CVA as per records, PVD status post surgery, SSS status post PPM, hypertension, hyperlipidemia, history E. coli bacteremia secondary to knee surgery on lifelong Bactrim Rx, hypothyroidism, seizure diso rder, dementia as per records, BPH, GERD, bladder cancer status post surgery, hyperparathyroidism status post surgery, chronic anemia (baseline hemoglobin of 12) who presents with worsening flank and abdominal pain x 3 months. Patient recently ablation to a large kidney mass at [facility]. Is following with Dr. Chew [facility] and started Keytruda last week. Has had ongoing right sided abdominal pain that is described as intermittent and sharp. Pain is exacerbated with any type of movement and eating. However has not been able to determine any specific foods that make pain worse. Generally feels better when reclined in his chair. Last night, states patient started to cry and moan in his sleep, which prompted her to bring him in to ED for further evaluation. Denies any associated fever, chills, nausea or vomiting. No constipation or change to bowel habits. History of recurrent UTIs but denies any symptoms at this time. Allergies Allergy/AdvReac Type Severity Reaction Status Date / Time azithromycin Allergy Severe Swelling Verified 12/06/23 07:56 [From Zithromax Z-Brady] of Lip/Tongue/Throat ethyl alcohol Allergy Intermediate "rubbing Verified 12/06/23 07:56 alcohol" caused blisters isopropyl alcohol Allergy Intermediate "rubbing Verified 12/06/23 07:56 alcohol" caused blisters latex Allergy Intermediate blisters Verified 12/06/23 07:56 carvedilol Allergy Verified 12/06/23 07:56 clopidogrel Allergy Verified 12/06/23 07:56 verapamil AdvReac Severe asystole Verified 12/06/23 07:56 Home Medications Medication Instructions Recorded Confirmed Type atorvastatin 40 mg tablet 40 mg PO HS 02/16/21 12/23/23 History cholecalciferol (vitamin D3) 125 125 mcg PO QAM 02/16/21 12/23/23 History mcg (5,000 unit) tablet (Vitamin D3) isosorbide mononitrate 60 mg 60 mg PO DAILY 02/16/21 12/23/23 History tablet,extended release 24 hr pantoprazole 40 mg tablet,delayed 40 mg PO QAM 02/16/21 12/23/23 History release rivaroxaban 20 mg tablet (Xarelto) 20 mg PO UD 02/16/21 12/23/23 History gabapentin 300 mg capsule 300 mg PO TID 05/03/23 12/23/23 History ketoconazole 2 % topical cream 1 applic topical UD PRN Skin 05/03/23 12/23/23 History Irritation/openings /none current nitroglycerin 0.4 mg sublingual 0.4 mg sublingual .[id number] PRN 05/03/23 12/23/23 History tablet Chest Pain dicyclomine 10 mg capsule 10 mg PO BID 05/10/23 12/23/23 History sulfamethoxazole 800 1 tab PO Q12H 05/10/23 12/23/23 History mg-trimethoprim 160 mg tablet (Bactrim DS) ramipril 5 mg capsule 5 mg PO DAILY 05/30/23 12/23/23 History tamsulosin 0.4 mg capsule 0.4 mg PO DAILY #90 caps 06/18/23 12/23/23 Rx lamotrigine 100 mg tablet 100 mg PO BID 12/23/23 12/23/23 History lenvatinib 20 mg/day (10 mg x 2) 20 mg PO HS 12/23/23 12/23/23 History capsule (Lenvima) vibegron 75 mg tablet 75 mg PO UD 12/23/23 12/23/23 History Past Med/Surg History Problem List (Updated 12/23/23 @ 20:42 by Radha Alcaraz PA-C) Cholelithiasis (Acute) Right sided abdominal pain (Acute) Pulmonary nodule Transient visual loss (Acute) TIA (transient ischemic attack) (Acute) Urinary urgency Phimosis Abdominal distention Scrotal swelling Renal mass Urinary retention Abnormal CT of the abdomen Hypotension (Acute) Debilitated (Acute) Acute UTI (Acute) Pericardial effusion (Acute) Anemia (Acute) Weakness (Acute) Dysphagia Medical History (Updated 12/23/23 @ 20:42 by Radha Alcaraz PA-C) (HFpEF) heart failure with preserved ejection fraction Metastatic clear cell carcinoma of kidney Esophageal dilatation Weight loss over 35 pounds over past month. History of radiation exposure 1986 History of stroke 2001 - no residual effects. History of colon polyps Mass of colon CT scan [facility] 05/03/23. Hemorrhoids internal Kidney lesion lesions on kidneys per CT scan/ [place] 2-3 weeks ago/talk of samantha with kidney DrDorian - pt has not received follow up phone call. Rectal bleeding Neuropathy CAD (coronary artery disease) On anticoagulant therapy Hypothyroidism Prophylactic antibiotic fci use of antibiotic>hx artificial joint infection Osteoarthritis History of bladder cancer treated surgically [place] (hard of hearing) reads lips Seizure-like activity hx 2014 - neuro work up neg for seizures - no issues since (follows with [facility]) HLD (hyperlipidemia) HTN (hypertension) History of atrial fibrillation follows with Dr. Carney; on xarelto (currently on hold due to recatal bleeding) hx cardioversion x2 ? History of myocardial infarction x 2 (1986, 2001) History of esophageal dilatation Dysphagia Surgical History History of left-sided carotid endarterectomy History of hernia surgery x2 Pacemaker passing out/reason for pacemaker. last checked : "recent check by Dr. Carney"/[facility] History of tonsillectomy History of appendectomy History of left knee replacement + revision surgery History of cataract surgery rt/left History of parathyroidectomy History of bladder surgery TURBT H/O heart artery stent x 4 History of cardiac cath 05/2020 -- CP -- [facility] - no stents mult cardiac cath between [id number] (4 stents placed total) - [facility] and [facility] in [place], [place] History of colonoscopy History of esophagogastroduodenoscopy (EGD) Family History Father Prostate cancer Diabetes Heart disease Hypertension Mother Diabetes Hypertension Breast cancer Other No family history of adverse response to anesthesia Social History Smoking Status: Never smoker Second Hand Exposure: No; Do You Dip or Chew Tobacco: No; Hx Alcohol Use: No Hx Substance Use: No Preferred Language: Danish Communication Ability: Effective Communication Ability Comment: pt is [place]/pt does phone interview/per pt preference. 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 Physical Exam Physical Exam: General Appearance: WD/WN, vitals as above, NAD, sitting up in bed, pleasant, conversing easily Head: normocephalic, atraumatic Eyes: normal inspection, PERRL, conjunctivae normal, anicteric sclerae ENT: hard of hearing, external ear and nose normal, oropharynx normal Neck: normal visual inspection, trachea midline, no thyromegaly Respiratory: normal respiratory effort, lungs clear to auscultation, no wheeze, rales, rhonchi. No accessory muscle use Cardiovascular: regular rate, rhythm, normal peripheral pulses, no BLE edema. Vessels: no JVD Chest: normal inspection of chest Abdomen/GI: normal bowel sounds, soft, TTP RUQ extending to RLQ, no guarding, no hepatosplenomegaly Extremities/Musculoskeletal: no cyanosis or clubbing, extremities motor strength 5/5 Neurologic: PERRL, EOMI, accommodation nl, no face palsy, no dysarthria, CN's II-XI intact bilaterally and moves all extremities Psychiatric: A+Ox3, euthymic affect Skin: no rashes, normal color, warm/dry Results & Data Results & Data Vital Signs (Past 12 Hours) Vital Signs Temp Pulse Pulse Resp BP BP Pulse Ox 12/23/23 16:28 89 18 135/109 H 93 12/23/23 14:42 92 H 12/23/23 14:28 98 H 26 H 115/87 98 12/23/23 13:17 36.9 C 105 H 18 118/85 95 O2 Del Method 12/23/23 16:28 Room Air 12/23/23 14:42 12/23/23 14:28 Room Air 12/23/23 13:17 Room Air Laboratory Results Short CBC 12/23/23 Range/Units 13:32 WBC 5.40 (4.8-10.8) K/ul Hgb 11.6 L (14.0-18.0) g/dl Hct 36.1 L (42.0-52.0) % Plt Count 132 (130-400) K/uL BMP 12/23/23 13:32 Sodium 132 L Potassium 4.2 Chloride 100 Carbon Dioxide 25 BUN 9 Creatinine 0.81 Glucose 124 H Calcium 8.2 L Liver Function 12/23/23 Range/Units 13:32 Total Bilirubin 0.7 (0.2-1.0) mg/dl AST 29 (13-39) U/L ALT 19 (7-52) U/L Alkaline Phosphatase 178 H (34-104) U/L Albumin 3.7 (3.4-5.0) gm/dl Urine 12/23/23 Range/Units Unknown Urine Color Yellow Urine Appearance Clear (Clear) Urine pH 6.5 (4.5-7.5) Ur Specific [place] 1.016 (1.000-1.030) Urine Protein Trace H (Negative) Urine Glucose (UA) Negative (Negative) Diagnostic Findings Abdomen/Pelvis CT 12/23/23 14:11 CT OF THE ABDOMEN AND PELVIS WITHOUT CONTRAST CLINICAL HISTORY: Right flank pain. COMPARISON STUDY: CT of the abdomen and pelvis November 13, 2023. TECHNIQUE: Axial images of the abdomen and pelvis were obtained without IV contrast. Images were reviewed in the axial, sagittal, and coronal planes. Automated exposure control was utilized for the study. A dose lowering technique was utilized adhering to the principles of ALARA. FINDINGS: Small bilateral pleural effusions, right larger than left, have slightly decreased in size since CT of November 13, 2023. A small pericardial effusion is unchanged. Ground glass opacities within the lower lobes are present. No pneumatosis, free air or portal venous gas is present. Small bilateral renal calculi measure up to 3 mm. There are no ureteral calculi. There is no hydronephrosis. Bilateral renal lesions are better depicted on CT of August 20, 2023. These include a 3.3 cm left renal lesion on image [id number]. Dilation of the abdomen and pelvis is suboptimal on this unenhanced exam. There is mild body wall edema. Enhanced images of liver, spleen, adrenal glands and pancreas are unremarkable. There are gallstones within the gallbladder. There is pericholecystic stranding. This was shown on prior exam. The gallbladder is not significantly distended. There is no evidence for a bowel obstruction. Bladder wall thickening is unchanged. No fluid collections are present. No lymphadenopathy. IMPRESSION: 1. Cholelithiasis with pericholecystic stranding which was shown on prior exam. Although not highly suggestive, acute cholecystitis cannot be excluded. If right upper quadrant pain, ultrasound is recommended. 2. Bilateral nephrolithiasis. No ureteral calculi or hydronephrosis. 3. Bilateral renal masses better depicted on contrast enhanced CT of August 20, 2023. 4. Small bilateral pleural effusions which have decreased in size since prior exam. Associated airspace opacities favor atelectasis. An infectious process is considered less likely. ACT 112: Negative or not required by law. Electronically signed by: Andrew Hankins M.D. 12/23/2023 3:43 PM Supervising Physician Co-Signing Physician Notes 78-year-old male with PMH of metastatic clear-cell carcinoma of the kidney, HFpEF, CAD, CVA, HTN, HLD, E. coli bacteremia secondary to knee surgery on lifelong Bactrim treatment, seizure disorder, dementia presents to the ED with complaint of right-sided abdominal pain, on and off, progressively worsening, for about 2 to 3 weeks per patient. Admitting CTAP suggestive of acute cholecystitis, right-sided abdominal tenderness on exam. General surgery evaluated, plan to do USG RUQ and possibly HIDA scan. UA suggestive of UTI, follow admitting urine culture. Start patient on Zosyn for concern of abdominal infection and possible UTI. Resume home meds, can hold bactrim while actively being treated w/ antibiotics. On exam: GENERAL: Alert and oriented x3. NAD, on RA. HEENT: No pallor, no icterus. Pupils equal, round and reactive to light. Oral mucosa moist. NECK: No JVD, no neck masses. HEART: S1 and S2 heard. Regular rate and rhythm. Tachy in 100-110s. No murmur, no gallop. RESPIRATORY SYSTEM: Normal AP diameter. No accessory muscle use. No wheezing, no crackles. ABDOMEN: Soft, bowel sounds present, RUQ tender, no distention. CENTRAL NERVOUS SYSTEM: No facial droop. Speech is clear. Obeys simple commands. Moves extremities. EXTREMITIES: No edema, no erythema seen. surgical scar x left knee I have seen and examined the patient and have discussed the case with the provider above. I agree with the assessment and plan as stated. Time spent: 25 min.
--- NOTE | 2023-12-23 17:06 | Surgery Consultation ---
Date of Consultation December 23, 2023 Assessment & Plan (1) Right sided abdominal pain: (2) Cholelithiasis: Plan 78-year-old male with multiple medical Comorbidities including metastatic clear- cell carcinoma presented to the emergency room with complaint of acute on chronic right-sided abdominal pain. No fevers, chills. Movement makes pain worse and pain is not exacerbated by eating. CT scan with cholelithiasis and pericholecystic edema however this is nonspecific and was present on prior CT scan. He does have right upper quadrant tenderness on examination however would like to obtain an ultrasound for further evaluation and if equivocal he may need a HIDA scan to rule out acute cholecystitis. Recommend hospitalist admit and further imaging evaluation with an ultrasound. Discussed with patient and his who agree with above. History of Present Illness Reason for Consultation: Right sided abdominal pain Requesting Physician: Dr. Chapman Attending Physician: Dr. Chapman History of Present Illness 78-year-old male with a history of metastatic clear-cell carcinoma of the kidney presented to the ED with complaint of right-sided abdominal pain that has been intermittent for the past 3 months. Describes the pain as sharp and stabbing and was an 8 out of 10 upon presentation. Movement makes pain worse. Denies of any postprandial abdominal pain, nausea, abdominal bloating. No changes in bowel habits. No blood in stools no black tarry stools. Just recently underwent ablation of a large kidney mass at [facility]. He follows with Dr. Chew in oncology and started Keytruda. Denies of any fevers, chills, nausea, vomiting, constipation. ER workup included labs which showed no leukocytosis, T. bili and LFTs within normal limits however alk phos is elevated but this has been elevated in the past. CT scan of abdomen and pelvis without contrast showing cholelithiasis and pericholecystic edema however this was present on prior CT scan. Greg currently states that his pain is about a 6 out of 10. No nausea no vomiting currently. No fevers no chills. Allergies Allergy/AdvReac Type Severity Reaction Status Date / Time azithromycin Allergy Severe Swelling Verified 12/06/23 07:56 [From Zithromax Z-Brady] of Lip/Tongue/Throat ethyl alcohol Allergy Intermediate "rubbing Verified 12/06/23 07:56 alcohol" caused blisters isopropyl alcohol Allergy Intermediate "rubbing Verified 12/06/23 07:56 alcohol" caused blisters latex Allergy Intermediate blisters Verified 12/06/23 07:56 carvedilol Allergy Verified 12/06/23 07:56 clopidogrel Allergy Verified 12/06/23 07:56 verapamil AdvReac Severe asystole Verified 12/06/23 07:56 Home Medications Medication Instructions Recorded Confirmed Type atorvastatin 40 mg tablet 40 mg PO HS 02/16/21 12/23/23 History cholecalciferol (vitamin D3) 125 125 mcg PO QAM 02/16/21 12/23/23 History mcg (5,000 unit) tablet (Vitamin D3) isosorbide mononitrate 60 mg 60 mg PO UD 02/16/21 12/23/23 History tablet,extended release 24 hr pantoprazole 40 mg tablet,delayed 40 mg PO QAM 02/16/21 12/23/23 History release rivaroxaban 20 mg tablet (Xarelto) 20 mg PO UD 02/16/21 12/23/23 History gabapentin 300 mg capsule 300 mg PO TID 05/03/23 12/23/23 History ketoconazole 2 % topical cream 1 applic topical UD PRN Skin 05/03/23 12/23/23 History Irritation/openings /none current nitroglycerin 0.4 mg sublingual 0.4 mg sublingual .[id number] PRN 05/03/23 12/23/23 History tablet Chest Pain dicyclomine 10 mg capsule 10 mg PO BID 05/10/23 12/23/23 History sulfamethoxazole 800 1 tab PO Q12H 05/10/23 12/23/23 History mg-trimethoprim 160 mg tablet (Bactrim DS) ramipril 5 mg capsule 5 mg PO DAILY 05/30/23 12/23/23 History tamsulosin 0.4 mg capsule 0.4 mg PO DAILY #90 caps 06/18/23 12/23/23 Rx lamotrigine 100 mg tablet 100 mg PO BID 12/23/23 12/23/23 History lenvatinib 20 mg/day (10 mg x 2) 20 mg PO BID 12/23/23 12/23/23 History capsule (Lenvima) vibegron 75 mg tablet 75 mg PO UD 12/23/23 12/23/23 History Patient History Medical History Esophageal dilatation Weight loss over 35 pounds over past month. History of radiation exposure 1986 History of stroke 2001 - no residual effects. History of colon polyps Mass of colon CT scan [facility] 05/03/23. Hemorrhoids internal Kidney lesion lesions on kidneys per CT scan/ [place] 2-3 weeks ago/talk of samantha with kidney - pt has not received follow up phone call. Rectal bleeding Neuropathy CAD (coronary artery disease) On anticoagulant therapy Hypothyroidism Prophylactic antibiotic snf use of antibiotic>hx artificial joint infection Osteoarthritis History of bladder cancer treated surgically COMANCHE (hard of hearing) reads lips Seizure-like activity hx 2014 - neuro work up neg for seizures - no issues since ([facility]) HLD (hyperlipidemia) HTN (hypertension) History of atrial fibrillation follows with Dr. Carney; on xarelto (currently on hold due to recatal bleeding) hx cardioversion x2 ? History of myocardial infarction x 2 (1986, 2001) History of esophageal dilatation Dysphagia Surgical History History of left-sided carotid endarterectomy History of hernia surgery x2 Pacemaker passing out/reason for pacemaker. last checked : "recent check by Dr. Carney"/[facility] History of tonsillectomy History of appendectomy History of left knee replacement + revision surgery History of cataract surgery rt/left History of parathyroidectomy History of bladder surgery TURBT H/O heart artery stent x 4 History of cardiac cath 05/2020 -- CP -- [facility] - no stents mult cardiac cath between [id number] (4 stents placed total) - [facility] and [facility] in [place], [place] History of colonoscopy History of esophagogastroduodenoscopy (EGD) Family History Father Prostate cancer Diabetes Heart disease Hypertension Mother Diabetes Hypertension Breast cancer Other No family history of adverse response to anesthesia Social History Smoking Status: Never smoker Second Hand Exposure: No; Do You Dip or Chew Tobacco: No; Hx Alcohol Use: No Hx Substance Use: No Preferred Language: Greenlandic Communication Ability: Effective Communication Ability Comment: pt is nenana/pt does phone interview/per pt preference. Casual Shoe Inspector Required: No Beliefs That Will Affect Care: None marital status: Current Living Situation: Spouse current occupational status: employed current occupation: [employer] Feels Safe at Home: Yes Assistive Devices: Cane and Walker Review of Systems Review of Systems: All systems reviewed & are unremarkable except as noted in HPI & below Physical Exam Constitutional: WD/WN, vitals as above + frail appearing, cooperative and comfortable; no acute distress and not ill appearing Respiratory: normal respiratory effort, lungs clear to auscultation Cardiovascular: Rate/Rhythm: + irregularly irregular Heart Sounds: normal S1 and normal S2 Gastrointestinal (Abdomen): Inspection/Auscultation: abdomen normal to inspection; abdomen not distended Percussion/Palpation: + abdomen tender (ruq) and abdomen soft; no guarding, abdomen not rigid and abdomen not firm diastasis recti Skin: no rashes, warm and dry no jaundice Psychiatric: Orientation: alert and oriented x 3 Results & Data Vital Signs (Past 12 Hours) Vital Signs Temp Pulse Pulse Resp BP BP Pulse Ox 12/23/23 16:28 89 18 135/109 H 93 12/23/23 14:42 92 H 12/23/23 14:28 98 H 26 H 115/87 98 12/23/23 13:17 36.9 C 105 H 18 118/85 95 O2 Del Method 12/23/23 16:28 Room Air 12/23/23 14:42 12/23/23 14:28 Room Air 12/23/23 13:17 Room Air Laboratory Results 12/23/23 12/23/23 Range/Units Unknown 13:32 WBC 5.40 (4.8-10.8) K/ul RBC 4.01 L (4.70-6.10) M/uL Hgb 11.6 L (14.0-18.0) g/dl Hct 36.1 L (42.0-52.0) % MCV 90.0 (80.0-100.0) fL MCH 28.9 (25.0-34.0) pg MCHC 32.1 (32.0-36.0) g/dL RDW Std Deviation 42.7 (36.4-46.3) fL RDW Coeff of Seamus 13.0 (11.5-14.5) % Plt Count 132 (130-400) K/uL MPV 9.3 L (9.4-12.4) fL Immature Gran % (Auto) 0.6 % Neut % (Auto) 77.5 % Lymph % (Auto) 9.6 % [place] % (Auto) 11.1 % Eos % (Auto) 0.6 % Baso % (Auto) 0.6 % Neut # (Auto) 4.19 (1.40-6.50) K/uL Lymph # (Auto) 0.52 L (1.20-3.40) K/uL [place] # (Auto) 0.60 H (0.11-0.59) K/uL Eos # (Auto) 0.03 (0.00-0.50) K/uL Baso # (Auto) 0.03 (0.00-0.20) K/uL Immature Gran # (Auto) 0.03 (0.01-0.20) K/uL Sodium 132 L (136-145) mmol/L Potassium 4.2 (3.5-5.1) mmol/L Chloride 100 (98-107) mmol/L Carbon Dioxide 25 (21-32) mmol/L Anion Gap 7 (3-11) BUN 9 (6-23) mg/dl Creatinine 0.81 (0.6-1.4) mg/dl Est Cr Clr Drug Dosing Not Reportable eGFR 89.13 BUN/Creatinine Ratio 11.1 (10-20) Glucose 124 H (70-99(Fasting)) mg/dl Calcium 8.2 L (8.6-10.3) mg/dl Total Bilirubin 0.7 (0.2-1.0) mg/dl AST 29 (13-39) U/L ALT 19 (7-52) U/L Alkaline Phosphatase 178 H (34-104) U/L Total Protein 5.9 L (6.0-8.3) gm/dl Albumin 3.7 (3.4-5.0) gm/dl Globulin 2.2 L (2.5-4.0) gm/dl Albumin/Globulin Ratio 1.7 (0.9-2) Urine Color Yellow Urine Appearance Clear (Clear) Urine pH 6.5 (4.5-7.5) Ur Specific [place] 1.016 (1.000-1.030) Urine Protein Trace H (Negative) Urine Glucose (UA) Negative (Negative) Urine Ketones Negative (Negative) Urine Blood Trace H (Negative) Urine Nitrite Negative (Negative) Urine Bilirubin Negative (Negative) Urine Urobilinogen Negative (Negative) Ur Leukocyte Esterase 2+ H (Negative) Urine WBC (Auto) >50 H (0-5) /hpf Urine RBC (Auto) 0-2 (0-2) /hpf U Hyaline Cast (Auto) 0-2 (0-2) /lpf U Epithel Cells (Auto) 0-2 (0-2) /hpf Urine Bacteria (Auto) None Seen (None Seen) Diagnostic Findings CT OF THE ABDOMEN AND PELVIS WITHOUT CONTRAST CLINICAL HISTORY: Right flank pain. COMPARISON STUDY: CT of the abdomen and pelvis November 13, 2023. TECHNIQUE: Axial images of the abdomen and pelvis were obtained without IV contrast. Images were reviewed in the axial, sagittal, and coronal planes. Automated exposure control was utilized for the study. A dose lowering technique was utilized adhering to the principles of ALARA. FINDINGS: Small bilateral pleural effusions, right larger than left, have slightly decreased in size since CT of November 13, 2023. A small pericardial effusion is unchanged. Ground glass opacities within the lower lobes are present. No pneumatosis, free air or portal venous gas is present. Small bilateral renal calculi measure up to 3 mm. There are no ureteral calculi. There is no hydronephrosis. Bilateral renal lesions are better depicted on CT of August 20, 2023. These include a 3.3 cm left renal lesion on image [id number]. Dilation of the abdomen and pelvis is suboptimal on this unenhanced exam. There is mild body wall edema. Enhanced images of liver, spleen, adrenal glands and pancreas are unremarkable. There are gallstones within the gallbladder. There is pericholecystic stranding. This was shown on prior exam. The gallbladder is not significantly distended. There is no evidence for a bowel obstruction. Bladder wall thickening is unchanged. No fluid collections are present. No lymphadenopathy. IMPRESSION: 1. Cholelithiasis with pericholecystic stranding which was shown on prior exam. Although not highly suggestive, acute cholecystitis cannot be excluded. If right upper quadrant pain, ultrasound is recommended. 2. Bilateral nephrolithiasis. No ureteral calculi or hydronephrosis. 3. Bilateral renal masses better depicted on contrast enhanced CT of August 20, 2023. 4. Small bilateral pleural effusions which have decreased in size since prior exam. Associated airspace opacities favor atelectasis. An infectious process is considered less likely.
[2023-12-23] MEDS: 4.5GM X1 IV STA (20:32)
[2023-12-23] MEDS ORDERED: traMADol HCL 50 MG TABLET PO PRN ×2 (21:00→21:07)
--- NOTE | 2023-12-23 21:07 | Ultrasound Report ---
Exam(s): US GALLBLADDER EXAM: US Abdomen Limited, Gallbladder CLINICAL HISTORY: Reason for exam: ro shay. TECHNIQUE: Real-time ultrasound of the right upper quadrant with image documentation. COMPARISON: CT abdomen pelvis 12/23/23 FINDINGS: Gallbladder: Gallbladder is mildly to moderately distended. Cholelithiasis and mild gallbladder wall thickening at 4.2 mm. Findings are nonspecific, as gallbladder wall thickening can be seen with CHF, hepatitis, low protein states, among other entities. Acute cholecystitis must be excluded. Common bile duct: CBD 5 mm. No dilation. Pancreas: Not visualized. Other: Moderate right pleural effusion. IMPRESSION: 1. Cholelithiasis and gallbladder wall thickening, nonspecific, correlate clinically as acute cholecystitis is not excluded. 2. No ductal dilatation. Electronically signed by: Melanie Saenz M.D. 12/23/23 21:05 PM
[2023-12-23] MEDS ORDERED: ACETAMINOPHEN 500 MG TAB PO SCH ×2 (21:15→22:00)
[2023-12-23] MEDS ORDERED: POLYETHYLENE (MIRALAX) 17 GM PACK PO PRN (21:28)
[2023-12-23] MEDS ORDERED: ONDANSETRON INJ 2 MG/ML 2 ML VIAL IV PRN (21:28)
[2023-12-23] MEDS: ATORVASTATIN 40 MG TAB PO SCH (22:28)
[2023-12-23] MEDS: GABAPENTIN 300 MG CAP PO ONE (22:29)
[2023-12-23] MEDS: DICYCLOMINE HCL 10 MG CAP PO SCH (22:29)
[2023-12-23] MEDS: lamoTRIgine 100 MG TAB PO ONE (22:29)
[2023-12-24] MEDS: PIPERACILLIN/TAZOBACTAM 4.5 GM/100 ML BAG IV SCH (02:45)
[2023-12-24 07:24] LABS: Hematocrit (blood only) 34.3 % (42.0-52.0); Hemoglobin 11.4 g/dl (14.0-18.0); Mean Corpuscular Hemoglobin 29.2 pg (25.0-34.0); Mean Corpuscular Hgb Conc 33.2 g/dL (32.0-36.0); Mean Corpuscular Volume 87.9 fL (80.0-100.0); Mean Platelet Volume 9.3 fL (9.4-12.4); Platelet Count 110 K/uL (130-400); RDW Standard Deviation 41.7 fL (36.4-46.3); White Blood Count 5.15 K/ul (4.8-10.8)
[2023-12-24 07:47] LABS: Albumin Globulin Ratio 1.7 (0.9-2); Albumin Level 3.3 gm/dl (3.4-5.0); Bilirubin,Total 1.1 mg/dl (0.2-1.0); Calcium 8.1 mg/dl (8.6-10.3); Creatinine Clr Calc Pharmacy 85.4 ml/min; Potassium 3.9 mmol/L (3.5-5.1); Total Protein 5.3 gm/dl (6.0-8.3)
--- NOTE | 2023-12-24 08:17 | Surgery Progress Note ---
Date of Service December 24, 2023 Assessment & Plan (1) Cholelithiasis: Plan: pain not classic US findings noted will check HIDA medicine to optimize medically will tentatively put on for lap shay in AM; if medically cleared Admission and Anticipated Discharge Date Admission Date: December 23, 2023 Subjective still with pain no fevers no N/V Review of Systems Constitutional: no fever and no chills Respiratory: no cough and no dyspnea Cardiovascular: no chest pain Gastrointestinal: + abdominal pain; no nausea, no vomiting and no change in bowel habits Genitourinary: no dysuria Musculoskeletal: no back pain Neurologic: no localized weakness and no generalized weakness Psychiatric: no behavioral changes Hematologic / Lymphatic: no easy bleeding and no easy bruising Physical Exam Constitutional: + thin Eyes: PERRL, conjunctivae normal, anicteric sclerae ENMT: external ear and nose normal, oropharynx normal Neck: trachea midline Respiratory: normal respiratory effort, lungs clear to auscultation Cardiovascular: Rate/Rhythm: regular rate Gastrointestinal (Abdomen): Inspection/Auscultation: abdomen normal to inspection and normal bowel sounds; abdomen not distended Percussion/Palpation: + abdomen tender and abdomen soft; no guarding, abdomen not rigid and no abdominal mass Musculoskeletal: Head/Neck/Chest: normocephalic and head atraumatic Skin: no rashes, warm and dry Results & Data Vital Signs (Past 12 Hours) Vital Signs Temp Pulse Resp BP Pulse Ox O2 Del Method 12/23/23 20:20 36.7 C 101 H 14 155/79 H 99 Room Air Diagnostic Findings Exam(s): US GALLBLADDER EXAM: US Abdomen Limited, Gallbladder CLINICAL HISTORY: Reason for exam: ro shay. TECHNIQUE: Real-time ultrasound of the right upper quadrant with image documentation. COMPARISON: CT abdomen pelvis 12/23/23 FINDINGS: Gallbladder: Gallbladder is mildly to moderately distended. Cholelithiasis and mild gallbladder wall thickening at 4.2 mm. Findings are nonspecific, as gallbladder wall thickening can be seen with CHF, hepatitis, low protein states, among other entities. Acute cholecystitis must be excluded. Common bile duct: CBD 5 mm. No dilation. Pancreas: Not visualized. Other: Moderate right pleural effusion. IMPRESSION: 1. Cholelithiasis and gallbladder wall thickening, nonspecific, correlate clinically as acute cholecystitis is not excluded. 2. No ductal dilatation.
--- NOTE | 2023-12-24 08:26 | Hospitalist Progress Note ---
Date of Service December 24, 2023 Assessment & Plan (1) Cholelithiasis: (2) Right sided abdominal pain: (3) Metastatic clear cell carcinoma of kidney: (4) HTN (hypertension): (5) History of atrial fibrillation: (6) Dysphagia: (7) (HFpEF) heart failure with preserved ejection fraction: Plan This is an 78yo M with a PMH of metastatic clear-cell carcinoma of the kidney, HFpEF, CAD status post stent, CVA as per records, PVD status post surgery, SSS status post PPM, hypertension, hyperlipidemia, history E. 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 Right sided abdominal pain Cholelithiasis Progressive R sided abd pain x 3 months No fever/chills CT abd/pelvis with cholelithiasis with pericholecystic stranding which was shown on prior exam. GBUS: Cholelithiasis and gallbladder wall thickening, nonspecific, No ductal dilatation. 12/23: HIDA scan: Normal uptake of contrast by the gallbladder. No evidence of acute cholecystitis. Continue IV Zosyn for now RCRI: 1 Tylenol PRN for pain Gen surg evaluated - NPO after MN tonight for possible cholecystectomy tmw if cleared. trend CBC/CMP + T bili in AM; T.Bili on admission was 1.1 Atrial fibrillation with RVR Chronic Follows with Dr. Carnye in [facility]; last appt 3 months ago Xarelto has been on hold from 04/2023; for numerous procedures (colonoscopy, ablation, biospy) Per [facility] records, is prescribed Sotolol. Per , he has not been taking this; unclear to rationale Per , does not recall him being on an antiarrhythmic (poor historian) [facility] pharmacy: -Sotolol 120 mg PO BID last filled 12/2022 -Xarelto last filled 04/2023 -Amiodarone 200 mg PO daily last filled 03/2023 Given patient HR high 90's- low 100s, will move to PCU Has AF; going into RVR; pacer interrogation indicated he has hit 200's at various times this month, most recently in 130's Just started Metoprolol Tartrate 12.5 TID to start and put in a PRN IV Metoprolol as well and ordered an ECHO. CHADSVASC is 4 ECHO ordered Pt dropped SBP 70's, gave 500CC NSB, EKG AF, became hypoxic 88%, placed on oxymask transferred to PCU; BP returned to 90's systolic. Cardiology consulted; await cardiac clearance for possible sx tomorrow UTI: History E. coli bacteremia 2/ to knee surgery on lifelong Bactrim Acute UA showed 2+ Nitrate, > 50 WBC Urine Culture: GPC; continue IV Zosyn for now and await sensitivities Resume Bactrim once IV Zosyn completed Metastatic clear cell carcinoma of the kidney S/p recent ablation procedure at [facility], following with Dr. Chew Started Keytruda on 12/17, due in 2 weeks. Hold Lenvima for now given acute issues HTN Chronic Takes Ramipril; continue History of CAD Continue statin, Imdur Sick sinus syndrome S/p pacemaker placed approximately 15 years ago Per , low battery life Will interrogate pacer to help assist with medical clearance for possible surgery Seizure disorder Continue Lamictal He does not recall when last seizure was; he says it has been years and only experienced this once DVT Ppx: SCDs for now Code status: DNR/DNI PCP: Selin Alcaraz) Dispo: admitted to med/surg--> now in PCU I spent a total of 62 minutes coordinating, documenting, and providing care for this patient excluding time spent in the performance of separately billed services. All of the aforementioned completed while collaborating with the assigned attending physician for a full treatment plan. Please see their addendum for further details. Admission and Anticipated Discharge Date Admission Date: December 23, 2023 Supervising Physician Co-Signing Physician Notes I have seen and discussed the case with the collaborating advanced practitioner. I agree with the above PN. I have reviewed and confirmed the patients medical history, the findings on physical examination, and the patients diagnosis and treatment plan with Julio LACEY and agree with the information documented. Noted to have multiple medication discrepancies given active year with medical history/procedures--patient no longer on anticoagulation or antiarrhythmic for atrial fibrillation Patient on MSO--transfer to PCU for cardiac monitoring Cards for med optimization in setting of procedure tomorrow, will review recs HIDA negative Lap shay in am Continue Zosyn CLD IVF given unable to increase po intake I spent a total of 10 minutes coordinating, documenting, and providing care for this patient excluding time spent in the performance of separately billed services. All of the aforementioned completed outside of collaborating with the assigned advanced practitioner for a full treatment plan. I have reviewed the advanced practitioner's documentation, and I agree with, and take responsibility for the plan of care Subjective Pt seen after his HIDA scan this AM; he still complains of 4/10 right sided abdominal pain. Ambulating in the hallway helps his pain. Pt denies fevers, chills, dizziness, SOB, chest pain, palpitations, N/V/D. BM x2 today; no hematochezia/dark or tarry. (+) flatulence Atrial Fib on monitor; not well controlled or managed as outpatient; will transfer to PCU All questions answered. Review of Systems Review of Systems: Neuro: (-) Falls, trauma, slurred speech HEENT: (-) FONG, dizziness, dysphagia, visual or auditory changes CV: (-) CP, palpitations, swelling Resp: (-) SOB GI: (-) appetite changes, N/V/D, bowel changes : (-) urinary changes Skin: (-) rashes Psych: (-) anxiety, depression Physical Exam Physical Exam: Neuro: AAOx4, PERRLA, no aphagia, memory changes, CNII-XII grossly intact HEENT: head normocephalic, moist mucus membranes CV: S1/S2, (-) M/G/R, (-) edema, cap refill < 3 seconds Resp: Lungs CTA in all delacruz. On RA GI: right sided abdominal pain without radiation, (+) tenderness with palpation, Ax4 bowel sounds, (-) CVA tenderness Musculoskeletal: 5/5 B/L UE strength, 5/5 B/L LE strength. No gait disturbance Skin: (-) rashes , (-) erythema. Psych: euthymic mood Results & Data Results & Data Laboratory Results Short CBC 12/23/23 12/24/23 Range/Units 13:32 06:53 WBC 5.40 5.15 (4.8-10.8) K/ul Hgb 11.6 L 11.4 L (14.0-18.0) g/dl Hct 36.1 L 34.3 L (42.0-52.0) % Plt Count 132 110 L (130-400) K/uL BMP 12/23/23 12/24/23 13:32 06:53 Sodium 132 L 133 L Potassium 4.2 3.9 Chloride 100 103 Carbon Dioxide 25 23 BUN 9 9 Creatinine 0.81 0.69 Glucose 124 H 90 Calcium 8.2 L 8.1 L Liver Function 12/23/23 12/24/23 Range/Units 13:32 06:53 Total Bilirubin 0.7 1.1 H D (0.2-1.0) mg/dl AST 29 24 (13-39) U/L ALT 19 17 (7-52) U/L Alkaline Phosphatase 178 H 152 H (34-104) U/L Albumin 3.7 3.3 L (3.4-5.0) gm/dl Urine 12/23/23 Range/Units Unknown Urine Color Yellow Urine Appearance Clear (Clear) Urine pH 6.5 (4.5-7.5) Ur Specific [place] 1.016 (1.000-1.030) Urine Protein Trace H (Negative) Urine Glucose (UA) Negative (Negative) Diagnostic Findings Gallbladder Ultrasound 12/23/23 16:38 Exam(s): US GALLBLADDER EXAM: US Abdomen Limited, Gallbladder CLINICAL HISTORY: Reason for exam: ro shay. TECHNIQUE: Real-time ultrasound of the right upper quadrant with image documentation. COMPARISON: CT abdomen pelvis 12/23/23 FINDINGS: Gallbladder: Gallbladder is mildly to moderately distended. Cholelithiasis and mild gallbladder wall thickening at 4.2 mm. Findings are nonspecific, as gallbladder wall thickening can be seen with CHF, hepatitis, low protein states, among other entities. Acute cholecystitis must be excluded. Common bile duct: CBD 5 mm. No dilation. Pancreas: Not visualized. Other: Moderate right pleural effusion. IMPRESSION: 1. Cholelithiasis and gallbladder wall thickening, nonspecific, correlate clinically as acute cholecystitis is not excluded. 2. No ductal dilatation. Electronically signed by: Melanie Saenz M.D. 12/23/23 21:05 PM
--- NOTE | 2023-12-24 09:07 | Electrocardiogram Report ---
Test Reason : Blood Pressure : */* mmHG Vent. Rate : 106 BPM Atrial Rate : * BPM P-R Int : * ms QRS Dur : 74 ms QT Int : 380 ms P-R-T Axes : * -8 -24 degrees QTcB Int : 504 ms Atrial fibrillation with rapid ventricular response Diffuse Minor Nonspecific T wave abnormality Abnormal ECG When compared with ECG of 11-Dec-2023 14:07, HR has increased by 16 bpm Otherwise no significant change Confirmed by Siddharth Pinto ([id number]) on 12/24/2023 9:07:04 AM Referred By: REFERRED SELF Confirmed By: Siddharth Pinto
[2023-12-24] MEDS: ENALAPRIL MALEATE 10 MG TAB PO SCH (11:32)
[2023-12-24] MEDS: CHOLECALCIFEROL 125 MCG (5,000 UNITS) TAB PO SCH (11:32)
[2023-12-24] MEDS: ISOSORBIDE MONO EXTENDED REL 60 MG TABCR PO SCH (11:33)
[2023-12-24] MEDS: lamoTRIgine 100 MG TAB PO SCH (11:33)
[2023-12-24] MEDS: GABAPENTIN 300 MG CAP PO SCH (11:33)
[2023-12-24] MEDS: TAMSULOSIN HCL 0.4 MG CAP PO SCH (11:34)
[2023-12-24] MEDS ORDERED: METOPROLOL TARTRATE 1 MG/ML VIAL IV PRN (12:40)
--- NOTE | 2023-12-24 14:45 | Nuclear Medicine Report ---
NM hepatobiliary CLINICAL HISTORY: R/o acute cholecystitis TECHNIQUE: Following the intravenous injection of 5.1 mCi of Tc-99m labeled Technetium 99m mebrofeni n, multiple images of the upper abdomen were obtained in the anterior projection with uptake measurem ents of the gallbladder obtained. Comparison: Comparison is made to gallbladder ultrasound 12/23/2023 FINDINGS: Sequential images demonstrate normal uptake in the liver, common bile duct, gallbladder, an d small bowel. No defects in uptake are identified. Subsequent imaging after the administration of si ncalide demonstrates prompt elimination of the radiotracer from the gallbladder. IMPRESSION: Normal uptake of contrast by the gallbladder. No evidence of acute cholecystitis. Reference: Normal gallbladder ejection fraction is greater than 33%. ACT 112: Negative or not required by law. Electronically signed by: Teo Melendez M.D. 12/24/2023 2:43 PM
--- NOTE | 2023-12-24 15:17 | Cardiology Consultation ---
Date of Consultation December 24, 2023 Assessment & Plan (1) Cholelithiasis: (2) Right sided abdominal pain: (3) Atrial fibrillation with RVR: Plan See attending cutter barrel drum's documentation for recommendations plan of care. Supervising Physician Co-Signing Physician Notes Attending Staff: * Pt seen with [facility] staff * Concur with observations and plans 78 yo man presenting with abdominal pain x 3 weeks * Concern for acute cholecystitis Consultation - preoperative evaluation Follows with Osmar Mcdaniels * PAF * In Afib x 1 month on recent device interrogation * HR's 130's on Admission * Had been on Amio / Sotalol in the past - not taking any antiarrhythmics at present * Stopped Beta Blockers * Not on Anticoagulation secondary to multiple procedures * Recent ablation of Renal Ca * PPM - near end-of-life (5 + months estimated to remain) * + HTN * + CAD /Stents - details unknown Plans: * + Suspect Acute Cholecystitis * + Afib * Plans for rate control * HR has been at or below 100 BPM on telemetry * Continue Lopressor 12.5 mg po TID * K+ goal 4.5-5 * Mag goal >2 * ECHO ordered and pending * Check TSH * Would need to secure records from primary cutter barrel drum re: timing of previously placed stents * Patient stated that he has 4 stents placed in the past - but is unclear as to the timing of placement * No exertional angina reported * + Suspected dementia * Marginal Systolic BP * Consider Holding CYDNEY Christopher Malone History of Present Illness Reason for Consultation: preop; Afib Requesting Physician: Mateo Motneroist Attending Physician: Dr. Christopher Malone History of Present Illness Patient is an 78 year old male who was admitted to [facility] with complaints of abdominal pain. Surgery consulted for possible lap shay tomorrow. HIDA report is pending. UTI on admission. +UA positive for Gram positive cocci. During admission, found to have atrial fibrillation with elevated rates. Patient follows with Osmar Mcdaniels, Dr. Carney for cardiology care. Apparently patient was to be taking sotalol but this was discontinued many months ago. Remote device interrogation reviewed shows persistent afib with elevated rates since Nov 2023. Low dose metoprolol initiated on admission. however patient has had intermittent hypotension limiting beta hali. He also has not been taking his anticoagulation due to prior outpatient procedures/biopsies. he also has a history of BI bleeding. recent kidney ablation procedure at [facility] Start Keytruda on 12/17, due in 2 weeks. 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 coli bacteremia secondary to knee surgery on lifelong Bactrim Rx hypothyroidism seizure disorder dementia as per records BPH GERD Bladder cancer status post surgery, hyperparathyroidism status post surgery, Allergies Allergy/AdvReac Type Severity Reaction Status Date / Time azithromycin Allergy Severe Swelling Verified 12/06/23 07:56 [From Zithromax Z-Brady] of Lip/Tongue/Throat ethyl alcohol Allergy Intermediate "rubbing Verified 12/06/23 07:56 alcohol" caused blisters isopropyl alcohol Allergy Intermediate "rubbing Verified 12/06/23 07:56 alcohol" caused blisters latex Allergy Intermediate blisters Verified 12/06/23 07:56 carvedilol Allergy Verified 12/06/23 07:56 clopidogrel Allergy Verified 12/06/23 07:56 verapamil AdvReac Severe asystole Verified 12/06/23 07:56 Home Medications Medication Instructions Recorded Confirmed Type atorvastatin 40 mg tablet 40 mg PO HS 02/16/21 12/23/23 History cholecalciferol (vitamin D3) 125 125 mcg PO QAM 02/16/21 12/23/23 History mcg (5,000 unit) tablet (Vitamin D3) isosorbide mononitrate 60 mg 60 mg PO DAILY 02/16/21 12/23/23 History tablet,extended release 24 hr pantoprazole 40 mg tablet,delayed 40 mg PO QAM 02/16/21 12/23/23 History release rivaroxaban 20 mg tablet (Xarelto) 20 mg PO UD 02/16/21 12/23/23 History gabapentin 300 mg capsule 300 mg PO TID 05/03/23 12/23/23 History ketoconazole 2 % topical cream 1 applic topical UD PRN Skin 05/03/23 12/23/23 History Irritation/openings /none current nitroglycerin 0.4 mg sublingual 0.4 mg sublingual .[id number] PRN 05/03/23 12/23/23 History tablet Chest Pain dicyclomine 10 mg capsule 10 mg PO BID 05/10/23 12/23/23 History sulfamethoxazole 800 1 tab PO Q12H 05/10/23 12/23/23 History mg-trimethoprim 160 mg tablet (Bactrim DS) ramipril 5 mg capsule 5 mg PO DAILY 05/30/23 12/23/23 History tamsulosin 0.4 mg capsule 0.4 mg PO DAILY #90 caps 06/18/23 12/23/23 Rx lamotrigine 100 mg tablet 100 mg PO BID 12/23/23 12/23/23 History lenvatinib 20 mg/day (10 mg x 2) 20 mg PO HS 12/23/23 12/23/23 History capsule (Lenvima) vibegron 75 mg tablet 75 mg PO UD 12/23/23 12/23/23 History Patient History Medical History (Updated 12/24/23 @ 16:19 by Elizabeth Fair PA-C) (HFpEF) heart failure with preserved ejection fraction Metastatic clear cell carcinoma of kidney Esophageal dilatation Weight loss over 35 pounds over past month. History of radiation exposure 1986 History of stroke 2001 - no residual effects. History of colon polyps Mass of colon CT scan [facility] 05/03/23. Hemorrhoids internal Kidney lesion lesions on kidneys per CT scan/ Osmar 2-3 weeks ago/talk of samantha with kidney - pt has not received follow up phone call. Rectal bleeding Neuropathy CAD (coronary artery disease) On anticoagulant therapy Hypothyroidism Prophylactic antibiotic penitentiary use of antibiotic>hx artificial joint infection Osteoarthritis History of bladder cancer treated surgically [place] (hard of hearing) reads lips Seizure-like activity hx 2014 - neuro work up neg for seizures - no issues since (follows with [facility]) HLD (hyperlipidemia) HTN (hypertension) History of atrial fibrillation follows with Dr. Carney; on xarelto (currently on hold due to recatal bleeding) hx cardioversion x2 ? History of myocardial infarction x 2 (1986, 2001) History of esophageal dilatation Dysphagia Surgical History History of left-sided carotid endarterectomy History of hernia surgery x2 Pacemaker passing out/reason for pacemaker. last checked : "recent check by Dr. Carney"/[facility] History of tonsillectomy History of appendectomy History of left knee replacement + revision surgery History of cataract surgery rt/left History of parathyroidectomy History of bladder surgery TURBT H/O heart artery stent x 4 History of cardiac cath 05/2020 -- CP -- [facility] - no stents mult cardiac cath between 1685-3133 (4 stents placed total) - [facility] and [facility] in [place], [place] History of colonoscopy History of esophagogastroduodenoscopy (EGD) Family History Father Prostate cancer Diabetes Heart disease Hypertension Mother Diabetes Hypertension Breast cancer Other No family history of adverse response to anesthesia Social History Smoking Status: Never smoker Second Hand Exposure: No; Do You Dip or Chew Tobacco: No; Tobacco Cessation Education Requested by Patient: No Hx Alcohol Use: No Hx Substance Use: No Preferred Language: Frisian Communication Ability: Effective Communication Ability Comment: pt is paiute-shoshone/pt does phone interview/per pt preference. 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 Other Information That Helps Us Care for You: No Feels Safe at Home: Yes Safety Concerns: Feels Safe At This Time Assistive Devices: None Review of Systems Review of Systems: All systems reviewed & are unremarkable except as noted in HPI & below Physical Exam Physical Exam: Thin man + RUQ/LQ pain No elevation in JVP Irreg/Irreg rhythm CTA B on Anterior Exam No c/c/e Warm and perfusing Results & Data Vital Signs (Past 12 Hours) Vital Signs Temp Pulse Resp BP Pulse Ox O2 Del Method 12/24/23 14:21 36.2 C L 98 H 20 72/52 L 93 Room Air 12/24/23 11:58 36.5 C 93 H 16 133/92 96 Room Air 12/24/23 08:50 Room Air 12/24/23 08:27 36.3 C L 93 H 16 123/92 94 Room Air Laboratory Results Cardiac Enzymes 12/24/23 Range/Units 06:53 AST 24 (13-39) U/L CBC 12/24/23 Range/Units 06:53 WBC 5.15 (4.8-10.8) K/ul RBC 3.90 L (4.70-6.10) M/uL Hgb 11.4 L (14.0-18.0) g/dl Hct 34.3 L (42.0-52.0) % Plt Count 110 L (130-400) K/uL Comprehensive Metabolic Panel 12/24/23 Range/Units 06:53 Sodium 133 L (136-145) mmol/L Potassium 3.9 (3.5-5.1) mmol/L Chloride 103 (98-107) mmol/L Carbon Dioxide 23 (21-32) mmol/L BUN 9 (6-23) mg/dl Creatinine 0.69 (0.6-1.4) mg/dl Glucose 90 (70-99(Fasting)) mg/dl Calcium 8.1 L (8.6-10.3) mg/dl AST 24 (13-39) U/L ALT 17 (7-52) U/L Alkaline Phosphatase 152 H (34-104) U/L Total Protein 5.3 L (6.0-8.3) gm/dl Albumin 3.3 L (3.4-5.0) gm/dl Intake and Output 12/24/23 12/24/23 12/24/23 06:59 14:59 22:59 Intake Total 100 / 100 Balance 100 / 100 Intake: IV 100 / 100 Piperacillin/Tazobactam 4.5 gm 100 / 100 In 100 ml @ 25 mls/hr IV Q8H [facility] Rx#:[id number] Other: # Unmeasured Voids 1 Diagnostic Findings Telemetry reviewed: Device interrogation reviewed: Persistent afib, at least over the last month. Duration unknown. Elevated rates. Battery life at 5.5 months. EKG reviewed from 12/24/23: Afib with RVR non specific ST/T wave abnormality. Repeat EKG reviewed from 12/24/23: Afib with improved rates Non specific T wave abnormality Abdomen/Pelvis CT 12/23/23 14:11 IMPRESSION: 1. Cholelithiasis with pericholecystic stranding which was shown on prior exam. Although not highly suggestive, acute cholecystitis cannot be excluded. If right upper quadrant pain, ultrasound is recommended. 2. Bilateral nephrolithiasis. No ureteral calculi or hydronephrosis. 3. Bilateral renal masses better depicted on contrast enhanced CT of August 20, 2023. 4. Small bilateral pleural effusions which have decreased in size since prior exam. Associated airspace opacities favor atelectasis. An infectious process is considered less likely. Gallbladder Ultrasound 12/23/23 16:38 Exam(s): US GALLBLADDER EXAM: US Abdomen Limited, Gallbladder CLINICAL HISTORY: Reason for exam: ro shay. TECHNIQUE: Real-time ultrasound of the right upper quadrant with image documentation. COMPARISON: CT abdomen pelvis 12/23/23 FINDINGS: Gallbladder: Gallbladder is mildly to moderately distended. Cholelithiasis and mild gallbladder wall thickening at 4.2 mm. Findings are nonspecific, as gallbladder wall thickening can be seen with CHF, hepatitis, low protein states, among other entities. Acute cholecystitis must be excluded. Common bile duct: CBD 5 mm. No dilation. Pancreas: Not visualized. Other: Moderate right pleural effusion. IMPRESSION: 1. Cholelithiasis and gallbladder wall thickening, nonspecific, correlate clinically as acute cholecystitis is not excluded. 2. No ductal dilatation. Hepatobiliary Scan Nuclear Medicine 12/24/23 08:04 NM hepatobiliary CLINICAL HISTORY: R/o acute cholecystitis TECHNIQUE: Following the intravenous injection of 5.1 mCi of Tc-99m labeled Technetium 99m mebrofenin, multiple images of the upper abdomen were obtained in the anterior projection with uptake measurements of the gallbladder obtained. Comparison: Comparison is made to gallbladder ultrasound 12/23/2023 FINDINGS: Sequential images demonstrate normal uptake in the liver, common bile duct, gallbladder, and small bowel. No defects in uptake are identified. Subsequent imaging after the administration of sincalide demonstrates prompt elimination of the radiotracer from the gallbladder. IMPRESSION: Normal uptake of contrast by the gallbladder. No evidence of acute cholecystitis. Medications Administered Current Inpatient Medications Atorvastatin Calcium (Atorvastatin 40 Mg Tab) 40 mg PO HS STEVE Stop: 01/22/24 22:14 Last Admin: 12/23/23 22:28 Dose: 40 mg Dicyclomine HCl (Dicyclomine Hcl 10 Mg Cap) 10 mg PO BID STEVE Stop: 01/22/24 22:14 Last Admin: 12/24/23 11:32 Dose: 10 mg Enalapril Maleate (Enalapril Maleate 10 Mg Tab) 10 mg PO DAILY STEVE Stop: 01/23/24 08:59 Last Admin: 12/24/23 11:32 Dose: 10 mg Gabapentin (Gabapentin 300 Mg Cap) 300 mg PO TID STEVE Stop: 01/23/24 08:59 Last Admin: 12/24/23 15:51 Dose: 300 mg Piperacillin Sod/Tazobactam Sod (Zosyn) 4.5 gm in 100 mls @ 25 mls/hr IV Q8H [facility]; Protocol Stop: 01/03/24 01:59 Last Infusion: 12/24/23 15:56 Dose: Infused Isosorbide Mononitrate (Isosorbide [place] Extended Rel 60 Mg Tabcr) 60 mg PO QAM [facility] Stop: 01/23/24 08:59 Last Admin: 12/24/23 11:33 Dose: 60 mg Lamotrigine (Lamotrigine 100 Mg Tab) 100 mg PO BID [facility]; Protocol Stop: 01/23/24 08:59 Last Admin: 12/24/23 11:33 Dose: 100 mg Metoprolol Tartrate (Metoprolol Tartrate 1 Mg/Ml Vial) 2.5 mg IV Q6 PRN PRN Reason: Tachycardia Stop: 01/23/24 17:59 Metoprolol Tartrate (Metoprolol Tartrate 25 Mg Tab) 12.5 mg PO TID [facility] Stop: 01/23/24 13:34 Last Admin: 12/24/23 16:01 Dose: Not Given Ondansetron HCl (Ondansetron Inj 2 Mg/Ml 2 Ml Vial) 4 mg IV Q6H PRN PRN Reason: Nausea Stop: 01/22/24 21:27 Polyethylene Glycol (Polyethylene (Miralax) 17 Gm Pack) 17 gm PO DAILY PRN PRN Reason: Constipation Stop: 01/22/24 21:27 Tamsulosin HCl (Tamsulosin Hcl 0.4 Mg Cap) 0.4 mg PO DAILY [facility] Stop: 01/23/24 08:59 Last Admin: 12/24/23 11:34 Dose: 0.4 mg Vitamin D (Cholecalciferol 125 Mcg (5,000 Units) Tab) 125 mcg PO QAM [facility] Stop: 01/23/24 08:59 Last Admin: 12/24/23 11:32 Dose: 125 mcg
[2023-12-24] MEDS: METOPROLOL TARTRATE 25 MG TAB PO SCH (16:01)
--- NOTE | 2023-12-24 16:27 | Electrocardiogram Report ---
Test Reason : Blood Pressure : */* mmHG Vent. Rate : 135 BPM Atrial Rate : 150 BPM P-R Int : * ms QRS Dur : 84 ms QT Int : 266 ms P-R-T Axes : * 44 238 degrees QTcB Int : 399 ms Atrial fibrillation with rapid ventricular response Diffuse Minor Nonspecific T wave abnormality Abnormal ECG When compared with ECG of 23-Dec-2023 13:26, HR has increased by 29 bpm Confirmed by Siddharth Pinto ([id number]) on 12/24/2023 4:27:28 PM Referred By: REFERRED SELF Confirmed By: Siddharth Pinto
[2023-12-24] MEDS: SODIUM CHLORIDE 0.9% 500 ML IV SCH ×2 (17:11→23:51)
--- NOTE | 2023-12-25 06:36 | Anesthesiology Consultation ---
Date of Service December 25, 2023 Assessment & Plan Chart Review Chart Review: Acceptable Risk for Surgery and Patient NOT seen in Pre Admission Testing History Surgery Operation Date: 12/25/23 08:15 Proposed Procedures p Laparoscopic Cholecystectomy - Nick Mast MD Height/Weight Height: 5 ft 9 in Weight: 80.5 kg Allergies Allergy/AdvReac Type Severity Reaction Status Date / Time azithromycin Allergy Severe Swelling Verified 12/06/23 07:56 [From Zithromax Z-Brady] of Lip/Tongue/Throat ethyl alcohol Allergy Intermediate "rubbing Verified 12/06/23 07:56 alcohol" caused blisters isopropyl alcohol Allergy Intermediate "rubbing Verified 12/06/23 07:56 alcohol" caused blisters latex Allergy Intermediate blisters Verified 12/06/23 07:56 carvedilol Allergy Verified 12/06/23 07:56 clopidogrel Allergy Verified 12/06/23 07:56 verapamil AdvReac Severe asystole Verified 12/06/23 07:56 Medications Home Medications Medication Instructions Recorded Confirmed Last Taken atorvastatin 40 mg tablet 40 mg PO HS 02/16/21 12/23/23 05/29/23 cholecalciferol (vitamin D3) 125 125 mcg PO QAM 02/16/21 12/23/23 05/30/23 mcg (5,000 unit) tablet (Vitamin D3) isosorbide mononitrate 60 mg 60 mg PO DAILY 02/16/21 12/23/23 05/29/23 tablet,extended release 24 hr pantoprazole 40 mg tablet,delayed 40 mg PO QAM 02/16/21 12/23/23 05/30/23 release rivaroxaban 20 mg tablet (Xarelto) 20 mg PO UD 02/16/21 12/23/23 04/30/23 gabapentin 300 mg capsule 300 mg PO TID 05/03/23 12/23/23 05/13/23 ketoconazole 2 % topical cream 1 applic topical UD PRN Skin 05/03/23 12/23/23 05/12/23 Irritation/openings /none current nitroglycerin 0.4 mg sublingual 0.4 mg sublingual .[id number] PRN 05/03/23 12/23/23 Unknown tablet Chest Pain dicyclomine 10 mg capsule 10 mg PO BID 05/10/23 12/23/23 Unknown sulfamethoxazole 800 1 tab PO Q12H 05/10/23 12/23/23 05/30/23 08:00 mg-trimethoprim 160 mg tablet (Bactrim DS) ramipril 5 mg capsule 5 mg PO DAILY 05/30/23 12/23/23 05/30/23 tamsulosin 0.4 mg capsule 0.4 mg PO DAILY #90 caps 06/18/23 12/23/23 Unknown lamotrigine 100 mg tablet 100 mg PO BID 12/23/23 12/23/23 Unknown lenvatinib 20 mg/day (10 mg x 2) 20 mg PO HS 12/23/23 12/23/23 Unknown capsule (Lenvima) vibegron 75 mg tablet 75 mg PO UD 12/23/23 12/23/23 Unknown Active Medications Generic Name Dose Route Start Last Admin Trade Name Freq PRN Reason Stop Dose Admin Atorvastatin Calcium 40 mg 12/23/23 22:15 12/24/23 20:23 Atorvastatin 40 Mg Tab PO 01/22/24 22:14 40 mg HS STEVE Administration Dicyclomine HCl 10 mg 12/23/23 22:15 12/24/23 20:21 Dicyclomine Hcl 10 Mg Cap PO 01/22/24 22:14 10 mg BID STEVE Administration Enalapril Maleate 10 mg 12/24/23 09:00 12/24/23 11:32 Enalapril Maleate 10 Mg Tab PO 01/23/24 08:59 10 mg DAILY STEVE Administration Gabapentin 300 mg 12/24/23 09:00 12/24/23 20:21 Gabapentin 300 Mg Cap PO 01/23/24 08:59 300 mg TID STEVE Administration Piperacillin Sod/Tazobactam Sod 4.5 gm in 100 mls @ 25 mls/hr 12/24/23 02:00 12/25/23 04:50 Zosyn IV 01/03/24 01:59 25 mls/hr Q8H STEVE Administration Protocol Isosorbide Mononitrate 60 mg 12/24/23 09:00 12/24/23 11:33 Isosorbide Young Extended Rel 60 Mg Tabcr PO 01/23/24 08:59 60 mg QAM STEVE Administration Lamotrigine 100 mg 12/24/23 09:00 12/24/23 20:22 Lamotrigine 100 Mg Tab PO 01/23/24 08:59 100 mg BID STEVE Administration Protocol Metoprolol Tartrate 12.5 mg 12/24/23 13:35 12/24/23 21:49 Metoprolol Tartrate 25 Mg Tab PO 01/23/24 13:34 Not Given TID STEVE Tamsulosin HCl 0.4 mg 12/24/23 09:00 12/24/23 11:34 Tamsulosin Hcl 0.4 Mg Cap PO 01/23/24 08:59 0.4 mg DAILY STEVE Administration Vitamin D 125 mcg 12/24/23 09:00 12/24/23 11:32 Cholecalciferol 125 Mcg (5,000 Units) Tab PO 01/23/24 08:59 125 mcg QAM STEVE Administration NPO Date Last Intake of Fluids: 12/23/23 Time Last Intake of Fluids: 23:59 Date Last Intake of Solids: 12/23/23 Time Last Intake of Solids: 23:59 Past Medical History Medical History (HFpEF) heart failure with preserved ejection fraction Metastatic clear cell carcinoma of kidney Esophageal dilatation Weight loss over 35 pounds over past month. History of radiation exposure 1986 History of stroke 2001 - no residual effects. History of colon polyps Mass of colon CT scan [facility] 05/03/23. Hemorrhoids internal Kidney lesion lesions on kidneys per CT scan/ Osmar 2-3 weeks ago/talk of samantha with kidney - pt has not received follow up phone call. 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) HLD (hyperlipidemia) HTN (hypertension) History of atrial fibrillation follows with Dr. Carney; on xarelto (currently on hold due to recatal bleeding) hx cardioversion x2 ? History of myocardial infarction x 2 (1986, 2001) History of esophageal dilatation Dysphagia Past Family History Family History Father Prostate cancer Diabetes Heart disease Hypertension Mother Diabetes Hypertension Breast cancer Other No family history of adverse response to anesthesia Past Surgical History Surgical History History of left-sided carotid endarterectomy History of hernia surgery x2 Pacemaker passing out/reason for pacemaker. last checked : "recent check by Dr. Carney"/[facility] History of tonsillectomy History of appendectomy History of left knee replacement + revision surgery History of cataract surgery rt/left History of parathyroidectomy History of bladder surgery TURBT H/O heart artery stent x 4 History of cardiac cath 05/2020 -- CP -- [facility] - no stents mult cardiac cath between 1238-5638 (4 stents placed total) - [facility] and [facility] in [place], [place] History of colonoscopy History of esophagogastroduodenoscopy (EGD) Social History Smoking Status: Never smoker Do You Dip or Chew Tobacco: No Hx Alcohol Use: No Hx Substance Use: No substance use type: does not use Physical Exam Vital Signs Last Vital Signs Temp 36.7 C 12/25/23 04:00 Pulse 93 H 12/25/23 04:00 Resp 18 12/25/23 04:00 BP 107/72 12/25/23 04:00 Pulse Ox 93 12/25/23 04:00 O2 Del Method Room Air 12/25/23 04:00 O2 Flow Rate 0 12/24/23 23:35 Testing Laboratory Results 12/24/23 06:53 12/24/23 06:53 Urine Color Yellow 12/23/23 Unknown Urine Appearance Clear (Clear) 12/23/23 Unknown Urine pH 6.5 (4.5-7.5) 12/23/23 Unknown Ur Specific [place] 1.016 (1.000-1.030) 12/23/23 Unknown Urine Protein Trace (Negative) H 12/23/23 Unknown Urine Glucose (UA) Negative (Negative) 12/23/23 Unknown Urine Ketones Negative (Negative) 12/23/23 Unknown Urine Nitrite Negative (Negative) 12/23/23 Unknown Ur Leukocyte Esterase 2+ (Negative) H 12/23/23 Unknown Urine WBC (Auto) >50 /hpf (0-5) H 12/23/23 Unknown Urine RBC (Auto) 0-2 /hpf (0-2) 12/23/23 Unknown U Hyaline Cast (Auto) 0-2 /lpf (0-2) 12/23/23 Unknown U Epithel Cells (Auto) 0-2 /hpf (0-2) 12/23/23 Unknown Urine Bacteria (Auto) None Seen (None Seen) 12/23/23 Unknown 12/23/23 Unknown Urine Culture - Preliminary Urine,Clean Catch Gram positive cocci
[2023-12-25] MEDS: LACTATED RINGER'S 1,000 ML IV SCH (07:25)
[2023-12-25 07:31] LABS: Basophils # (auto) 0.03 K/uL (0.00-0.20); Basophils % (auto) 0.5 %; Eosinophils # (auto) 0.12 K/uL (0.00-0.50); Eosinophils % (auto) 2.1 %; Hematocrit (blood only) 35.9 % (42.0-52.0); Hemoglobin 11.8 g/dl (14.0-18.0); Immature Granulocytes # (auto) 0.03 K/uL (0.01-0.20); Immature Granulocytes % (auto) 0.5 %; Lymphocytes # (auto) 0.65 K/uL (1.20-3.40); Lymphocytes % (auto) 11.1 %; Mean Corpuscular Hemoglobin 29.1 pg (25.0-34.0); Mean Corpuscular Hgb Conc 32.9 g/dL (32.0-36.0); Mean Corpuscular Volume 88.6 fL (80.0-100.0); Mean Platelet Volume 9.7 fL (9.4-12.4); Monocytes # (auto) 0.55 K/uL (0.11-0.59); Monocytes % (auto) 9.4 %; Neutrophils # (auto) 4.46 K/uL (1.40-6.50); Neutrophils % (auto) 76.4 %; Platelet Count 137 K/uL (130-400); RDW Coefficient of Variation 13.2 % (11.5-14.5); RDW Standard Deviation 42.8 fL (36.4-46.3); Red Blood Count 4.05 M/uL (4.70-6.10); White Blood Count 5.84 K/ul (4.8-10.8)
--- NOTE | 2023-12-25 07:56 | History & Physical Bridge Note ---
Date of Service December 25, 2023 History & Physical Bridge Note I have examined the patient, reviewed the History & Physical and in the interval since the performance of the History & Physical I have noted the following changes of clinical significance: no changes noted
[2023-12-25 08:02] LABS: Albumin Globulin Ratio 1.5 (0.9-2); Albumin Level 3.2 gm/dl (3.4-5.0); BUN Creatinine Ratio 12.5 (10-20); Bilirubin Direct 0.2 mg/dl (0-0.2); Bilirubin,Total 0.8 mg/dl (0.2-1.0); Calcium 8.3 mg/dl (8.6-10.3); Creatinine Clr Calc Pharmacy 73.6 ml/min; Globulin 2.2 gm/dl (2.5-4.0); Potassium 3.9 mmol/L (3.5-5.1); Total Protein 5.4 gm/dl (6.0-8.3)
[2023-12-25] MEDS ORDERED: fentaNYL citrate PF 100 MCG/2 ML VIAL IV PRN (08:17)
[2023-12-25] MEDS ORDERED: HYDROmorphone INJ 1 MG/ML SYRINGE IV PRN (08:17)
[2023-12-25] MEDS ORDERED: ePHEDrine sulfate 50 MG/ML AMP IV PRN (08:17)
[2023-12-25] MEDS ORDERED: ONDANSETRON INJ 2 MG/ML 2 ML VIAL IV PRN (08:17)
[2023-12-25] MEDS ORDERED: ATROPINE SULFATE 0.1 MG/ML 10ML SYR IV PRN (08:17)
[2023-12-25] MEDS: BUPIVACAINE/EPINEPHRINE 0.5% MPF 1:200,000 30 ML VIAL ONE (09:00)
[2023-12-25] MEDS: SURGICEL ABSORB HEMOSTAT 2IN X 14IN TOP ONE (09:13)
--- NOTE | 2023-12-25 09:35 | Operative Report ---
Post Operative Report Pre & Post Diagnosis Operation Date: 12/25/23 08:15 Pre-Op Diagnosis: Acute Cholecystitis Post-Op Diagnosis: Acute Cholecystitis I identified the patient and participated in the time-out.: Yes Procedure Operation Date: 12/25/23 08:15 Actual Procedures p Laparoscopic Cholecystectomy(Not Applicable) - Nick Mast MD Surgeon iNck Mast MD Cable Swager None Estimated Blood Loss 15 Findings Consistent with Post-Op Diagnosis Specimens Gallbladder to pathology Drains None Anesthesia Type General Complications none Disposition Accompanied Patient To Recovery: No Disposition: Recovery Room Indications This is an 78-year-old male who was admitted with a right-sided abdominal pain and had an US which showed gallstones and signs of cholecystitis. A HIDA scan was done which did not show obstruction of the duct but he had continued pain and tenderness. We talked in detail about his gallstones causing issues and his continued pain and tenderness. I recommended a laparoscopic cholecystectomy and went over the risks in detail. He was ptimizatized medically and is taken to the OR for lap shay today. Description of Procedure The patient was taken the OR, placed in the supine position and underwent excellent general endotracheal anesthesia. Their abdomen is prepped and draped normal sterile fashion. A transverse supraumbilical incision was made and dissection was taken down to identify the anterior fascia. Two Vicryl' sutures were placed on either side of the midline and his midline was then incised. The peritoneal cavity was entered bluntly with Nathaly clamp. A 12mm Mejia trocar was then inserted and secured. Good pneumoperitoneum was achieved to 15 mmHg pressure. The patient was placed in head up and rolled to the left position. A 11mm subxiphoid and two 5mm lateral ports were placed in the normal fashion. The gallbladder was identified and was acutely inflamed. An aspirator was then used to aspirate the gallbladder. This then facilitated grasping the the fundus of the gallbladder which was retracted superiorly. The neck of the gallbladder was grasped and then retracted laterally. This splayed open the Hepatocystic triangle. Attention was then turned to taking down the peritoneal attachments and identify the cystic duct and cystic artery. Once these were skeletonized and a medial and lateral window was created between the gallbladder fossa and the duct, thereby ensuring the critical view. Then three clips were then placed distally on cystic duct one proximally on the cystic duct, it was then transected. Two clips were then placed approximately on the cystic artery one distally, the cystic artery was transected. An electrocautery hook was then used to move the gallbladder off the gallbladder fossa. There was some bile spillage but no stones were spilled. The gallbladder was then placed into an Endobag and brought out through the supraumbilical incision. The pneumoperitoneum was re-established and abdomen was irrigated out until the suction fluid was clear. There were some areas on the gallbladder fossa which were raw which were cauterized and then a Surgicel was used to cover the gallbladder fossa. The ports were then removed and the abdomen decompressed. The fascia of the supraumbilical incision was closed with Vicryls. 0.5% Marcaine with epinephrine local was to create a local field block. Interrupted Vicryl was used to close the skin. Dermabond was used to reinforce the incisions. Sterile dressings were applied. Patient tolerated the procedure without complication and sent to the postop recovery period of observation. They will then be sent to the floor for the rest of their care. I attest to the content of the Intraoperative Record and any orders documented therein. Any exceptions are noted below.
--- NOTE | 2023-12-25 10:37 | Electrocardiogram Report ---
Test Reason : Blood Pressure : */* mmHG Vent. Rate : 88 BPM Atrial Rate : 136 BPM P-R Int : * ms QRS Dur : 80 ms QT Int : 274 ms P-R-T Axes : * 32 208 degrees QTcB Int : 331 ms Atrial fibrillation with occasional ventricular-paced complexes Nonspecific T wave abnormality Abnormal ECG When compared with ECG of 24-Dec-2023 13:14, Electronic ventricular pacemaker now present Vent. rate has decreased by 47 bpm Confirmed by Siddharth Pinto ([id number]) on 12/25/2023 10:36:49 AM Referred By: REFERRED SELF Confirmed By: Siddharth Pinto
--- NOTE | 2023-12-25 10:42 | Electrocardiogram Report ---
Test Reason : Blood Pressure : */* mmHG Vent. Rate : 97 BPM Atrial Rate : 89 BPM P-R Int : * ms QRS Dur : 80 ms QT Int : 308 ms P-R-T Axes : * 34 173 degrees QTcB Int : 391 ms Atrial fibrillation Diffuse Minor Nonspecific T wave abnormality Abnormal ECG When compared with ECG of 24-Dec-2023 14:44, Electronic ventricular pacemaker no longer present Confirmed by Siddharth Pinto ([id number]) on 12/25/2023 10:41:58 AM Referred By: REFERRED SELF Confirmed By: Siddharth Pinto
[2023-12-25] MEDS ORDERED: oxyCODONE/ACETAMINOPHEN 5mg/325mg TAB PO PRN (10:52)
[2023-12-25] MEDS ORDERED: MoRPHine SULFATE 2 MG/ML CARP IV PRN (10:52)
--- NOTE | 2023-12-25 11:42 | Anesthesiology Progress Note ---
Date of Service December 25, 2023 Anesthesia Post Procedure Vital Signs Vital Signs: Temp Pulse Pulse Pulse Resp BP BP 12/25/23 10:52 36.4 C L 115 H 16 111/73 12/25/23 10:47 36.4 C L 115 H 16 111/73 12/25/23 10:25 100 H 21 99/61 L 12/25/23 10:15 36.4 C L 108 H 22 96/73 L 12/25/23 10:05 95 H 17 96/67 L 12/25/23 09:55 95 H 19 100/73 12/25/23 09:45 107 H 18 92/63 L 12/25/23 09:37 36.6 C 106 H 19 94/66 L 12/25/23 08:10 87 18 132/88 12/25/23 07:58 100 H 20 111/87 12/25/23 07:30 36.7 C 110 H 20 88/65 L 82/63 L 12/25/23 07:00 96 H 12/25/23 06:35 82 12/25/23 04:00 36.7 C 93 H 18 107/72 12/25/23 00:00 12/24/23 23:35 36.5 C 109 H 16 76/55 L 12/24/23 19:25 36.6 C 78 19 83/60 L 93/57 L 12/24/23 16:31 90 94/63 L 12/24/23 15:20 94/59 L 12/24/23 15:00 86 91/61 L 12/24/23 14:21 36.2 C L 98 H 20 72/52 L 12/24/23 13:00 84 12/24/23 11:58 36.5 C 93 H 16 133/92 Pulse Ox O2 Del Method O2 Flow Rate 12/25/23 10:52 95 Room Air 12/25/23 10:47 95 Room Air 12/25/23 10:25 95 Oxymask 3 12/25/23 10:15 97 Oxymask 4 12/25/23 10:05 97 Oxymask 10 12/25/23 09:55 93 Oxymask 10 12/25/23 09:45 94 Oxymask 15 12/25/23 09:37 90 Oxymask 15 12/25/23 08:10 97 Nasal Cannula 2 12/25/23 07:58 96 Nasal Cannula 2 12/25/23 07:30 97 Room Air 12/25/23 07:00 12/25/23 06:35 12/25/23 04:00 93 Room Air 12/25/23 00:00 Room Air 12/24/23 23:35 92 Room Air 0 12/24/23 19:25 91 Room Air 12/24/23 16:31 12/24/23 15:20 12/24/23 15:00 12/24/23 14:21 93 Room Air 12/24/23 13:00 12/24/23 11:58 96 Room Air Pain Intensity Right Flank: Pain Intensity: 5 Transfer of Care Handoff Completed per policy Notes Mental Status: alert / awake / arousable and participated in evaluation Patient Amnestic to Procedure: Yes Nausea / Vomiting: adequately controlled Pain: adequately controlled Airway Patency, RR, SpO2: stable & adequate BP & HR: stable & adequate Hydration State: stable & adequate Anesthetic Complications: no major complications apparent and Pt Satisfied with anesthetic care
--- NOTE | 2023-12-25 12:51 | Hospitalist Progress Note ---
Date of Service December 25, 2023 Assessment & Plan (1) Cholelithiasis: (2) Right sided abdominal pain: (3) Metastatic clear cell carcinoma of kidney: (4) HTN (hypertension): (5) History of atrial fibrillation: (6) Dysphagia: (7) (HFpEF) heart failure with preserved ejection fraction: Plan This is an 78yo M with a PMH of metastatic clear-cell carcinoma of the kidney, HFpEF, CAD status post stent, CVA as per records, PVD status post surgery, SSS status post PPM, hypertension, hyperlipidemia, history E. 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 Atrial fibrillation with RVR Chronic Follows with Dr. Carney in [facility]; last appt 3 months ago; HIM obtaining records (pt states he has had a pci s/o stent x3) CHADSVASC is 4 Xarelto has been on hold from 04/2023; for numerous procedures (colonoscopy, ablation, biospy) Per [facility] records, is prescribed Sotolol. Per , he has not been taking this; unclear to rationale Per , does not recall him being on an antiarrhythmic (poor historian) Called [facility] pharmacy on 12/23: -Sotolol 120 mg PO BID last filled 12/2022 -Xarelto last filled 04/2023 -Amiodarone 200 mg PO daily last filled 03/2023 pacer interrogation on 12/22 indicated he has been in AF RVR with rates as high as 200's at various times this month, most recently in 130's Metoprolol Tartrate 12.5 TID to start + PRN IV Metoprolol Hold Imdur ECHO EF 60-65%, no AR, normal LV wall motion Cardiology consulted; appreciate reccs Cholelithiasis Progressive R sided abd pain x 3 months No fever/chills CT abd/pelvis: cholelithiasis with pericholecystic stranding GBUS: Cholelithiasis and gallbladder wall thickening, nonspecific, No ductal dilatation. 12/23: HIDA scan: Normal uptake of contrast by the gallbladder. No evidence of acute cholecystitis. RCRI: 1 Tylenol PRN for pain 12/24: s/p laporoscopic cholecystectomy POD#0 T.Bili on admission was 1.1--> trended down to 0.8 12/24 Was on IV Zosyn--> IV Ampicillin for UTI as outlined below UTI: History E. coli bacteremia 2/2 to knee surgery on lifelong Bactrim Acute UA showed 2+ Nitrate, > 50 WBC Urine Culture: enterococcus faecalis; switched from IV Zosyn--> IV Ampicillin on 12/24. 12/25 will be day #3 of abx treatment, switch to Amoxicillin PO prior to DC . Probiotic for DC for PO abx Resume Bactrim once Amoxicillin completed as [facility] Metastatic clear cell carcinoma of the kidney S/p recent ablation procedure at [facility] [place], following with Dr. Chew Started Keytruda on 12/17, due in 2 weeks. Hold Lenvima for now given acute issues HTN Chronic Takes Ramipril; continue History of CAD Continue statin, Imdur on hold per cards Sick sinus syndrome S/p pacemaker placed approximately 15 years ago 5.5 months of battery life pacer interrogation he has been in AF RVR with rates as high as 200's at various times this month, most recently in 130's Seizure disorder Continue Lamictal He does not recall when last seizure was; he says it has been years and only experienced this once DVT Ppx: SCDs for now Code status: Full Code; was DNR; changed on 12/23 PCP: Selin Alcaraz); follows with Dr. Carney from [facility] Cardiology Dispo: in PCU; anticipate another 1-2 days inpatient. I spent a total of 56 minutes coordinating, documenting, and providing care for this patient excluding time spent in the performance of separately billed services. All of the aforementioned completed while collaborating with the assigned attending physician for a full treatment plan. Please see their addendum for further details. Admission and Anticipated Discharge Date Admission Date: December 23, 2023 Supervising Physician Co-Signing Physician Notes I have seen and examined the patient at bedside. Discussed the case with the jose foley advanced practitioner. I agree with the documentation as above. I have reviewed and confirmed the patients medical history, thefindings on physical examination, and the patients diagnosis and treatment plan with Julio LACEY and agree with the information documented. Note has been edited as needed. Patient was hypotensive overnight which improved with IV fluids. Continue to h old enalapril, isosorbide Post cholecystectomy, patient is doing well. Denies any significant pain Metoprolol tartrate is changed to metoprolol succinate 25 twice daily for A-fib RVR IV Zosyn discontinued as patient already had cholecystectomy Agree with ampicillin for Enterococcus faecalis UTI Monitor blood pressure closely and adjust medications as needed Plan to start on anticoagulation once cleared by surgery Subjective Pt seen post-op s/p acute laparoscopic cholecystectomy Review of Systems Review of Systems: Neuro: (-) Falls, trauma, slurred speech HEENT: (-) FONG, dizziness, dysphagia, visual or auditory changes CV: (-) CP, palpitations, swelling Resp: (-) SOB GI: (-) appetite changes, N/V/D, bowel changes : (-) urinary changes Skin: (-) rashes Psych: (-) anxiety, depression Physical Exam Physical Exam: Neuro: AAOx4, PERRLA, no aphagia, memory changes, CNII-XII grossly intact HEENT: head normocephalic, moist mucus membranes CV: S1/S2, (-) M/G/R, (-) edema, cap refill < 3 seconds Resp: Lungs CTA in all delacruz. On RA GI: right sided abdominal pain without radiation, (+) tenderness with palpation, Ax4 bowel sounds, (-) CVA tenderness Musculoskeletal: 5/5 B/L UE strength, 5/5 B/L LE strength. No gait disturbance Skin: (-) rashes , (-) erythema. Psych: euthymic mood Results & Data Results & Data Vital Signs (Past 12 Hours) Vital Signs Temp Pulse Pulse Pulse Resp BP BP 12/25/23 12:03 36.3 C L 113 H 16 98/69 L 12/25/23 11:22 36.4 C L 99 H 107/72 12/25/23 10:52 36.4 C L 115 H 16 111/73 12/25/23 10:47 36.4 C L 115 H 16 111/73 12/25/23 10:25 100 H 21 99/61 L 12/25/23 10:15 36.4 C L 108 H 22 96/73 L 12/25/23 10:05 95 H 17 96/67 L 12/25/23 09:55 95 H 19 100/73 12/25/23 09:45 107 H 18 92/63 L 12/25/23 09:37 36.6 C 106 H 19 94/66 L 12/25/23 08:10 87 18 132/88 12/25/23 07:58 100 H 20 111/87 12/25/23 07:30 36.7 C 110 H 20 88/65 L 82/63 L 12/25/23 07:00 96 H 12/25/23 06:35 82 12/25/23 04:00 36.7 C 93 H 18 107/72 Pulse Ox O2 Del Method O2 Flow Rate 12/25/23 12:03 90 Room Air 12/25/23 11:22 99 Room Air 12/25/23 10:52 95 Room Air 12/25/23 10:47 95 Room Air 12/25/23 10:25 95 Oxymask 3 12/25/23 10:15 97 Oxymask 4 12/25/23 10:05 97 Oxymask 10 12/25/23 09:55 93 Oxymask 10 12/25/23 09:45 94 Oxymask 15 12/25/23 09:37 90 Oxymask 15 12/25/23 08:10 97 Nasal Cannula 2 12/25/23 07:58 96 Nasal Cannula 2 12/25/23 07:30 97 Room Air 12/25/23 07:00 12/25/23 06:35 12/25/23 04:00 93 Room Air
--- NOTE | 2023-12-25 14:30 | Cardiology Progress Note ---
Date of Service December 25, 2023 Assessment & Plan (1) Cholelithiasis: (2) Right sided abdominal pain: (3) Atrial fibrillation with RVR: Plan 78 yo man presenting with abdominal pain x 3 weeks Concern for acute cholecystitis Consultation - preoperative evaluation Follows with Osmar Mcdaniels PAF In Afib x 1 month on recent device interrogation HR's 130's on Admission Had been on Amio / Sotalol in the past - not taking any antiarrhythmics at present Stopped Beta Blockers as outpatient. Not on Anticoagulation secondary to multiple procedures Recent ablation of Renal Ca PPM - near end-of-life (5 + months estimated to remain) + HTN + CAD /Stents - details unknown Plans: 12/24/23: + Suspect Acute Cholecystitis + Afib Plans for rate control HR has been at or below 100 BPM on telemetry Continue Lopressor 12.5 mg po TID K+ goal 4.5-5 Mag goal >2 ECHO ordered and pending Check TSH Would need to secure records from primary endoscopy rn re: timing of previously placed stents Patient stated that he has 4 stents placed in the past - but is unclear as to the timing of placement No exertional angina reported + Suspected dementia Marginal Systolic BP Consider Holding CYDNEY 12/25/23: Echo yesterday with preserved LVEF, no wall motion abnormalities or significant valvular heart disease. Underwent lap shay this morning with good results. Had mildly elevated ventricular rates and treated with IV Lopressor in the preop period. Also had an episode of hypotension, improved with IV fluids. Hold all antihypertensives - isosorbide and enalapril. This will allow us to titrate metoprolol to aid with afib RVR Change metoprolol tartrate to succinate and increase to 25 mg BID, starting tonight for ongoing rate control. Once post op bleeding risk is stable, would resume oral anticoagulation. He was previously on Xarelto as an outpatient. He will need cardiology f/u upon discharge - Follows with Osmar Mcdaniels, Dr. Carney. Case discussed with Dr. Junior I spent a total of 40 minutes on the date of service in preparation, delivery, and documentation of the care provided to this patient, excluding any time spent in the performance of separately billed services. Elizabeth Fair PA-C Department of Cardiology, [facility] This chart was completed in part utilizing Speech Voice Recognition Software. Grammatical errors, random word insertions, pronoun errors, and incomplete sentences are an occasional consequence of this system due to software limitations, ambient noise, and hardware issues. Any formal questions or concerns about the content, text, or information contained within the body of this dictation should be directly addressed to the provider for clarification. Admission and Anticipated Discharge Date Admission Date: December 23, 2023 Supervising Physician Co-Signing Physician Notes I have personally performed a history and physical examination on the patient. I have reviewed the advance practitioner's documentation, and I agree with, and take responsibility for the plan of care. 78-year-old patient's status post laparoscopic cholecystectomy this a.m. No apparent or immediate complications. Episode of hypotension noted. Continue to hold isosorbide and enalapril. Titrate metoprolol to 25 mg twice daily. Restart Xarelto when bleeding risk is deemed acceptable by the surgical service. Anuel Junior DO, [facility] Subjective Patient seen examined the bedside. Feeling better postoperatively. Review of Systems Review of Systems: All systems reviewed & are unremarkable except as noted in Subjective Physical Exam Physical Exam: Thin man + RUQ/LQ pain No elevation in JVP Irreg/Irreg rhythm CTA B on Anterior Exam No c/c/e Warm and perfusing Results & Data Vital Signs (Past 12 Hours) Vital Signs Temp Pulse Pulse Pulse Resp BP BP 12/25/23 12:22 36.4 C L 103 H 15 118/83 12/25/23 12:03 36.3 C L 113 H 16 98/69 L 12/25/23 11:22 36.4 C L 99 H 107/72 12/25/23 11:00 12/25/23 10:52 36.4 C L 115 H 16 111/73 12/25/23 10:47 36.4 C L 115 H 16 111/73 12/25/23 10:25 100 H 21 99/61 L 12/25/23 10:15 36.4 C L 108 H 22 96/73 L 12/25/23 10:05 95 H 17 96/67 L 12/25/23 09:55 95 H 19 100/73 12/25/23 09:45 107 H 18 92/63 L 12/25/23 09:37 36.6 C 106 H 19 94/66 L 12/25/23 08:10 87 18 132/88 12/25/23 07:58 100 H 20 111/87 12/25/23 07:30 36.7 C 110 H 20 88/65 L 82/63 L 12/25/23 07:00 96 H 12/25/23 06:35 82 12/25/23 04:00 36.7 C 93 H 18 107/72 Pulse Ox O2 Del Method O2 Flow Rate 12/25/23 12:22 94 Room Air 12/25/23 12:03 90 Room Air 12/25/23 11:22 99 Room Air 12/25/23 11:00 Oxymask 3 12/25/23 10:52 95 Room Air 12/25/23 10:47 95 Room Air 12/25/23 10:25 95 Oxymask 3 12/25/23 10:15 97 Oxymask 4 12/25/23 10:05 97 Oxymask 10 12/25/23 09:55 93 Oxymask 10 12/25/23 09:45 94 Oxymask 15 12/25/23 09:37 90 Oxymask 15 12/25/23 08:10 97 Nasal Cannula 2 12/25/23 07:58 96 Nasal Cannula 2 12/25/23 07:30 97 Room Air 12/25/23 07:00 12/25/23 06:35 12/25/23 04:00 93 Room Air Laboratory Results Cardiac Enzymes 12/25/23 Range/Units 07:04 AST 20 (13-39) U/L CBC 12/25/23 Range/Units 07:04 WBC 5.84 (4.8-10.8) K/ul RBC 4.05 L (4.70-6.10) M/uL Hgb 11.8 L (14.0-18.0) g/dl Hct 35.9 L (42.0-52.0) % Plt Count 137 (130-400) K/uL Neut # (Auto) 4.46 (1.40-6.50) K/uL Lymph # (Auto) 0.65 L (1.20-3.40) K/uL [place] # (Auto) 0.55 (0.11-0.59) K/uL Eos # (Auto) 0.12 (0.00-0.50) K/uL Baso # (Auto) 0.03 (0.00-0.20) K/uL Comprehensive Metabolic Panel 12/25/23 Range/Units 07:04 Sodium 137 (136-145) mmol/L Potassium 3.9 (3.5-5.1) mmol/L Chloride 106 (98-107) mmol/L Carbon Dioxide 24 (21-32) mmol/L BUN 10 (6-23) mg/dl Creatinine 0.80 (0.6-1.4) mg/dl Glucose 89 (70-99(Fasting)) mg/dl Calcium 8.3 L (8.6-10.3) mg/dl Direct Bilirubin 0.2 (0-0.2) mg/dl AST 20 (13-39) U/L ALT 15 (7-52) U/L Alkaline Phosphatase 138 H (34-104) U/L Total Protein 5.4 L (6.0-8.3) gm/dl Albumin 3.2 L (3.4-5.0) gm/dl Intake and Output 12/24/23 12/25/23 12/25/23 22:59 06:59 14:59 Intake Total 700 / 1300 500 / 1300 2000 / 2000 Output Total 415 / 415 141 / 141 Balance 700 / 885 85 / 885 1859 / 1859 Intake: IV 700 / 1300 500 / 1300 1100 / 1100 Lactated Ringer's 1,000 ml @ 15 1000 / 1000 mls/hr IV .Q24H STEVE Rx#: [id number] Piperacillin/Tazobactam 4.5 gm 200 / 300 100 / 100 In 100 ml @ 25 mls/hr IV Q8H STEVE Rx#:[id number] Sodium Chloride 0.9% 500 ml @ 500 / 1000 500 / 1000 500 mls/hr IV .Q1H STEVE Rx#: [id number] IV Perioperative 900 / 900 Output: Urine 415 / 415 125 / 125 Estimated Blood Loss # Bowel Movements Other: # Unmeasured Voids 1 Weight 80.5 kg 80.5 kg Weight Measurement Method Built in [facility] Patient Weight 12/26/23 06:59 Weight 80.5 kg Diagnostic Findings Telemetry reviewed: Persistent atrial fibrillation. Variable rates ranging 80- 120's. He received IV Lopressor this morning before surgery due to elevated rates. EKG reviewed from 12/25/2023 at 6:14 AM: Atrial fibrillation with controlled ventricular response at 97 bpm Nonspecific T wave abnormality No significant change from previous. Echo report reviewed dated 12/24/23: LVEF 60 to 65%. No wall motion abnormalities. Mild MR. No pulmonary hypertension. Left atrium is moderately dilated. Medications Administered Current Inpatient Medications Atorvastatin Calcium (Atorvastatin 40 Mg Tab) 40 mg PO HS STEVE Stop: 01/22/24 22:14 Last Admin: 12/24/23 20:23 Dose: 40 mg Atropine Sulfate (Atropine Sulfate 0.1 Mg/Ml 10ml Syr) 0.5 mg IV Q1M PRN PRN Reason: PACU Use-HR<40 &/or Bradycardi Stop: 12/25/23 16:17 Dicyclomine HCl (Dicyclomine Hcl 10 Mg Cap) 10 mg PO BID STEVE Stop: 01/22/24 22:14 Last Admin: 12/25/23 12:06 Dose: 10 mg Enalapril Maleate (Enalapril Maleate 10 Mg Tab) 10 mg PO DAILY STEVE Stop: 01/23/24 08:59 Last Admin: 12/24/23 11:32 Dose: 10 mg Ephedrine Sulfate (Ephedrine Sulfate 50 Mg/Ml Amp) 5 mg IV Q5M PRN PRN Reason: PACU Use Only-SBP<90 mmHg Stop: 12/25/23 16:17 Fentanyl Citrate (Fentanyl Citrate Pf 100 Mcg/2 Ml Vial) 50 mcg IV Q5M PRN PRN Reason: PACU Use Only-Pain Stop: 12/25/23 16:17 Gabapentin (Gabapentin 300 Mg Cap) 300 mg PO TID STEVE Stop: 01/23/24 08:59 Last Admin: 12/25/23 12:06 Dose: 300 mg Hydromorphone HCl (Hydromorphone Inj 1 Mg/Ml Syringe) 0.25 mg IV Q5M PRN PRN Reason: PACU Use Only-Pain Stop: 12/25/23 16:17 Lactated Ringer's (Lr) 1,000 mls @ 15 mls/hr IV .Q24H STEVE Stop: 12/26/23 07:14 Last Infusion: 12/25/23 08:31 Dose: Infused Ampicillin Sodium 2,000 mg/ (Sodium Chloride) 100 mls @ 200 mls/hr IV Q6H STEVE Stop: 12/30/23 17:59 Isosorbide Mononitrate (Isosorbide [place] Extended Rel 60 Mg Tabcr) 60 mg PO QAM [facility] Stop: 01/23/24 08:59 Last Admin: 12/25/23 12:02 Dose: Not Given Lamotrigine (Lamotrigine 100 Mg Tab) 100 mg PO BID [facility]; Protocol Stop: 01/23/24 08:59 Last Admin: 12/25/23 12:05 Dose: 100 mg Metoprolol Tartrate (Metoprolol Tartrate 1 Mg/Ml Vial) 2.5 mg IV Q6 PRN PRN Reason: Tachycardia Stop: 01/23/24 17:59 Metoprolol Tartrate (Metoprolol Tartrate 25 Mg Tab) 12.5 mg PO TID [facility] Stop: 01/23/24 13:34 Last Admin: 12/25/23 12:04 Dose: 12.5 mg Morphine Sulfate (Morphine Sulfate 2 Mg/Ml Carp) 2 mg IV Q3H PRN PRN Reason: Pain (1,2,3,4,5) & Pre PT Stop: 01/08/24 10:51 Morphine Sulfate (Morphine Sulfate 4 Mg/Ml 1 Ml Carp\Vial) 4 mg IV Q3H PRN PRN Reason: Pain (6,7,8,9,10) Stop: 01/08/24 10:51 Ondansetron HCl (Ondansetron Inj 2 Mg/Ml 2 Ml Vial) 4 mg IV Q6H PRN PRN Reason: Nausea Stop: 01/22/24 21:27 Ondansetron HCl (Ondansetron Inj 2 Mg/Ml 2 Ml Vial) 4 mg IV ONCE PRN PRN Reason: PACU Use Only-Nausea/Vomiting Stop: 12/25/23 16:17 Oxycodone/Acetaminophen (Oxycodone/Acetaminophen 5mg/325mg Tab) 1 tab PO Q4H PRN PRN Reason: MODERATE Pain (4,5,6) & Pre PT Stop: 01/08/24 10:51 Oxycodone/Acetaminophen (Oxycodone/Acetaminophen 5mg/325mg Tab) 2 tab PO Q4H PRN PRN Reason: SEVERE Pain (7,8,9,10) Stop: 01/08/24 10:51 Polyethylene Glycol (Polyethylene (Miralax) 17 Gm Pack) 17 gm PO DAILY PRN PRN Reason: Constipation Stop: 01/22/24 21:27 Tamsulosin HCl (Tamsulosin Hcl 0.4 Mg Cap) 0.4 mg PO DAILY STEVE Stop: 01/23/24 08:59 Last Admin: 12/25/23 12:51 Dose: 0.4 mg Vitamin D (Cholecalciferol 125 Mcg (5,000 Units) Tab) 125 mcg PO QA STEVE Stop: 01/23/24 08:59 Last Admin: 12/25/23 12:06 Dose: 125 mcg
[2023-12-25] MEDS: AMPICILLIN 2,000 MG in SODIUM CHLOR 0.9% MINI-B 100 ML IV SCH (18:07)
[2023-12-25] MEDS: METOPROLOL SUCC 25MG EXT REL TAB PO SCH (21:39)
[2023-12-26] MEDS: MoRPHine SULFATE 4 MG/ML 1 ML CARP\\VIAL IV PRN (05:30)
[2023-12-26 07:28] LABS: Hematocrit (blood only) 35.2 % (42.0-52.0); Hemoglobin 11.3 g/dl (14.0-18.0); Mean Corpuscular Hemoglobin 28.3 pg (25.0-34.0); Mean Corpuscular Hgb Conc 32.1 g/dL (32.0-36.0); Mean Corpuscular Volume 88.2 fL (80.0-100.0); Mean Platelet Volume 9.9 fL (9.4-12.4); Platelet Count 151 K/uL (130-400); RDW Standard Deviation 42.5 fL (36.4-46.3); Red Blood Count 3.99 M/uL (4.70-6.10); White Blood Count 11.24 K/ul (4.8-10.8)
[2023-12-26 07:44] LABS: Albumin Globulin Ratio 1.5 (0.9-2); Albumin Level 3.2 gm/dl (3.4-5.0); BUN Creatinine Ratio 20.5 (10-20); Bilirubin,Total 0.5 mg/dl (0.2-1.0); Calcium 8.4 mg/dl (8.6-10.3); Creatinine Clr Calc Pharmacy 80.7 ml/min; Globulin 2.2 gm/dl (2.5-4.0); Magnesium 1.9 mg/dl (1.7-2.4); Potassium 4.5 mmol/L (3.5-5.1); Total Protein 5.4 gm/dl (6.0-8.3)
--- NOTE | 2023-12-26 08:08 | Surgery Progress Note ---
Date of Service December 26, 2023 Assessment & Plan (1) Cholelithiasis: Plan: s/p lap shay regular diet activity per discharge instructions discharge per medical team will sign off Admission and Anticipated Discharge Date Admission Date: December 23, 2023 Subjective pain controlled taking po Review of Systems Constitutional: no fever and no chills Respiratory: no cough and no dyspnea Cardiovascular: no chest pain Gastrointestinal: + abdominal pain; no nausea and no vomit ing Genitourinary: no dysuria Physical Exam Gastrointestinal (Abdomen): Inspection/Auscultation: abdomen normal to inspection, normal bowel sounds and + abdominal surgical incision; abdomen not distended Percussion/Palpation: + abdomen tender and abdomen soft; no guarding and abdomen not rigid Results & Data Vital Signs (Past 12 Hours) Vital Signs Temp Pulse Pulse Resp BP Pulse Ox O2 Del Method 12/26/23 03:04 36.4 C L 93 H 16 115/78 91 Room Air 12/26/23 01:55 75 12/26/23 00:00 Room Air 12/25/23 23:05 36.4 C L 87 16 128/86 94 Room Air 12/25/23 20:35 36.4 C L 96 H 20 136/91 97 Room Air
[2023-12-26] MEDS: oxyCODONE/ACETAMINOPHEN 5mg/325mg TAB PO PRN (08:29)
--- NOTE | 2023-12-26 13:29 | Discharge Summary ---
Discharge Summary Date of Service December 26, 2023 Principal Dx & Hospital Course #1 = Principal Diagnosis (1) Cholelithiasis: (2) S/P laparoscopic cholecystectomy: (3) Atrial fibrillation with RVR: (4) UTI (urinary tract infection): Nazanin Ge is an 78y/o M with PMHx significant for metastatic clear-cell carcinoma of the kidney, HFpEF, CAD s/p stenting, CVA, PVD s/p surgery, SSS s/p PPM, hypertension, hyperlipidemia, history E. coli bacteremia secondary to knee surgery on lifelong Bactrim therapy, hypothyroidism, seizure disorder, dementia, BPH, GERD, bladder cancer s/p surgery, hyperparathyroidism s/p surgery and chronic anemia [baseline hemoglobin of 12] who presented on 12/23/2023 with worsening flank and abdominal pain x 3 months. Cholelithiasis S/P Laparoscopic Cholecystectomy: Progressive right-sided abdominal pain x 3 months. No fever/chills. CTAP: Cholelithiasis with pericholecystic stranding. GBUS: Cholelithiasis and gallbladder wall thickening (nonspecific), no ductal dilatation. 12/24/2023 --> HIDA scan: Normal uptake of contrast by the gallbladder, no evidence of acute cholecystitis. Was on IV Zosyn--> IV Ampicillin for UTI as outlined below. Underwent laparoscopic cholecystectomy on 12/25/2023. Total bilirubin was 1.1 on admission --> downtrended to 0.8 on 12/25/2023. General surgery follow-up appointment as outpatient. Atrial Fibrillation with RVR: Chronic --> Follows with Dr. Carney at [facility]. Xarelto has been on hold from 04/2023 for numerous procedures (colonoscopy, ablation, biopsy). Per outpatient records, he is prescribed Sotalol. Per , he has not been taking this (unclear to rationale). Per , does not recall him being on an antiarrhythmic (poor historian). Called outpatient pharmacy on 12/24/2023: * Sotalol 120mg PO BID last filled 12/2022. * Xarelto 20mg PO daily last filled 04/2023. * Amiodarone 200mg PO daily last filled 03/2023. Pacer interrogation on 12/23/2023 indicated he has been in AF RVR with rates as high as 200's at various times this month, most recently in 130's. Echo done 12/24/2023 --> LVEF of 60 to 65%, moderately dilated left atrium, moderate mitral calcification, mild mitral regurgitation and trace tricuspid regurgitation. Was started on metoprolol succinate 25mg BID, will continue at time of discharge. Hold Imdur until outpatient cardiology follow-up appointment with Dr. Carney. Restarting his Xarelto at time of discharge. HTN: Continue to hold ramipril until his follow-up appointment with Dr. Carney as he was frequently hypotensive while admitted. UTI, H/O E. Coli Bacteremia - 04/12 Knee Surgery on Lifelong Bactrim: UA showed 2+ Nitrate, > 50 WBC. Urine culture grew enterococcus faecalis; switched from IV Zosyn--> IV Ampicillin on 12/25/2023. Discharged on 5-day course of oral amoxicillin to complete full 7-day course of ABX therapy. Resume Bactrim once amoxicillin course completed as outpatient. Metastatic Clear Cell Carcinoma of the Kidney: S/p recent ablation procedure at [facility], following with Dr. Chew. Started Keytruda on 12/18/2023, due in ~2 weeks. Continue Lenvima at time of discharge. Sick Sinus Syndrome: S/p pacemaker placed approximately 15 years ago, 5.5 months of battery life. Pacer interrogation he has been in AF RVR with rates as high as 200's at various times this month, most recently in 130's. Close cardiology follow-up appointment with Dr. Carney to be scheduled. Other Chronic Medical Conditions: HLD/CAD, seizure disorder (last seizure was "years" ago) --> Can continue home medications for these specific conditions at time of discharge. PCP: Kristian Smallwood DO [[facility]] Disposition: Patient is being discharged home in good condition with close PCP follow-up. Patient seen in collaboration with Dr. Hanson. Please see addendum. I spent a total of 60 minutes coordinating, documenting, and providing care for this patient excluding time spent in the performance of separately billed services. This included personally reviewing all current laboratories and imaging studies, medical reconciliation, outpatient chart review and discussion with specialists. This chart was completed in part utilizing Speech Voice Recognition Software. Grammatical errors, random word insertions, pronoun errors, and incomplete sentences are an occasional consequence of this system due to software limitations, ambient noise, and hardware issues. Any formal questions or concerns about the content, text, or information contained within the body of this dictation should be directly addressed to the provider for clarification. Notes For Next Care Provider Ensure a close cardiology follow-up appointment has been scheduled with Dr. Carney! Medication Changes From Visit 1. START taking metoprolol succinate 25mg twice daily. 2. START taking Xarelto 20mg daily beginning tomorrow morning (12/27/2023). 3. START taking amoxicillin 875mg twice daily for the next 5 day (12/27/2023- 12/31/2023). 4. HOLD off on taking your isosorbide mononitrate (Imdur) and ramipril until seen by Dr. Carney. 5. HOLD off on taking your Bactrim until you FINISH the 5-day course of amoxicillin and then can resume. Admission HPI Per Admitting Provider This is an 78yo M with a PMH of metastatic clear-cell carcinoma of the kidney, HFpEF, CAD status post stent, CVA as per records, PVD status post surgery, SSS status post PPM, hypertension, hyperlipidemia, history E. coli bacteremia secondary to knee surgery on lifelong Bactrim Rx, hypothyroidism, seizure disorder, dementia as per records, BPH, GERD, bladder cancer status post surgery, hyperparathyroidism status post surgery, chronic anemia (baseline hemoglobin of 12) who presents with worsening flank and abdominal pain x 3 months. Patient recently ablation to a large kidney mass at [facility]. Is [facility] and started Keytruda last week. Has had ongoing right sided abdominal pain that is described as intermittent and sharp. Pain is exacerbated with any type of movement and eating. However has not been able to determine any specific foods that make pain worse. Generally feels better when reclined in his chair. Last night, states patient started to cry and moan in his sleep, which prompted her to bring him in to ED for further evaluation. Denies any associated fever, chills, nausea or vomiting. No constipation or change to bowel habits. History of recurrent UTIs but denies any symptoms at this time. Admission Exam Per Admitting Provider General Appearance: WD/WN, vitals as above, NAD, sitting up in bed, pleasant, conversing easily Head: normocephalic, atraumatic Eyes: normal inspection, PERRL, conjunctivae normal, anicteric sclerae ENT: hard of hearing, external ear and nose normal, oropharynx normal Neck: normal visual inspection, trachea midline, no thyromegaly Respiratory: normal respiratory effort, lungs clear to auscultation, no wheeze, rales, rhonchi. No accessory muscle use Cardiovascular: regular rate, rhythm, normal peripheral pulses, no BLE edema. Vessels: no JVD Chest: normal inspection of chest Abdomen/GI: normal bowel sounds, soft, TTP RUQ extending to RLQ, no guarding, no hepatosplenomegaly Extremities/Musculoskeletal: no cyanosis or clubbing, extremities motor strength 5/5 Neurologic: PERRL, EOMI, accommodation nl, no face palsy, no dysarthria, CN's II-XI intact bilaterally and moves all extremities Psychiatric: A+Ox3, euthymic affect Skin: no rashes, normal color, warm/dry Discharge Exam General: WD/WN, vitals as above, NAD, sitting up in bed, very pleasant, conversing appropriately. A+Ox3, euthymic affect. HEENT: Normocephalic, atraumatic. PERRL, conjunctivae normal, anicteric sclerae. External ear and nose normal, oropharynx normal. Respiratory: Normal respiratory effort, lungs clear to auscultation, no wheeze, rales, rhonchi. No accessory muscle use. Cardiovascular: Regular rate, rhythm, no murmur, normal peripheral pulses, no BLE edema. Vessels: No JVD. Abdomen/GI: Normal bowel sounds, soft, nontender, surgical sites intact and without drainage or surrounding erythema. Extremities/Musculoskeletal: No cyanosis or clubbing, extremities motor strength intact, moves all extremities. Neurologic: EOMI, no focal deficits, CN's II-XI not formally tested but appear grossly intact bilaterally. Skin: No rashes, normal color, warm/dry. Updated Medication List Medication Instructions Recorded Confirmed Type atorvastatin 40 mg tablet 40 mg PO HS 02/16/21 12/23/23 History cholecalciferol (vitamin D3) 125 125 mcg PO QAM 02/16/21 12/23/23 History mcg (5,000 unit) tablet (Vitamin D3) isosorbide mononitrate 60 mg 60 mg PO DAILY 02/16/21 12/23/23 History tablet,extended release 24 hr pantoprazole 40 mg tablet,delayed 40 mg PO QAM 02/16/21 12/23/23 History release gabapentin 300 mg capsule 300 mg PO TID 05/03/23 12/23/23 History ketoconazole 2 % topical cream 1 applic topical UD PRN Skin 05/03/23 12/23/23 History Irritation/openings /none current nitroglycerin 0.4 mg sublingual 0.4 mg sublingual .[id number] PRN 05/03/23 12/23/23 History tablet Chest Pain dicyclomine 10 mg capsule 10 mg PO BID 05/10/23 12/23/23 History sulfamethoxazole 800 1 tab PO Q12H 05/10/23 12/23/23 History mg-trimethoprim 160 mg tablet (Bactrim DS) ramipril 5 mg capsule 5 mg PO DAILY 05/30/23 12/23/23 History tamsulosin 0.4 mg capsule 0.4 mg PO DAILY #90 caps 06/18/23 12/23/23 Rx lamotrigine 100 mg tablet 100 mg PO BID 12/23/23 12/23/23 History lenvatinib 20 mg/day (10 mg x 2) 20 mg PO HS 12/23/23 12/23/23 History capsule (Lenvima) vibegron 75 mg tablet 75 mg PO UD 12/23/23 12/23/23 History amoxicillin 875 mg tablet 875 mg PO BID 5 days #10 tabs 12/26/23 Rx metoprolol succinate 25 mg 25 mg PO BID #60 tabs 12/26/23 Rx tablet,extended release 24 hr oxycodone-acetaminophen 5 mg-325 1 tab PO Q8H PRN pain (scale score 12/26/23 Rx mg tablet (Endocet) 7-10) #7 tabs rivaroxaban 20 mg tablet (Xarelto) 20 mg PO UD #30 tabs 12/26/23 Rx Hospital Stay Data Consultations 12/23/23 16:38 Consult General Surgery Stat ED Decision to Admit Stat 12/24/23 13:39 Consult Cardiology Routine 12/25/23 13:27 HIM [Consult Health Information Management] Routine Procedures Performed Operation Date: 12/25/23 08:15 Actual Procedures p Laparoscopic Cholecystectomy(Not Applicable) - Nick Mast MD Diagnostic Imagining Performed 12/23/23 14:11 CT abd pelvis wo con Stat 12/23/23 16:38 US gallbladder Stat Pending Results Patient Have Any Pending Studies at Discharge: No Discharge Instructions Given to Patient (Per Discharging Provider) Manfred Nguyen were admitted to the hospital with right-sided abdominal pain and found to have gallstones. You underwent laparoscopic cholecystectomy on 12/25/[address] Mast. You already have a follow-up appointment scheduled with Dr. Mast as outlined below. Please attend this appointment as scheduled and follow the surgical after-care instructions as per below! You are being prescribed as needed Endocet to take for severe pain. Please use this medication sparingly and only as intended! You were incidentally found to be in atrial fibrillation with rapid ventricular response whilst you were admitted. In atrial fibrillation, the upper chambers of the heart (the atria) do not work correctly because of abnormal electrical activity. During atrial fibrillation, the atria quiver or fibrillate instead of lenka or squeezing in a normal organized fashion. This means that blood is not moved out of these chambers as effectively as it should be. Therefore, you were seen and evaluated by cardiology during your hospitalization. * You were placed you on a medication called metoprolol succinate to control your heart rate. You are to continue taking this medication as prescribed, which is outlined below. A prescription for this medication was sent to you pharmacy - [facility]. You will be contacted by Dr. Carney's office soon to schedule a follow-up appointment. Please attend this appointment as scheduled! You can restart taking your Xarelto tomorrow morning . A prescription for this medication was also sent to your pharmacy. You were also treated with IV antibiotics for an acute urinary tract infection (UTI) while you were admitted. You are being sent home with a 5-day course of oral amoxicillin to complete a full 7-day course of antibiotic therapy. Please take this antibiotic as prescribed and in its entirety! * You have a follow-up appointment with Dr. Smallwood on 12/31/2023 @ 9:00AM . Please attend this appointment as scheduled! Do NOT take your daily Bactrim until you complete the 5-day course of amoxicillin. I recommend that you start taking a cranberry supplement [id number] as cranberries contain a substance that can prevent bacteria from sticking on the magallanes of the bladder in order to prevent UTIs. MEDICATION CHANGES: * START taking metoprolol succinate 25mg twice daily. * START taking Xarelto 20mg daily beginning tomorrow morning. * START taking amoxicillin 875mg twice daily for the next 5 days. * HOLD off on taking your isosorbide mononitrate (Imdur) and ramipril until seen by Dr. Carney! * HOLD off on taking your Bactrim until you FINISH the 5-day course of amoxicillin and then can resume! You can continue taking all of your other home medications as previously prescribed. FOLLOW-UP APPOINTMENTS: Date & Time: 12/31/2023 @ 9:00 AM Provider: Kristian Smallwood DO Department: Family Medicine, [facility] Date & Time: 01/08/2024 @ 10:00 AM Provider: Samson Chew MD Department: [facility] Date & Time: , 01/09/2024 @ 10:30 AM Provider: Nick Mast MD Department: General Surgery, [facility] Seek medical attention if you have: * temperature above 101F * chest pain or trouble breathing * abdominal pain, nausea, vomiting * diarrhea, dark stools or bloody stools * any unanswered questions or concerns Call 911 if symptoms are severe. Please take good care of yourself. It has been a pleasure taking care of you. If you have any questions regarding your recent hospitalization please contact [facility] and request [facility] Hospitalist @ [phone]. Total Time Total Time Spent Total Time Spent (In Minutes): 60 Supervising Physician Co-Signing Physician Notes I have seen and examined the patient at bedside. Discussed the case with the collaborating advanced practitioner. I agree with the documentation as above. I have reviewed and confirmed the patients medical history, thefindings on physical examination, and the patients diagnosis and treatment plan with Paula Salcedo PA-C and agree with the information documented. Note has been edited as needed. Cholelithiasis S/P laparoscopic cholecystectomy A-fib RVR UTI Metastatic renal cell carcinoma Denies any significant abdominal pain postsurgery. Tolerating current diet Needs follow-up with surgery on discharge Continue metoprolol succinate 25 mg twice daily, resume Xarelto for an ticoagulation IV ampicillin to transition to amoxicillin to complete the course for urinary tract infection Continue to hold enalapril, isosorbide given low BP Needs follow-up with cardiology, surgery, oncology, PCP on discharge
[2023-12-26 15:59] VITALS: BP 97/68; RESP 18; TEMP 97.3; O2SAT 95
[2023-12-26 16:20] VITALS: PULSE 94
== END 2023-12-26 17:25 | disposition home or self-care (01) | DRG 418 ==
LOC: ED 13:04 → 3W 17:11 → SUATTDRO 17:11 → 3W 20:38 → 2S 12-24 14:58

== ENCOUNTER 2023-12-30 13:53 | Inpatient (IN) ==
[2023-12-30 15:18] LABS: Basophils # (auto) 0.04 K/uL (0.00-0.20); Basophils % (auto) 0.5 %; Eosinophils # (auto) 0.39 K/uL (0.00-0.50); Eosinophils % (auto) 5.1 %; Hematocrit (blood only) 40.7 % (42.0-52.0); Hemoglobin 13.4 g/dl (14.0-18.0); Immature Granulocytes # (auto) 0.04 K/uL (0.01-0.20); Immature Granulocytes % (auto) 0.5 %; Lymphocytes # (auto) 0.62 K/uL (1.20-3.40); Lymphocytes % (auto) 8.1 %; Mean Corpuscular Hemoglobin 28.9 pg (25.0-34.0); Mean Corpuscular Hgb Conc 32.9 g/dL (32.0-36.0); Mean Corpuscular Volume 87.7 fL (80.0-100.0); Mean Platelet Volume 9.7 fL (9.4-12.4); Monocytes # (auto) 0.84 K/uL (0.11-0.59); Neutrophils # (auto) 5.72 K/uL (1.40-6.50); Neutrophils % (auto) 74.8 %; Platelet Count 179 K/uL (130-400); RDW Coefficient of Variation 13.1 % (11.5-14.5); RDW Standard Deviation 41.6 fL (36.4-46.3); Red Blood Count 4.64 M/uL (4.70-6.10); White Blood Count 7.65 K/ul (4.8-10.8)
--- NOTE | 2023-12-30 15:23 | XRay Report ---
XR chest 1V portable CLINICAL HISTORY: weakness COMPARISON STUDY: Chest CT August 20, 2023. Chest radiograph December 11, 2023. FINDINGS: Left subclavian pacer is in place. Cardiomegaly is again noted. Interstitial thickening has developed. There is no pneumothorax. Small to moderate right and small left pleural effusions with a ssociated bibasilar opacities are present. IMPRESSION: Cardiomegaly with interstitial pulmonary edema and small to moderate right and small lef t pleural effusions with associated bibasilar opacities. ACT 112: Negative or not required by law. Electronically signed by: Andrew Hankins M.D. 12/30/2023 3:22 PM
--- NOTE | 2023-12-30 15:27 | CT Scan Report ---
CT OF THE HEAD WITHOUT CONTRAST CLINICAL HISTORY: Confusion. COMPARISON STUDY: Head CT December 11, 2023. CT DOSE: 953.61 mGy.cm TECHNIQUE: Helical axial images of the head were obtained without IV contrast. Automated exposure con trol was utilized for the study. A dose lowering technique was utilized adhering to the principles o f ALARA. FINDINGS: No acute intracranial hemorrhage, midline shift or mass effect is present. The ventricular system is unremarkable. The basal cisterns are patent. No extra-axial collections are present. There are no findings to suggest acute dural sinus thrombosis or acute territorial infarct. There are no ca lvarial fracture. A small left mastoid effusion is unchanged. Right frontoethmoidal polypoid mucosal thickening is unchanged. IMPRESSION: No acute intracranial findings. ACT 112: Negative or not required by law. Electronically signed by: Andrew Hankins M.D. 12/30/2023 3:26 PM
[2023-12-30 15:33] LABS: Alanine Aminotransferase 15 U/L (7-52); Albumin Globulin Ratio 1.6 (0.9-2); Albumin Level 3.6 gm/dl (3.4-5.0); Alkaline Phosphatase 179 U/L (34-104); Anion Gap 8 (3-11); Aspartate Aminotransferase 19 U/L (13-39); BUN Creatinine Ratio 15.6 (10-20); Bilirubin,Total 0.9 mg/dl (0.2-1.0); Blood Urea Nitrogen 12 mg/dl (6-23); Calcium 8.8 mg/dl (8.6-10.3); Carbon Dioxide 27 mmol/L (21-32); Chloride 99 mmol/L (98-107); Globulin 2.2 gm/dl (2.5-4.0); Glucose 93 mg/dl (70-99(Fasting)); Potassium 4.4 mmol/L (3.5-5.1); Sodium 134 mmol/L (136-145); Total Protein 5.8 gm/dl (6.0-8.3)
[2023-12-30 15:40] LABS: Troponin I High Sensitivity 5.8 pg/ml (0-20)
[2023-12-30 15:48] LABS: Thyroid Stimulating Hormone 6.836 uIu/ml (0.300-4.500)
[2023-12-30] MEDS: OPTIRAY 320 100ml IV ONE (16:12)
[2023-12-30 16:22] LABS: T4 Free Thyroxine 0.85 ng/dl (0.61-1.60)
[2023-12-30 16:26] LABS: Adenovirus PCR Not Detected (NotDetected); Bordetella parapertussis PCR Not Detected (NotDetected); Bordetella pertussis PCR Not Detected (NotDetected); Chlamydia pneumoniae PCR Not Detected (NotDetected); Coronavirus 229E PCR Not Detected (NotDetected); Coronavirus CoV-2 (COVID19)PCR Not Detected (NotDetected); Coronavirus HKU1 PCR Not Detected (NotDetected); Coronavirus NL63 PCR Not Detected (NotDetected); Coronavirus OC43PCR Not Detected (NotDetected); Human Metapneumovirus PCR Not Detected (NotDetected); Influenza A PCR Not Detected (NotDetected); Influenza B PCR Not Detected (NotDetected); Mycoplasma pneumoniae PCR Not Detected (NotDetected); Parainfluenza Virus 1 PCR Not Detected (NotDetected); Parainfluenza Virus 2 PCR Not Detected (NotDetected); Parainfluenza Virus 3 PCR Not Detected (NotDetected); Parainfluenza Virus 4 PCR Not Detected (NotDetected); Respiratory Syncytial VirusPCR Not Detected (NotDetected); Rhinovirus/Enterovirus PCR Not Detected (NotDetected)
--- NOTE | 2023-12-30 16:41 | Emergency Department Note ---
Impression & Plan Pleural effusion, Weakness, Adult failure to thrive ED Provider Note NAME: REKHA CRUZ AGE: 78 SEX: M : 1945 ARRIVES VIA: Walk-In INFORMANT: Patient, ED PROVIDER(S): Nikita Maldonado MD CHIEF COMPLAINT: Dehydration, able to walk HPI: This is a an 78-year-old male presenting for dehydration inability to walk. Patient is with his who provides most of the history. She states that he was here recently for a cholecystectomy and discharged home in good health. On Saturday he began having difficulty with eating, drinking. He is since gotten weaker and now does not walk or stand on his own due to instability and weakness. Patient notes some lower abdominal pain. Otherwise no fevers at home. No nausea or vomiting. ROS: See above HPI for pertinent positives & negatives. A total of 10 systems reviewed and were otherwise negative. PAST MEDICAL HISTORY: See Below PAST SURGICAL HISTORY: See Below FAMILY HISTORY: See Below SOCIAL HISTORY: See Below HOME MEDICATIONS: See Below ALLERGIES: See Below VITALS: See Below PHYSICAL EXAMINATION: General: resting comfortably in no acute distress Head: Normocephalic and atraumatic Eyes: Normal inspection, extraocular muscles intact Ear, nose, throat: Normal external exam Neck: Normal range of motion Respiratory: lungs clear to auscultation bilaterally Cardiovascular: Regular rate/rhythm, no murmur GI: Well-healing surgical scars, mild distention, right lower quadrant tenderness without rebound Extremities: nontender, moves all extremities Neuro: The patient awake and alert, appropriately conversive, no focal deficits, symmetric faces Skin: Warm, dry, and intact MEDICAL DECISION MAKING: This is an 78-year-old male presenting for dehydration/inability walk. Patient is tachycardic and in A-fib rhythm which is normal for him. Otherwise he has abdominal tenderness and recent surgery. Will do chest x-ray, abdominal CT to rule out intra-abdominal infection, SBO. Consider pneumonia as well. Will do basic blood work to assess for dehydration. -Labs are reviewed and show slight anemia at 13.4, improved from baseline. Otherwise electrolytes within normal limits. Lactic acid slightly elevated. -Chest x-ray Independently interpreted by me reveals pleural effusion bilaterally, no pneumothorax -CT imaging of the head reveals no acute intracranial process. -CT abdomen/pelvis reveals pocket of gas and fluid filled in the cholecystectomy bed with adjacent stranding, likely nonspecific/related to posterior chain. Without significant signs of fever, developing collection consider less likely. Otherwise patient does have signs of a left kidney renal ischemia/infarct. -As patient has had further weakness, inability to walk good basic activities in addition to his CT findings, will admit for further workup at this time. Patient care discussed with hospitalist service, Mateo for admission. Differential diagnosis: Postsurgical infection, pneumonia, PE, UTI, ER treatment provided: See below Independent History obtained from: Diagnostics interpreted by me: ECG: ECG independently interpreted by me with atrial fibrillation with RVR, rate of 106, normal QRS, normal QTc, no ST segment elevations consistent with STEMI criteria Cardiac Monitoring: An order was placed for continuous cardiac monitoring. The monitor shows a rate of 99 with sinus rhythm. Laboratory studies: As stated above and show below. Imaging studies: See below. Past Med/Surg History Problem List (Updated 12/31/23 @ 19:45 by Nikita Maldonado MD) Adult failure to thrive (Acute) Pleural effusion (Acute) Dyslipidemia, goal LDL below 70 ASCVD (arteriosclerotic cardiovascular disease) Sinus node dysfunction Persistent atrial fibrillation Atrial fibrillation with tachycardic ventricular rate Subclinical hypothyroidism Physical deconditioning Palliative care by specialist Anxiety associated with cancer diagnosis Depression due to physical illness Abdominal pain, generalized Advanced care planning/counseling discussion Weakness generalized CAD (coronary artery disease) UTI (urinary tract infection) S/P laparoscopic cholecystectomy Atrial fibrillation with RVR Cholelithiasis (Acute) Right sided abdominal pain (Acute) Pulmonary nodule Urinary urgency Phimosis Abdominal distention Scrotal swelling Renal mass Urinary retention Abnormal CT of the abdomen Hypotension (Acute) Debilitated (Acute) Acute UTI (Acute) Pericardial effusion (Acute) Anemia (Acute) Weakness (Acute) Dysphagia Medical History (HFpEF) heart failure with preserved ejection fraction Metastatic clear cell carcinoma of kidney Esophageal dilatation Weight loss over 35 pounds over past month. History of radiation exposure 1986 History of stroke 2001 - no residual effects. History of colon polyps Mass of colon CT scan [facility] 05/03/23. Hemorrhoids internal Kidney lesion lesions on kidneys per CT scan/ [place] 2-3 weeks ago/talk of samantha with kidney - pt has not received follow up phone call. Rectal bleeding Neuropathy On anticoagulant therapy Hypothyroidism Prophylactic antibiotic superintendent terminal use of antibiotic>hx artificial joint infection Osteoarthritis History of bladder cancer treated surgically [place] (hard of hearing) reads lips Seizure-like activity hx 2014 - neuro work up neg for seizures - no issues since (follows with [facility]) HLD (hyperlipidemia) HTN (hypertension) History of atrial fibrillation follows with Dr. Carney; on xarelto (currently on hold due to recatal bleeding) hx cardioversion x2 ? History of myocardial infarction x 2 (1986, 2001) History of esophageal dilatation Dysphagia Surgical History History of left-sided carotid endarterectomy History of hernia surgery x2 Pacemaker passing out/reason for pacemaker. last checked : "recent check by Dr. Carney"/[place] History of tonsillectomy History of appendectomy History of left knee replacement + revision surgery History of cataract surgery rt/left History of parathyroidectomy History of bladder surgery TURBT H/O heart artery stent x 4 History of cardiac cath 05/2020 -- CP -- [facility] - no stents mult cardiac cath between [id number] (4 stents placed total) - [facility] in [place], [place] History of colonoscopy History of esophagogastroduodenoscopy (EGD) Family History Father Prostate cancer Diabetes Heart disease Hypertension Mother Diabetes Hypertension Breast cancer Other No family history of adverse response to anesthesia Social History Smoking Status: Never smoker Second Hand Exposure: No; Do You Dip or Chew Tobacco: No; Hx Alcohol Use: No Hx Substance Use: No Preferred Language: Sami Communication Ability: Effective Communication Ability Comment: pt is [place]/pt does phone interview/per pt preference. 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 Feels Safe at Home: Yes Assistive Devices: Walker Allergies Allergies Allergy/AdvReac Type Severity Reaction Status Date / Time azithromycin Allergy Severe Swelling Verified 12/06/23 07:56 [From Zithromax Z-Brady] of Lip/Tongue/Throat ethyl alcohol Allergy Intermediate "rubbing Verified 12/06/23 07:56 alcohol" caused blisters isopropyl alcohol Allergy Intermediate "rubbing Verified 12/06/23 07:56 alcohol" caused blisters latex Allergy Intermediate blisters Verified 12/06/23 07:56 carvedilol Allergy Verified 12/06/23 07:56 clopidogrel Allergy Verified 12/06/23 07:56 verapamil AdvReac Severe asystole Verified 12/06/23 07:56 Home Meds Home Medications Medication Instructions Recorded Confirmed atorvastatin 40 mg tablet 40 mg PO HS 02/16/21 12/30/23 cholecalciferol (vitamin D3) 125 125 mcg PO QAM 02/16/21 12/30/23 mcg (5,000 unit) tablet (Vitamin D3) isosorbide mononitrate 60 mg 60 mg PO DAILY 02/16/21 12/30/23 tablet,extended release 24 hr pantoprazole 40 mg tablet,delayed 40 mg PO QAM 02/16/21 12/30/23 release gabapentin 300 mg capsule 300 mg PO TID 05/03/23 12/30/23 ketoconazole 2 % topical cream 1 applic topical UD PRN Skin 05/03/23 12/30/23 Irritation/openings /none current nitroglycerin 0.4 mg sublingual 0.4 mg sublingual .[id number] PRN 05/03/23 12/30/23 tablet Chest Pain dicyclomine 10 mg capsule 10 mg PO BID 05/10/23 12/30/23 sulfamethoxazole 800 1 tab PO Q12H 05/10/23 12/30/23 mg-trimethoprim 160 mg tablet (Bactrim DS) lamotrigine 100 mg tablet 100 mg PO BID 12/23/23 12/30/23 lenvatinib 20 mg/day (10 mg x 2) 20 mg PO HS 12/23/23 12/30/23 capsule (Lenvima) vibegron 75 mg tablet 75 mg PO UD 12/23/23 12/30/23 rivaroxaban 20 mg tablet (Xarelto) 0 mg PO UD 12/30/23 12/30/23 Previous Rx's Medication Instructions Recorded tamsulosin 0.4 mg capsule 0.4 mg PO DAILY #90 caps 06/18/23 oxycodone-acetaminophen 5 mg-325 1 tab PO Q8H PRN pain (scale score 12/26/23 mg tablet (Endocet) 7-10) #7 tabs levothyroxine 25 mcg tablet 25 mcg PO DAILYBB 30 days #30 tabs 12/31/23 (Synthroid) metoprolol succinate 25 mg 50 mg (2 x 25 mg) PO BID #120 tabs 12/31/23 tablet,extended release 24 hr Results & Data (ED) Vital Signs Vital Signs - 24 hr 12/30/23 13:54 12/30/23 14:10 12/30/23 14:15 Temperature 36.6 C Temperature Source Temporal Artery Scan Pulse Rate 105 H 91 H Pulse Rate from SpO2 Sensor Respiratory Rate 18 Blood Pressure 134/97 154/113 H Blood Pressure Mean 109 124 Pulse Oximetry 99 Oxygen Delivery Method Sepsis Recent Fever Within 48 Hours No Sepsis New/Unexplained Change in Mental Status N/A Sepsis Action Taken by Nursing No Action Required 12/30/23 14:15 12/30/23 14:18 12/30/23 14:31 Temperature Temperature Source Pulse Rate 123 H 102 H Pulse Rate from SpO2 Sensor 116 H 101 H Respiratory Rate 17 17 Blood Pressure 143/112 H Blood Pressure Mean 115 Pulse Oximetry 95 95 Oxygen Delivery Method Sepsis Recent Fever Within 48 Hours Sepsis New/Unexplained Change in Mental Status Sepsis Action Taken by Nursing 12/30/23 14:33 12/30/23 14:33 12/30/23 14:54 Temperature Temperature Source Pulse Rate 118 H 92 H Pulse Rate from SpO2 Sensor 108 H 97 H Respiratory Rate 15 9 L Blood Pressure Blood Pressure Mean Pulse Oximetry 96 94 95 Oxygen Delivery Method Room Air Sepsis Recent Fever Within 48 Hours Sepsis New/Unexplained Change in Mental Status Sepsis Action Taken by Nursing 12/30/23 15:00 12/30/23 15:00 12/30/23 15:00 Temperature Temperature Source Pulse Rate Pulse Rate from SpO2 Sensor Respiratory Rate Blood Pressure 150/124 H 150/124 H Blood Pressure Mean 130 130 Pulse Oximetry 94 Oxygen Delivery Method Room Air Sepsis Recent Fever Within 48 Hours Sepsis New/Unexplained Change in Mental Status Sepsis Action Taken by Nursing 12/30/23 15:03 12/30/23 15:30 12/30/23 15:30 Temperature Temperature Source Pulse Rate 106 H 111 H Pulse Rate from SpO2 Sensor 98 H 105 H Respiratory Rate 15 16 Blood Pressure 143/112 H Blood Pressure Mean 120 Pulse Oximetry 95 94 Oxygen Delivery Method Room Air Sepsis Recent Fever Within 48 Hours Sepsis New/Unexplained Change in Mental Status Sepsis Action Taken by Nursing Laboratory Data 12/31/23 07:21 12/31/23 07:21 Lab Results 12/30/23 12/30/23 Range/Units 14:30 15:24 WBC 7.65 (4.8-10.8) K/ul RBC 4.64 L (4.70-6.10) M/uL Hgb 13.4 L (14.0-18.0) g/dl Hct 40.7 L (42.0-52.0) % MCV 87.7 (80.0-100.0) fL MCH 28.9 (25.0-34.0) pg MCHC 32.9 (32.0-36.0) g/dL RDW Std Deviation 41.6 (36.4-46.3) fL RDW Coeff of Seamus 13.1 (11.5-14.5) % Plt Count 179 (130-400) K/uL MPV 9.7 (9.4-12.4) fL Immature Gran % (Auto) 0.5 % Neut % (Auto) 74.8 % Lymph % (Auto) 8.1 % Piatt % (Auto) 11.0 % Eos % (Auto) 5.1 % Baso % (Auto) 0.5 % Neut # (Auto) 5.72 (1.40-6.50) K/uL Lymph # (Auto) 0.62 L (1.20-3.40) K/uL Piatt # (Auto) 0.84 H (0.11-0.59) K/uL Eos # (Auto) 0.39 (0.00-0.50) K/uL Baso # (Auto) 0.04 (0.00-0.20) K/uL Immature Gran # (Auto) 0.04 (0.01-0.20) K/uL Sodium 134 L (136-145) mmol/L Potassium 4.4 (3.5-5.1) mmol/L Chloride 99 (98-107) mmol/L Carbon Dioxide 27 (21-32) mmol/L Anion Gap 8 (3-11) BUN 12 (6-23) mg/dl Creatinine 0.77 (0.6-1.4) mg/dl Est Cr Clr Drug Dosing Not Reportable eGFR 90.50 BUN/Creatinine Ratio 15.6 (10-20) Glucose 93 (70-99(Fasting)) mg/dl Lactate 2.5 H* (0.4-2.0) mmol/L Calcium 8.8 (8.6-10.3) mg/dl Total Bilirubin 0.9 (0.2-1.0) mg/dl AST 19 (13-39) U/L ALT 15 (7-52) U/L Alkaline Phosphatase 179 H (34-104) U/L Troponin I High Sens 5.8 (0-20) pg/ml Total Protein 5.8 L (6.0-8.3) gm/dl Albumin 3.6 (3.4-5.0) gm/dl Globulin 2.2 L (2.5-4.0) gm/dl Albumin/Globulin Ratio 1.6 (0.9-2) Procalcitonin 0.03 (0-0.5) ng/ml TSH 6.836 H (0.300-4.500) uIu/ml Free T4 0.85 (0.61-1.60) ng/dl Adenovirus (PCR) Not Detected (NotDetected) B. pertussis DNA (PCR) Not Detected (NotDetected) B.parapertussis DNA PCR Not Detected (NotDetected) C. pneumoniae DNA (PCR) Not Detected (NotDetected) Coronavirus OC43 (PCR) Not Detected (NotDetected) Coronavirus HKU1 (PCR) Not Detected (NotDetected) Coronavirus 229E (PCR) Not Detected (NotDetected) SARS-CoV-2 (PCR) Not Detected (NotDetected) Coronavirus NL63 (PCR) Not Detected (NotDetected) Human Metapneumovir PCR Not Detected (NotDetected) Influenza Type A (PCR) Not Detected (NotDetected) Influenza Type B (PCR) Not Detected (NotDetected) M. pneumoniae (PCR) Not Detected (NotDetected) Parainfluenza 1 (PCR) Not Detected (NotDetected) Parainfluenza 2 (PCR) Not Detected (NotDetected) Parainfluenza 3 (PCR) Not Detected (NotDetected) Parainfluenza 4 (PCR) Not Detected (NotDetected) RSV (PCR) Not Detected (NotDetected) Entero/Rhino (PCR) Not Detected (NotDetected) Administered Medications Discontinued Medications Atorvastatin Calcium (Atorvastatin 40 Mg Tab) 40 mg PO HS STEVE Stop: 01/29/24 20:59 Last Admin: 12/30/23 22:32 Dose: 40 mg Documented By: CHAD Gabapentin (Gabapentin 300 Mg Cap) 300 mg PO TID STEVE Stop: 01/29/24 20:59 Last Admin: 12/31/23 14:14 Dose: 300 mg Documented By: Admin: 12/31/23 08:28 Dose: 300 mg Documented By: Admin: 12/30/23 22:32 Dose: 300 mg Documented By: CHAD Piperacillin Sod/Tazobactam Sod (Zosyn) 4.5 gm in 100 mls @ 25 mls/hr IV Q8H STEVE; Protocol Stop: 01/09/24 17:59 Last Admin: 12/30/23 18:55 Dose: Not Given Documented By: ROSSANA Sodium Chloride (Nss) 1,000 mls @ 50 mls/hr IV .Q20H STEVE Stop: 12/31/23 13:59 Last Infusion: 12/31/23 12:16 Dose: Infused Documented By: Admin: 12/30/23 18:55 Dose: 50 mls/hr Documented By: ROSSANA Piperacillin Sod/Tazobactam Sod (Zosyn) 4.5 gm in 100 mls @ 200 mls/hr IV NOW STA; Protocol Stop: 12/30/23 18:23 Last Admin: 12/30/23 18:55 Dose: Not Given Documented By: ROSSANA Vancomycin HCl 1,750 mg/ (Sodium Chloride) 535 mls @ 200 mls/hr IV ONE ONE Stop: 12/30/23 22:40 Last Infusion: 12/31/23 01:07 Dose: Infused Documented By: Admin: 12/30/23 22:26 Dose: 200 mls/hr Documented By: CHAD Vancomycin HCl (Vancomycin Hcl) 1,000 mg in 270 mls @ 200 mls/hr IV Q12H STEVE Stop: 01/10/24 07:59 Last Infusion: 12/31/23 10:14 Dose: Infused Documented By: Admin: 12/31/23 08:27 Dose: 200 mls/hr Documented By: MARIKA Ioversol (Optiray 320 100ml) 91 ml IV ONCE ONE Stop: 12/30/23 16:12 Last Admin: 12/30/23 16:12 Dose: 91 ml Documented By: MARLON Isosorbide Mononitrate (Isosorbide Piatt Extended Rel 60 Mg Tabcr) 60 mg PO DAILY ON LICENSE OF [facility] Stop: 01/30/24 12:44 Last Admin: 12/31/23 14:14 Dose: 60 mg Documented By: MARIKA Lamotrigine (Lamotrigine 100 Mg Tab) 100 mg PO BID ON LICENSE OF [facility]; Protocol Stop: 01/29/24 20:59 Last Admin: 12/31/23 08:28 Dose: 100 mg Documented By: Admin: 12/30/23 22:32 Dose: 100 mg Documented By: CHAD Metoprolol Succinate (Metoprolol Succ 25mg Ext Rel Tab) 25 mg PO BID ON LICENSE OF [facility] Stop: 01/29/24 20:59 Last Admin: 12/31/23 08:28 Dose: 25 mg Documented By: Admin: 12/30/23 22:32 Dose: 25 mg Documented By: CHAD Miscellaneous (Patient's Weight Needed) 1 each N/A Q2H ON LICENSE OF [facility] Stop: 01/29/24 18:14 Last Admin: 12/30/23 19:13 Dose: Not Given Documented By: ROSSANA Pantoprazole Sodium (Pantoprazole 40 Mg Tab) 40 mg PO QAM ON LICENSE OF [facility] Stop: 01/30/24 08:59 Last Admin: 12/31/23 08:28 Dose: 40 mg Documented By: MARIKA Rivaroxaban (Rivaroxaban 2.5 Mg Tab) 5 mg PO QDD ON LICENSE OF [facility] Stop: 01/29/24 21:44 Last Admin: 12/30/23 22:41 Dose: 5 mg Documented By: CHAD Tamsulosin HCl (Tamsulosin Hcl 0.4 Mg Cap) 0.4 mg PO DAILY ON LICENSE OF [facility] Stop: 01/30/24 08:59 Last Admin: 12/31/23 08:28 Dose: 0.4 mg Documented By: MARIKA Vibegron (Vibegron 75 Mg Tab) 75 mg PO DAILY ON LICENSE OF [facility] Stop: 01/30/24 08:59 Last Admin: 12/31/23 08:28 Dose: 75 mg Documented By: MARIKA Vitamin D (Cholecalciferol 125 Mcg (5,000 Units) Tab) 125 mcg PO QAM ON LICENSE OF [facility] Stop: 01/30/24 08:59 Last Admin: 12/31/23 08:28 Dose: 125 mcg Documented By: [facility] Imaging Data Radiologist's Impression: Chest X-Ray 12/30/23 14:48 XR chest 1V portable CLINICAL HISTORY: weakness COMPARISON STUDY: Chest CT August 20, 2023. Chest radiograph December 11, 2023. FINDINGS: Left subclavian pacer is in place. Cardiomegaly is again noted. Interstitial thickening has developed. There is no pneumothorax. Small to moderate right and small left pleural effusions with associated bibasilar opacities are present. IMPRESSION: Cardiomegaly with interstitial pulmonary edema and small to moderate right and small left pleural effusions with associated bibasilar opacities. ACT 112: Negative or not required by law. Electronically signed by: Andrew Hankins M.D. 12/30/2023 3:[address] 12/30/23 14:50 CT OF THE HEAD WITHOUT CONTRAST CLINICAL HISTORY: Confusion. COMPARISON STUDY: Head CT December 11, 2023. CT DOSE: 953.61 mGy.cm TECHNIQUE: Helical axial images of the head were obtained without IV contrast. Automated exposure control was utilized for the study. A dose lowering technique was utilized adhering to the principles of ALARA. FINDINGS: No acute intracranial hemorrhage, midline shift or mass effect is present. The ventricular system is unremarkable. The basal cisterns are patent. No extra-axial collections are present. There are no findings to suggest acute dural sinus thrombosis or acute territorial infarct. There are no calvarial fracture. A small left mastoid effusion is unchanged. Right frontoethmoidal polypoid mucosal thickening is unchanged. IMPRESSION: No acute intracranial findings. ACT 112: Negative or not required by law. Electronically signed by: Andrew Hankins M.D. 12/30/2023 3:26 PM Discharge Plan Visit Data Chief Complaint: Confusion Stated Complaint: WON'T EAT OR DRINK, DEHYDRATED, TROUBLE TALKING ED Provider: Nikita Maldonado Discharge Problem: Pleural effusion, Weakness, Adult failure to thrive Patient Disposition: Admitted As Inpatient Discharge Instructions Interventions: ED Discharge Assessment Last Done: 12/30/23 20:16
--- NOTE | 2023-12-30 16:57 | CT Scan Report ---
CT OF THE ABDOMEN AND PELVIS WITH CONTRAST CLINICAL HISTORY: Recent cholecystectomy. Pain around surgical site. COMPARISON STUDY: Right upper quadrant ultrasound and CT of the abdomen and pelvis December 23, 2023. TECHNIQUE: Following IV administration of 91 mL of Optiray, axial images of the abdomen and pelvis we re obtained from the lung bases to the proximal femurs. Images were reviewed in the axial, sagittal, and coronal planes. IV contrast was administered without complication. Automated exposure control wa s utilized for the study. A dose lowering technique was utilized adhering to the principles of ALARA . CT DOSE: 1158.69 mGy.cm FINDINGS: A small pericardial effusion is unchanged. There are moderate right and small left pleural effusions. Associated subpleural opacities within the lower lobes favor atelectasis. Interlobular sep sherry thickening is present. There is extensive body wall edema. A small amount of pneumoperitoneum is present. There is a moderate amount of gas within the right abdominal wall which is likely postsurgic al. There is also subcutaneous soft tissue thickening of the right anterior abdominal wall which is l ikely postsurgical. Note is made of a 5.7 x 4.1 cm ill-defined pocket of gas and fluid within the cho lecystectomy bed. There is adjacent stranding. There is no biliary ductal dilatation status post chol ecystectomy. Heterogeneity of the liver is noted. There are no hepatic lesions. Spleen, adrenal gland s are unremarkable. Small cystic lesions within the pancreas may reflect side IPMNs. The mid to upper pole the left kidney is hypoenhancing. This represents a renal infarct. This appears to involve the previously described enhancing left renal mass with diminished enhancement of this lesion since prior contrast enhanced study. This lesion measures approximately 4.1 x 3.5 cm. Previously described enhan cing 2.5 x 1.6 and a right renal lesion is unchanged. An enhancing 1.2 cm left renal lesion is unchan ged. There are small left renal calculi. There are no ureteral calculi. No hydronephrosis. No evidenc e for a bowel obstruction. There is a moderate amount of poorly formed stool within the colon and rec anastasiia. IMPRESSION: 1. Status post cholecystectomy. 5.7 x 4.1 cm ill-defined pocket of gas and fluid within the cholecyst ectomy bed with adjacent stranding. This is nonspecific in the early postoperative setting but is lik cat postsurgical. A developing collection cannot be excluded. No biliary ductal dilatation. 2. Gas and stranding within the right abdominal wall and a small amount of pneumoperitoneum which is likely postsurgical. 3. Pulmonary edema with moderate right and small left pleural effusions. Extensive body wall edema co nsistent with anasarca. 4. Hypoenhancement of the mid to upper pole of the left kidney consistent with renal ischemia/renal i nfarct. This infarct involves the previously described 4.1 cm left renal mass which demonstrates decr eased enhancement. Additional enhancing bilateral renal lesions. These suggest renal cell carcinomas. 5. No bowel obstruction. ACT 112: Negative or not required by law. Electronically signed by: Andrew Hankins M.D. 12/30/2023 4:56 PM
--- NOTE | 2023-12-30 17:28 | History & Physical Report ---
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 coli bacteremia secondary to knee surgery on lifelong Bactrim, seizure disorder, dementia, bladder cancer status post surgery, recent cholecystectomy 12/24/2023. Patient presents today with progressive weakness that has been worsening over the last 2 days. Patient was discharged on December 25 status post cholecystectomy and was doing well. at bedside states that over the last 24 to 48 hours he has not been eating and has not been drinking. She states that when he gets up he appears as though he will fall to the ground. She has had to have her nephew come at 1130 last night to pick him up off the floor. In the ED today head CT negative for ICH, subdural hematoma or midline shift. AP CT revealed pulmonary edema and ruled out small bowel obstruction developing collection could not be ruled out on imaging however it appears that this is all postop changes. In the ED no leukocytosis however lactate is 2.5; other labs unremarkable outside of alk phos with chronic elevation 179, TSH 6.8. Patient was recently discharged on 12/25 status post laparoscopic cholecystectomy; patient was being worked up for ruff rgical clearance when he was found to be having episodes of rapid A-fib nearing the 200s right with his pacer interrogation. His Xarelto had been on hold from 04/2023 for numerous procedures including a colonoscopy, ablation and biopsy related to his newly diagnosed metastatic clear-cell carcinoma of the kidney.Most recent echo was performed this past admission on 12/23 with LVEF of 60 to 65%, moderate dilated left atrium, moderate mitral calcification, mild MR and trace TR. He was being followed by [facility] cardiology and was advised at discharge to hold inverter until his follow-up with Dr. Carney which has not been scheduled yet per . His Xarelto was restarted at the time of discharge on 12/26/2023. As I entered the room the patient was markedly different than when I saw him last week. He was very tearful and stating over and over that he wanted to go home. I explained that it is suspecting that he may require longer IV antibiotics to get his infection under control and he started to become agitated. We had a lengthy conversation with regards to his goals and he stated that he wants to go home and does not want to 'do this anymore'. I suspect that with 24 hours of continued treatment we may be able to have a continued conversation with regards to his overarching goals of care with palliative medicine. Last admission he actually wanted to switch his code status from DNR/DNI to full code which was completed. He stated that he has been thinking long and hard about this. His was at the bedside and stated that she is unable to care for him at home with this current state and thought she was going to involve Hospice back in April and ended up not proceeding with such. Hopeful that an admission with 24 hours of IV antibiotics will improve his lactic acidosis along with clearing his mental status and allow us to repeat a urine and obtain culture results to adjust antibiotics as necessary. Will obtain PT OT consults for possible short-term rehab placement. IN the meantime, will involve formal palliative consult to continue goals of care conversation and watch progression of hospitalization. Weakness: Acute Likely secondary to multifactorial causes given significant comorbidities and advanced age. Dietitian consult PT/OT for possible short-term rehab placement after this hospitalization Consult palliative medicine given lengthy conversation related to goals of care outlined above Gentle 0.9 IVF 0.9 AFF at 50 mL/h x 1 bag; reassess Head CT negative CTAP: 1. Status post cholecystectomy. 5.7 x 4.1 cm ill-defined pocket of gas and fluid within the cholecystectomy bed with adjacent stranding. This is nonspecific in the early postoperative setting but is likely postsurgical. A developing collection cannot be excluded. No biliary ductal dilatation. 2. Gas and stranding within the right abdominal wall and a small amount of pneumoperitoneum which is likely postsurgical. 3. Pulmonary edema with moderate right and small left pleural effusions. Extensive body wall edema consistent with anasarca. 4. Hypoenhancement of the mid to upper pole of the left kidney consistent with renal ischemia/renal infarct. This infarct involves the previously described 4.1 cm left renal mass which demonstrates decreased enhancement. Additional enhancing bilateral renal lesions. These suggest renal cell carcinomas. 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 Coli Bacteremia - 2/2 Knee Surgery on Lifelong Bactrim: Most recent admit: Urine culture grew enterococcus faecalis; switched from IV Zosyn--> IV Ampicillin on 12/25/2023. Discharged on 5-day course of oral amoxicillin to complete full 7-day course of ABX therapy. Gentle 0.9 IVF 0.9 AFF at 50 mL/h x 1 bag; reassess Resume Bactrim once amoxicillin course completed as outpatient. Cover with IV Vanco based on prev sensitivities for now and adjust based on repeat UA/Urine cx S/P Laparoscopic Cholecystectomy: Underwent laparoscopic cholecystectomy on 12/25/2023. General surgery follow-up appointment as outpatient. No abdominal tenderness on examination Atrial Fibrillation with RVR: Chronic --> Follows with Dr. Carney at [facility], needs f/u; this was not arranged yet Xarelto was JUST started at [facility] on 12/25. Has been on hold from 04/2023 for numerous procedures (colonoscopy, ablation, biopsy). Called outpatient pharmacy on 12/24/2023 during last admission : * Sotalol 120mg PO BID last filled 12/2022. * Xarelto 20mg PO daily last filled 04/2023. * Amiodarone 200mg PO daily last filled 03/2023. Echo 12/24/2023 --> LVEF of 60 to 65%, moderately dilated left atrium, moderate mitral calcification, mild MR and trace TR Was started on metoprolol succinate 25mg BID before DC Continue holding Imdur; this was to be on hold until opt cards appt arranged with Dr. Carney Xarelto restarted at time of DC Reconsult cardiology HTN: Chronic hold ramipril until his follow-up appointment with Dr. Carney as he was frequently hypotensive while admitted. (This was from last admission last week) BP elevated on admission; prescribed Metoprolol for AF Labetalol PRN Metastatic Clear Cell Carcinoma of the Kidney: Chronic S/p [place] [facility] following with Dr. Chew. Started Keytruda on 12/18/2023, due in ~2 weeks. Hold Lenvima due to acute illness Palliative Medicine consultation given goals of care conversation outlined above Sick Sinus Syndrome: Chronic S/p pacemaker placed approximately 15 years ago, 5.5 months of battery life confirmed Pacer interrogation he has been in AF RVR with rates as high as 200's at various times this month, most recently in 130's. Close cardiology follow-up appointment with Dr. Carney to be scheduled. Other Chronic Medical Conditions: HLD/CAD, seizure disorder (last seizure was "years" ago) --> Can continue home medications Disposition: PCP: Kristian Smallwood DO ([facility]) Code Status: Full Code VTE Prophylaxis: Lovenox SQ I spent a total of 85 minutes coordinating, documenting, and providing care for this patient excluding time spent in the performance of separately billed services. All of the aforementioned completed while collaborating with the assigned attending physician for a full treatment plan. Please see their addendum for further details. History of Present Illness Chief Complaint: weakness Primary Care Provider: Kristian Smallwood Greg Ge is an 78-year-old male with a PMH that includes metastatic clear-cell carcinoma of the kidney recently diagnosed in 2023, HFpEF, A-fib with RVR, CAD status post stenting, CVA, PVD status post surgery, SSS status post pacemaker, HTN, HLD, history of chronic E. coli bacteremia secondary to knee surgery on lifelong Bactrim, seizure disorder, dementia, bladder cancer status post surgery, recent cholecystectomy 12/24/2023. Patient presents today with progressive weakness that has been worsening over the last 2 days. Patient was discharged on December 25 status post cholecystectomy and was doing well. at bedside states that over the last 24 to 48 hours he has not been eating and has not been drinking. She states that when he gets up he appears as though he will fall to the ground. She has had to have her nephew come at 1130 last night to pick him up off the floor. In the ED today head CT negative for ICH, subdural hematoma or midline shift. AP CT revealed pulmonary edema and ruled out small bowel obstruction developing collection could not be ruled out on imaging however it appears that this is all postop changes. In the ED no leukocytosis however lactate is 2.5; other labs unremarkable outside of alk phos with chronic elevation 179, TSH 6.8. Patient was recently discharged on 12/25 status post laparoscopic cholecystectomy; patient was being worked up for surgical clearance when he was found to be having episodes of rapid A-fib nearing the 200s right with his pacer interrogation. His Xarelto had been on hold from 04/2023 for numerous procedures including a colonoscopy, ablation and biopsy related to his newly diagnosed metastatic clear-cell carcinoma of the kidney. Most recent echo was performed this past admission on 12/23 with LVEF of 60 to 65%, moderate dilated left atrium, moderate mitral calcification, mild MR and trace TR. He was being followed by [facility] cardiology and was advised at discharge to hold inverter until his follow-up with Dr. Carney which has not been scheduled yet per . His Xarelto was restarted at the time of discharge on 12/26/2023. As I entered the room the patient was markedly different than when I saw him last week. He was very tearful and Stating over and over that he wanted to go home. I explained that it is suspecting that he may require longer IV antibiotics to get his infection under control and he started to become agitated. We had a lengthy conversation with regards to his goals and he stated that he wants to go home and does not want to do this anymore. I suspect that with 24 hours of continued treatment we may be able to have a continued conversation with regards to his overarching goals of care with palliative medicine. His wif pa was at the bedside and stated that she is unable to care for him at home with this current state. Hopeful that an admission with 24 hours of IV antibiotics will improve his lactic acidosis along with clearing his mental status and allow us to repeat a urine and obtain culture results to adjust antibiotics as necessary. Will obtain PT OT consults for possible short-term rehab placement. Allergies Allergy/AdvReac Type Severity Reaction Status Date / Time azithromycin Allergy Severe Swelling Verified 12/06/23 07:56 [From Zithromax Z-Brady] of Lip/Tongue/Throat ethyl alcohol Allergy Intermediate "rubbing Verified 12/06/23 07:56 alcohol" caused blisters isopropyl alcohol Allergy Intermediate "rubbing Verified 12/06/23 07:56 alcohol" caused blisters latex Allergy Intermediate blisters Verified 12/06/23 07:56 carvedilol Allergy Verified 12/06/23 07:56 clopidogrel Allergy Verified 12/06/23 07:56 verapamil AdvReac Severe asystole Verified 12/06/23 07:56 Home Medications Medication Instructions Recorded Confirmed Type atorvastatin 40 mg tablet 40 mg PO HS 02/16/21 12/30/23 History cholecalciferol (vitamin D3) 125 125 mcg PO QAM 02/16/21 12/30/23 History mcg (5,000 unit) tablet (Vitamin D3) isosorbide mononitrate 60 mg 60 mg PO DAILY 02/16/21 12/30/23 History tablet,extended release 24 hr pantoprazole 40 mg tablet,delayed 40 mg PO QAM 02/16/21 12/30/23 History release gabapentin 300 mg capsule 300 mg PO TID 05/03/23 12/30/23 History ketoconazole 2 % topical cream 1 applic topical UD PRN Skin 05/03/23 12/30/23 History Irritation/openings /none current nitroglycerin 0.4 mg sublingual 0.4 mg sublingual .[id number] PRN 05/03/23 12/30/23 History tablet Chest Pain dicyclomine 10 mg capsule 10 mg PO BID 05/10/23 12/30/23 History sulfamethoxazole 800 1 tab PO Q12H 05/10/23 12/30/23 History mg-trimethoprim 160 mg tablet (Bactrim DS) ramipril 5 mg capsule 5 mg PO DAILY 05/30/23 12/30/23 History tamsulosin 0.4 mg capsule 0.4 mg PO DAILY #90 caps 06/18/23 12/30/23 Rx lamotrigine 100 mg tablet 100 mg PO BID 12/23/23 12/30/23 History lenvatinib 20 mg/day (10 mg x 2) 20 mg PO HS 12/23/23 12/30/23 History capsule (Lenvima) vibegron 75 mg tablet 75 mg PO UD 12/23/23 12/30/23 History amoxicillin 875 mg tablet 875 mg PO BID 5 days #10 tabs 12/26/23 12/30/23 Rx metoprolol succinate 25 mg 25 mg PO BID #60 tabs 12/26/23 12/30/23 Rx tablet,extended release 24 hr oxycodone-acetaminophen 5 mg-325 1 tab PO Q8H PRN pain (scale score 12/26/23 12/30/23 Rx mg tablet (Endocet) 7-10) #7 tabs rivaroxaban 20 mg tablet (Xarelto) 0 mg PO UD 12/30/23 12/30/23 History Past Med/Surg History Problem List (Updated 12/31/23 @ 09:48 by Danette Boucher, MARY) Palliative care by specialist Anxiety associated with cancer diagnosis Depression due to physical illness Abdominal pain, generalized Advanced care planning/counseling discussion Weakness generalized CAD (coronary artery disease) UTI (urinary tract infection) S/P laparoscopic cholecystectomy Atrial fibrillation with RVR Cholelithiasis (Acute) Right sided abdominal pain (Acute) Pulmonary nodule Urinary urgency Phimosis Abdominal distention Scrotal swelling Renal mass Urinary retention Abnormal CT of the abdomen Hypotension (Acute) Debilitated (Acute) Acute UTI (Acute) Pericardial effusion (Acute) Anemia (Acute) Weakness (Acute) Dysphagia Medical History (HFpEF) heart failure with preserved ejection fraction Metastatic clear cell carcinoma of kidney Esophageal dilatation Weight loss over 35 pounds over past month. History of radiation exposure 1986 History of stroke 2001 - no residual effects. History of colon polyps Mass of colon CT scan [facility] 05/03/23. Hemorrhoids internal Kidney lesion lesions on kidneys per CT scan/ [place] 2-3 weeks ago/talk of samantha with kidney - pt has not received follow up phone call. Rectal bleeding Neuropathy CAD (coronary artery disease) On anticoagulant therapy Hypothyroidism Prophylactic antibiotic alf use of antibiotic>hx artificial joint infection Osteoarthritis History of bladder cancer treated surgically [place] DEHE (hard of hearing) reads lips Seizure-like activity hx 2014 - neuro work up neg for seizures - no issues since (follows with [facility]) HLD (hyperlipidemia) HTN (hypertension) History of atrial fibrillation follows with Dr. Carney; on xarelto (currently on hold due to recatal bleeding) hx cardioversion x2 ? History of myocardial infarction x 2 (1986, 2001) History of esophageal dilatation Dysphagia Surgical History History of left-sided carotid endarterectomy History of hernia surgery x2 Pacemaker passing out/reason for pacemaker. last checked : "recent check by Dr. Carney"/[facility] History of tonsillectomy History of appendectomy History of left knee replacement + revision surgery History of cataract surgery rt/left History of parathyroidectomy History of bladder surgery TURBT H/O heart artery stent x 4 History of cardiac cath 05/2020 -- CP -- [facility] - no stents mult cardiac cath between [id number] (4 stents placed total) - [facility] and [facility] in [place], [place] History of colonoscopy History of esophagogastroduodenoscopy (EGD) Family History Father Prostate cancer Diabetes Heart disease Hypertension Mother Diabetes Hypertension Breast cancer Other No family history of adverse response to anesthesia Social History Smoking Status: Never smoker Second Hand Exposure: No; Do You Dip or Chew Tobacco: No; Hx Alcohol Use: No Hx Substance Use: No Preferred Language: Kazakh Communication Ability: Effective Communication Ability Comment: pt is [place]/pt does phone interview/per pt preference. 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 Feels Safe at Home: Yes Safety Concerns: Feels Safe At This Time Assistive Devices: Cane, Denture - Upper and Hospital Bed Review of Systems Review of Systems: Neuro: (-) Falls, trauma, slurred speech HEENT: (-) FONG, dizziness, dysphagia, visual or auditory changes CV: (-) CP, palpitations, swelling Resp: (-) SOB GI: (-) appetite changes, N/V/D, bowel changes : (-) urinary changes Skin: (-) rashes Psych: (-) anxiety, depression Physical Exam Physical Exam: Neuro: AAOx4, PERRLA, no aphagia, memory changes, CNII-XII grossly intact HEENT: head normocephalic, moist mucus membranes CV: S1/S2, (-) M/G/R, (-) edema, cap refill < 3 seconds Resp: Lungs CTA in all delacruz. On RA GI: Abdomen S/NT/ND, Ax4 bowel sounds, (-) CVA tenderness Musculoskeletal: 5/5 B/L UE strength, 5/5 B/L LE strength. No gait disturbance Skin: (-) rashes , (-) erythema. Psych: euthymic mood Results & Data Results & Data Vital Signs (Past 12 Hours) Vital Signs Temp Pulse Resp BP Pulse Ox O2 Del Method 12/30/23 15:30 143/112 H 12/30/23 15:30 111 H 16 94 Room Air 12/30/23 15:03 106 H 15 95 12/30/23 15:00 150/124 H 12/30/23 15:00 150/124 H 12/30/23 15:00 94 Room Air 12/30/23 14:54 92 H 9 L 95 12/30/23 14:33 118 H 15 94 12/30/23 14:33 96 Room Air 12/30/23 14:31 143/112 H 12/30/23 14:18 102 H 17 95 12/30/23 14:15 123 H 17 95 12/30/23 14:15 91 H 12/30/23 14:10 154/113 H 12/30/23 13:54 36.6 C 105 H 18 134/97 99 Laboratory Results Short CBC 12/30/23 Range/Units 14:30 WBC 7.65 (4.8-10.8) K/ul Hgb 13.4 L (14.0-18.0) g/dl Hct 40.7 L (42.0-52.0) % Plt Count 179 (130-400) K/uL BMP 12/30/23 14:30 Sodium 134 L Potassium 4.4 Chloride 99 Carbon Dioxide 27 BUN 12 Creatinine 0.77 Glucose 93 Calcium 8.8 Liver Function 12/30/23 Range/Units 14:30 Total Bilirubin 0.9 (0.2-1.0) mg/dl AST 19 (13-39) U/L ALT 15 (7-52) U/L Alkaline Phosphatase 179 H (34-104) U/L Albumin 3.6 (3.4-5.0) gm/dl Diagnostic Findings Chest X-Ray 12/30/23 14:48 XR chest 1V portable CLINICAL HISTORY: weakness COMPARISON STUDY: Chest CT August 20, 2023. Chest radiograph December 11, 2023. FINDINGS: Left subclavian pacer is in place. Cardiomegaly is again noted. Interstitial thickening has developed. There is no pneumothorax. Small to moderate right and small left pleural effusions with associated bibasilar opacities are present. IMPRESSION: Cardiomegaly with interstitial pulmonary edema and small to moderate right and small left pleural effusions with associated bibasilar opacities. ACT 112: Negative or not required by law. Electronically signed by: Andrew Hankins M.D. 12/30/2023 3:[address] 12/30/23 14:50 CT OF THE HEAD WITHOUT CONTRAST CLINICAL HISTORY: Confusion. COMPARISON STUDY: Head CT December 11, 2023. CT DOSE: 953.61 mGy.cm TECHNIQUE: Helical axial images of the head were obtained without IV contrast. Automated exposure control was utilized for the study. A dose lowering technique was utilized adhering to the principles of ALARA. FINDINGS: No acute intracranial hemorrhage, midline shift or mass effect is present. The ventricular system is unremarkable. The basal cisterns are patent. No extra-axial collections are present. There are no findings to suggest acute dural sinus thrombosis or acute territorial infarct. There are no calvarial fracture. A small left mastoid effusion is unchanged. Right frontoethmoidal polypoid mucosal thickening is unchanged. IMPRESSION: No acute intracranial findings. ACT 112: Negative or not required by law. Electronically signed by: Andrew Hankins M.D. 12/30/2023 3:26 PM Abdomen/Pelvis CT 12/30/23 15:11 CT OF THE ABDOMEN AND PELVIS WITH CONTRAST CLINICAL HISTORY: Recent cholecystectomy. Pain around surgical site. COMPARISON STUDY: Right upper quadrant ultrasound and CT of the abdomen and pelvis December 23, 2023. TECHNIQUE: Following IV administration of 91 mL of Optiray, axial images of the abdomen and pelvis were obtained from the lung bases to the proximal femurs. Images were reviewed in the axial, sagittal, and coronal planes. IV contrast was administered without complication. Automated exposure control was utilized for the study. A dose lowering technique was utilized adhering to the principles of ALARA. CT DOSE: 1158.69 mGy.cm FINDINGS: A small pericardial effusion is unchanged. There are moderate right and small left pleural effusions. Associated subpleural opacities within the lower lobes favor atelectasis. Interlobular septal thickening is present. There is extensive body wall edema. A small amount of pneumoperitoneum is present. There is a moderate amount of gas within the right abdominal wall which is likely postsurgical. There is also subcutaneous soft tissue thickening of the right anterior abdominal wall which is likely postsurgical. Note is made of a 5.7 x 4.1 cm ill-defined pocket of gas and fluid within the cholecystectomy bed. There is adjacent stranding. There is no biliary ductal dilatation status post cholecystectomy. Heterogeneity of the liver is noted. There are no hepatic lesions. Spleen, adrenal glands are unremarkable. Small cystic lesions within the pancreas may reflect side IPMNs. The mid to upper pole the left kidney is hypoenhancing. This represents a renal infarct. This appears to involve the previously described enhancing left renal mass with diminished enhancement of this lesion since prior contrast enhanced study. This lesion measures approximately 4.1 x 3.5 cm. Previously described enhancing 2.5 x 1.6 and a right renal lesion is unchanged. An enhancing 1.2 cm left renal lesion is unchanged. There are small left renal calculi. There are no ureteral calculi. No hydronephrosis. No evidence for a bowel obstruction. There is a moderate amount of poorly formed stool within the colon and rectum. IMPRESSION: 1. Status post cholecystectomy. 5.7 x 4.1 cm ill-defined pocket of gas and fluid within the cholecystectomy bed with adjacent stranding. This is nonspecific in the early postoperative setting but is likely postsurgical. A developing collection cannot be excluded. No biliary ductal dilatation. 2. Gas and stranding within the right abdominal wall and a small amount of pneumoperitoneum which is likely postsurgical. 3. Pulmonary edema with moderate right and small left pleural effusions. Extensive body wall edema consistent with anasarca. 4. Hypoenhancement of the mid to upper pole of the left kidney consistent with renal ischemia/renal infarct. This infarct involves the previously described 4.1 cm left renal mass which demonstrates decreased enhancement. Additional enhancing bilateral renal lesions. These suggest renal cell carcinomas. 5. No bowel obstruction. ACT 112: Negative or not required by law. Electronically signed by: Andrew Hankins M.D. 12/30/2023 4:56 PM Code Status & VTE Plan Code Status Full Code in the event of cardiac or respiratory arrest VTE Prophylaxis Plan VTE Prophylaxis will be ordered: Yes Supervising Physician Co-Signing Physician Notes 78-year-old male with PMH of metastatic clear-cell carcinoma of the kidney diagnosed 2023, HFpEF, A-fib with RVR, CAD status post stent, CVA, PVD status post surgery, SSS status post pacemaker, HTN, HLD, E. coli bacteremia secondary to knee surgery on lifelong Bactrim, seizure disorder, dementia, bladder cancer status post surgery, recent cholecystectomy on 12/24/2023 presented today with progressive weakness and worsening appetite since last few days. Admitting labs and imagings reviewed, TSH mildly elevated, CT Head with no acute finding, CTAP with expected postoperative cholecystectomy findings. EKG with A- fib and heart rate of 106. Progressive weakness/poor appetite: Secondary to multifactorial causes given significant comorbidities and old age. PT OT, dietitian consult, possible involvement of palliative care. Gentle ivf as clinically dry on exam and pt w/ poor po intake. A-fib RVR: Continue telemetry, monitor and replete electrolytes, heart consult. c/w home metoprolol. labetalol prn for BP management. Vanc for possible UTI, UA has been sent and pending. On exam: GENERAL: Alert and oriented x2. NAD, on RA. appears ill/frail/weak. HEENT: No pallor, no icterus. Pupils equal, round and reactive to light. Oral mucosa moist. NECK: No JVD, no neck masses. HEART: S1 and S2 heard. irregular rate and rhythm. HR in 110s. No murmur, no gallop. RESPIRATORY SYSTEM: Normal AP diameter. No accessory muscle use. No wheezing, no crackles. ABDOMEN: Soft, bowel sounds present, nontender, no distention. RUQ nontender. Lap shay sites x 4 healthy appearing. CENTRAL NERVOUS SYSTEM: No facial droop. Speech is clear. Obeys simple commands. Moves extremities. EXTREMITIES: trace ble edema, no erythema seen. I have seen and examined the patient and have discussed the case with the provider above. I agree with the assessment and plan as stated. time spent: 30 min.
[2023-12-30] MEDS ORDERED: ONDANSETRON INJ 2 MG/ML 2 ML VIAL IV PRN (17:32)
[2023-12-30] MEDS ORDERED: ALUMINUM/MAGNESIUM SUSP 30 ML UDC PO PRN (17:32)
[2023-12-30] MEDS ORDERED: POLYETHYLENE (MIRALAX) 17 GM PACK PO PRN (17:32)
[2023-12-30] MEDS ORDERED: MAGNESIUM HYDROXIDE SUSP 30 ML UDC PO PRN (17:32)
[2023-12-30] MEDS: 4.5GM X1 IV STA (18:55)
[2023-12-30] MEDS: PIPERACILLIN/TAZOBACTAM 4.5 GM/100 ML BAG IV SCH (18:55)
[2023-12-30] MEDS: SODIUM CHLORIDE 0.9% 1,000 ML IV SCH (18:55)
[2023-12-30] MEDS: Patient's WEIGHT Needed SCH (19:13)
[2023-12-30] MEDS ORDERED: VANCOMYCIN CONSULT ACTIVE PRN (19:28)
[2023-12-30] MEDS ORDERED: LABETALOL HCL IV 5 MG/ML 20ML IV PRN (20:10)
--- OUTSIDE RECORDS SUMMARY | 2023-12-30 21:21 | External Medical Summary | Summary of Care ---
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 Name Role Phone Selin Kristian Vu DO Primary Care Provider [phone] Encounter Details Date Type Department Care Team (Late st Contact Info) Description 12/26/2023 Population Health External Data Unspecified Department Allergies Active Allergy Reactions Criticality Noted Date Comments Alcohol 06/07/2016 Azithromycin Edema face/lips/tongue High 04/04/2016 SOB and swelling of mouth Other reaction(s): Edema face/lips/tongue Carvedilol 08/26/2019 Nausea Cephalexin 08/26/2019 Clopidogrel 11/01/2016 Ethanol 08/26/2019 Isopropyl Alcohol Rash High 04/04/2016 Blisters on skin Other reaction(s): Blisters 10/25/2023 per patient "doesn't bother him anymore" Latex Other (Please comment) 04/04/2016 blisters Other reaction(s): Other (Please comment) blisters Verapamil High 08/26/2019 Other reaction(s): Shock Intra-arterial administration during cath documented as of this encounter (statuses as of 12/26/2023) Medications Medication Sig Dispensed Refills Start Date End Date Status pantoprazole (PROTONIX) 40 MG TBEC Take 1 Tablet by mouth in the morning. Active sulfamethoxazole-tr imethoprim DS (BACTRIM DS) 800-160 MG per tablet Take 1 Tablet by mouth in the morning and 1 Tablet before bedtime. Active finasteride (PROSCAR) 5 MG Tablet Take 1 Tablet by mouth in the morning. Active Isosorbide Mononitrate ER 60 MG Oral Tablet Extended Release 24 Hour (Imdur) Take 1 Tablet by mouth in the morning. Active Nitroglycerin 0.4 MG Sublingual Tablet Sublingual (Nitrostat) Place 0.4 mg under the tongue every 5 minutes as needed for Pain, Chest. Active Ramipril 5 MG Oral Capsule (Altace) Take 1 Capsule by mouth in the morning. Active Ranolazine ER 1000 MG Oral Tablet Extended Release 12 Hour (Ranexa) Take 1 Tablet by mouth in the morning and 1 Tablet before bedtime. Active Sotalol HCl 120 MG Oral Tablet Take 1 Tablet by mouth in the morning and 1 Tablet before bedtime. Active lamoTRIgine 100 MG Oral Tablet (LaMICtal) Take 1 Tablet by mouth in the morning and 1 Tablet before bedtime. 10/24/2020 Active Ferrous Gluconate 240 (27 Fe) MG Oral Tablet Take 1 Tablet by mouth in the morning. Active Dicyclomine HCl 10 MG Oral Capsule (Bentyl) Take 1 Capsule by mouth in the morning and 1 Capsule before bedtime. Active Rivaroxaban 20 MG Oral Tablet (Xarelto) Take 1 Tablet by mouth at bedtime. Active Ketoconazole 1 % External Shampoo Apply 1 Application Dosing Unit topically to affected area. Apply to scalp asdiirected Active Vitamin D3 125 MCG (5000 UT) Oral Capsule Take 1 Capsule by mouth in the morning. Active Iron 240 (27 Fe) MG Oral Tablet Take 1 Tablet by mouth in the morning. Active Atorvastatin Calcium 40 MG Oral Tablet (Lipitor) Take 1 Tablet by mouth at bedtime. Active Levothyroxine Sodium 75 MCG Oral Capsule (Tirosint) Take 75 mcg by mouth in the morning. (at least 30 min prior to breakfast or other meds) Take Sat-Sat-. Do not take on Sat-Sun. Active Doxycycline Hyclate 100 MG Oral Capsule Take 1 Capsule (100 mg) by mouth in the morning and 1 Capsule (100 mg) before bedtime. For 10 days. Active Levothyroxine Sodium 75 MCG Oral Tablet [...] a day 180 Tablet 3 01/03/2023 Active Lenvima (20 MG Daily Dose) 2 x 10 MG Oral Capsule Therapy Pack (Lenvatinib (20 MG Daily Dose)) Take 2 capsules (20mg) by mouth daily. Take with or without food. 60 Each 5 11/26/2023 Active documented as of this encounter (statuses as of 12/26/2023) Active Problems No known active problems documented as of this encounter (statuses as of 12/26/2023) Social History Tobacco Use Types Packs/Day Years Used Date Smoking Tobacco: Never Smokeless Tobacco: Never Alcohol Use Standard Drinks/Week Comments No 0 (1 standard drink = 0.6 oz pur e alcohol) Utilities Answer Date Recorded Do you have trouble paying y our heating, water, or electric bill? (Adult - for ages 18 years and over) Not on file 08/27/2023 Is your family able to pay t he heat, water, or electric bill? (Household - for ages 0-17 years) Not on file 08/27/2023 Does your family have access to good internet? (Household - for ages 0-17 years) Not on file 08/27/2023 Social Connections Answer Date Recorded How often do you feel lonely or isolated from those around you? (Adult - for ages 18 years and over) Not on file 08/27/2023 Sex and Gender Information Value Date Recorded Sex Assigned at Not on file Gender Identity Not on file Sexual Orientation Not on file Job Start Date Occupation Industry Not on file Not on file Not on file documented as of this encounter Plan of Treatment Health Maintenance Due Date Last Done Comments Depression Screening 1957 TSH 06/12/1963 COVID-19 Vaccine ( season) 2023 12/28/2022, 12/14/2021, 01/11/2021, Additional history exists Influenza Vaccine (FLU shot) (#1) 2023 12/28/2022, 11/20/2021, 11/28/2020 DTap/Tdap Vaccines (2 - Td or Tdap) 02/01/2031 02/01/2021 Pneumococcal Vaccine: 65+ Years Completed 11/01/2017, 01/21/2014, 11/09/2011 Zoster Vaccines Completed 10/10/2020, 11/09, 08/09/2013 HPV (Gardasil) Vaccine Aged Out No lo nger eligible based on patient's age to complete this topic Hepatitis B Vaccine Aged Out No longe r eligible based on patient's age to complete this topic MENINGOCOCCAL (MENACTRA/MENVEO) Aged Out No longer eligible based on patient's age to complete this topic documented as of this encounter Medical Devices Not on filedocumented as of this encounter Care Teams Grape Cutter Relationship Specialty Start Date End Date Kristian Smallwood DO [address] [place] [address] PCP - General Family Medicine 03/23/16 documented as of this encounter
[2023-12-30] MEDS: VANCOMYCIN HCL 1,750 MG in SODIUM CHLORIDE 0.9% 500 ML IV ONE (22:26)
[2023-12-30] MEDS: METOPROLOL SUCC 25MG EXT REL TAB PO SCH (22:32)
[2023-12-30] MEDS: lamoTRIgine 100 MG TAB PO SCH (22:32)
[2023-12-30] MEDS: ATORVASTATIN 40 MG TAB PO SCH (22:32)
[2023-12-30] MEDS: GABAPENTIN 300 MG CAP PO SCH (22:32)
[2023-12-30] MEDS: RIVAROXABAN 2.5 MG TAB PO SCH (22:41)
[2023-12-30 23:01] LABS: Appearance Urine Clear (Clear); Bacteria Urine Automated None Seen (None Seen); Bilirubin Urine Negative (Negative); Blood Urine Trace (Negative); Cast Urine Automated 0-2 /lpf (0-2); Color Urine Yellow; Epithelial Cell Urine Auto 0-2 /hpf (0-2); Glucose Urine UA Negative (Negative); Ketones Urine Trace (Negative); Leukocyte Esterase Urine Trace (Negative); Nitrite Urine Negative (Negative); Protein Urine Trace (Negative); Specific Gravity Urine > 1.045 (1.000-1.030); Urobilinogen Urine Positive (Negative); WBC Urine Automated 0-5 /hpf (0-5)
[2023-12-31 07:57] LABS: Hematocrit (blood only) 37.3 % (42.0-52.0); Hemoglobin 12.5 g/dl (14.0-18.0); Mean Corpuscular Hgb Conc 33.5 g/dL (32.0-36.0); Mean Corpuscular Volume 86.5 fL (80.0-100.0); Mean Platelet Volume 9.8 fL (9.4-12.4); Platelet Count 166 K/uL (130-400); RDW Coefficient of Variation 13.2 % (11.5-14.5); RDW Standard Deviation 40.8 fL (36.4-46.3); Red Blood Count 4.31 M/uL (4.70-6.10); White Blood Count 7.34 K/ul (4.8-10.8)
[2023-12-31 08:09] LABS: BUN Creatinine Ratio 13.3 (10-20); Calcium 7.9 mg/dl (8.6-10.3); Creatinine Clr Calc Pharmacy 78.6 ml/min; Magnesium 1.8 mg/dl (1.7-2.4); Potassium 4.2 mmol/L (3.5-5.1)
[2023-12-31] MEDS: VANCOMYCIN HCL 1,000 MG/270 ML BAG IV SCH (08:27)
[2023-12-31] MEDS: TAMSULOSIN HCL 0.4 MG CAP PO SCH (08:28)
[2023-12-31] MEDS: VIBEGRON 75 MG TAB PO SCH (08:28)
[2023-12-31] MEDS: CHOLECALCIFEROL 125 MCG (5,000 UNITS) TAB PO SCH (08:28)
[2023-12-31] MEDS: PANTOprazole 40 MG TAB PO SCH (08:28)
--- NOTE | 2023-12-31 09:28 | Palliative Care Consultation ---
Date of Consultation December 31, 2023 Assessment & Plan (1) Abdominal pain, generalized: improved (2) Weakness generalized: (3) Depression due to physical illness: (4) Advanced care planning/counseling discussion: 25min face to face ACP with pt at bedside he tells me he wants to go home but after therapy here is completed. he is open to home PT but does not want SNF he feels he can improve with home PT as he has done before he feels his family can help support his needs I asked if he felt his needs might be getting to be more than his can handle and he replied he did not, she would tell him if that was the case. he feels he has tolerated treatments to date and is feeling improvement, so mood also improved he denies feeling depression or hopelessness he tells me he completed cancer treatment and that has not been an active issue he is unsure he would want CPR if he was nearing an EOL process but feels right now he has a lot of good things to live for in his life and would want the chance to "keep going" (5) Palliative care by specialist: Introduced Palliative Medicine and explained our role in patient's care. Patient and/or family were receptive to palliative services for goals of care discussions. Reviewed we are different from hospice, a home health nurse visiting service. Plan ACP discussion as above No acute sx mgt needs Will follow peripherally. He is amenable to follow up in OP clinic within a month of dc. Thank you for allowing us to participate in the ongoing care of this patient. Please page with any additional concerns. 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 coli bacteremia secondary to knee surgery on lifelong Bactrim, seizure disorder, dementia, bladder cancer status post surgery, recent cholecystectomy 12/24/2023. Patient presents today with progressive weakness that has been worsening over the last 2 days. Patient was discharged on December 25 status post cholecystectomy and was doing well. at bedside states that over the last 24 to 48 hours he has not been eating and has not been drinking. She states that when he gets up he appears as though he will fall to the ground. She has had to have her nephew come at 1130 last night to pick him up off the floor. In the ED today head CT negative for ICH, subdural hematoma or midline shift. AP CT revealed pulmonary edema and ruled out small bowel obstruction developing collection could not be ruled out on imaging however it appears that this is all postop changes. In the ED no leukocytosis however lactate is 2.5; other labs unremarkable outside of alk phos with chronic elevation 179, TSH 6.8. Patient was recently discharged on 12/25 status post laparoscopic cholecystectomy; elsa rutledge was being worked up for surgical clearance when he was found to be having episodes of rapid A-fib nearing the 200s right with his pacer interrogation. His Xarelto had been on hold from 04/2023 for numerous procedures including a colonoscopy, ablation and biopsy related to his newly diagnosed metastatic clear-cell carcinoma of the kidney.Most recent echo was performed this past admi ssion on 12/23 with LVEF of 60 to 65%, moderate dilated left atrium, moderate mitral calcification, mild MR and trace TR. He was being followed by [facility] cardiology and was advised at discharge to hold inverter until his follow-up with Dr. Carney which has not been scheduled yet per . His Xarelto was restarted at the time of discharge on 12/26/2023. As I entered the room the patient was markedly different than when I saw him last week. He was very tearful and stating over and over that he wanted to go home. I explained that it is suspecting that he may require longer IV antibiotics to get his infection under control and he started to become agitated. We had a lengthy conversation with regards to his goals and he stated that he wants to go home and does not want to 'do this anymore'. I suspect that with 24 hours of continued treatment we may be able to have a continued conversation with regards to his overarching goals of care with palliative medicine. Last admission he actually wanted to switch his code status from DNR/DNI to full code which was completed. He stated that he has been thinking long and hard about this. His was at the bedside and stated that she is unable to care for him at home with this current state and thought she was going to involve Hospice back in April and ended up not proceeding with such. Hopeful that an admission with 24 hours of IV antibiotics will improve his lactic acidosis along with clearing his mental status and allow us to repeat a urine and obtain culture results to adjust antibiotics as necessary. Will obtain PT OT consults for possible short- term rehab placement. IN the meantime, will involve formal palliative consult to continue goals of care conversation and watch progression of hospitalization." Greg is seen bedside with no family present He is awake and alert he tells me he is feeling better and wants to get back home when the treatment is done he denies pain, dyspnea, FONG, vision changes, n/v/d/c Allergies Allergy/AdvReac Type Severity Reaction Status Date / Time azithromycin Allergy Severe Swelling Verified 12/06/23 07:56 [From Zithromax Z-Brady] of Lip/Tongue/Throat ethyl alcohol Allergy Intermediate "rubbing Verified 12/06/23 07:56 alcohol" caused blisters isopropyl alcohol Allergy Intermediate "rubbing Verified 12/06/23 07:56 alcohol" caused blisters latex Allergy Intermediate blisters Verified 12/06/23 07:56 carvedilol Allergy Verified 12/06/23 07:56 clopidogrel Allergy Verified 12/06/23 07:56 verapamil AdvReac Severe asystole Verified 12/06/23 07:56 Home Medications Medication Instructions Recorded Confirmed Type atorvastatin 40 mg tablet 40 mg PO HS 02/16/21 12/30/23 History cholecalciferol (vitamin D3) 125 125 mcg PO QAM 02/16/21 12/30/23 History mcg (5,000 unit) tablet (Vitamin D3) isosorbide mononitrate 60 mg 60 mg PO DAILY 02/16/21 12/30/23 History tablet,extended release 24 hr pantoprazole 40 mg tablet,delayed 40 mg PO QAM 02/16/21 12/30/23 History release gabapentin 300 mg capsule 300 mg PO TID 05/03/23 12/30/23 History ketoconazole 2 % topical cream 1 applic topical UD PRN Skin 05/03/23 12/30/23 History Irritation/openings /none current nitroglycerin 0.4 mg sublingual 0.4 mg sublingual .[id number] PRN 05/03/23 12/30/23 History tablet Chest Pain dicyclomine 10 mg capsule 10 mg PO BID 05/10/23 12/30/23 History sulfamethoxazole 800 1 tab PO Q12H 05/10/23 12/30/23 History mg-trimethoprim 160 mg tablet (Bactrim DS) ramipril 5 mg capsule 5 mg PO DAILY 05/30/23 12/30/23 History tamsulosin 0.4 mg capsule 0.4 mg PO DAILY #90 caps 06/18/23 12/30/23 Rx lamotrigine 100 mg tablet 100 mg PO BID 12/23/23 12/30/23 History lenvatinib 20 mg/day (10 mg x 2) 20 mg PO HS 12/23/23 12/30/23 History capsule (Lenvima) vibegron 75 mg tablet 75 mg PO UD 12/23/23 12/30/23 History amoxicillin 875 mg tablet 875 mg PO BID 5 days #10 tabs 12/26/23 12/30/23 Rx metoprolol succinate 25 mg 25 mg PO BID #60 tabs 12/26/23 12/30/23 Rx tablet,extended release 24 hr oxycodone-acetaminophen 5 mg-325 1 tab PO Q8H PRN pain (scale score 12/26/23 12/30/23 Rx mg tablet (Endocet) 7-10) #7 tabs rivaroxaban 20 mg tablet (Xarelto) 0 mg PO UD 12/30/23 12/30/23 History Patient History Medical History (HFpEF) heart failure with preserved ejection fraction Metastatic clear cell carcinoma of kidney Esophageal dilatation Weight loss over 35 pounds over past month. History of radiation exposure 1986 History of stroke 2001 - no residual effects. History of colon polyps Mass of colon CT scan [facility] 05/03/23. Hemorrhoids internal Kidney lesion lesions on kidneys per CT scan/ [place] 2-3 weeks ago/talk of samantha with kidney DrDorian - pt has not received follow up phone call. 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 Carney; on xarelto (currently on hold due to recatal bleeding) hx cardioversion x2 ? History of myocardial infarction x 2 (1986, 2001) History of esophageal dilatation Dysphagia Surgical History History of left-sided carotid endarterectomy History of hernia surgery x2 Pacemaker passing out/reason for pacemaker. last checked : "recent check by Dr. Tomas gabriel"/[facility] History of tonsillectomy History of appendectomy History of left knee replacement + revision surgery History of cataract surgery rt/left History of parathyroidectomy History of bladder surgery TURBT H/O heart artery stent x 4 History of cardiac cath 05/2020 -- CP -- [facility] - no stents mult cardiac cath between [id number] (4 stents placed total) - [facility] and [facility] in [place], [place] History of colonoscopy History of esophagogastroduodenoscopy (EGD) Family History Father Prostate cancer Diabetes Heart disease Hypertension Mother Diabetes Hypertension Breast cancer Other No family history of adverse response to anesthesia Social History Smoking Status: Never smoker Second Hand Exposure: No; Do You Dip or Chew Tobacco: No; Hx Alcohol Use: No Hx Substance Use: No Preferred Language: Uzbek Communication Ability: Effective Communication Ability Comment: pt is [place]/pt does phone interview/per pt preference. 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 Feels Safe at Home: Yes Safety Concerns: Feels Safe At This Time Assistive Devices: Cane, Denture - Upper and Hospital Bed Review of Systems Review of Systems: All systems reviewed & are unremarkable except as noted in Subjective Physical Exam Physical Exam: Bitemp wasting frail appearing, near cachectic male, under nourished neck supple, no stridor pharynx pink, dentition intact no resp distress, lungs clear but diminished s1s2 abd soft, NTP, BS+ mild gen weakness, SCHNEIDER , +OA/age related arthritic changes no clubbing or cyanosis AAOx3 Results & Data Vital Signs (Past 12 Hours) Vital Signs Temp Pulse Pulse Resp BP Pulse Ox O2 Del Method 12/31/23 07:25 36.6 C 98 H 20 138/75 97 Room Air 12/31/23 03:23 36.6 C 97 H 18 149/100 H 95 Room Air 12/31/23 00:28 107 H Laboratory Results 12/31/23 12/31/23 12/30/23 Range/Units 07:21 07:08 22:40 WBC 7.34 (4.8-10.8) K/ul RBC 4.31 L (4.70-6.10) M/uL Hgb 12.5 L (14.0-18.0) g/dl Hct 37.3 L (42.0-52.0) % MCV 86.5 (80.0-100.0) fL MCH 29.0 (25.0-34.0) pg MCHC 33.5 (32.0-36.0) g/dL RDW Std Deviation 40.8 (36.4-46.3) fL RDW Coeff of Seamus 13.2 (11.5-14.5) % Plt Count 166 (130-400) K/uL MPV 9.8 (9.4-12.4) fL Immature Gran % (Auto) % Neut % (Auto) % Lymph % (Auto) % [place] % (Auto) % Eos % (Auto) % Baso % (Auto) % Neut # (Auto) (1.40-6.50) K/uL Lymph # (Auto) (1.20-3.40) K/uL [place] # (Auto) (0.11-0.59) K/uL Eos # (Auto) (0.00-0.50) K/uL Baso # (Auto) (0.00-0.20) K/uL Immature Gran # (Auto) (0.01-0.20) K/uL Sodium 132 L (136-145) mmol/L Potassium 4.2 (3.5-5.1) mmol/L Chloride 100 (98-107) mmol/L Carbon Dioxide 27 (21-32) mmol/L Anion Gap 5 (3-11) BUN 10 (6-23) mg/dl Creatinine 0.75 (0.6-1.4) mg/dl Est Cr Clr Drug Dosing 78.6 eGFR 91.23 BUN/Creatinine Ratio 13.3 (10-20) Glucose 82 (70-99(Fasting)) mg/dl POC Glucose 85 (70-99) mg/dl Lactate (0.4-2.0) mmol/L Calcium 7.9 L (8.6-10.3) mg/dl Phosphorus 3.0 (2.5-4.9) mg/dl Magnesium 1.8 (1.7-2.4) mg/dl Total Bilirubin (0.2-1.0) mg/dl AST (13-39) U/L ALT (7-52) U/L Alkaline Phosphatase (34-104) U/L Troponin I High Sens (0-20) pg/ml Total Protein (6.0-8.3) gm/dl Albumin (3.4-5.0) gm/dl Globulin (2.5-4.0) gm/dl Albumin/Globulin Ratio (0.9-2) Procalcitonin (0-0.5) ng/ml TSH (0.300-4.500) uIu/ml Free T4 (0.61-1.60) ng/dl Urine Color Urine Appearance (Clear) Urine pH (4.5-7.5) Ur Specific [place] (1.000-1.030) Urine Protein (Negative) Urine Glucose (UA) (Negative) Urine Ketones (Negative) Urine Blood (Negative) Urine Nitrite (Negative) Urine Bilirubin (Negative) Urine Urobilinogen (Negative) Ur Leukocyte Esterase (Negative) Urine WBC (Auto) (0-5) /hpf Urine RBC (Auto) (0-2) /hpf U Hyaline Cast (Auto) (0-2) /lpf U Epithel Cells (Auto) (0-2) /hpf Urine Bacteria (Auto) (None Seen) Nasal Screen MRSA (PCR) Negative (Negative) Adenovirus (PCR) (NotDetected) B. pertussis DNA (PCR) (NotDetected) B.parapertussis DNA PCR (NotDetected) C. pneumoniae DNA (PCR) (NotDetected) Coronavirus OC43 (PCR) (NotDetected) Coronavirus HKU1 (PCR) (NotDetected) Coronavirus 229E (PCR) (NotDetected) SARS-CoV-2 (PCR) (NotDetected) Coronavirus NL63 (PCR) (NotDetected) Human Metapneumovir PCR (NotDetected) Influenza Type A (PCR) (NotDetected) Influenza Type B (PCR) (NotDetected) M. pneumoniae (PCR) (NotDetected) Parainfluenza 1 (PCR) (NotDetected) Parainfluenza 2 (PCR) (NotDetected) Parainfluenza 3 (PCR) (NotDetected) Parainfluenza 4 (PCR) (NotDetected) RSV (PCR) (NotDetected) Entero/Rhino (PCR) (NotDetected) 12/30/23 12/30/23 12/30/23 Range/Units 22:30 18:29 15:24 WBC (4.8-10.8) K/ul RBC (4.70-6.10) M/uL Hgb (14.0-18.0) g/dl Hct (42.0-52.0) % MCV (80.0-100.0) fL MCH (25.0-34.0) pg MCHC (32.0-36.0) g/dL RDW Std Deviation (36.4-46.3) fL RDW Coeff of Seamus (11.5-14.5) % Plt Count (130-400) K/uL MPV (9.4-12.4) fL Immature Gran % (Auto) % Neut % (Auto) % Lymph % (Auto) % [place] % (Auto) % Eos % (Auto) % Baso % (Auto) % Neut # (Auto) (1.40-6.50) K/uL Lymph # (Auto) (1.20-3.40) K/uL [place] # (Auto) (0.11-0.59) K/uL Eos # (Auto) (0.00-0.50) K/uL Baso # (Auto) (0.00-0.20) K/uL Immature Gran # (Auto) (0.01-0.20) K/uL Sodium (136-145) mmol/L Potassium (3.5-5.1) mmol/L Chloride (98-107) mmol/L Carbon Dioxide (21-32) mmol/L Anion Gap (3-11) BUN (6-23) mg/dl Creatinine (0.6-1.4) mg/dl Est Cr Clr Drug Dosing eGFR BUN/Creatinine Ratio (10-20) Glucose (70-99(Fasting)) mg/dl POC Glucose (70-99) mg/dl Lactate 1.7 2.5 H* (0.4-2.0) mmol/L Calcium (8.6-10.3) mg/dl Phosphorus (2.5-4.9) mg/dl Magnesium (1.7-2.4) mg/dl Total Bilirubin (0.2-1.0) mg/dl AST (13-39) U/L ALT (7-52) U/L Alkaline Phosphatase (34-104) U/L Troponin I High Sens (0-20) pg/ml Total Protein (6.0-8.3) gm/dl Albumin (3.4-5.0) gm/dl Globulin (2.5-4.0) gm/dl Albumin/Globulin Ratio (0.9-2) Procalcitonin (0-0.5) ng/ml TSH (0.300-4.500) uIu/ml Free T4 (0.61-1.60) ng/dl Urine Color Yellow Urine Appearance Clear (Clear) Urine pH 7.0 (4.5-7.5) Ur Specific [place] > 1.045 H (1.000-1.030) Urine Protein Trace H (Negative) Urine Glucose (UA) Negative (Negative) Urine Ketones Trace H (Negative) Urine Blood Trace H (Negative) Urine Nitrite Negative (Negative) Urine Bilirubin Negative (Negative) Urine Urobilinogen Positive H (Negative) Ur Leukocyte Esterase Trace H (Negative) Urine WBC (Auto) 0-5 (0-5) /hpf Urine RBC (Auto) 3-5 H (0-2) /hpf U Hyaline Cast (Auto) 0-2 (0-2) /lpf U Epithel Cells (Auto) 0-2 (0-2) /hpf Urine Bacteria (Auto) None Seen (None Seen) Nasal Screen MRSA (PCR) (Negative) Adenovirus (PCR) Not Detected (NotDetected) B. pertussis DNA (PCR) Not Detected (NotDetected) B.parapertussis DNA PCR Not Detected (NotDetected) C. pneumoniae DNA (PCR) Not Detected (NotDetected) Coronavirus OC43 (PCR) Not Detected (NotDetected) Coronavirus HKU1 (PCR) Not Detected (NotDetected) Coronavirus 229E (PCR) Not Detected (NotDetected) SARS-CoV-2 (PCR) Not Detected (NotDetected) Coronavirus NL63 (PCR) Not Detected (NotDetected) Human Metapneumovir PCR Not Detected (NotDetected) Influenza Type A (PCR) Not Detected (NotDetected) Influenza Type B (PCR) Not Detected (NotDetected) M. pneumoniae (PCR) Not Detected (NotDetected) Parainfluenza 1 (PCR) Not Detected (NotDetected) Parainfluenza 2 (PCR) Not Detected (NotDetected) Parainfluenza 3 (PCR) Not Detected (NotDetected) Parainfluenza 4 (PCR) Not Detected (NotDetected) RSV (PCR) Not Detected (NotDetected) Entero/Rhino (PCR) Not Detected (NotDetected) 12/30/23 Range/Units 14:30 WBC 7.65 (4.8-10.8) K/ul RBC 4.64 L (4.70-6.10) M/uL Hgb 13.4 L (14.0-18.0) g/dl Hct 40.7 L (42.0-52.0) % MCV 87.7 (80.0-100.0) fL MCH 28.9 (25.0-34.0) pg MCHC 32.9 (32.0-36.0) g/dL RDW Std Deviation 41.6 (36.4-46.3) fL RDW Coeff of Seamus 13.1 (11.5-14.5) % Plt Count 179 (130-400) K/uL MPV 9.7 (9.4-12.4) fL Immature Gran % (Auto) 0.5 % Neut % (Auto) 74.8 % Lymph % (Auto) 8.1 % [place] % (Auto) 11.0 % Eos % (Auto) 5.1 % Baso % (Auto) 0.5 % Neut # (Auto) 5.72 (1.40-6.50) K/uL Lymph # (Auto) 0.62 L (1.20-3.40) K/uL [place] # (Auto) 0.84 H (0.11-0.59) K/uL Eos # (Auto) 0.39 (0.00-0.50) K/uL Baso # (Auto) 0.04 (0.00-0.20) K/uL Immature Gran # (Auto) 0.04 (0.01-0.20) K/uL Sodium 134 L (136-145) mmol/L Potassium 4.4 (3.5-5.1) mmol/L Chloride 99 (98-107) mmol/L Carbon Dioxide 27 (21-32) mmol/L Anion Gap 8 (3-11) BUN 12 (6-23) mg/dl Creatinine 0.77 (0.6-1.4) mg/dl Est Cr Clr Drug Dosing Not Reportable eGFR 90.50 BUN/Creatinine Ratio 15.6 (10-20) Glucose 93 (70-99(Fasting)) mg/dl POC Glucose (70-99) mg/dl Lactate (0.4-2.0) mmol/L Calcium 8.8 (8.6-10.3) mg/dl Phosphorus (2.5-4.9) mg/dl Magnesium (1.7-2.4) mg/dl Total Bilirubin 0.9 (0.2-1.0) mg/dl AST 19 (13-39) U/L ALT 15 (7-52) U/L Alkaline Phosphatase 179 H (34-104) U/L Troponin I High Sens 5.8 (0-20) pg/ml Total Protein 5.8 L (6.0-8.3) gm/dl Albumin 3.6 (3.4-5.0) gm/dl Globulin 2.2 L (2.5-4.0) gm/dl Albumin/Globulin Ratio 1.6 (0.9-2) Procalcitonin 0.03 (0-0.5) ng/ml TSH 6.836 H (0.300-4.500) uIu/ml Free T4 0.85 (0.61-1.60) ng/dl Urine Color Urine Appearance (Clear) Urine pH (4.5-7.5) Ur Specific [place] (1.000-1.030) Urine Protein (Negative) Urine Glucose (UA) (Negative) Urine Ketones (Negative) Urine Blood (Negative) Urine Nitrite (Negative) Urine Bilirubin (Negative) Urine Urobilinogen (Negative) Ur Leukocyte Esterase (Negative) Urine WBC (Auto) (0-5) /hpf Urine RBC (Auto) (0-2) /hpf U Hyaline Cast (Auto) (0-2) /lpf U Epithel Cells (Auto) (0-2) /hpf Urine Bacteria (Auto) (None Seen) Nasal Screen MRSA (PCR) (Negative) Adenovirus (PCR) (NotDetected) B. pertussis DNA (PCR) (NotDetected) B.parapertussis DNA PCR (NotDetected) C. pneumoniae DNA (PCR) (NotDetected) Coronavirus OC43 (PCR) (NotDetected) Coronavirus HKU1 (PCR) (NotDetected) Coronavirus 229E (PCR) (NotDetected) SARS-CoV-2 (PCR) (NotDetected) Coronavirus NL63 (PCR) (NotDetected) Human Metapneumovir PCR (NotDetected) Influenza Type A (PCR) (NotDetected) Influenza Type B (PCR) (NotDetected) M. pneumoniae (PCR) (NotDetected) Parainfluenza 1 (PCR) (NotDetected) Parainfluenza 2 (PCR) (NotDetected) Parainfluenza 3 (PCR) (NotDetected) Parainfluenza 4 (PCR) (NotDetected) RSV (PCR) (NotDetected) Entero/Rhino (PCR) (NotDetected) Diagnostic Findings Chest X-Ray 12/30/23 14:48 XR chest 1V portable CLINICAL HISTORY: weakness COMPARISON STUDY: Chest CT August 20, 2023. Chest radiograph December 11, 2023. FINDINGS: Left subclavian pacer is in place. Cardiomegaly is again noted. Interstitial thickening has developed. There is no pneumothorax. Small to moderate right and small left pleural effusions with associated bibasilar opacities are present. IMPRESSION: Cardiomegaly with interstitial pulmonary edema and small to moderate right and small left pleural effusions with associated bibasilar opacities. ACT 112: Negative or not required by law. Electronically signed by: Andrew Hankins M.D. 12/30/2023 3:[address] 12/30/23 14:50 CT OF THE HEAD WITHOUT CONTRAST CLINICAL HISTORY: Confusion. COMPARISON STUDY: Head CT December 11, 2023. CT DOSE: 953.61 mGy.cm TECHNIQUE: Helical axial images of the head were obtained without IV contrast. Automated exposure control was utilized for the study. A dose lowering technique was utilized adhering to the principles of ALARA. FINDINGS: No acute intracranial hemorrhage, midline shift or mass effect is present. The ventricular system is unremarkable. The basal cisterns are patent. No extra-axial collections are present. There are no findings to suggest acute dural sinus thrombosis or acute territorial infarct. There are no calvarial fracture. A small left mastoid effusion is unchanged. Right frontoethmoidal polypoid mucosal thickening is unchanged. IMPRESSION: No acute intracranial findings. ACT 112: Negative or not required by law. Electronically signed by: Andrew Hankins M.D. 12/30/2023 3:26 PM Abdomen/Pelvis CT 12/30/23 15:11 CT OF THE ABDOMEN AND PELVIS WITH CONTRAST CLINICAL HISTORY: Recent cholecystectomy. Pain around surgical site. COMPARISON STUDY: Right upper quadrant ultrasound and CT of the abdomen and pelvis December 23, 2023. TECHNIQUE: Following IV administration of 91 mL of Optiray, axial images of the abdomen and pelvis were obtained from the lung bases to the proximal femurs. Images were reviewed in the axial, sagittal, and coronal planes. IV contrast was administered without complication. Automated exposure control was utilized for the study. A dose lowering technique was utilized adhering to the principles of ALARA. CT DOSE: 1158.69 mGy.cm FINDINGS: A small pericardial effusion is unchanged. There are moderate right and small left pleural effusions. Associated subpleural opacities within the lower lobes favor atelectasis. Interlobular septal thickening is present. There is extensive body wall edema. A small amount of pneumoperitoneum is present. There is a moderate amount of gas within the right abdominal wall which is l ikely postsurgical. There is also subcutaneous soft tissue thickening of the right anterior abdominal wall which is likely postsurgical. Note is made of a 5.7 x 4.1 cm ill-defined pocket of gas and fluid within the cholecystectomy bed. There is adjacent stranding. There is no biliary ductal dilatation status post cholecystectomy. Heterogeneity of the liver is noted. There are no hepatic lesions. Spleen, adrenal glands are unremarkable. Small cystic lesions within the pancreas may reflect side IPMNs. The mid to upper pole the left kidney is hypoenhancing. This represents a renal infarct. This appears to involve the previously described enhancing left renal mass with diminished enhancement of this lesion since prior contrast enhanced study. This lesion measures approximately 4.1 x 3.5 cm. Previously described enhancing 2.5 x 1.6 and a right renal lesion is unchanged. An enhancing 1.2 cm left renal lesion is unchanged. There are small left renal calculi. There are no ureteral calculi. No hydronephrosis. No evidence for a bowel obstruction. There is a moderate amount of poorly formed stool within the colon and rectum. IMPRESSION: 1. Status post cholecystectomy. 5.7 x 4.1 cm ill-defined pocket of gas and fluid within the cholecystectomy bed with adjacent stranding. This is nonspecific in the early postoperative setting but is likely postsurgical. A developing collection cannot be excluded. No biliary ductal dilatation. 2. Gas and stranding within the right abdominal wall and a small amount of pneumoperitoneum which is likely postsurgical. 3. Pulmonary edema with moderate right and small left pleural effusions. Extensive body wall edema consistent with anasarca. 4. Hypoenhancement of the mid to upper pole of the left kidney consistent with renal ischemia/renal infarct. This infarct involves the previously described 4.1 cm left renal mass which demonstrates decreased enhancement. Additional enhancing bilateral renal lesions. These suggest renal cell carcinomas. 5. No bowel obstruction. ACT 112: Negative or not required by law. Electronically signed by: Andrew Hankins M.D. 12/30/2023 4:56 PM PG Care Time/CCT Total # of Minutes Spent Total Time Spent with Patient: Total time spent is greater than 50% in coordination of care (as documented) at patient's floor/unit and/or counseling patient: I spent 85 minutes overall addressing this case: 15 min in medical data review/discussion with referring provider(s) and/or preparation for the visit 15min in direct interaction with the patient/exam 25 min in Advance Care Planning/Goals of Care discussions as detailed above in note (must be >16min) 15 min in subsequent review and synthesis of assessment and plan 15 min communicating with other providers regarding the patient's case: Advanced Care Planning 45005 Advanced Care Planning 30 [place] [address] IN/OBS CONSULT LVL 4,60M (25 - SIGNIFICANT, SEPARATELY IDENTIFIABLE ) Patient Type New Medical Decision Making High Complexity Diagnoses Abdominal pain, generalized R10.84 Weakness generalized R53.1 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
[2023-12-31 11:40] VITALS: BP 144/70; PULSE 99; RESP 18; TEMP 97.7; O2SAT 98
--- NOTE | 2023-12-31 12:26 | Hospitalist Progress Note ---
Date of Service December 31, 2023 Assessment & Plan (1) Physical deconditioning: (2) Anxiety associated with cancer diagnosis: (3) Subclinical hypothyroidism: (4) Atrial fibrillation with tachycardic ventricular rate: (5) Depression due to physical illness: (6) Metastatic clear cell carcinoma of kidney: (7) S/P laparoscopic cholecystectomy: Plan Patient whose had extensive hospitalizations for the past multiple weeks seems to be failing at home. No objective evidence of an ongoing infection, discontinue all antibiotics at this time Therapies Increase metoprolol for better blood pressure and rate control Start low-dose Synthroid for what appears to be possibly subclinical hypothyroidism with an elevated TSH but normal free T4 Palliative care consultation ongoing Okay to [facility] Reviewed home medications, orders updated Attempted to contact patient's via phone, no answer Admission and Anticipated Discharge Date Admission Date: December 30, 2023 Subjective Patient tolerated his diet. He is very frustrated that he is here in the hospital. Cannot tell me why he is here. Physical Exam Physical Exam: Constitutional: Alert, nontoxic in appearance HEENT: Mucous membranes moist. Lungs: Clear to auscultation, decreased, no wheezes rales or rhonchi CV: S1-S2, irregular, mildly tachycardic, systolic murmur Abdomen: Soft, nontender, nondistended, abdominal incisions healing well, some kelly-incisional ecchymosis, no evidence of infection Extremities: No significant edema Neuro: No focal deficits, generalized weakness Psych: Cooperative, slightly irritable Results & Data Results & Data Vital Signs (Past 12 Hours) Vital Signs Temp Pulse Pulse Resp BP Pulse Ox O2 Del Method 12/31/23 11:00 36.5 C 99 H 18 144/70 H 98 Room Air 12/31/23 07:25 36.6 C 98 H 20 138/75 97 Room Air 12/31/23 03:23 36.6 C 97 H 18 149/100 H 95 Room Air 12/31/23 00:28 107 H Diagnostic Findings Reviewed imaging, laboratory and diagnostic studies. Pertinent findings as below. WBCs 7.3 Hemoglobin 12.5 Sodium 132 Rest of electrolytes stable Glucose 101 TSH 6.83 Procalcitonin 0.03 Urinalysis no bacteria seen Respiratory viral panel negative Imaging reports reviewed
--- NOTE | 2023-12-31 12:59 | Cardiology Consultation ---
Date of Consultation December 31, 2023 Assessment & Plan (1) Weakness: (2) Persistent atrial fibrillation: (3) Sinus node dysfunction: (4) ASCVD (arteriosclerotic cardiovascular disease): (5) Dyslipidemia, goal LDL below 70: Plan Rate control, uptitration of metoprolol succinate along with proper anticoagulation unless contraindicated. Recent device interrogation with dwindling battery longevity (5 months); close follow-up recommended with outpatient cardiology team at [facility]. Continue medical management of CAD. Supervising Physician Co-Signing Physician Notes Patient seen and personally examined. Care and management as outlined above. Discussed with advanced provider and personally endorsed 78-year-old male with very complex history with recent hospitalization undergoing cholecystectomy Evidence of metastatic clear-cell carcinoma, renal source. Now admits with symptoms of fatigue and anorexia though patient not openly admits complaints Frustrated and wishes to go home No acute cardiac issues other than atrial fibrillation rates mildly elevated. Pacemaker functioning appropriately, battery life 5 months. No indications for replacement until JELLY achieved Exam only notable for serosanguineous drainage from surgical incision. Atrial fibrillation with variable heart rate response Plan as already outlined increase beta-hali therapy heart rate control Would consider reducing medications not immediately necessary. Will hold atorvastatin given limited likelihood of change in long-term outcome Contact with additional questions History of Present Illness Reason for Consultation: Atrial fibrillation. Recent restart of medications; [facility] Cardiology Requesting Physician: Brittany LACEY Attending Physician: Dr. Jp Matos, DO History of Present Illness Mr. Greg Ge is an 78-year-old male who was recently hospitalized at [facility] earlier this month, presenting with abdominal pain, acute cholecystitis status post December 25, 2023 laparoscopic cholecystectomy. Cardiology consultation was obtained at that time for preoperative evaluation and due to atrial fibrillation with a rapid ventricular response. Recommendations included rate control with metoprolol, holding all other antihypertensives to allow for rate control medication(s), and resumption of anticoagulation when determined to be safe. Patient has been off anticoagulation due to multiple recent procedures. Anticoagulation with Xarelto resumed at the time of discharge from [facility] on December. Patient returned to [facility] on December 30, 2023 with poor oral intake and progressive weakness, post fall. Cardiology consultation requested due to atrial fibrillation. Personal review of patient's inpatient shelter monitor reveals atrial fibrillation with heart rate predominantly in the 100-1 teens. Patient notes wanting to go home immediately, attempting to telephone his who is currently on her way from [place], [place] as per the nurse. Patient denies palpitations, shortness of breath, chest pain, dizziness, near syncope, syncope, subjective fevers, chills, melena, hematochezia, or hematuria. 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 coli bacteremia secondary to knee surgery on lifelong Bactrim Rx Hypothyroidism ? Hyperparathyroidism status post surgery Chart history of thyroid neoplasm Seizure disorder Dementia as per records BPH GERD Bladder cancer status post surgery, Cholecystectomy 12/25/2023 Allergies Allergy/AdvReac Type Severity Reaction Status Date / Time azithromycin Allergy Severe Swelling Verified 12/06/23 07:56 [From Zithromax Z-Brady] of Lip/Tongue/Throat ethyl alcohol Allergy Intermediate "rubbing Verified 12/06/23 07:56 alcohol" caused blisters isopropyl alcohol Allergy Intermediate "rubbing Verified 12/06/23 07:56 alcohol" caused blisters latex Allergy Intermediate blisters Verified 12/06/23 07:56 carvedilol Allergy Verified 12/06/23 07:56 clopidogrel Allergy Verified 12/06/23 07:56 verapamil AdvReac Severe asystole Verified 12/06/23 07:56 Home Medications Medication Instructions Recorded Confirmed Type atorvastatin 40 mg tablet 40 mg PO HS 02/16/21 12/30/23 History cholecalciferol (vitamin D3) 125 125 mcg PO QAM 02/16/21 12/30/23 History mcg (5,000 unit) tablet (Vitamin D3) isosorbide mononitrate 60 mg 60 mg PO DAILY 02/16/21 12/30/23 History tablet,extended release 24 hr pantoprazole 40 mg tablet,delayed 40 mg PO QAM 02/16/21 12/30/23 History release gabapentin 300 mg capsule 300 mg PO TID 05/03/23 12/30/23 History ketoconazole 2 % topical cream 1 applic topical UD PRN Skin 05/03/23 12/30/23 History Irritation/openings /none current nitroglycerin 0.4 mg sublingual 0.4 mg sublingual .[id number] PRN 05/03/23 12/30/23 History tablet Chest Pain dicyclomine 10 mg capsule 10 mg PO BID 05/10/23 12/30/23 History sulfamethoxazole 800 1 tab PO Q12H 05/10/23 12/30/23 History mg-trimethoprim 160 mg tablet (Bactrim DS) ramipril 5 mg capsule 5 mg PO DAILY 05/30/23 12/30/23 History tamsulosin 0.4 mg capsule 0.4 mg PO DAILY #90 caps 06/18/23 12/30/23 Rx lamotrigine 100 mg tablet 100 mg PO BID 12/23/23 12/30/23 History lenvatinib 20 mg/day (10 mg x 2) 20 mg PO HS 12/23/23 12/30/23 History capsule (Lenvima) vibegron 75 mg tablet 75 mg PO UD 12/23/23 12/30/23 History amoxicillin 875 mg tablet 875 mg PO BID 5 days #10 tabs 12/26/23 12/30/23 Rx metoprolol succinate 25 mg 25 mg PO BID #60 tabs 12/26/23 12/30/23 Rx tablet,extended release 24 hr oxycodone-acetaminophen 5 mg-325 1 tab PO Q8H PRN pain (scale score 12/26/23 12/30/23 Rx mg tablet (Endocet) 7-10) #7 tabs rivaroxaban 20 mg tablet (Xarelto) 0 mg PO UD 12/30/23 12/30/23 History Patient History Medical History (HFpEF) heart failure with preserved ejection fraction Metastatic clear cell carcinoma of kidney Esophageal dilatation Weight loss over 35 pounds over past month. History of radiation exposure 1986 History of stroke 2001 - no residual effects. History of colon polyps Mass of colon CT scan [facility] 05/03/23. Hemorrhoids internal Kidney lesion lesions on kidneys per CT scan/ [place] 2-3 weeks ago/talk of samantha with kidney - pt has not received follow up phone call. Rectal bleeding Neuropathy On anticoagulant therapy Hypothyroidism Prophylactic antibiotic penitentiary use of antibiotic>hx artificial joint infection Osteoarthritis History of bladder cancer treated surgically [place] (hard of hearing) reads lips Seizure-like activity hx 2015 - neuro work up neg for seizures - no issues since (follows with [facility] Neurology) HLD (hyperlipidemia) HTN (hypertension) History of atrial fibrillation follows with Dr. Carney; on xarelto (currently on hold due to recatal ble eding) hx cardioversion x2 ? History of myocardial infarction x 2 (1986, 2001) History of esophageal dilatation Dysphagia Surgical History History of left-sided carotid endarterectomy History of hernia surgery x2 Pacemaker passing out/reason for pacemaker. last checked : "recent check by Dr. Carney"/[facility] History of tonsillectomy History of appendectomy History of left knee replacement + revision surgery History of cataract surgery rt/left History of parathyroidectomy History of bladder surgery TURBT H/O heart artery stent x 4 History of cardiac cath 05/2020 -- CP -- [facility] - no stents mult cardiac cath between [id number] (4 stents placed total) - [facility] in [place], [place] History of colonoscopy History of esophagogastroduodenoscopy (EGD) Family History Father Prostate cancer Diabetes Heart disease Hypertension Mother Diabetes Hypertension Breast cancer Other No family history of adverse response to anesthesia Social History Smoking Status: Never smoker Second Hand Exposure: No; Do You Dip or Chew Tobacco: No; Hx Alcohol Use: No Hx Substance Use: No Preferred Language: Vietnamese Communication Ability: Effective Communication Ability Comment: pt is [place]/pt does phone interview/per pt preference. 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 NAD. HENT: Normocephalic. Atraumatic. Eyes: PER. Conjunctiva pink, sclera clear. Neck: No JVD. Heart: Irregularly irregularly at 110 bpm. Systolic murmur. No rub. Lungs: Clear to auscultation. Abdomen: +BS. Distended. Mild tenderness at right upper quadrant. Serosanguineous drainage from surgical incision Extremities: No edema. Limited neurological examination is without focal deficits. Pulses: Posterior tibial=1/4. Results & Data Vital Signs (Past 12 Hours) Vital Signs Temp Pulse Resp BP Pulse Ox O2 Del Method 12/31/23 11:00 36.5 C 99 H 18 144/70 H 98 Room Air 12/31/23 07:25 36.6 C 98 H 20 138/75 97 Room Air 12/31/23 03:23 36.6 C 97 H 18 149/100 H 95 Room Air Laboratory Results Cardiac Enzymes 12/30/23 Range/Units 14:30 AST 19 (13-39) U/L Troponin I High Sens 5.8 (0-20) pg/ml CBC 12/30/23 12/31/23 Range/Units 14:30 07:21 WBC 7.65 7.34 (4.8-10.8) K/ul RBC 4.64 L 4.31 L (4.70-6.10) M/uL Hgb 13.4 L 12.5 L (14.0-18.0) g/dl Hct 40.7 L 37.3 L (42.0-52.0) % Plt Count 179 166 (130-400) K/uL Neut # (Auto) 5.72 (1.40-6.50) K/uL Lymph # (Auto) 0.62 L (1.20-3.40) K/uL [place] # (Auto) 0.84 H (0.11-0.59) K/uL Eos # (Auto) 0.39 (0.00-0.50) K/uL Baso # (Auto) 0.04 (0.00-0.20) K/uL Comprehensive Metabolic Panel 12/30/23 12/31/23 Range/Units 14:30 07:21 Sodium 134 L 132 L (136-145) mmol/L Potassium 4.4 4.2 (3.5-5.1) mmol/L Chloride 99 100 (98-107) mmol/L Carbon Dioxide 27 27 (21-32) mmol/L BUN 12 10 (6-23) mg/dl Creatinine 0.77 0.75 (0.6-1.4) mg/dl Glucose 93 82 (70-99(Fasting)) mg/dl Calcium 8.8 7.9 L (8.6-10.3) mg/dl AST 19 (13-39) U/L ALT 15 (7-52) U/L Alkaline Phosphatase 179 H (34-104) U/L Total Protein 5.8 L (6.0-8.3) gm/dl Albumin 3.6 (3.4-5.0) gm/dl Intake and Output 12/30/23 12/31/23 12/31/23 22:59 06:59 14:59 Intake Total 535 / 535 1137.5 / 1137.5 Output Total 1 / 101 100 / 101 Balance -1 / 434 435 / 434 1137.5 / 1137.5 Intake: IV 535 / 535 1137.5 / 1137.5 Sodium Chloride 0.9% 1,000 ml @ 867.5 / 867.5 50 mls/hr IV .Q20H [facility] Rx#: [id number] Vancomycin HCl 1,750 mg In 535 / 535 Sodium Chloride 0.9% 500 ml @ 200 mls/hr IV ONE ONE Rx#: [id number] Vancomycin HCl 1,000 mg In 270 270 / 270 ml @ 200 mls/hr IV Q12H [facility] Rx# :[id number] Output: Urine 100 / 100 # Bowel Movements Other: Weight 75 kg 76 kg Weight Measurement Method Built in [facility] Diagnostic Findings Device interrogation on December 23, 2023 revealed atrial fibrillation with a rapid ventricular response, 5 months remaining longevity. Resting echocardiography on December 24, 2023 was technically difficult, revealing preserved LV systolic function, EF 60 to 65%. Left atrium was described as moderately dilated. There was moderate mitral annular calcification, mild mitral regurgitation, trace tricuspid regurgitation. Doppler findings were not suggestive of pulmonary hypertension.
[2023-12-31] MEDS: ISOSORBIDE MONO EXTENDED REL 60 MG TABCR PO SCH (14:14)
--- NOTE | 2023-12-31 15:23 | Discharge Summary ---
Discharge Summary Date of Service December 31, 2023 Principal Dx & Hospital Course #1 = Principal Diagnosis (1) Physical deconditioning: (2) Anxiety associated with cancer diagnosis: (3) Subclinical hypothyroidism: (4) Atrial fibrillation with tachycardic ventricular rate: (5) Depression due to physical illness: (6) Metastatic clear cell carcinoma of kidney: (7) S/P laparoscopic cholecystectomy: Plan Patient brought to the emergency room with complaints of poor appetite and abdominal discomfort. Workup in the emergency room was unremarkable for acute findings. Postsurgical findings expected on imaging. Patient was admitted to the hospital for continued observation. By the following morning patient was tolerating his diet. Denied any abdominal pain and was quite insistent on going home. TSH was slightly elevated and his symptoms consistent with his subclinical hypothyroidism. Synthroid was started. His metoprolol dose was increased for better heart rate and blood pressure control. Patient's diet was advanced. The patient was seen by palliative care while here in the hospital due to the fact that he has been declining in health over the past several months and has metastatic renal cell carcinoma. After extensive conversation with palliative care the patient decided that he still wanted to remain a full code and did not want to pursue any type of short-term rehab and his desire was to go home. came to the bedside had a long discussion with the patient and the feeling as though he would benefit from some rehab but he was quite insistent on going home. Patient was gotten up out of bed ambulated. Case management was involved and helped coordinate home health care and both the and the patient were comfortable with being discharged. Patient's urinalysis did not show any bacteria at this time. He did not have any other objective data consistent with infection. I believe that the patient would benefit from just resuming his lifelong Bactrim for chronic suppression but did not need any additional antibiotics at this time. He be discharged home with home health services and outpatient follow-up. 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 Patient presents today with progressive weakness that has been worsening over the last 2 days. Patient was discharged on December 25 status post cholecystectomy and was doing well. at bedside states that over the last 24 to 48 hours he has not been eating and has not been drinking. She states that when he gets up he appears as though he will fall to the ground. She has had to have her nephew come at 1130 last night to pick him up off the floor. In the ED today head CT negative for ICH, subdural hematoma or midline shift. AP CT revealed pulmonary edema and ruled out small bowel obstruction developing collection could not be ruled out on imaging however it appears that this is all postop changes. In the ED no leukocytosis however lactate is 2.5; other labs unremarkable outside of alk phos with chronic elevation 179, TSH 6.8. Patient was recently discharged on 12/25 status post laparoscopic cholecystectomy; patient was being worked up for surgical clearance when he was found to be having episodes of rapid A-fib nearing the 200s right with his pacer interrogation. His Xarelto had been on hold from 04/2023 for numerous procedures including a colonoscopy, ablation and biopsy related to his newly diagnosed metastatic clear-cell carcinoma of the kidney. Most recent echo was performed this past admission on 12/23 with LVEF of 60 to 65%, moderate dilated left atrium, moderate mitral calcification, mild MR and trace TR. He was being [facility] by [facility] cardiology and was advised at discharge to hold inverter until his follow-up with Dr. Carney which has not been scheduled yet per . His Xarelto was restarted at the time of discharge on 12/26/2023. As I entered the room the patient was markedly different than when I saw him last week. He was very tearful and Stating over and over that he wanted to go home. I explained that it is suspecting that he may require longer IV antibiotics to get his infection under control and he started to become agitated. We had a lengthy conversation with regards to his goals and he stated that he wants to go home and does not want to do this anymore. I suspect that with 24 hours of continued treatment we may be able to have a continued conversation with regards to his overarching goals of care with palliative medicine. His was at the bedside and stated that she is unable to care for him at home with this current state. Hopeful that an admission with 24 hours of IV antibiotics will improve his lactic acidosis along with clearing his mental status and allow us to repeat a urine and obtain culture results to adjust antibiotics as necessary. Will obtain PT OT consults for possible short-term rehab placement. Admission Exam Per Admitting Provider See H&P Discharge Exam Constitutional: Alert HEENT: Mucous membranes moist. Lungs: Clear to auscultation, decreased, no wheezes rales or rhonchi CV: S1-S2, regular Abdomen: Soft, mild incisional tenderness, incisions intact, no evidence of erythema or infection Extremities: No significant edema Neuro: No focal deficits, generalized weakness Psych: Cooperative, normal mood Updated Medication List Medication Instructions Recorded Confirmed Type atorvastatin 40 mg tablet 40 mg PO HS 02/16/21 12/30/23 History cholecalciferol (vitamin D3) 125 125 mcg PO QAM 02/16/21 12/30/23 History mcg (5,000 unit) tablet (Vitamin D3) isosorbide mononitrate 60 mg 60 mg PO DAILY 02/16/21 12/30/23 History tablet,extended release 24 hr pantoprazole 40 mg tablet,delayed 40 mg PO QAM 02/16/21 12/30/23 History release gabapentin 300 mg capsule 300 mg PO TID 05/03/23 12/30/23 History ketoconazole 2 % topical cream 1 applic topical UD PRN Skin 05/03/23 12/30/23 History Irritation/openings /none current nitroglycerin 0.4 mg sublingual 0.4 mg sublingual .[id number] PRN 05/03/23 12/30/23 History tablet Chest Pain dicyclomine 10 mg capsule 10 mg PO BID 05/10/23 12/30/23 History sulfamethoxazole 800 1 tab PO Q12H 05/10/23 12/30/23 History mg-trimethoprim 160 mg tablet (Bactrim DS) ramipril 5 mg capsule 5 mg PO DAILY 05/30/23 12/30/23 History tamsulosin 0.4 mg capsule 0.4 mg PO DAILY #90 caps 06/18/23 12/30/23 Rx lamotrigine 100 mg tablet 100 mg PO BID 12/23/23 12/30/23 History lenvatinib 20 mg/day (10 mg x 2) 20 mg PO HS 12/23/23 12/30/23 History capsule (Lenvima) vibegron 75 mg tablet 75 mg PO UD 12/23/23 12/30/23 History amoxicillin 875 mg tablet 875 mg PO BID 5 days #10 tabs 12/26/23 12/30/23 Rx metoprolol succinate 25 mg 25 mg PO BID #60 tabs 12/26/23 12/30/23 Rx tablet,extended release 24 hr oxycodone-acetaminophen 5 mg-325 1 tab PO Q8H PRN pain (scale score 12/26/23 12/30/23 Rx mg tablet (Endocet) 7-10) #7 tabs rivaroxaban 20 mg tablet (Xarelto) 0 mg PO UD 12/30/23 12/30/23 History levothyroxine 25 mcg tablet 25 mcg PO DAILYBB 30 days #30 tabs 12/31/23 Rx (Synthroid) Hospital Stay Data Consultations 12/30/23 17:22 ED Decision to Admit Stat 12/30/23 18:29 Consult Palliative Care Routine 12/30/23 18:34 Consult Cardiology Routine Diagnostic Imagining Performed 12/30/23 14:50 CT head/brain wo con Stat 12/30/23 15:11 CT abd pelvis IV con only Stat Reviewed imaging, laboratory and diagnostic studies. Pertinent findings as below. WBC 7.3 Hemoglobin 12.5 Creatinine 0.75 Urinalysis no bacteria seen negative nitrates only trace leukocyte esterase, 0-5 WBCs per high-power field Urine culture no significant growth to date Pending Results Patient Have Any Pending Studies at Discharge: Yes Discharge Instructions Given to Patient (Per Discharging Provider) To physical therapy with home health Encourage you to eat and drink regularly, you may need to take small frequent meals Continue to support as she cares for you Home Health Attestation I certify that this patient is under my care and that I, or a physicians expanded duty dental assistant working with me, had a face to-face encounter that meets the home health [id number] encounter requirements with this patient. The encounter with the patient was in whole, or in part, for the following medical condition, which is the primary reason for home health care (list medical condition): I certify that, based on my findings, the following services are medically necessary home health services: My clinical findings support the need for the above services because: Further, I certify that my clinical findings support that this patient is homebound (i.e. absences from home require considerable and taxing effort and are for medical reasons or druze services or infrequently or of short duration when for other reasons) because: Certification for Home Health Services: Based on the above findings, I certify that this patient is confined to the home and needs intermittent [facility]p care, physical therapy and/or speech therapy or continues to need occupational therapy. The patient is under my care, and I have initiated the establishment of the plan of care. This patient will be followed by a physician who will periodically review the plan of care. Total Time Total Time Spent Total Time Spent (In Minutes): 45
[2023-12-31] MEDS ORDERED: METOPROLOL SUCC 50MG EXT REL TAB PO SCH (21:00)
[2024-01-01] MEDS ORDERED: LEVOTHYROXINE SODIUM 25 MCG TABLET PO SCH (06:30)
--- NOTE | 2024-01-02 05:34 | Electrocardiogram Report ---
Test Reason : Blood Pressure : */* mmHG Vent. Rate : 106 BPM Atrial Rate : * BPM P-R Int : * ms QRS Dur : 88 ms QT Int : 348 ms P-R-T Axes : * 26 225 degrees QTcB Int : 462 ms Atrial fibrillation with rapid ventricular response Nonspecific ST and T wave abnormality Abnormal ECG When compared with ECG of 25-Dec-2023 06:14, No significant change Confirmed by Cr Britt ([id number]) on 01/02/2024 5:34:44 AM Referred By: Confirmed By: Cr Britt
== END 2023-12-31 16:10 | disposition home health service (06) | DRG 948 ==
LOC: ED 13:53 → 2S 17:32 → SUATTDRO 17:32 → 2S 20:16

== ENCOUNTER 2024-01-06 18:41 | Inpatient (IN) ==
[2024-01-06] MEDS: METOPROLOL TARTRATE 1 MG/ML VIAL IV STA ×2 (19:09→20:43)
--- NOTE | 2024-01-06 19:12 | Emergency Department Note ---
Impression & Plan Atrial fibrillation with rapid ventricular response, Weakness, Abdominal pain, CHF (congestive heart failure) ED Provider Note Provider: Derrick Guzman MD DATE OF SERVICE: 12/29/2023 CHIEF COMPLAINT: Upper abdominal discomfort, weakness, dyspnea on exertion HISTORY OF PRESENT ILLNESS: Patient is a 78-year-old gentleman past medical history of A-fib, thyroid dysfunction, CAD, UTI, and recent cholecystectomy by general surgery here for acute cholecystitis December 24 presenting with from home. Patient reports today worsening in the last several days some pain in the upper abdomen and maybe little bit of lower chest. Patient not been eating and drinking well according to who provides a good amount of the history. Dyspnea on exertion and unable to walk more than a few steps. PT was not able to work with much at home. Was admitted last week for weakness and decreased intake but left and went home. Feels he is not doing well at home and was agreeable to come back today. No fevers reported. Abdominal bandaging in place has some clearish drainage. No vomiting or bloody diarrhea reported. No cough or significant leg swelling reported. Not been again eating well or drinking well and not taking his medications last day or 2. Did fall when he got home 6 days ago from his last hospitalization but none since. PAST MEDICAL HISTORY: As noted above MEDICATIONS: Reviewed home medication SOCIAL HISTORY: PHYSICAL EXAM: GENERAL: alert and oriented in no acute distress on stretcher Head: normocephalic and atraumatic EYES: No injection, discharge or icterus. EOMI. NECK: Trachea midline. ENT: Mucous membranes pink and moist. LUNGS: Airway patent. No retractions. Breath sounds diminished in the bases HEART: Regular irregular tachycardic rate and rhythm. No chest wall tenderness ABDOMEN: Soft and non-tender, without guarding or rebound abdominal dressing in place. When taken down there are some clear drainage on the dressing with 2 port rooms in the right midabdomen trace clear drainage without purulence or erythema. Periumbilical and subxiphoid port sites appear healed. SKIN: Acyanotic, warm, dry, without rashes EXTREMITIES: Without swelling, tenderness or deformity NEUROLOGICAL: No focal deficits. No aphasia. No facial droop or slurred speech. EK beats per minute. Atrial fibrillation with rapid ventricular spots. No acute ST segment elevation with T wave versions and some lateral ST depression. QTc 443. CONTINUOUS CARDIAC MONITORING: was ordered and showed a heart rate of 90s-130s bpm in A-fib GCS 15. Patient's laboratory studies and imaging reviewed. Differential includes Infection, dehydration, metabolic abnormality, hypo/hyperglycemia, electrolyte disturbance, anemia, hypoxia, cardiac sources, neurologic event, traumatic injury as well as other pathologies. IMPRESSION/MEDICAL DECISION MAKING: Patient weak. Appear to be in rapid A-fib and not taking some medications. Not hypotensive or febrile or hypoxic. Not taking his anticoagulant. Will give some IV metoprolol for some better rate control. Has some clear serous discharge from 2 small port sites in the right mid abdomen. Not significantly tender but does states he has some abdominal discomfort at times. Denies significant cough or cold symptoms and does not seem meningitic. Did follow obtain a head CT and will obtain CT of his chest as well as abdomen pelvis given that he is had some dyspnea on exertion and not taking his Xarelto. At risk for possible PE. Will obtain abdominal CT again to further elucidate the pain he is having here and his postop state. Blood work was sent. Blood work here without leukocytosis or anemia. Normal platelet count. Chronic hyponatremia 129 and he not far off recent. Normal renal function. No significant lipase elevation doubt pancreatitis. Bilirubin0.4, AST 26, ALT 15, and alkaline phos 196. Not severely elevated. Troponin returns normal. TSH elevated not taking his oral medications. Given small amount of fentanyl for pain. CT of the head without acute findings noted by radiology report. CT of the chest with large effusions likely CHF. Will give a small dose of Lasix for some diuresis. CT of the abdomen pelvis per radiology report questions gallbladder fossa collection possible abscess. Discussed with general surgery PA on-call. Not having other significant fevers or leukocytosis. I discussed with the general surgery team will give a dose of Zosyn at this time. Will bring in for further care given his weakness and the hospitalist team was contacted. DIAGNOSIS: Weakness, acute CHF, rapid A-fib, abdominal pain DISPOSITION: Hospitalist will evaluate Patient was agreeable with this plan. Critical Care I have personally spent 32 minutes of critical care time in the direct management of this patient. This includes bedside care, interpretation of diagnostic studies, and testing, discussion with consultants, patient, and family members, and other required patient management activities. These 32 minutes is in excess of all separately billable procedures. Past Med/Surg History Problem List (Updated 01/06/24 @ 21:22 by Maximino Mercedes PA-C) Postoperative abscess CHF (congestive heart failure) (Acute) Abdominal pain (Acute) Weakness (Acute) Atrial fibrillation with rapid ventricular response (Acute) Adult failure to thrive (Acute) Pleural effusion (Acute) Dyslipidemia, goal LDL below 70 ASCVD (arteriosclerotic cardiovascular disease) Sinus node dysfunction Persistent atrial fibrillation Atrial fibrillation with tachycardic ventricular rate Subclinical hypothyroidism Physical deconditioning Palliative care by specialist Anxiety associated with cancer diagnosis Depression due to physical illness Abdominal pain, generalized Advanced care planning/counseling discussion Weakness generalized CAD (coronary artery disease) UTI (urinary tract infection) S/P laparoscopic cholecystectomy Pulmonary nodule Urinary urgency Phimosis Abdominal distention Scrotal swelling Renal mass Urinary retention Abnormal CT of the abdomen Hypotension (Acute) Debilitated (Acute) Acute UTI (Acute) Pericardial effusion (Acute) Anemia (Acute) Weakness (Acute) Dysphagia Medical History Atrial fibrillation with RVR Cholelithiasis Right sided abdominal pain (HFpEF) heart failure with preserved ejection fraction Metastatic clear cell carcinoma of kidney Esophageal dilatation Weight loss over 35 pounds over past month. History of radiation exposure 1986 History of stroke 2001 - no residual effects. History of colon polyps Mass of colon CT scan [facility] 05/03/23. Hemorrhoids internal Kidney lesion lesions on kidneys per CT scan/ [place] 2-3 weeks ago/talk of samantha with kidney - pt has not received follow up phone call. Rectal bleeding Neuropathy On anticoagulant therapy Hypothyroidism Prophylactic antibiotic retirement use of antibiotic>hx artificial joint infection Osteoarthritis History of bladder cancer treated surgically [place] of [place]) reads lips Seizure-like activity hx 2015 - neuro work up neg for seizures - no issues since (follows with [facility]) HLD (hyperlipidemia) HTN (hypertension) History of atrial fibrillation follows with Dr. Carney; on xarelto (currently on hold due to recatal bleeding) hx cardioversion x2 ? History of myocardial infarction x 2 (1986, 2001) History of esophageal dilatation Dysphagia Surgical History History of left-sided carotid endarterectomy History of hernia surgery x2 Pacemaker passing out/reason for pacemaker. last checked : "recent check by Dr. Carney"/[facility] History of tonsillectomy History of appendectomy History of left knee replacement + revision surgery History of cataract surgery rt/left History of parathyroidectomy History of bladder surgery TURBT H/O heart artery stent x 4 History of cardiac cath 05/2020 -- CP -- [facility] - no stents mult cardiac cath between [id number] (4 stents placed total) - [facility] and [facility] in [place], [place] History of colonoscopy History of esophagogastroduodenoscopy (EGD) Family History Father Prostate cancer Diabetes Heart disease Hypertension Mother Diabetes Hypertension Breast cancer Other No family history of adverse response to anesthesia Social History Smoking Status: Never smoker Second Hand Exposure: No; Do You Dip or Chew Tobacco: No; Hx Alcohol Use: No Hx Substance Use: No Preferred Language: [place] Communication Ability: Effective Communication Ability Comment: pt is [place]/pt does phone interview/per pt preference. 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 Feels Safe at Home: Yes Assistive Devices: Walker Allergies Allergies Allergy/AdvReac Type Severity Reaction Status Date / Time azithromycin Allergy Severe Swelling Verified 12/06/23 07:56 [From Zithromax Z-Brady] of Lip/Tongue/Throat ethyl alcohol Allergy Intermediate "rubbing Verified 12/06/23 07:56 alcohol" caused blisters isopropyl alcohol Allergy Intermediate "rubbing Verified 12/06/23 07:56 alcohol" caused blisters latex Allergy Intermediate blisters Verified 12/06/23 07:56 carvedilol Allergy Verified 12/06/23 07:56 clopidogrel Allergy Verified 12/06/23 07:56 verapamil AdvReac Severe asystole Verified 12/06/23 07:56 Home Meds Home Medications Medication Instructions Recorded Confirmed atorvastatin 40 mg tablet 40 mg PO HS 02/16/21 12/30/23 cholecalciferol (vitamin D3) 125 125 mcg PO QAM 02/16/21 12/30/23 mcg (5,000 unit) tablet (Vitamin D3) isosorbide mononitrate 60 mg 60 mg PO DAILY 02/16/21 12/30/23 tablet,extended release 24 hr pantoprazole 40 mg tablet,delayed 40 mg PO QAM 02/16/21 12/30/23 release gabapentin 300 mg capsule 300 mg PO TID 05/03/23 12/30/23 ketoconazole 2 % topical cream 1 applic topical UD PRN Skin 05/03/23 12/30/23 Irritation/openings /none current nitroglycerin 0.4 mg sublingual 0.4 mg sublingual .[id number] PRN 05/03/23 12/30/23 tablet Chest Pain dicyclomine 10 mg capsule 10 mg PO BID 05/10/23 12/30/23 sulfamethoxazole 800 1 tab PO Q12H 05/10/23 12/30/23 mg-trimethoprim 160 mg tablet (Bactrim DS) lamotrigine 100 mg tablet 100 mg PO BID 12/23/23 12/30/23 lenvatinib 20 mg/day (10 mg x 2) 20 mg PO HS 12/23/23 12/30/23 capsule (Lenvima) vibegron 75 mg tablet 75 mg PO UD 12/23/23 12/30/23 rivaroxaban 20 mg tablet (Xarelto) 0 mg PO UD 12/30/23 12/30/23 Previous Rx's Medication Instructions Recorded tamsulosin 0.4 mg capsule 0.4 mg PO DAILY #90 caps 06/18/23 oxycodone-acetaminophen 5 mg-325 1 tab PO Q8H PRN pain (scale score 12/26/23 mg tablet (Endocet) 7-10) #7 tabs levothyroxine 25 mcg tablet 25 mcg PO DAILYBB 30 days #30 tabs 12/31/23 (Synthroid) metoprolol succinate 25 mg 50 mg (2 x 25 mg) PO BID #120 tabs 12/31/23 tablet,extended release 24 hr Results & Data (ED) Vital Signs Vital Signs - 24 hr 01/06/24 18:45 01/06/24 18:58 01/06/24 19:03 Temperature 36.9 C Temperature Source Temporal Artery Scan Pulse Rate 116 H 129 H 140 H Respiratory Rate 18 16 Respiratory Effort / Characteristics Non-Labored Spontaneous Respiratory Depth Normal Blood Pressure 122/80 141/114 H Blood Pressure Mean 94 118 Blood Pressure Position Sitting Pulse Oximetry 96 93 Oxygen Delivery Method Room Air Sepsis Recent Fever Within 48 Hours No Sepsis New/Unexplained Change in Mental Status N/A Sepsis Action Taken by Nursing No Action Required 01/06/24 19:09 01/06/24 19:59 01/06/24 20:30 Temperature Temperature Source Pulse Rate 124 H 106 H 96 H Respiratory Rate 16 Respiratory Effort / Characteristics Respiratory Depth Blood Pressure 141/114 H 150/97 H 144/106 H Blood Pressure Mean 125 Blood Pressure Position Pulse Oximetry 99 Oxygen Delivery Method Sepsis Recent Fever Within 48 Hours Sepsis New/Unexplained Change in Mental Status Sepsis Action Taken by Nursing 01/06/24 20:43 01/06/24 21:23 01/06/24 22:00 Temperature Temperature Source Pulse Rate 120 H 102 H Respiratory Rate 16 Respiratory Effort / Characteristics Respiratory Depth Blood Pressure 144/106 H 145/114 H 131/100 Blood Pressure Mean 114 Blood Pressure Position Pulse Oximetry 97 Oxygen Delivery Method Sepsis Recent Fever Within 48 Hours Sepsis New/Unexplained Change in Mental Status Sepsis Action Taken by Nursing Laboratory Data 01/06/24 19:06 01/06/24 19:06 Lab Results 01/06/24 01/06/24 01/06/24 Range/Units 19:06 19:09 20:46 WBC 9.12 (4.8-10.8) K/ul RBC 5.30 (4.70-6.10) M/uL Hgb 15.6 (14.0-18.0) g/dl POC Hgb 16.7 (14.0-18.0) g/dl Hct 45.4 (42.0-52.0) % POC Hct 49 (42-52) % MCV 85.7 (80.0-100.0) fL MCH 29.4 (25.0-34.0) pg MCHC 34.4 (32.0-36.0) g/dL RDW Std Deviation 42.6 (36.4-46.3) fL RDW Coeff of Seamus 14.1 (11.5-14.5) % Plt Count 176 (130-400) K/uL MPV 9.6 (9.4-12.4) fL Immature Gran % (Auto) 0.4 % Neut % (Auto) 80.6 % Lymph % (Auto) 10.5 % [place] % (Auto) 6.9 % Eos % (Auto) 0.8 % Baso % (Auto) 0.8 % Neut # (Auto) 7.35 H (1.40-6.50) K/uL Lymph # (Auto) 0.96 L (1.20-3.40) K/uL [place] # (Auto) 0.63 H (0.11-0.59) K/uL Eos # (Auto) 0.07 (0.00-0.50) K/uL Baso # (Auto) 0.07 (0.00-0.20) K/uL Immature Gran # (Auto) 0.04 (0.01-0.20) K/uL PT 13.3 H (9.0-12.0) Seconds INR 1.2 H (0.9-1.1) POC Sodium 130 L (135-144) mmol/L Sodium 129 L (136-145) mmol/L POC Potassium 4.9 (3.3-5.0) mmol/L Potassium 5.0 (3.5-5.1) mmol/L POC Chloride 96 L (101-112) mmol/L Chloride 97 L (98-107) mmol/L Carbon Dioxide 24 (21-32) mmol/L POC Total CO2 26 (24-31) mmol/L Anion Gap 8 (3-11) POC Anion Gap 15.0 L (16-25) mmol/L POC BUN 9 (7-18) mg/dl BUN 9 (6-23) mg/dl Creatinine 0.92 (0.6-1.4) mg/dl POC Creatinine 1.0 (0.6-1.3) mg/dl Est Cr Clr Drug Dosing 64.0 ml/min eGFR 84.09 BUN/Creatinine Ratio 9.8 L (10-20) Glucose 93 (70-99(Fasting)) mg/dl POC Glucose (other) 95 (70-99) mg/dl Calcium 9.0 (8.6-10.3) mg/dl POC Ioniz Calcium Dede 1.09 L (1.12-1.32) mmol/l Magnesium 1.7 (1.7-2.4) mg/dl Total Bilirubin 1.4 H (0.2-1.0) mg/dl AST 26 (13-39) U/L ALT 15 (7-52) U/L Alkaline Phosphatase 196 H (34-104) U/L Troponin I High Sens 9.2 (0-20) pg/ml Total Protein 6.2 (6.0-8.3) gm/dl Albumin 3.7 (3.4-5.0) gm/dl Globulin 2.5 (2.5-4.0) gm/dl Albumin/Globulin Ratio 1.5 (0.9-2) Lipase 48 (11-82) U/L TSH 14.174 H (0.300-4.500) uIu/ml Free T4 0.86 (0.61-1.60) ng/dl Urine Color Yellow Urine Appearance Clear (Clear) Urine pH 7.5 (4.5-7.5) Ur Specific [place] 1.035 H (1.000-1.030) Urine Protein Trace H (Negative) Urine Glucose (UA) Negative (Negative) Urine Ketones Negative (Negative) Urine Blood Negative (Negative) Urine Nitrite Negative (Negative) Urine Bilirubin Negative (Negative) Urine Urobilinogen Positive H (Negative) Ur Leukocyte Esterase Negative (Negative) Urine WBC (Auto) 0-5 (0-5) /hpf Urine RBC (Auto) 0-2 (0-2) /hpf U Hyaline Cast (Auto) 0-2 (0-2) /lpf U Epithel Cells (Auto) 0-2 (0-2) /hpf Urine Bacteria (Auto) None Seen (None Seen) Adenovirus (PCR) (NotDetected) B. pertussis DNA (PCR) (NotDetected) B.parapertussis DNA PCR (NotDetected) C. pneumoniae DNA (PCR) (NotDetected) Coronavirus OC43 (PCR) (NotDetected) Coronavirus HKU1 (PCR) (NotDetected) Coronavirus 229E (PCR) (NotDetected) SARS-CoV-2 (PCR) (NotDetected) Coronavirus NL63 (PCR) (NotDetected) Human Metapneumovir PCR (NotDetected) Influenza Type A (PCR) (NotDetected) Influenza Type B (PCR) (NotDetected) M. pneumoniae (PCR) (NotDetected) Parainfluenza 1 (PCR) (NotDetected) Parainfluenza 2 (PCR) (NotDetected) Parainfluenza 3 (PCR) (NotDetected) Parainfluenza 4 (PCR) (NotDetected) RSV (PCR) (NotDetected) Entero/Rhino (PCR) (NotDetected) 01/06/24 Range/Units 21:10 WBC (4.8-10.8) K/ul RBC (4.70-6.10) M/uL Hgb (14.0-18.0) g/dl POC Hgb (14.0-18.0) g/dl Hct (42.0-52.0) % POC Hct (42-52) % MCV (80.0-100.0) fL MCH (25.0-34.0) pg MCHC (32.0-36.0) g/dL RDW Std Deviation (36.4-46.3) fL RDW Coeff of Seamus (11.5-14.5) % Plt Count (130-400) K/uL MPV (9.4-12.4) fL Immature Gran % (Auto) % Neut % (Auto) % Lymph % (Auto) % [place] % (Auto) % Eos % (Auto) % Baso % (Auto) % Neut # (Auto) (1.40-6.50) K/uL Lymph # (Auto) (1.20-3.40) K/uL [place] # (Auto) (0.11-0.59) K/uL Eos # (Auto) (0.00-0.50) K/uL Baso # (Auto) (0.00-0.20) K/uL Immature Gran # (Auto) (0.01-0.20) K/uL PT (9.0-12.0) Seconds INR (0.9-1.1) POC Sodium (135-144) mmol/L Sodium (136-145) mmol/L POC Potassium (3.3-5.0) mmol/L Potassium (3.5-5.1) mmol/L POC Chloride (101-112) mmol/L Chloride (98-107) mmol/L Carbon Dioxide (21-32) mmol/L POC Total CO2 (24-31) mmol/L Anion Gap (3-11) POC Anion Gap (16-25) mmol/L POC BUN (7-18) mg/dl BUN (6-23) mg/dl Creatinine (0.6-1.4) mg/dl POC Creatinine (0.6-1.3) mg/dl Est Cr Clr Drug Dosing ml/min eGFR BUN/Creatinine Ratio (10-20) Glucose (70-99(Fasting)) mg/dl POC Glucose (other) (70-99) mg/dl Calcium (8.6-10.3) mg/dl POC Ioniz Calcium Dede (1.12-1.32) mmol/l Magnesium (1.7-2.4) mg/dl Total Bilirubin (0.2-1.0) mg/dl AST (13-39) U/L ALT (7-52) U/L Alkaline Phosphatase (34-104) U/L Troponin I High Sens (0-20) pg/ml Total Protein (6.0-8.3) gm/dl Albumin (3.4-5.0) gm/dl Globulin (2.5-4.0) gm/dl Albumin/Globulin Ratio (0.9-2) Lipase (11-82) U/L TSH (0.300-4.500) uIu/ml Free T4 (0.61-1.60) ng/dl Urine Color Urine Appearance (Clear) Urine pH (4.5-7.5) Ur Specific [place] (1.000-1.030) Urine Protein (Negative) Urine Glucose (UA) (Negative) Urine Ketones (Negative) Urine Blood (Negative) Urine Nitrite (Negative) Urine Bilirubin (Negative) Urine Urobilinogen (Negative) Ur Leukocyte Esterase (Negative) Urine WBC (Auto) (0-5) /hpf Urine RBC (Auto) (0-2) /hpf U Hyaline Cast (Auto) (0-2) /lpf U Epithel Cells (Auto) (0-2) /hpf Urine Bacteria (Auto) (None Seen) Adenovirus (PCR) Not Detected (NotDetected) B. pertussis DNA (PCR) Not Detected (NotDetected) B.parapertussis DNA PCR Not Detected (NotDetected) C. pneumoniae DNA (PCR) Not Detected (NotDetected) Coronavirus OC43 (PCR) Not Detected (NotDetected) Coronavirus HKU1 (PCR) Not Detected (NotDetected) Coronavirus 229E (PCR) Not Detected (NotDetected) SARS-CoV-2 (PCR) Not Detected (NotDetected) Coronavirus NL63 (PCR) Not Detected (NotDetected) Human Metapneumovir PCR Not Detected (NotDetected) Influenza Type A (PCR) Not Detected (NotDetected) Influenza Type B (PCR) Not Detected (NotDetected) M. pneumoniae (PCR) Not Detected (NotDetected) Parainfluenza 1 (PCR) Not Detected (NotDetected) Parainfluenza 2 (PCR) Not Detected (NotDetected) Parainfluenza 3 (PCR) Not Detected (NotDetected) Parainfluenza 4 (PCR) Not Detected (NotDetected) RSV (PCR) Not Detected (NotDetected) Entero/Rhino (PCR) Not Detected (NotDetected) Administered Medications Discontinued Medications Fentanyl Citrate (Fentanyl Citrate Pf 100 Mcg/2 Ml Vial) 25 mcg IV NOW STA Stop: 01/06/24 20:24 Last Admin: 01/06/24 20:43 Dose: 25 mcg Documented By: FEDERICO Furosemide (Furosemide Inj 20 Mg/2 Ml Vial) 20 mg IV ONE ONE Stop: 01/06/24 20:53 Last Admin: 01/06/24 21:08 Dose: 20 mg Documented By: FEDERICO Piperacillin Sod/Tazobactam Sod (Zosyn) 4.5 gm in 100 mls @ 200 mls/hr IV NOW ONE; Protocol Stop: 01/06/24 21:43 Last Infusion: 01/06/24 22:08 Dose: Infused Documented By: Admin: 01/06/24 21:31 Dose: 200 mls/hr Documented By: FEDERICO Ioversol (Optiray 320 125ml) 117 ml IV ONCE ONE Stop: 01/06/24 19:41 Last Admin: 01/06/24 19:41 Dose: 117 ml Documented By: TESSIE Metoprolol Tartrate (Metoprolol Tartrate 1 Mg/Ml Vial) 5 mg IV NOW STA Stop: 01/06/24 19:08 Last Admin: 01/06/24 19:09 Dose: 5 mg Documented By: FEDERICO Metoprolol Tartrate (Metoprolol Tartrate 1 Mg/Ml Vial) 5 mg IV NOW STA Stop: 01/06/24 20:29 Last Admin: 01/06/24 20:43 Dose: 5 mg Documented By: [facility] Imaging Data Radiologist's Impression: Abdomen/Pelvis CT 01/06/24 19:06 Exam(s): CT ABDOMEN + PELVIS With Contrast IV Amt: 117 ml opti 320 EXAM: CT Abdomen and Pelvis With Intravenous Contrast CLINICAL HISTORY: Reason for exam: upper abd pain, weak, post op shay. TECHNIQUE: Axial computed tomography images of the abdomen and pelvis with intravenous contrast. CTDI is 39 mGy and DLP is 721 mGy-cm. Automated exposure control was utilized for the study. A dose lowering technique was utilized adhering to the principles of ALARA. CONTRAST: Patient received 117 ml opti 320 of IV contrast COMPARISON: December 30, 2023 FINDINGS: Lung bases: Unremarkable. No mass. No consolidation. Pleural space: Bilateral pleural effusions right greater than left stable since prior exam. Heart: Trace pericardial effusion unchanged. ABDOMEN: Liver: Unremarkable. No mass. Gallbladder and bile ducts: Redemonstration of postoperative changes prior cholecystectomy with 4.4 x 4.5 cm air-fluid collection within the gallbladder fossa and a moderate amount of associated inflammatory change likely representing an abscess unchanged from prior exam. No ductal dilation. Pancreas: Unremarkable. No mass. No ductal dilation. Spleen: Unremarkable. No splenomegaly. Adrenals: Unremarkable. No mass. Kidneys and ureters: 3.2 x 3.8 cm hypodense mass within the upper pole left kidney stable. No hydronephrosis. Stomach and bowel: Unremarkable. No obstruction. No mucosal thickening. PELVIS: Appendix: No findings to suggest acute appendicitis. Bladder: Distended urinary bladder. Reproductive: Unremarkable as visualized. ABDOMEN and PELVIS: Intraperitoneal space: Unremarkable. No free air. No significant fluid collection. Bones/joints: No acute fracture. No dislocation. Soft tissues: Diffuse anasarca. Vasculature: Unremarkable. No abdominal aortic aneurysm. Lymph nodes: Unremarkable. No enlarged lymph nodes. IMPRESSION: 4.5 cm abscess within the gallbladder fossa this is relatively unchanged when compared with the prior exam 3.8 cm hypodensity within the upper pole left kidney stable when compared with prior study and may represent an underlying mass. Electronically signed by: Colt Clement MD 01/06/24 20:43 PM Chest CTA 01/06/24 19:06 Exam(s): CTA CHEST IV Amt: 117 ml opti 320 EXAM: CT Angiography Chest With Intravenous Contrast CLINICAL HISTORY: Reason for exam: PE, FRANKEL, afib, post op. TECHNIQUE: Axial computed tomographic angiography images of the chest with intravenous contrast. CTDI is 39 mGy and DLP is 721 mGy-cm. Automated exposure control was utilized for the study. A dose lowering technique was utilized adhering to the principles of ALARA. MIP reconstructed images were created and reviewed. COMPARISON: No relevant prior studies available. FINDINGS: Pulmonary arteries: Unremarkable. No pulmonary embolism. Aorta: Ascending thoracic aortic aneurysm measuring 3.9 cm. Lungs: Interlobular septal thickening with diffuse groundglass opacity. Compressive atelectasis of both lower lobes. Pleural space: Large bilateral pleural effusions right slightly greater than left. No pneumothorax. Heart: Coronary artery calcifications. No cardiomegaly. Trace pericardial effusion . No evidence of RV dysfunction. Bones/joints: No acute fracture. No dislocation. Soft tissues: Unremarkable. Lymph nodes: Unremarkable. No enlarged lymph nodes. Tubes, lines and devices: left chest wall intracardiac device. IMPRESSION: No acute findings in the visualized arteries of the chest. 3.9 cm ascending thoracic aortic aneurysm Large bilateral pleural effusions with interlobular septal thickening consistent with CHF. Trace pericardial effusion Electronically signed by: Colt Clement MD 01/06/24 20:[address] 01/06/24 19:09 Exam(s): CT HEAD Without Contrast EXAM: CT Head Without Intravenous Contrast CLINICAL HISTORY: Reason for exam: fall, weak. TECHNIQUE: Axial computed tomography images of the head/brain without intravenous contrast. CTDI is 39 mGy and DLP is 721 mGy-cm. Automated exposure control was utilized for the study. A dose lowering technique was utilized adhering to the principles of ALARA. COMPARISON: December 30, 2023 FINDINGS: Brain: Unremarkable. No hemorrhage. No significant white matter disease. No edema. Ventricles: Unremarkable. No ventriculomegaly. Bones/joints: Unremarkable. No acute fracture. Soft tissues: Unremarkable. Sinuses: Right frontal maxillary sinus inflammatory polyp. Mastoid air cells: Unremarkable as visualized. No mastoid effusion. IMPRESSION: No acute findings in the head/brain. Electronically signed by: Colt Clement MD 01/06/24 20:48 PM Discharge Plan Visit Data Chief Complaint: Chest Pain Stated Complaint: CHEST PAINS, ABD PAIN, SOB ED Provider: Derrick Guzman Discharge Problem: Atrial fibrillation with rapid ventricular response, Weakness, Abdominal pain, CHF (congestive heart failure) Patient Disposition: Being Evaluated by Hospitalist Forms Stand Alone Forms: My [facility] Prescriptions Prescriptions: No Action tamsulosin 0.4 mg capsule 0.4 mg PO DAILY Qty: 90 3RF atorvastatin 40 mg Tablet 40 mg PO HS isosorbide mononitrate 60 mg Tablet Extended Release 24 Hr 60 mg PO DAILY Hold Instructions: Please hold off on taking this medication until your follow-up appointment with Dr. Carney. Rx Instructions: 60 mg po daily They think he takes it BID. Fill history 10/20 shows daily pantoprazole 40 mg Tablet,Delayed Release (Dr/Ec) 40 mg PO QAM cholecalciferol (vitamin D3) [Vitamin D3] 125 mcg (5,000 unit) Tablet 125 mcg PO QAM nitroglycerin 0.4 mg tablet, sublingual 0.4 mg sublingual .[id number] PRN (Reason: Chest Pain) Patient Comments: last use 4 mon ago gabapentin 300 mg capsule 300 mg PO TID Rx Instructions: UNSURE IF PT IS STILL TAKING THIS MED, LAST REFILL 04/18/23 FOR 30 DAYS. ketoconazole 2 % Cream 1 applic TOPICAL UD PRN (Reason: Skin Irritation/openings /none current ) Rx Instructions: buttocks sulfamethoxazole-trimethoprim [Bactrim DS] 800-160 mg Tablet 1 tab PO Q12H Hold Instructions: Please hold off on taking your Bactrim until you complete the full 5-day course of amoxicillin! Patient Comments: on for life due to ecoli after knee surgery dicyclomine 10 mg Capsule 10 mg PO BID Patient Comments: off now for surgery/not sure if will re start Rx Instructions: not sure/off now for surgery lamotrigine 100 mg tablet 100 mg PO BID Lenvima 20 mg/day (10 mg x 2) capsule 20 mg PO HS vibegron 75 mg tablet 75 mg PO UD Rx Instructions: 75 mg po daily theyre not sure of medication oxycodone-acetaminophen [Endocet] 5-325 mg tablet 1 tab PO Q8H PRN (Reason: pain (scale score 7-10)) Qty: 7 0RF Xarelto 20 mg tablet 0 mg PO UD Rx Instructions: 20 mg po hs. Still on hold metoprolol succinate 25 mg Tablet Extended Release 24 Hr 50 mg PO BID Qty: 120 0RF levothyroxine [Synthroid] 25 mcg Tablet 25 mcg PO DAILYBB 30 Days Qty: 30 0RF Referrals Referrals: Kristian Smallwood D.O. [Primary Care Provider] -
[2024-01-06 19:22] LABS: iSTAT Hemoglobin 16.7 g/dl (14.0-18.0); iSTAT Ionized Calcium 1.09 mmol/l (1.12-1.32); iSTAT Potassium 4.9 mmol/L (3.3-5.0)
[2024-01-06 19:28] LABS: Basophils # (auto) 0.07 K/uL (0.00-0.20); Basophils % (auto) 0.8 %; Eosinophils # (auto) 0.07 K/uL (0.00-0.50); Eosinophils % (auto) 0.8 %; Hematocrit (blood only) 45.4 % (42.0-52.0); Hemoglobin 15.6 g/dl (14.0-18.0); Immature Granulocytes # (auto) 0.04 K/uL (0.01-0.20); Immature Granulocytes % (auto) 0.4 %; Lymphocytes # (auto) 0.96 K/uL (1.20-3.40); Lymphocytes % (auto) 10.5 %; Mean Corpuscular Hemoglobin 29.4 pg (25.0-34.0); Mean Corpuscular Hgb Conc 34.4 g/dL (32.0-36.0); Mean Corpuscular Volume 85.7 fL (80.0-100.0); Mean Platelet Volume 9.6 fL (9.4-12.4); Monocytes # (auto) 0.63 K/uL (0.11-0.59); Monocytes % (auto) 6.9 %; Neutrophils # (auto) 7.35 K/uL (1.40-6.50); Neutrophils % (auto) 80.6 %; Platelet Count 176 K/uL (130-400); RDW Coefficient of Variation 14.1 % (11.5-14.5); RDW Standard Deviation 42.6 fL (36.4-46.3); White Blood Count 9.12 K/ul (4.8-10.8)
[2024-01-06 19:33] LABS: Albumin Globulin Ratio 1.5 (0.9-2); Albumin Level 3.7 gm/dl (3.4-5.0); BUN Creatinine Ratio 9.8 (10-20); Bilirubin,Total 1.4 mg/dl (0.2-1.0); Globulin 2.5 gm/dl (2.5-4.0); Magnesium 1.7 mg/dl (1.7-2.4); Total Protein 6.2 gm/dl (6.0-8.3)
[2024-01-06 19:40] LABS: Troponin I High Sensitivity 9.2 pg/ml (0-20)
[2024-01-06] MEDS: OPTIRAY 320 125ml IV ONE (19:41)
[2024-01-06 19:49] LABS: Thyroid Stimulating Hormone 14.174 uIu/ml (0.300-4.500)
[2024-01-06 19:50] LABS: INR 1.2 (0.9-1.1); Prothrombin Time 13.3 Seconds (9.0-12.0)
[2024-01-06 20:24] LABS: T4 Free Thyroxine 0.86 ng/dl (0.61-1.60)
--- NOTE | 2024-01-06 20:37 | CT Scan Report ---
Exam(s): CTA CHEST IV Amt: 117 ml opti 320 EXAM: CT Angiography Chest With Intravenous Contrast CLINICAL HISTORY: Reason for exam: PE, FRANKEL, afib, post op. TECHNIQUE: Axial computed tomographic angiography images of the chest with intravenous contrast. CTDI is 39 mGy and DLP is 721 mGy-cm. Automated exposure control was utilized for the study. A dose lowering technique was utilized adhering to the principles of ALARA. MIP reconstructed images were created and reviewed. COMPARISON: No relevant prior studies available. FINDINGS: Pulmonary arteries: Unremarkable. No pulmonary embolism. Aorta: Ascending thoracic aortic aneurysm measuring 3.9 cm. Lungs: Interlobular septal thickening with diffuse groundglass opacity. Compressive atelectasis of both lower lobes. Pleural space: Large bilateral pleural effusions right slightly greater than left. No pneumothorax. Heart: Coronary artery calcifications. No cardiomegaly. Trace pericardial effusion . No evidence of RV dysfunction. Bones/joints: No acute fracture. No dislocation. Soft tissues: Unremarkable. Lymph nodes: Unremarkable. No enlarged lymph nodes. Tubes, lines and devices: left chest wall intracardiac device. IMPRESSION: No acute findings in the visualized arteries of the chest. 3.9 cm ascending thoracic aortic aneurysm Large bilateral pleural effusions with interlobular septal thickening consistent with CHF. Trace pericardial effusion Electronically signed by: Colt Clement MD 01/06/24 20:37 PM
[2024-01-06] MEDS: fentaNYL citrate PF 100 MCG/2 ML VIAL IV STA (20:43)
--- NOTE | 2024-01-06 20:44 | CT Scan Report ---
Exam(s): CT ABDOMEN + PELVIS With Contrast IV Amt: 117 ml opti 320 EXAM: CT Abdomen and Pelvis With Intravenous Contrast CLINICAL HISTORY: Reason for exam: upper abd pain, weak, post op shay. TECHNIQUE: Axial computed tomography images of the abdomen and pelvis with intravenous contrast. CTDI is 39 mGy and DLP is 721 mGy-cm. Automated exposure control was utilized for the study. A dose lowering technique was utilized adhering to the principles of ALARA. CONTRAST: Patient received 117 ml opti 320 of IV contrast COMPARISON: December 30, 2023 FINDINGS: Lung bases: Unremarkable. No mass. No consolidation. Pleural space: Bilateral pleural effusions right greater than left stable since prior exam. Heart: Trace pericardial effusion unchanged. ABDOMEN: Liver: Unremarkable. No mass. Gallbladder and bile ducts: Redemonstration of postoperative changes prior cholecystectomy with 4.4 x 4.5 cm air-fluid collection within the gallbladder fossa and a moderate amount of associated inflammatory change likely representing an abscess unchanged from prior exam. No ductal dilation. Pancreas: Unremarkable. No mass. No ductal dilation. Spleen: Unremarkable. No splenomegaly. Adrenals: Unremarkable. No mass. Kidneys and ureters: 3.2 x 3.8 cm hypodense mass within the upper pole left kidney stable. No hydronephrosis. Stomach and bowel: Unremarkable. No obstruction. No mucosal thickening. PELVIS: Appendix: No findings to suggest acute appendicitis. Bladder: Distended urinary bladder. Reproductive: Unremarkable as visualized. ABDOMEN and PELVIS: Intraperitoneal space: Unremarkable. No free air. No significant fluid collection. Bones/joints: No acute fracture. No dislocation. Soft tissues: Diffuse anasarca. Vasculature: Unremarkable. No abdominal aortic aneurysm. Lymph nodes: Unremarkable. No enlarged lymph nodes. IMPRESSION: 4.5 cm abscess within the gallbladder fossa this is relatively unchanged when compared with the prior exam 3.8 cm hypodensity within the upper pole left kidney stable when compared with prior study and may represent an underlying mass. Electronically signed by: Colt Clement MD 01/06/24 20:43 PM
--- NOTE | 2024-01-06 20:49 | CT Scan Report ---
Exam(s): CT HEAD Without Contrast EXAM: CT Head Without Intravenous Contrast CLINICAL HISTORY: Reason for exam: fall, weak. TECHNIQUE: Axial computed tomography images of the head/brain without intravenous contrast. CTDI is 39 mGy and DLP is 721 mGy-cm. Automated exposure control was utilized for the study. A dose lowering technique was utilized adhering to the principles of ALARA. COMPARISON: December 30, 2023 FINDINGS: Brain: Unremarkable. No hemorrhage. No significant white matter disease. No edema. Ventricles: Unremarkable. No ventriculomegaly. Bones/joints: Unremarkable. No acute fracture. Soft tissues: Unremarkable. Sinuses: Right frontal maxillary sinus inflammatory polyp. Mastoid air cells: Unremarkable as visualized. No mastoid effusion. IMPRESSION: No acute findings in the head/brain. Electronically signed by: Colt Clement MD 01/06/24 20:48 PM
[2024-01-06 20:57] LABS: Appearance Urine Clear (Clear); Bacteria Urine Automated None Seen (None Seen); Bilirubin Urine Negative (Negative); Blood Urine Negative (Negative); Cast Urine Automated 0-2 /lpf (0-2); Color Urine Yellow; Epithelial Cell Urine Auto 0-2 /hpf (0-2); Glucose Urine UA Negative (Negative); Ketones Urine Negative (Negative); Leukocyte Esterase Urine Negative (Negative); Nitrite Urine Negative (Negative); Protein Urine Trace (Negative); RBC Urine Automated 0-2 /hpf (0-2); Specific Gravity Urine 1.035 (1.000-1.030); Urobilinogen Urine Positive (Negative); WBC Urine Automated 0-5 /hpf (0-5); pH Urine 7.5 (4.5-7.5)
[2024-01-06] MEDS: FUROSEMIDE INJ 20 MG/2 ML VIAL IV ONE (21:08)
--- NOTE | 2024-01-06 21:27 | Surgery Consultation ---
<Statement entered by Gail Medina DO - 01/07/24 12:25> This case was discussed with the surgical PA overnight. I agreed with this plan. His primary surgeon till continue follow up from here. Date of Consultation January 06, 2024 Assessment & Plan (1) Postoperative abscess: I discussed with the treating emergency room physician. He is having the patient bit on the hospitalist service: It does appear as though the patient has had any exacerbation of congestive heart failure likely related to atrial fibrillation with rapid ventricular response After discussion with the treating emergency room physician there is question whether or not the patient has been compliant with his home medications which likely has contributed to his current clinical presentation Will defer to the primary service treatment of his congestive heart failure and atrial fibrillation From surgical perspective we recommend the following: Patient does have a fluid collection in his gallbladder fossa, and the radiologist interpreting his CT scan notes the concern for postoperative abscess His postoperative abscess is present this could account for some of the patient's abdominal complaints At the time of my exam the patient's abdomen was benign but he did have some yellowish drainage from some of his surgical incisions Would recommend keeping the patient n.p.o. for the present time Would recommend hydrating him with IV fluids carefully however, due to his underlying CHF Would recommend initiating antibiotics in the treating emergency room physician has noted he will initiate Zosyn Serial labs should be followed At the present time the patient is afebrile and normotensive and does not have fever. Patient does have tachycardia however this could likely be due to his noncompliance with medications resulting in rapid atrial fibrillation Will monitor the patient's clinical response with the above conservative plan. If there is concern the patient does indeed have a true postoperative abscess and drainage is needed will have additional conversation with the patient and his family about the best method to approach this but again is uncertain if this will be needed Additional recommendations will be forthcoming based on his clinical course as above for History of Present Illness Reason for Consultation: Postoperative abscess History of Present Illness This is an 78-year-old male who presented to the emergency department due to generally feeling unwell. The patient underwent a laparoscopic cholecystectomy by Dr. Mast of [facility] surgery on 12/25/2023. Patient was discharged home the day following his surgery. The patient was doing well at home for approximately 2 days but then developed some generalized weakness requiring readmission to the hospital. The patient was diagnosed with a urinary tract infection and did receive intravenous antibiotics while in the hospital but per the patient's wishes he was discharged home the day following admission. According to the patient and his they were not discharged home on antibiotics. Patient Antonio presented to the emergency department today because today he developed some stomach pain in the epigastric area which was nonradiating and did not have any modifying factors. The patient is also noted worsening shortness of breath. In addition, the patient reports decreased appetite but he has not had any nausea or vomiting. He denies any fevers, shakes, or chills. He notes that his bowels are moving normally. The patient also notes that 2 of his laparoscopic incisions are draining a yellowish material. I did discuss the case with the treating emergency room physician and there is question of whether or not the patient has been compliant with his home medications. He does have a history of atrial fibrillation and has reportedly not been compliant with his medications which may also be contributing to his current presentation. Since arrival to the emergency department this evening the patient has had labs and imaging which I independent reviewed. A CT scan of the head showed no acute intracranial process. A CT scan of the chest showed the patient had large bilateral pleural effusions consistent with congestive heart failure. A CT scan abdomen pelvis showed the patient had a 4.5 cm fluid collection concerning for abscess in the gallbladder fossa. (This was compared to a CT scan performed recently on 12/30/2023 and the interpreting radiologist felt there is little change in the size of this fluid collection) labs included a CBC were white blood cell count, hemoglobin, hematocrit, platelet count are all within normal range. His INR is 1.2. Chemistry profile shows sodium is 129 with a normal potassium. BUN and creatinine are both normal. Patient's transaminases were normal but his total bilirubin was elevated 1.4 and his alkaline phosphatase is elevated 196. Lipase was not elevated. Patient's TSH was elevated 14.1. His free T4 level was normal. Urinalysis was negative for infection. At the time of my interview the patient was resting comfortably bed he was in no distress. Allergies Allergy/AdvReac Type Severity Reaction Status Date / Time azithromycin Allergy Severe Swelling Verified 12/06/23 07:56 [From Zithromax Z-Brady] of Lip/Tongue/Throat ethyl alcohol Allergy Intermediate "rubbing Verified 12/06/23 07:56 alcohol" caused blisters isopropyl alcohol Allergy Intermediate "rubbing Verified 12/06/23 07:56 alcohol" caused blisters latex Allergy Intermediate blisters Verified 12/06/23 07:56 carvedilol Allergy Verified 12/06/23 07:56 clopidogrel Allergy Verified 12/06/23 07:56 verapamil AdvReac Severe asystole Verified 12/06/23 07:56 Home Medications Medication Instructions Recorded Confirmed Type atorvastatin 40 mg tablet 40 mg PO DAILY 01/06/24 01/06/24 History dicyclomine 10 mg capsule 10 mg PO BID 01/06/24 01/06/24 History gabapentin 300 mg capsule 300 mg PO TID 01/06/24 01/06/24 History isosorbide mononitrate 60 mg 60 mg PO DAILY 01/06/24 01/06/24 History tablet,extended release 24 hr lamotrigine 100 mg tablet 100 mg PO BID 01/06/24 01/06/24 History levothyroxine 25 mcg tablet 25 mcg PO DAILY 01/06/24 01/06/24 History metoprolol succinate 25 mg 25 mg PO BID 01/06/24 01/06/24 History tablet,extended release 24 hr pantoprazole 40 mg tablet,delayed 40 mg PO DAILY 01/06/24 01/06/24 History release ramipril 5 mg capsule 5 mg PO DAILY 01/06/24 01/06/24 History rivaroxaban 20 mg tablet (Xarelto) 20 mg PO DAILY 01/06/24 01/06/24 History sulfamethoxazole 800 1 tab PO BID 01/06/24 01/06/24 History mg-trimethoprim 160 mg tablet tamsulosin 0.4 mg capsule 0.4 mg PO DAILY 01/06/24 01/06/24 History vibegron 75 mg tablet 75 mg PO DAILY 01/06/24 01/06/24 History lenvatinib 10 mg/day (10 mg x 1) 20 mg PO HS 01/07/24 01/07/24 History capsule Patient History Medical History Atrial fibrillation with RVR Cholelithiasis Right sided abdominal pain (HFpEF) heart failure with preserved ejection fraction Metastatic clear cell carcinoma of kidney Esophageal dilatation Weight loss over 35 pounds over past month. History of radiation exposure 1986 History of stroke 2001 - no residual effects. History of colon polyps Mass of colon CT scan [facility] 05/03/23. Hemorrhoids internal Kidney lesion lesions on kidneys per CT scan/ [place] 2-3 weeks ago/talk of samantha with kidney - pt has not received follow up phone call. Rectal bleeding Neuropathy On anticoagulant therapy Hypothyroidism Prophylactic antibiotic correction use of antibiotic>hx artificial joint infection Osteoarthritis History of bladder cancer treated surgically [facility] [place] (hard of hearing) reads lips Seizure-like activity hx 2014 - neuro work up neg for seizures - no issues since (follows with [facility]) HLD (hyperlipidemia) HTN (hypertension) History of atrial fibrillation follows with Dr. Carney; on xarelto (currently on hold due to recatal bleeding) hx cardioversion x2 ? History of myocardial infarction x 2 (1986, 2001) History of esophageal dilatation Dysphagia Surgical History History of left-sided carotid endarterectomy History of hernia surgery x2 Pacemaker passing out/reason for pacemaker. last checked : "recent check by Dr. Carney"/[facility] History of tonsillectomy History of appendectomy History of left knee replacement + revision surgery History of cataract surgery rt/left History of parathyroidectomy History of bladder surgery TURBT H/O heart artery stent x 4 History of cardiac cath 05/2020 -- CP -- [facility] - no stents mult cardiac cath between 0542-1382 (4 stents placed total) - [facility] in [place], [place] History of colonoscopy History of esophagogastroduodenoscopy (EGD) Family History Father Prostate cancer Diabetes Heart disease Hypertension Mother Diabetes Hypertension Breast cancer Other No family history of adverse response to anesthesia Social History Smoking Status: Never smoker Second Hand Exposure: No; Do You Dip or Chew Tobacco: No; Hx Alcohol Use: No Hx Substance Use: No Preferred Language: [place] Communication Ability: Effective Communication Ability Comment: pt is [place]/pt does phone interview/per pt preference. Lens Gauger Required: No Beliefs That Will Affect Care: None marital status: Current Living Situation: Spouse current occupational status: employed current occupation: [employer] Feels Safe at Home: Yes Safety Concerns: Feels Safe At This Time Assistive Devices: Cane, Denture - Upper and Walker Review of Systems Review of Systems: All systems reviewed & are unremarkable except as noted in HPI & below Physical Exam Constitutional: + thin; no acute distress and not ill ap pearing Eyes: no conjunctival abnormality ENMT: Ears: no hearing impairment and no external ear abnormality Mouth: no oropharynx abnormality Neck: trachea midline Respiratory: no labored breathing No wheezing, breath sounds decreased at bases Cardiovascular: Rate/Rhythm: + tachycardic and + irregularly irregular Gastrointestinal (Abdomen): At the time of my exam the patient's abdomen is soft and nondistended. There is no rebound tenderness, guarding, or signs of peritonitis. Patient has 4 laparoscopic incisions. The lateralmost 2 incisions were draining a yellowish material without gross purulence. Musculoskeletal: No calf tenderness Skin: no rashes Neurologic: moves all extremities Psychiatric: A+Ox3, euthymic affect Results & Data Vital Signs (Past 12 Hours) Vital Signs Temp Pulse Resp BP Pulse Ox O2 Del Method 01/06/24 20:43 120 H 144/106 H 01/06/24 20:30 96 H 16 144/106 H 99 01/06/24 19:59 106 H 150/97 H 01/06/24 19:09 124 H 141/114 H 01/06/24 19:03 140 H 16 141/114 H 93 01/06/24 18:58 129 H 01/06/24 18:45 36.9 C 116 H 18 122/80 96 Room Air PG Care Time/CCT Total # of Minutes Spent Total Time Spent with Patient: Total time spent is greater than 50% in coordination of care (as documented) at patient's floor/unit and/or counseling patient: Coding Level of Care Code 02294 INT INP/OBS CARE 3/75MIN Diagnoses Postoperative abscess T81.49XA
[2024-01-06] MEDS: PIPERACILLIN/TAZOBACTAM 4.5 GM/100 ML BAG IV ONE (21:31)
[2024-01-06 22:13] LABS: Adenovirus PCR Not Detected (NotDetected); Bordetella parapertussis PCR Not Detected (NotDetected); Bordetella pertussis PCR Not Detected (NotDetected); Chlamydia pneumoniae PCR Not Detected (NotDetected); Coronavirus 229E PCR Not Detected (NotDetected); Coronavirus CoV-2 (COVID19)PCR Not Detected (NotDetected); Coronavirus HKU1 PCR Not Detected (NotDetected); Coronavirus NL63 PCR Not Detected (NotDetected); Coronavirus OC43PCR Not Detected (NotDetected); Human Metapneumovirus PCR Not Detected (NotDetected); Influenza A PCR Not Detected (NotDetected); Influenza B PCR Not Detected (NotDetected); Mycoplasma pneumoniae PCR Not Detected (NotDetected); Parainfluenza Virus 1 PCR Not Detected (NotDetected); Parainfluenza Virus 2 PCR Not Detected (NotDetected); Parainfluenza Virus 3 PCR Not Detected (NotDetected); Parainfluenza Virus 4 PCR Not Detected (NotDetected); Respiratory Syncytial VirusPCR Not Detected (NotDetected); Rhinovirus/Enterovirus PCR Not Detected (NotDetected)
--- NOTE | 2024-01-07 00:16 | History & Physical Report ---
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 coli bacteremia secondary to knee surgery on lifelong Bactrim, seizure disorder, dementia, bladder cancer status post surgery, recent cholecystectomy 12/24/2023 and was admitted on December 30, 2023 for weakness and found to UTI but home left home next day. He was started on Synthyroid for subclinical hypothyroidism last admit. Patient at home not taking his medications because states having difficulty to swallow. As per he is also eating very little here and there and on soft diet. He is mostly bedbound ambulates short distance with assistance with walker. Today was having chest pain and shortness of breath which prompted him to come to the ER. His recent cholecystectomy site is also draining and the dressing is wet. Denies any abdominal pain. Says moving his bowels and bladder okay. No fevers. Currently chest pain and shortness of breath improved. No cough. No headache. No blurred vision. No runny nose or sore throat. Patient again says that he will go home tomorrow. says she could not take care of him at home currently. In the ER he was in rapid A-fib and after IV Lopressor heart rates improved. Abdominal CAT scan showing possible abscess at the recent cholecystectomy site and he was evaluated by surgery. Postoperative abscess Recent cholecystectomy site N.p.o. IV Zosyn Surgery on board To monitor for now. Rapid A-fib Not taking medication at home Improved after IV Lopressor IV Lopressor as needed Continue home metoprolol Holding Xarelto for any procedures Seems he was on sotalol and amiodarone in the past Consult cardiology for further recommendations Acute CHF with preserved ejection fraction Large bilateral pleural effusions on the CT scan Received a dose of IV Lasix 20 mg in the ER Currently n.p.o. Continue metoprolol Recently had echo Cardiology consult Chest pain Currently resolved Possible from not taking his medications We will follow serial enzymes Echo as per cardiology Ascending thoracic aortic aneurysm 3.9 cm Needs follow-up Sick sinus syndrome Status post pacemaker. 5.5 months of battery life confirmed Follow-up with cardiology Dr. Carney History of CAD S/p stents On statin, Imdur, beta-hali Last admit Imdur on hold until seen by cardiology Hypertension On beta-hali Currently Imdur and ramipril on hold as patient is frequently hypotensive last admission will monitor Metastatic clear-cell renal carcinoma Status post recent [place] [facility] [place] Will hold Lenvima due to current illness Subclinical hypothyroidism Started on Synthyroid Needs follow-up GERD Protonix History of E. coli bacteremia secondary to knee surgery On lifelong Bactrim Seizure disorder Lamotrigine and gabapentin History of bladder cancer s/p surgery Dementia monitor for delirium Nutrition Currently n.p.o. Having difficulty swallowing Will consult speech evaluation DVT prophylaxis SCDs for now in anticipation of any procedure Holding Xarelto Disposition Telemetry Social service to help with discharge planning as says she cannot care for him at home currently CODE STATUS okay for CPR and meds. Do not want to be intubated. 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 coli bacteremia secondary to knee surgery on lifelong Bactrim, seizure disorder, dementia, b ladder cancer status post surgery, recent cholecystectomy 12/24/2023 and was admitted on December 30, 2023 for weakness and found to UTI but home left home next day. He was started on Synthyroid for subclinical hypothyroidism last admit. Patient at home not taking his medications because states having difficulty to swallow. As per he is also eating very little here and there and on soft diet. He is mostly bedbound ambulates short distance with assistance with walker. Today was having chest pain and shortness of breath which prompted him to come to the ER. His recent cholecystectomy site is also draining and the dressing is wet. Denies any abdominal pain. Says moving his bowels and bladder okay. No fevers. Currently chest pain and shortness of breath improved. No cough. No headache. No blurred vision. No runny nose or sore throat. Patient again says that he will go home tomorrow. says she could not take care of him at home currently. In the ER he was in rapid A-fib and after IV Lopressor heart rates improved. Abdominal CAT scan showing possible abscess at the recent cholecystectomy site and he was evaluated by surgery. Past medical history. As mentioned above Past surgical history. History of left carotid endarterectomy. History of hernia surgery x 2. Status post pacemaker. History of tonsillectomy. History of appendectomy. History of left knee replacement. Fusion surgery. History of bilateral cataract surgeries. History of parathyroidectomy. History of bladder surgery. TURP. History of heart stent x 4. Multiple cardiac cath. History of colonoscopy and EGD. Social history. . No smoking. No substance use. No alcohol use. Family history. Father had prostate cancer. Diabetes. Heart disease. Hypertension. Mother had diabetes. Hypertension. Breast cancer. Allergies Allergy/AdvReac Type Severity Reaction Status Date / Time azithromycin Allergy Severe Swelling Verified 12/06/23 07:56 [From Zithromax Z-Brady] of Lip/Tongue/Throat ethyl alcohol Allergy Intermediate "rubbing Verified 12/06/23 07:56 alcohol" caused blisters isopropyl alcohol Allergy Intermediate "rubbing Verified 12/06/23 07:56 alcohol" caused blisters latex Allergy Intermediate blisters Verified 12/06/23 07:56 carvedilol Allergy Verified 12/06/23 07:56 clopidogrel Allergy Verified 12/06/23 07:56 verapamil AdvReac Severe asystole Verified 12/06/23 07:56 Home Medications Medication Instructions Recorded Confirmed Type atorvastatin 40 mg tablet 40 mg PO DAILY 01/06/24 01/06/24 History dicyclomine 10 mg capsule 10 mg PO BID 01/06/24 01/06/24 History gabapentin 300 mg capsule 300 mg PO TID 01/06/24 01/06/24 History isosorbide mononitrate 60 mg 60 mg PO DAILY 01/06/24 01/06/24 History tablet,extended release 24 hr lamotrigine 100 mg tablet 100 mg PO BID 01/06/24 01/06/24 History levothyroxine 25 mcg tablet 25 mcg PO DAILY 01/06/24 01/06/24 History metoprolol succinate 25 mg 25 mg PO BID 01/06/24 01/06/24 History tablet,extended release 24 hr pantoprazole 40 mg tablet,delayed 40 mg PO DAILY 01/06/24 01/06/24 History release ramipril 5 mg capsule 5 mg PO DAILY 01/06/24 01/06/24 History rivaroxaban 20 mg tablet (Xarelto) 20 mg PO DAILY 01/06/24 01/06/24 History sulfamethoxazole 800 1 tab PO BID 01/06/24 01/06/24 History mg-trimethoprim 160 mg tablet tamsulosin 0.4 mg capsule 0.4 mg PO DAILY 01/06/24 01/06/24 History vibegron 75 mg tablet 75 mg PO DAILY 01/06/24 01/06/24 History lenvatinib 10 mg/day (10 mg x 1) 20 mg PO HS 01/07/24 01/07/24 History capsule Past Med/Surg History Problem List (Updated 01/06/24 @ 21:22 by Maximino Mercedes PA-C) Postoperative abscess CHF (congestive heart failure) (Acute) Abdominal pain (Acute) Weakness (Acute) Atrial fibrillation with rapid ventricular response (Acute) Adult failure to thrive (Acute) Pleural effusion (Acute) Dyslipidemia, goal LDL below 70 ASCVD (arteriosclerotic cardiovascular disease) Sinus node dysfunction Persistent atrial fibrillation Atrial fibrillation with tachycardic ventricular rate Subclinical hypothyroidism Physical deconditioning Palliative care by specialist Anxiety associated with cancer diagnosis Depression due to physical illness Abdominal pain, generalized Advanced care planning/counseling discussion Weakness generalized CAD (coronary artery disease) UTI (urinary tract infection) S/P laparoscopic cholecystectomy Pulmonary nodule Urinary urgency Phimosis Abdominal distention Scrotal swelling Renal mass Urinary retention Abnormal CT of the abdomen Hypotension (Acute) Debilitated (Acute) Acute UTI (Acute) Pericardial effusion (Acute) Anemia (Acute) Weakness (Acute) Dysphagia Medical History Atrial fibrillation with RVR Cholelithiasis Right sided abdominal pain (HFpEF) heart failure with preserved ejection fraction Metastatic clear cell carcinoma of kidney Esophageal dilatation Weight loss over 35 pounds over past month. History of radiation exposure 1986 History of stroke 2001 - no residual effects. History of colon polyps Mass of colon CT scan [facility] 05/03/23. Hemorrhoids internal Kidney lesion lesions on kidneys per CT scan/ [place] 2-3 weeks ago/talk of samantha with kidney - pt has not received follow up phone call. Rectal bleeding Neuropathy On anticoagulant therapy Hypothyroidism Prophylactic antibiotic buttermaker use of antibiotic>hx artificial joint infection Osteoarthritis History of bladder cancer treated surgically [place] (hard of hearing) reads lips Seizure-like activity hx 2015 - neuro work up neg for seizures - no issues since (follows with [facility]) HLD (hyperlipidemia) HTN (hypertension) History of atrial fibrillation follows with Dr. Carney; on xarelto (currently on hold due to recatal bleeding) hx cardioversion x2 ? History of myocardial infarction x 2 (1986, 2001) History of esophageal dilatation Dysphagia Surgical History History of left-sided carotid endarterectomy History of hernia surgery x2 Pacemaker passing out/reason for pacemaker. last checked : "recent check by Dr. Carney"/[facility] History of tonsillectomy History of appendectomy History of left knee replacement + revision surgery History of cataract surgery rt/left History of parathyroidectomy History of bladder surgery TURBT H/O heart artery stent x 4 History of cardiac cath 05/2020 -- CP -- [facility] - no stents mult cardiac cath between [id number] (4 stents placed total) - [facility] and [facility] in [place], [place] History of colonoscopy History of esophagogastroduodenoscopy (EGD) Family History Father Prostate cancer Diabetes Heart disease Hypertension Mother Diabetes Hypertension Breast cancer Other No family history of adverse response to anesthesia Social History Smoking Status: Never smoker Second Hand Exposure: No; Do You Dip or Chew Tobacco: No; Hx Alcohol Use: No Hx Substance Use: No Preferred Language: Faroese Communication Ability: Effective Communication Ability Comment: pt is [place]/pt does phone interview/per pt preference. 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 Hard of hearing Head- atraumatic Eyes- PERRL. ENT- oropharynx clear Neck- supple, no JVD. Lungs- clear to auscultation mild bibasilar crackles. Heart- irregular rhythm; no murmur, no gallop. Abdomen- normal bowel sounds, soft, nontender, drainage seen form recent lap shay site Extremities- no pretibial edema, no erythema seen Neuro- alert, oriented ; PERRL, no facial palsy; no dysarthria; moves extremities Results & Data Results & Data Vital Signs (Past 12 Hours) Vital Signs Temp Pulse Resp BP Pulse Ox O2 Del Method 01/06/24 22:59 106 H 01/06/24 22:00 102 H 16 131/100 97 01/06/24 21:23 145/114 H 01/06/24 20:43 120 H 144/106 H 01/06/24 20:30 96 H 16 144/106 H 99 01/06/24 19:59 106 H 150/97 H 01/06/24 19:09 124 H 141/114 H 01/06/24 19:03 140 H 16 141/114 H 93 01/06/24 18:58 129 H 01/06/24 18:45 36.9 C 116 H 18 122/80 96 Room Air Diagnostic Findings Laboratory Results WBC 9.12 K/ul (4.8-10.8) 01/06/24 19:06 RBC 5.30 M/uL (4.70-6.10) 01/06/24 19:06 Hgb 15.6 g/dl (14.0-18.0) 01/06/24 19:06 POC Hgb 16.7 g/dl (14.0-18.0) 01/06/24 19:09 Hct 45.4 % (42.0-52.0) 01/06/24 19:06 POC Hct 49 % (42-52) 01/06/24 19:09 MCV 85.7 fL (80.0-100.0) 01/06/24 19:06 MCH 29.4 pg (25.0-34.0) 01/06/24 19:06 MCHC 34.4 g/dL (32.0-36.0) 01/06/24 19:06 RDW Std Deviation 42.6 fL (36.4-46.3) 01/06/24 19:06 RDW Coeff of Seamus 14.1 % (11.5-14.5) 01/06/24 19:06 Plt Count 176 K/uL (130-400) 01/06/24 19:06 MPV 9.6 fL (9.4-12.4) 01/06/24 19:06 Immature Gran % (Auto) 0.4 % 01/06/24 19:06 Neut % (Auto) 80.6 % 01/06/24 19:06 Lymph % (Auto) 10.5 % 01/06/24 19:06 Thomas % (Auto) 6.9 % 01/06/24 19:06 Eos % (Auto) 0.8 % 01/06/24 19:06 Baso % (Auto) 0.8 % 01/06/24 19:06 Neut # (Auto) 7.35 K/uL (1.40-6.50) H 01/06/24 19:06 Lymph # (Auto) 0.96 K/uL (1.20-3.40) L 01/06/24 19:06 Thomas # (Auto) 0.63 K/uL (0.11-0.59) H 01/06/24 19:06 Eos # (Auto) 0.07 K/uL (0.00-0.50) 01/06/24 19:06 Baso # (Auto) 0.07 K/uL (0.00-0.20) 01/06/24 19:06 Immature Gran # (Auto) 0.04 K/uL (0.01-0.20) 01/06/24 19:06 PT 13.3 Seconds (9.0-12.0) H 01/06/24 19:06 INR 1.2 (0.9-1.1) H 01/06/24 19:06 POC Sodium 130 mmol/L (135-144) L 01/06/24 19:09 Sodium 129 mmol/L (136-145) L 01/06/24 19:06 POC Potassium 4.9 mmol/L (3.3-5.0) 01/06/24 19:09 Potassium 5.0 mmol/L (3.5-5.1) 01/06/24 19:06 POC Chloride 96 mmol/L (101-112) L 01/06/24 19:09 Chloride 97 mmol/L (98-107) L 01/06/24 19:06 Carbon Dioxide 24 mmol/L (21-32) 01/06/24 19:06 POC Total CO2 26 mmol/L (24-31) 01/06/24 19:09 Anion Gap 8 (3-11) 01/06/24 19:06 POC Anion Gap 15.0 mmol/L (16-25) L 01/06/24 19:09 POC BUN 9 mg/dl (7-18) 01/06/24 19:09 BUN 9 mg/dl (6-23) 01/06/24 19:06 Creatinine 0.92 mg/dl (0.6-1.4) 01/06/24 19:06 POC Creatinine 1.0 mg/dl (0.6-1.3) 01/06/24 19:09 Est Cr Clr Drug Dosing 64.0 ml/min 01/06/24 19:06 eGFR 84.09 01/06/24 19:06 BUN/Creatinine Ratio 9.8 (10-20) L 01/06/24 19:06 Glucose 93 mg/dl (70-99(Fasting)) 01/06/24 19:06 POC Glucose (other) 95 mg/dl (70-99) 01/06/24 19:09 Calcium 9.0 mg/dl (8.6-10.3) 01/06/24 19:06 POC Ioniz Calcium Dede 1.09 mmol/l (1.12-1.32) L 01/06/24 19:09 Magnesium 1.7 mg/dl (1.7-2.4) 01/06/24 19:06 Total Bilirubin 1.4 mg/dl (0.2-1.0) H 01/06/24 19:06 AST 26 U/L (13-39) 01/06/24 19:06 ALT 15 U/L (7-52) 01/06/24 19:06 Alkaline Phosphatase 196 U/L (34-104) H 01/06/24 19:06 Troponin I High Sens 9.2 pg/ml (0-20) 01/06/24 19:06 Total Protein 6.2 gm/dl (6.0-8.3) 01/06/24 19:06 Albumin 3.7 gm/dl (3.4-5.0) 01/06/24 19:06 Globulin 2.5 gm/dl (2.5-4.0) 01/06/24 19:06 Albumin/Globulin Ratio 1.5 (0.9-2) 01/06/24 19:06 Lipase 48 U/L (11-82) 01/06/24 19:06 TSH 14.174 uIu/ml (0.300-4.500) H 01/06/24 19:06 Free T4 0.86 ng/dl (0.61-1.60) 01/06/24 19:06 Urine Color Yellow 01/06/24 20:46 Urine Appearance Clear (Clear) 01/06/24 20:46 Urine pH 7.5 (4.5-7.5) 01/06/24 20:46 Ur Specific Ault 1.035 (1.000-1.030) H 01/06/24 20:46 Urine Protein Trace (Negative) H 01/06/24 20:46 Urine Glucose (UA) Negative (Negative) 01/06/24 20:46 Urine Ketones Negative (Negative) 01/06/24 20:46 Urine Blood Negative (Negative) 01/06/24 20:46 Urine Nitrite Negative (Negative) 01/06/24 20:46 Urine Bilirubin Negative (Negative) 01/06/24 20:46 Urine Urobilinogen Positive (Negative) H 01/06/24 20:46 Ur Leukocyte Esterase Negative (Negative) 01/06/24 20:46 Urine WBC (Auto) 0-5 /hpf (0-5) 01/06/24 20:46 Urine RBC (Auto) 0-2 /hpf (0-2) 01/06/24 20:46 U Hyaline Cast (Auto) 0-2 /lpf (0-2) 01/06/24 20:46 U Epithel Cells (Auto) 0-2 /hpf (0-2) 01/06/24 20:46 Urine Bacteria (Auto) None Seen (None Seen) 01/06/24 20:46 Adenovirus (PCR) Not Detected (NotDetected) 01/06/24 21:10 B. pertussis DNA (PCR) Not Detected (NotDetected) 01/06/24 21:10 B.parapertussis DNA PCR Not Detected (NotDetected) 01/06/24 21:10 C. pneumoniae DNA (PCR) Not Detected (NotDetected) 01/06/24 21:10 Coronavirus OC43 (PCR) Not Detected (NotDetected) 01/06/24 21:10 Coronavirus HKU1 (PCR) Not Detected (NotDetected) 01/06/24 21:10 Coronavirus 229E (PCR) Not Detected (NotDetected) 01/06/24 21:10 SARS-CoV-2 (PCR) Not Detected (NotDetected) 01/06/24 21:10 Coronavirus NL63 (PCR) Not Detected (NotDetected) 01/06/24 21:10 Human Metapneumovir PCR Not Detected (NotDetected) 01/06/24 21:10 Influenza Type A (PCR) Not Detected (NotDetected) 01/06/24 21:10 Influenza Type B (PCR) Not Detected (NotDetected) 01/06/24 21:10 M. pneumoniae (PCR) Not Detected (NotDetected) 01/06/24 21:10 Parainfluenza 1 (PCR) Not Detected (NotDetected) 01/06/24 21:10 Parainfluenza 2 (PCR) Not Detected (NotDetected) 01/06/24 21:10 Parainfluenza 3 (PCR) Not Detected (NotDetected) 01/06/24 21:10 Parainfluenza 4 (PCR) Not Detected (NotDetected) 01/06/24 21:10 RSV (PCR) Not Detected (NotDetected) 01/06/24 21:10 Entero/Rhino (PCR) Not Detected (NotDetected) 01/06/24 21:10 Impressions Abdomen/Pelvis CT 01/06/24 19:06 Exam(s): CT ABDOMEN + PELVIS With Contrast IV Amt: 117 ml opti 320 EXAM: CT Abdomen and Pelvis With Intravenous Contrast CLINICAL HISTORY: Reason for exam: upper abd pain, weak, post op shay. TECHNIQUE: Axial computed tomography images of the abdomen and pelvis with intravenous contrast. CTDI is 39 mGy and DLP is 721 mGy-cm. Automated exposure control was utilized for the study. A dose lowering technique was utilized adhering to the principles of ALARA. CONTRAST: Patient received 117 ml opti 320 of IV contrast COMPARISON: December 30, 2023 FINDINGS: Lung bases: Unremarkable. No mass. No consolidation. Pleural space: Bilateral pleural effusions right greater than left stable since prior exam. Heart: Trace pericardial effusion unchanged. ABDOMEN: Liver: Unremarkable. No mass. Gallbladder and bile ducts: Redemonstration of postoperative changes prior cholecystectomy with 4.4 x 4.5 cm air-fluid collection within the gallbladder fossa and a moderate amount of associated inflammatory change likely representing an abscess unchanged from prior exam. No ductal dilation. Pancreas: Unremarkable. No mass. No ductal dilation. Spleen: Unremarkable. No splenomegaly. Adrenals: Unremarkable. No mass. Kidneys and ureters: 3.2 x 3.8 cm hypodense mass within the upper pole left kidney stable. No hydronephrosis. Stomach and bowel: Unremarkable. No obstruction. No mucosal thickening. PELVIS: Appendix: No findings to suggest acute appendicitis. Bladder: Distended urinary bladder. Reproductive: Unremarkable as visualized. ABDOMEN and PELVIS: Intraperitoneal space: Unremarkable. No free air. No significant fluid collection. Bones/joints: No acute fracture. No dislocation. Soft tissues: Diffuse anasarca. Vasculature: Unremarkable. No abdominal aortic aneurysm. Lymph nodes: Unremarkable. No enlarged lymph nodes. IMPRESSION: 4.5 cm abscess within the gallbladder fossa this is relatively unchanged when compared with the prior exam 3.8 cm hypodensity within the upper pole left kidney stable when compared with prior study and may represent an underlying mass. Electronically signed by: Colt Clement MD 01/06/24 20:43 PM Chest CTA 01/06/24 19:06 Exam(s): CTA CHEST IV Amt: 117 ml opti 320 EXAM: CT Angiography Chest With Intravenous Contrast CLINICAL HISTORY: Reason for exam: PE, FRANKEL, afib, post op. TECHNIQUE: Axial computed tomographic angiography images of the chest with intravenous contrast. CTDI is 39 mGy and DLP is 721 mGy-cm. Automated exposure control was utilized for the study. A dose lowering technique was utilized adhering to the principles of ALARA. MIP reconstructed images were created and reviewed. COMPARISON: No relevant prior studies available. FINDINGS: Pulmonary arteries: Unremarkable. No pulmonary embolism. Aorta: Ascending thoracic aortic aneurysm measuring 3.9 cm. Lungs: Interlobular septal thickening with diffuse groundglass opacity. Compressive atelectasis of both lower lobes. Pleural space: Large bilateral pleural effusions right slightly greater than left. No pneumothorax. Heart: Coronary artery calcifications. No cardiomegaly. Trace pericardial effusion . No evidence of RV dysfunction. Bones/joints: No acute fracture. No dislocation. Soft tissues: Unremarkable. Lymph nodes: Unremarkable. No enlarged lymph nodes. Tubes, lines and devices: left chest wall intracardiac device. IMPRESSION: No acute findings in the visualized arteries of the chest. 3.9 cm ascending thoracic aortic aneurysm Large bilateral pleural effusions with interlobular septal thickening consistent with CHF. Trace pericardial effusion Electronically signed by: Colt Clement MD 01/06/24 20:[address] 01/06/24 19:09 Exam(s): CT HEAD Without Contrast EXAM: CT Head Without Intravenous Contrast CLINICAL HISTORY: Reason for exam: fall, weak. TECHNIQUE: Axial computed tomography images of the head/brain without intravenous contrast. CTDI is 39 mGy and DLP is 721 mGy-cm. Automated exposure control was utilized for the study. A dose lowering technique was utilized adhering to the principles of ALARA. COMPARISON: December 30, 2023 FINDINGS: Brain: Unremarkable. No hemorrhage. No significant white matter disease. No edema. Ventricles: Unremarkable. No ventriculomegaly. Bones/joints: Unremarkable. No acute fracture. Soft tissues: Unremarkable. Sinuses: Right frontal maxillary sinus inflammatory polyp. Mastoid air cells: Unremarkable as visualized. No mastoid effusion. IMPRESSION: No acute findings in the head/brain. Electronically signed by: Colt Clement MD 01/06/24 20:48 PM ECG Additional Comments: ECG. A-fib with rapid ventricular response rate of 120. Nonspecific ST and T abnormality. No significant change was found. Code Status & VTE Plan VTE Prophylaxis Plan VTE Prophylaxis will be ordered: Yes
[2024-01-07] MEDS ORDERED: NITROGLYCERIN SL 0.4 MG/TAB TAB SL PRN (01:08)
[2024-01-07] MEDS ORDERED: METOPROLOL TARTRATE 1 MG/ML VIAL IV PRN (01:08)
[2024-01-07] MEDS: LEVOTHYROXINE SODIUM 25 MCG TABLET PO SCH (04:20)
[2024-01-07] MEDS: PIPERACILLIN/TAZOBACTAM 4.5 GM/100 ML BAG IV SCH (04:20)
[2024-01-07 05:53] LABS: Basophils # (auto) 0.09 K/uL (0.00-0.20); Basophils % (auto) 1.1 %; Eosinophils % (auto) 1.2 %; Hematocrit (blood only) 40.8 % (42.0-52.0); Hemoglobin 13.7 g/dl (14.0-18.0); Immature Granulocytes # (auto) 0.03 K/uL (0.01-0.20); Immature Granulocytes % (auto) 0.4 %; Lymphocytes # (auto) 0.85 K/uL (1.20-3.40); Lymphocytes % (auto) 10.3 %; Mean Corpuscular Hgb Conc 33.6 g/dL (32.0-36.0); Mean Corpuscular Volume 86.4 fL (80.0-100.0); Mean Platelet Volume 9.6 fL (9.4-12.4); Monocytes # (auto) 0.79 K/uL (0.11-0.59); Monocytes % (auto) 9.6 %; Neutrophils # (auto) 6.41 K/uL (1.40-6.50); Neutrophils % (auto) 77.4 %; Platelet Count 147 K/uL (130-400); RDW Coefficient of Variation 14.2 % (11.5-14.5); RDW Standard Deviation 43.1 fL (36.4-46.3); Red Blood Count 4.72 M/uL (4.70-6.10); White Blood Count 8.27 K/ul (4.8-10.8)
[2024-01-07 06:07] LABS: BUN Creatinine Ratio 10.5 (10-20); Calcium 8.2 mg/dl (8.6-10.3); Creatinine Clr Calc Pharmacy 68.5 ml/min; Magnesium 1.6 mg/dl (1.7-2.4); Potassium 4.3 mmol/L (3.5-5.1)
[2024-01-07 06:14] LABS: Troponin I High Sensitivity 6.8 pg/ml (0-20)
--- NOTE | 2024-01-07 06:52 | XRay Report ---
XR chest 1V portable CLINICAL HISTORY: weakness, FRANKEL COMPARISON STUDY: Chest CT August 20, 2023. Chest radiograph December 30, 2023. FINDINGS: There is no pneumothorax. Dual-lead right subclavian pacer is unchanged in position. Stable cardiomegaly. Moderate right and [id number] left pleural effusions have slightly progressed. There is associated bibasilar opacities. Interstitial thickening persists. IMPRESSION: 1. Cardiomegaly with persistent pulmonary edema. 2. Slight increase in moderate right and [id number] left pleural effusions with associated bib asilar opacities. ACT 112: Negative or not required by law. Electronically signed by: Andrew Hankins M.D. 01/07/2024 6:51 AM
[2024-01-07] MEDS ORDERED: INFLUENZA VACC TS2024-25(65y+)/PF (IIV3) 0.5mL Syr IM ONE (08:00)
[2024-01-07] MEDS: PANTOprazole 40 MG TAB PO SCH (08:38)
[2024-01-07] MEDS: SULFAMETHOXAZOLE/TRIMETHOPRIM DS 800/160MG TAB PO SCH (08:38)
[2024-01-07] MEDS: ATORVASTATIN 40 MG TAB PO SCH (08:38)
[2024-01-07] MEDS: GABAPENTIN 300 MG CAP PO SCH (08:38)
[2024-01-07] MEDS: METOPROLOL SUCC 25MG EXT REL TAB PO SCH (08:38)
[2024-01-07] MEDS: DICYCLOMINE HCL 10 MG CAP PO SCH (08:38)
[2024-01-07] MEDS: TAMSULOSIN HCL 0.4 MG CAP PO SCH (08:38)
[2024-01-07] MEDS: VIBEGRON 75 MG TAB PO SCH (08:39)
[2024-01-07] MEDS: lamoTRIgine 100 MG TAB PO SCH (08:39)
--- NOTE | 2024-01-07 08:39 | Cardiology Consultation ---
Date of Consultation January 07, 2024 Assessment & Plan (1) Postoperative abscess: possible post operative abscess, work up in process (2) Atrial fibrillation with rapid ventricular response: (3) Acute heart failure with preserved ejection fraction: (4) Pleural effusion: Plan Patient here with generalized weakness, abdominal pain, SOB Found to have atrial fibrillation (chronic/known) with elevated rates. Patient has not been taking medications at home since discharge on 12/30. Metoprolol had been increased last admission to 50 mg BID to aid with afib rates. Resume 50 mg BID this morning. Patient has underlying pacemaker, last interrogated 2 weeks ago with 5.5-8.5 months of battery longevity. Patient follows with [place] [facility]. Xarelto held on admission due to possible post op abscess and need for surgical intervention. surgery consulted for further evaluation. Currently patient is comfortable, without significant pain. WBC is normal. Started on antibiotics. He was also found to have larger b/l pleural effusions on admission consistent with acute HFpEF. Furosemide 20 mg x1 dose given on admission yesterday Urine outputs not measured? Currently oxygen status maintained on room air. Would repeat IV lasix 20 mg today. Monitor renal function and sodium. Sodium levels improved with IV lasix, likely dilutional. Magnesium low at 1.6. Supplementation ordered. Potassium at 4.3. Case discussed with Dr. Zimmer I spent a total of 60 minutes on the date of service in preparation, delivery, and documentation of the care provided to this patient, excluding any time spent in the performance of separately billed services. Elizabeth Fair PA-C Department of Cardiology, [facility] This chart was completed in part utilizing Speech Voice Recognition Software. Grammatical errors, random word insertions, pronoun errors, and incomplete sentences are an occasional consequence of this system due to software limitations, ambient noise, and hardware issues. Any formal questions or concerns about the content, text, or information contained within the body of this dictation should be directly addressed to the provider for clarification. Supervising Physician Co-Signing Physician Notes Attending attestation: Case reviewed with the advanced practitioner. I have personally performed a history and physical examination on the patient. I have reviewed the advanced practitioner's documentation on the date of service referenced in note, and I agree with, and take responsibility for the plan of care. Subjective: ,Linda, at bedside during my assessment. Patinet lying supine without orthopnea. Telemetry revealing ongoing atrial fibrillation, most recent rate 98 bpm, however rate has ranged upwards of 110 to 150 bpm overnight. Exam: Cardiovascular: Irregular rhythm, elevated rate, no murmurs, no edema Data: EKG performed this morning revealed atrial fibrillation at 98 bpm, nonspecific diffuse T wave flattening. Relatively unchanged compared to the previous one from last evening and from 12/30/2023 CT angiogram of the chest reviewed, with moderate to large bilateral pleural effusions, trace to small circumferential pericardial effusion Impression/ Plan: Chronic atrial fibrillation with rapid ventricular rates, patient has not been taking his metoprolol due to generalized just not feeling well. Will resume metoprolol succinate 50 mg twice daily Patient did note shortness of breath and chest discomfort when he attempted home physical therapy yesterday. Bilateral pleural effusions observed. He is back on IV antibiotics. Will proceed with IV furosemide 20 mg twice daily to start. Rodriguez catheter in place.Anticipate low sodium level will improve with diuretic therapy. Xarelo on hold. Depending on surgical opinion will consider heparin bridge. I spent a total of 20 minutes coordinating, documenting, and providing care for this patient excluding time spent in the performance of separately billed servic es or time spent by another provider. Willian Zimmer, History of Present Illness Reason for Consultation: Afib RVR Requesting Physician: [facility] Hospitalist Attending Physician: Dr. Zimmer History of Present Illness Patient is an 78-year-old male who presented to [facility] for abdominal pain. Multiple recent admissions and records reviewed. Patient with dementia and not the best historian. Recent hospitalized at [facility] earlier this month, presenting with abdominal pain, acute cholecystitis status post December 25, 2023 laparoscopic cholecystectomy. Cardiology consultation was obtained at that time for preoperative evaluation and due to atrial fibrillation with a rapid ventricular response. He had been previously on sotalol or amidoarone per outside records, but was not taking at home. (Follows with [facility] - Dr. Carney). At the time recommendations included rate control with metoprolol, holding all other antihypertensives to allow for rate control medication(s), and resumption of anticoagulation when determined to be safe. Patient had been off anticoagulation due to multiple recent procedures - diagnosis of renal cancer.. Anticoagulation with Xarelto was resumed at the time of discharge from [facility] on December 26, 2023. Patient returned to [facility] on December 30, 2023 with poor oral intake and progressive weakness, post fall. Cardiology consultation requested due to atrial fibrillation. HR's improved with resumption of oral metoprolol and titration to 50 mg BID. Suspect non compliance at home. No signs of acute infection. Palliative care was also consulted during admission. Rehab was suggested but patient was adamant about returning home. Now patient returned with complaints of chest pain, abdominal pain, SOB, weakness. reports he has not been taking his medications at home. difficulty swallowing. mostly bedbound. Limited ambulation. She is not able to care for him at home in current condition. Upon arrival, found to have afib RVR (hx of chronic afib) and likely due to non compliance with medications. Drainage noted from incision site and there are concerns he has a post op abscess post lap shay. Surgery consulted and following. Started on IV metoprolol with improvement in HR. metoprolol succinate 25 mg BID resumed on admission. He had been on 50 mg BID last admission. Chest CT reviewed with large b/l pleural effusions on admission. Started on IV lasix 20 mg in the ER. Pleural effusions worse compared to last chest xray. At time of consult, patient resting in bed. reports he feels "fine" and just wants to go home. reports she is unable to care for him at home. he denies chest pain, dyspnea or abdominal pain. 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 coli bacteremia secondary to knee surgery on lifelong Bactrim Rx Hypothyroidism ? Hyperparathyroidism status post surgery Chart history of thyroid neoplasm Seizure disorder Dementia as per records BPH GERD Bladder cancer status post surgery, Cholecystectomy 12/25/2023 Allergies Allergy/AdvReac Type Severity Reaction Status Date / Time azithromycin Allergy Severe Swelling Verified 12/06/23 07:56 [From Zithromax Z-Brady] of Lip/Tongue/Throat ethyl alcohol Allergy Intermediate "rubbing Verified 12/06/23 07:56 alcohol" caused blisters isopropyl alcohol Allergy Intermediate "rubbing Verified 12/06/23 07:56 alcohol" caused blisters latex Allergy Intermediate blisters Verified 12/06/23 07:56 carvedilol Allergy Verified 12/06/23 07:56 clopidogrel Allergy Verified 12/06/23 07:56 verapamil AdvReac Severe asystole Verified 12/06/23 07:56 Home Medications Medication Instructions Recorded Confirmed Type atorvastatin 40 mg tablet 40 mg PO DAILY 01/06/24 01/06/24 History dicyclomine 10 mg capsule 10 mg PO BID 01/06/24 01/06/24 History gabapentin 300 mg capsule 300 mg PO TID 01/06/24 01/06/24 History isosorbide mononitrate 60 mg 60 mg PO DAILY 01/06/24 01/06/24 History tablet,extended release 24 hr lamotrigine 100 mg tablet 100 mg PO BID 01/06/24 01/06/24 History levothyroxine 25 mcg tablet 25 mcg PO DAILY 01/06/24 01/06/24 History metoprolol succinate 25 mg 25 mg PO BID 01/06/24 01/06/24 History tablet,extended release 24 hr pantoprazole 40 mg tablet,delayed 40 mg PO DAILY 01/06/24 01/06/24 History release ramipril 5 mg capsule 5 mg PO DAILY 01/06/24 01/06/24 History rivaroxaban 20 mg tablet (Xarelto) 20 mg PO DAILY 01/06/24 01/06/24 History sulfamethoxazole 800 1 tab PO BID 01/06/24 01/06/24 History mg-trimethoprim 160 mg tablet tamsulosin 0.4 mg capsule 0.4 mg PO DAILY 01/06/24 01/06/24 History vibegron 75 mg tablet 75 mg PO DAILY 01/06/24 01/06/24 History lenvatinib 10 mg/day (10 mg x 1) 20 mg PO HS 01/07/24 01/07/24 History capsule Patient History Medical History Atrial fibrillation with RVR Cholelithiasis Right sided abdominal pain (HFpEF) heart failure with preserved ejection fraction Metastatic clear cell carcinoma of kidney Esophageal dilatation Weight loss over 35 pounds over past month. History of radiation exposure 1986 History of stroke 2001 - no residual effects. History of colon polyps Mass of colon CT scan [facility] 05/03/23. Hemorrhoids internal Kidney lesion lesions on kidneys per CT scan/ [facility] 2-3 weeks ago/talk of samantha with kidney - pt has not received follow up phone call. 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 Carney; on xarelto (currently on hold due to recatal bleeding) hx cardioversion x2 ? History of myocardial infarction x 2 (1986, 2001) History of esophageal dilatation Dysphagia Surgical History History of left-sided carotid endarterectomy History of hernia surgery x2 Pacemaker passing out/reason for pacemaker. last checked : "recent check by Dr. Carney"/[facility] History of tonsillectomy History of appendectomy History of left knee replacement + revision surgery History of cataract surgery rt/left History of parathyroidectomy History of bladder surgery TURBT H/O heart artery stent x 4 History of cardiac cath 05/2020 -- CP -- [facility] - no stents mult cardiac cath between 1802-1370 (4 stents placed total) - [facility] and [facility] in [place], [place] History of colonoscopy History of esophagogastroduodenoscopy (EGD) Family History Father Prostate cancer Diabetes Heart disease Hypertension Mother Diabetes Hypertension Breast cancer Other No family history of adverse response to anesthesia Social History Smoking Status: Never smoker Second Hand Exposure: No; Do You Dip or Chew Tobacco: No; Hx Alcohol Use: No Hx Substance Use: No Preferred Language: [place] Communication Ability: Effective Communication Ability Comment: pt is [place]/pt does phone interview/per pt preference. 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 Feels Safe at Home: Yes Safety Concerns: Feels Safe At This Time Assistive Devices: Cane, Denture - Upper and Walker Review of Systems Review of Systems: All systems reviewed & are unremarkable except as noted in HPI & below Physical Exam Constitutional: WD/WN, vitals as above no acute distress Neck: trachea midline, no thyromegaly Respiratory: no respiratory distress Auscultation: + diminished lung sounds (B/L) and + crackles Cardiovascular: Rate/Rhythm: + tachycardic and + irregularly irregular Heart Sounds: normal S1 and normal S2; no murmur Vessels: + JVD Extremities: no edema Gastrointestinal (Abdomen): Percussion/Palpation: + abdomen tender and abdomen soft Musculoskeletal: no cyanosis or clubbing, extremities motor strength 5/5 Results & Data Vital Signs (Past 12 Hours) Vital Signs Temp Pulse Pulse Resp BP BP Pulse Ox 01/07/24 07:40 36.7 C 71 18 128/80 94 01/07/24 02:20 36.5 C 102 H 18 103/72 95 01/07/24 01:08 99 H 01/07/24 01:00 01/07/24 00:51 36.7 C 117 H 16 156/82 H 93 01/07/24 00:30 100 H 16 149/98 H 96 01/06/24 23:51 105 H 14 140/103 H 94 01/06/24 22:59 106 H 01/06/24 22:30 97 H 14 124/88 94 01/06/24 22:00 102 H 16 131/100 97 01/06/24 21:23 145/114 H 01/06/24 20:43 120 H 144/106 H O2 Del Method 01/07/24 07:40 Room Air 01/07/24 02:20 Room Air 01/07/24 01:08 01/07/24 01:00 Room Air 01/07/24 00:51 Room Air 01/07/24 00:30 01/06/24 23:51 01/06/24 22:59 01/06/24 22:30 01/06/24 22:00 01/06/24 21:23 01/06/24 20:43 Laboratory Results Cardiac Enzymes 01/06/24 01/07/24 Range/Units 19:06 05:33 AST 26 (13-39) U/L Troponin I High Sens 9.2 6.8 (0-20) pg/ml Coagulation 01/06/24 Range/Units 19:06 PT 13.3 H (9.0-12.0) Seconds CBC 01/06/24 01/07/24 Range/Units 19:06 05:33 WBC 9.12 8.27 (4.8-10.8) K/ul RBC 5.30 4.72 (4.70-6.10) M/uL Hgb 15.6 13.7 L (14.0-18.0) g/dl Hct 45.4 40.8 L (42.0-52.0) % Plt Count 176 147 (130-400) K/uL Neut # (Auto) 7.35 H 6.41 (1.40-6.50) K/uL Lymph # (Auto) 0.96 L 0.85 L (1.20-3.40) K/uL Luce # (Auto) 0.63 H 0.79 H (0.11-0.59) K/uL Eos # (Auto) 0.07 0.10 (0.00-0.50) K/uL Baso # (Auto) 0.07 0.09 (0.00-0.20) K/uL Comprehensive Metabolic Panel 01/06/24 01/07/24 Range/Units 19:06 05:33 Sodium 129 L 131 L (136-145) mmol/L Potassium 5.0 4.3 (3.5-5.1) mmol/L Chloride 97 L 99 (98-107) mmol/L Carbon Dioxide 24 25 (21-32) mmol/L BUN 9 9 (6-23) mg/dl Creatinine 0.92 0.86 (0.6-1.4) mg/dl Glucose 93 85 (70-99(Fasting)) mg/dl Calcium 9.0 8.2 L (8.6-10.3) mg/dl AST 26 (13-39) U/L ALT 15 (7-52) U/L Alkaline Phosphatase 196 H (34-104) U/L Total Protein 6.2 (6.0-8.3) gm/dl Albumin 3.7 (3.4-5.0) gm/dl Intake and Output 01/06/24 01/07/24 01/07/24 22:59 06:59 14:59 Intake Total 100 / 100 100 / 100 Output Total 250 / 250 Balance 100 / -150 -250 / -150 100 / 100 Intake: IV 100 / 100 100 / 100 Piperacillin/Tazobactam 4.5 gm 100 / 100 100 / 100 In 100 ml @ 25 mls/hr IV Q8H [facility] Rx#:[id number] Output: Urine Amount (Catheter) 250 / 250 External 250 / 250 Other: Other Intake Source npo Weight 73.2 kg 71.5 kg Weight Measurement Method Built in [facility] Built in [facility] Diagnostic Findings Telemetry reviewed: Persistent afib with RVR ranging 110-120's EKG reviewed from 01/07/24: Afib with non specific ST wave abnormality EKG reviewed from 01/06/24: Afib with RVR in the 120's Chest X-Ray 01/06/24 19:05 XR chest 1V portable CLINICAL HISTORY: weakness, FRANKEL COMPARISON STUDY: Chest CT August 20, 2023. Chest radiograph December 30, 2023. FINDINGS: There is no pneumothorax. Dual-lead right subclavian pacer is unchanged in position. Stable cardiomegaly. Moderate right and [id number] left pleural effusions have slightly progressed. There is associated bibasilar opacities. Interstitial thickening persists. IMPRESSION: 1. Cardiomegaly with persistent pulmonary edema 2. Slight increase in moderate right and [id number] left pleural effusions with associated bibasilar opacities. ACT 112: Negative or not required by law. Electronically signed by: Andrew Hankins M.D. 01/07/2024 6:51 AM Abdomen/Pelvis CT 01/06/24 19:06 Exam(s): CT ABDOMEN + PELVIS With Contrast IV Amt: 117 ml opti 320 EXAM: CT Abdomen and Pelvis With Intravenous Contrast CLINICAL HISTORY: Reason for exam: upper abd pain, weak, post op shay TECHNIQUE: Axial computed tomography images of the abdomen and pelvis with intravenous contrast. CTDI is 39 mGy and DLP is 721 mGy-cm. Automated exposure control was utilized for the study. A dose lowering technique was utilized adhering to the principles of ALARA. CONTRAST: Patient received 117 ml opti 320 of IV contrast COMPARISON: December 30, 2023 FINDINGS: Lung bases: Unremarkable. No mass. No consolidation. Pleural space: Bilateral pleural effusions right greater than left stable since prior exam. Heart: Trace pericardial effusion unchanged. ABDOMEN: Liver: Unremarkable. No mass. Gallbladder and bile ducts: Redemonstration of postoperative changes prior cholecystectomy with 4.4 x 4.5 cm air-fluid collection within the gallbladder fossa and a moderate amount of associated inflammatory change likely representing an abscess unchanged from prior exam. No ductal dilation. Pancreas: Unremarkable. No mass. No ductal dilation. Spleen: Unremarkable. No splenomegaly. Adrenals: Unremarkable. No mass. Kidneys and ureters: 3.2 x 3.8 cm hypodense mass within the upper pole left kidney stable. No hydronephrosis. Stomach and bowel: Unremarkable. No obstruction. No mucosal thickening. PELVIS: Appendix: No findings to suggest acute appendicitis. Bladder: Distended urinary bladder. Reproductive: Unremarkable as visualized. ABDOMEN and PELVIS: Intraperitoneal space: Unremarkable. No free air. No significant fluid collection. Bones/joints: No acute fracture. No dislocation. Soft tissues: Diffuse anasarca. Vasculature: Unremarkable. No abdominal aortic aneurysm. Lymph nodes: Unremarkable. No enlarged lymph nodes. IMPRESSION: 4.5 cm abscess within the gallbladder fossa this is relatively unchanged when compared with the prior exam 3.8 cm hypodensity within the upper pole left kidney stable when compared with prior study and may represent an underlying mass. Electronically signed by: Colt Clement MD 01/06/24 20:43 PM Chest CTA 01/06/24 19:06 Exam(s): CTA CHEST IV Amt: 117 ml opti 320 EXAM: CT Angiography Chest With Intravenous Contrast CLINICAL HISTORY: Reason for exam: PE, FRANKEL, afib, post op. TECHNIQUE: Axial computed tomographic angiography images of the chest with intravenous contrast. CTDI is 39 mGy and DLP is 721 mGy-cm. Automated exposure control was utilized for the study. A dose lowering technique was utilized adhering to the principles of ALARA. MIP reconstructed images were created and reviewed. COMPARISON: No relevant prior studies available. FINDINGS: Pulmonary arteries: Unremarkable. No pulmonary embolism. Aorta: Ascending thoracic aortic aneurysm measuring 3.9 cm. Lungs: Interlobular septal thickening with diffuse groundglass opacity. Compressive atelectasis of both lower lobes. Pleural space: Large bilateral pleural effusions right slightly greater than left. No pneumothorax. Heart: Coronary artery calcifications. No cardiomegaly. Trace pericardial effusion . No evidence of RV dysfunction. Bones/joints: No acute fracture. No dislocation. Soft tissues: Unremarkable. Lymph nodes: Unremarkable. No enlarged lymph nodes. Tubes, lines and devices: left chest wall intracardiac device. IMPRESSION: No acute findings in the visualized arteries of the chest. 3.9 cm ascending thoracic aortic aneurysm Large bilateral pleural effusions with interlobular septal thickening consistent with CHF. Trace pericardial effusion Electronically signed by: Colt Clement MD 01/06/24 20:37 PM Prior data reviewed: Echo report reviewed from 12/24/23: LVEF 60-65% LA is moderately dilated Mild MR No pulm hypertension Medications Administered Current Inpatient Medications Atorvastatin Calcium (Atorvastatin 40 Mg Tab) 40 mg PO DAILY STEVE Stop: 02/06/24 08:59 Last Admin: 01/07/24 08:38 Dose: 40 mg Dicyclomine HCl (Dicyclomine Hcl 10 Mg Cap) 10 mg PO BID STEVE Stop: 02/06/24 08:59 Last Admin: 01/07/24 08:38 Dose: 10 mg Gabapentin (Gabapentin 300 Mg Cap) 300 mg PO TID STEVE Stop: 02/06/24 08:59 Last Admin: 01/07/24 08:38 Dose: 300 mg Piperacillin Sod/Tazobactam Sod (Zosyn) 4.5 gm in 100 mls @ 25 mls/hr IV Q8H [facility]; Protocol Stop: 01/17/24 03:59 Last Infusion: 01/07/24 08:36 Dose: Infused Magnesium Sulfate/Dextrose (Magnesium Sulfate / D5w) 1 gm in 100 mls @ 50 mls/hr IV ONE ONE Stop: 01/07/24 10:50 Last Admin: 01/07/24 09:47 Dose: 50 mls/hr Lamotrigine (Lamotrigine 100 Mg Tab) 100 mg PO BID [facility]; Protocol Stop: 02/06/24 08:59 Last Admin: 01/07/24 08:39 Dose: 100 mg Levothyroxine Sodium (Levothyroxine Sodium 25 Mcg Tablet) 25 mcg PO DAILYBB STEVE Stop: 02/06/24 06:29 Last Admin: 01/07/24 04:20 Dose: 25 mcg Magnesium Oxide (Magnesium Oxide 400 Mg Tab) 400 mg PO QAM [facility] Stop: 02/06/24 08:59 Metoprolol Succinate (Metoprolol Succ 25mg Ext Rel Tab) 25 mg PO BID STEVE Stop: 02/06/24 08:59 Last Admin: 01/07/24 08:38 Dose: 25 mg Metoprolol Tartrate (Metoprolol Tartrate 1 Mg/Ml Vial) 5 mg IV Q6H PRN PRN Reason: Tachycardia Stop: 02/06/24 01:07 Nitroglycerin (Nitroglycerin Sl 0.4 Mg/Tab Tab) 0.4 mg SL Q5M PRN PRN Reason: Chest Pain Stop: 02/06/24 01:07 Pantoprazole Sodium (Pantoprazole 40 Mg Tab) 40 mg PO DAILY STEVE Stop: 02/06/24 08:59 Last Admin: 01/07/24 08:38 Dose: 40 mg Tamsulosin HCl (Tamsulosin Hcl 0.4 Mg Cap) 0.4 mg PO DAILY STEVE Stop: 02/06/24 08:59 Last Admin: 01/07/24 08:38 Dose: 0.4 mg Trimethoprim/Sulfamethoxazole (Sulfamethoxazole/Trimethoprim Ds 800/160mg Tab) 1 tab PO BID STEVE Stop: 02/06/24 08:59 Last Admin: 01/07/24 08:38 Dose: 1 tab Vibegron (Vibegron 75 Mg Tab) 75 mg PO DAILY STEVE Stop: 02/06/24 08:59 Last Admin: 01/07/24 08:39 Dose: 75 mg
[2024-01-07] MEDS: MAGNESIUM SULFATE / D5W 1 GM/100 ML BAG IV ONE (09:47)
--- NOTE | 2024-01-07 11:19 | Electrocardiogram Report ---
Test Reason : Blood Pressure : */* mmHG Vent. Rate : 120 BPM Atrial Rate : * BPM P-R Int : * ms QRS Dur : 88 ms QT Int : 314 ms P-R-T Axes : * 34 238 degrees QTcB Int : 443 ms Atrial fibrillation with rapid ventricular response Nonspecific ST and T wave abnormality Abnormal ECG When compared with ECG of 30-Dec-2023 14:09, No significant change was found Confirmed by Noe Gooden ([id number]) on 01/07/2024 11:19:27 AM Referred By: REFERRED SELF Confirmed By: Noe Gooden
--- NOTE | 2024-01-07 11:19 | Electrocardiogram Report ---
Test Reason : Blood Pressure : */* mmHG Vent. Rate : 98 BPM Atrial Rate : 87 BPM P-R Int : * ms QRS Dur : 82 ms QT Int : 384 ms P-R-T Axes : * 27 258 degrees QTcB Int : 490 ms Atrial fibrillation Nonspecific ST and T wave abnormality Abnormal ECG When compared with ECG of 06-Jan-2024 18:55, (unconfirmed) T wave inversion more evident in Anterior leads Confirmed by Noe Gooden ([id number]) on 01/07/2024 11:19:22 AM Referred By: REFERRED SELF Confirmed By: Noe Gooden
--- NOTE | 2024-01-07 11:31 | Hospitalist Progress Note ---
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 He was started on Synthyroid for subclinical hypothyroidism last admit. Patient at home not taking his medications because states having difficulty to swallow. As per he is also eating very little here and there and on soft diet. He is mostly bedbound ambulates short distance with assistance with walker. Today was having chest pain and shortness of breath which prompted him to come to the ER. His recent cholecystectomy site is also draining and the dressing is wet. Denies any abdominal pain. Says moving his bowels and bladder okay. No fevers. Currently chest pain and shortness of breath improved. No cough. No headache. No blurred vision. No runny nose or sore throat. Patient again says that he will go home tomorrow. says she could not take care of him at home currently. In the ER he was in rapid A-fib and after IV Lopressor heart rates improved. Abdominal CAT scan showing possible abscess at the recent cholecystectomy site and he was evaluated by surgery. Poss. Postoperative abscess Recent cholecystectomy site N.p.o. IV Zosyn Surgery consulted - do not believe abscess but post- op fluid collection but recommend 7 day course of abx and close surg. follow up (Dr. Mast) To monitor for now. Rapid A-fib Not taking medication at home Improved after IV Lopressor IV Lopressor as needed Continue home metoprolol Xarelto Seems he was on sotalol and amiodarone in the past Consulted cardiology for further recommendations - Found to have atrial fibrillation (chronic/known) with elevated rates. Patient has not been taking medications at home since discharge on 12/30. Metoprolol had been increased last admission to 50 mg BID to aid with afib rates. Resume 50 mg BID this morning. Patient has underlying pacemaker, last interrogated 2 weeks ago with 5.5-8.5 months of battery longevity. Patient follows with [facility]. Acute CHF with preserved ejection fraction Large bilateral pleural effusions on the CT scan Received a dose of IV Lasix 20 mg in the ER Continue metoprolol Recently had echo Cardiology consulted - IV furosemide 20 mg twice daily to start Chest pain Currently resolved Possible from not taking his medications We will follow serial enzymes Echo as per cardiology Ascending thoracic aortic aneurysm 3.9 cm Needs follow-up Sick sinus syndrome Status post pacemaker. 5.5 months of battery life confirmed Follow-up with cardiology Dr. Carney History of CAD S/p stents On statin, Imdur, beta-hali Last admit Imdur on hold until seen by cardiology Hypertension On beta-hali Currently Imdur and ramipril on hold as patient is frequently hypotensive last admission will monitor Metastatic clear-cell renal carcinoma Status post recent ablation. [facility] Recently started Keytruda Will hold Lenvima due to current illness Subclinical hypothyroidism Started on Synthroid Needs follow-up GERD Protonix History of E. coli bacteremia secondary to knee surgery On lifelong Bactrim Seizure disorder Lamotrigine and gabapentin History of bladder cancer s/p surgery Dementia monitor for delirium Nutrition Having difficulty swallowing Will consult speech evaluation DVT prophylaxis - Xarelto Disposition Telemetry Social service to help with discharge planning as says she cannot care for him at home currently CODE STATUS okay for CPR and meds. Do not want to be intubated. Admission and Anticipated Discharge Date Admission Date: January 06, 2024 Subjective Pt seen in follow up of Afib RVR, hx of cholecystectomy, now w/ poss. post-op abscess Currently laying in bed in NAD, pt's present at the bedside No fever, chills, chest pain, shortness of breath. Abd pain now improved. Pt's reports difficulty swallowing - speech therapy consulted Pt seen by cardiology for Afib Contacted by surgery - don't believe post-op abscess, just fluid - but recommend to finish course of abx for 7 days Review of Systems Review of Systems: All systems reviewed & are unremarkable except as noted in Subjective Physical Exam Physical Exam: General- thin elderly M, + chronically ill appearing Head- atraumatic Eyes- PERRL. Neck- supple Lungs- clear to auscultation mild bibasilar crackles. Heart- irregular rhythm; no murmur Abdomen- normal bowel sounds, soft, nontender, +drainage form recent lap shay site Extremities- no pretibial edema, no erythema seen Neuro- alert, oriented ; PERRL, no facial palsy; no dysarthria; moves extremities Results & Data Results & Data Vital Signs (Past 12 Hours) Vital Signs Temp Pulse Pulse Resp BP BP Pulse Ox 01/07/24 08:30 01/07/24 07:40 36.7 C 71 18 128/80 94 01/07/24 06:19 97 H 01/07/24 02:20 36.5 C 102 H 18 103/72 95 01/07/24 01:08 99 H 01/07/24 01:00 01/07/24 00:51 36.7 C 117 H 16 156/82 H 93 01/07/24 00:30 100 H 16 149/98 H 96 01/06/24 23:51 105 H 14 140/103 H 94 O2 Del Method 01/07/24 08:30 Room Air 01/07/24 07:40 Room Air 01/07/24 06:19 01/07/24 02:20 Room Air 01/07/24 01:08 01/07/24 01:00 Room Air 01/07/24 00:51 Room Air 01/07/24 00:30 01/06/24 23:51 Laboratory Results 01/07/24 01/07/24 01/06/24 Range/Units 10:46 05:33 21:10 WBC 8.27 (4.8-10.8) K/ul RBC 4.72 (4.70-6.10) M/uL Hgb 13.7 L (14.0-18.0) g/dl POC Hgb (14.0-18.0) g/dl Hct 40.8 L (42.0-52.0) % POC Hct (42-52) % MCV 86.4 (80.0-100.0) fL MCH 29.0 (25.0-34.0) pg MCHC 33.6 (32.0-36.0) g/dL RDW Std Deviation 43.1 (36.4-46.3) fL RDW Coeff of Seamus 14.2 (11.5-14.5) % Plt Count 147 (130-400) K/uL MPV 9.6 (9.4-12.4) fL Immature Gran % (Auto) 0.4 % Neut % (Auto) 77.4 % Lymph % (Auto) 10.3 % [place] % (Auto) 9.6 % Eos % (Auto) 1.2 % Baso % (Auto) 1.1 % Neut # (Auto) 6.41 (1.40-6.50) K/uL Lymph # (Auto) 0.85 L (1.20-3.40) K/uL [place] # (Auto) 0.79 H (0.11-0.59) K/uL Eos # (Auto) 0.10 (0.00-0.50) K/uL Baso # (Auto) 0.09 (0.00-0.20) K/uL Immature Gran # (Auto) 0.03 (0.01-0.20) K/uL PT (9.0-12.0) Seconds INR (0.9-1.1) POC Sodium (135-144) mmol/L Sodium 131 L (136-145) mmol/L POC Potassium (3.3-5.0) mmol/L Potassium 4.3 (3.5-5.1) mmol/L POC Chloride (101-112) mmol/L Chloride 99 (98-107) mmol/L Carbon Dioxide 25 (21-32) mmol/L POC Total CO2 (24-31) mmol/L Anion Gap 7 (3-11) POC Anion Gap (16-25) mmol/L POC BUN (7-18) mg/dl BUN 9 (6-23) mg/dl Creatinine 0.86 (0.6-1.4) mg/dl POC Creatinine (0.6-1.3) mg/dl Est Cr Clr Drug Dosing 68.5 ml/min eGFR 87.53 BUN/Creatinine Ratio 10.5 (10-20) Glucose 85 (70-99(Fasting)) mg/dl POC Glucose (other) (70-99) mg/dl Calcium 8.2 L (8.6-10.3) mg/dl POC Ioniz Calcium Dede (1.12-1.32) mmol/l Magnesium 1.6 L (1.7-2.4) mg/dl Total Bilirubin (0.2-1.0) mg/dl AST (13-39) U/L ALT (7-52) U/L Alkaline Phosphatase (34-104) U/L Troponin I High Sens 6.6 6.8 (0-20) pg/ml Total Protein (6.0-8.3) gm/dl Albumin (3.4-5.0) gm/dl Globulin (2.5-4.0) gm/dl Albumin/Globulin Ratio (0.9-2) Lipase (11-82) U/L TSH (0.300-4.500) uIu/ml Free T4 (0.61-1.60) ng/dl Urine Color Urine Appearance (Clear) Urine pH (4.5-7.5) Ur Specific [place] (1.000-1.030) Urine Protein (Negative) Urine Glucose (UA) (Negative) Urine Ketones (Negative) Urine Blood (Negative) Urine Nitrite (Negative) Urine Bilirubin (Negative) Urine Urobilinogen (Negative) Ur Leukocyte Esterase (Negative) Urine WBC (Auto) (0-5) /hpf Urine RBC (Auto) (0-2) /hpf U Hyaline Cast (Auto) (0-2) /lpf U Epithel Cells (Auto) (0-2) /hpf Urine Bacteria (Auto) (None Seen) Adenovirus (PCR) Not Detected (NotDetected) B. pertussis DNA (PCR) Not Detected (NotDetected) B.parapertussis DNA PCR Not Detected (NotDetected) C. pneumoniae DNA (PCR) Not Detected (NotDetected) Coronavirus OC43 (PCR) Not Detected (NotDetected) Coronavirus HKU1 (PCR) Not Detected (NotDetected) Coronavirus 229E (PCR) Not Detected (NotDetected) SARS-CoV-2 (PCR) Not Detected (NotDetected) Coronavirus NL63 (PCR) Not Detected (NotDetected) Human Metapneumovir PCR Not Detected (NotDetected) Influenza Type A (PCR) Not Detected (NotDetected) Influenza Type B (PCR) Not Detected (NotDetected) M. pneumoniae (PCR) Not Detected (NotDetected) Parainfluenza 1 (PCR) Not Detected (NotDetected) Parainfluenza 2 (PCR) Not Detected (NotDetected) Parainfluenza 3 (PCR) Not Detected (NotDetected) Parainfluenza 4 (PCR) Not Detected (NotDetected) RSV (PCR) Not Detected (NotDetected) Entero/Rhino (PCR) Not Detected (NotDetected) 01/06/24 01/06/24 01/06/24 Range/Units 20:46 19:09 19:06 WBC 9.12 (4.8-10.8) K/ul RBC 5.30 (4.70-6.10) M/uL Hgb 15.6 (14.0-18.0) g/dl POC Hgb 16.7 (14.0-18.0) g/dl Hct 45.4 (42.0-52.0) % POC Hct 49 (42-52) % MCV 85.7 (80.0-100.0) fL MCH 29.4 (25.0-34.0) pg MCHC 34.4 (32.0-36.0) g/dL RDW Std Deviation 42.6 (36.4-46.3) fL RDW Coeff of Seamus 14.1 (11.5-14.5) % Plt Count 176 (130-400) K/uL MPV 9.6 (9.4-12.4) fL Immature Gran % (Auto) 0.4 % Neut % (Auto) 80.6 % Lymph % (Auto) 10.5 % [place] % (Auto) 6.9 % Eos % (Auto) 0.8 % Baso % (Auto) 0.8 % Neut # (Auto) 7.35 H (1.40-6.50) K/uL Lymph # (Auto) 0.96 L (1.20-3.40) K/uL [place] # (Auto) 0.63 H (0.11-0.59) K/uL Eos # (Auto) 0.07 (0.00-0.50) K/uL Baso # (Auto) 0.07 (0.00-0.20) K/uL Immature Gran # (Auto) 0.04 (0.01-0.20) K/uL PT 13.3 H (9.0-12.0) Seconds INR 1.2 H (0.9-1.1) POC Sodium 130 L (135-144) mmol/L Sodium 129 L (136-145) mmol/L POC Potassium 4.9 (3.3-5.0) mmol/L Potassium 5.0 (3.5-5.1) mmol/L POC Chloride 96 L (101-112) mmol/L Chloride 97 L (98-107) mmol/L Carbon Dioxide 24 (21-32) mmol/L POC Total CO2 26 (24-31) mmol/L Anion Gap 8 (3-11) POC Anion Gap 15.0 L (16-25) mmol/L POC BUN 9 (7-18) mg/dl BUN 9 (6-23) mg/dl Creatinine 0.92 (0.6-1.4) mg/dl POC Creatinine 1.0 (0.6-1.3) mg/dl Est Cr Clr Drug Dosing 64.0 ml/min eGFR 84.09 BUN/Creatinine Ratio 9.8 L (10-20) Glucose 93 (70-99(Fasting)) mg/dl POC Glucose (other) 95 (70-99) mg/dl Calcium 9.0 (8.6-10.3) mg/dl POC Ioniz Calcium Dede 1.09 L (1.12-1.32) mmol/l Magnesium 1.7 (1.7-2.4) mg/dl Total Bilirubin 1.4 H (0.2-1.0) mg/dl AST 26 (13-39) U/L ALT 15 (7-52) U/L Alkaline Phosphatase 196 H (34-104) U/L Troponin I High Sens 9.2 (0-20) pg/ml Total Protein 6.2 (6.0-8.3) gm/dl Albumin 3.7 (3.4-5.0) gm/dl Globulin 2.5 (2.5-4.0) gm/dl Albumin/Globulin Ratio 1.5 (0.9-2) Lipase 48 (11-82) U/L TSH 14.174 H (0.300-4.500) uIu/ml Free T4 0.86 (0.61-1.60) ng/dl Urine Color Yellow Urine Appearance Clear (Clear) Urine pH 7.5 (4.5-7.5) Ur Specific [place] 1.035 H (1.000-1.030) Urine Protein Trace H (Negative) Urine Glucose (UA) Negative (Negative) Urine Ketones Negative (Negative) Urine Blood Negative (Negative) Urine Nitrite Negative (Negative) Urine Bilirubin Negative (Negative) Urine Urobilinogen Positive H (Negative) Ur Leukocyte Esterase Negative (Negative) Urine WBC (Auto) 0-5 (0-5) /hpf Urine RBC (Auto) 0-2 (0-2) /hpf U Hyaline Cast (Auto) 0-2 (0-2) /lpf U Epithel Cells (Auto) 0-2 (0-2) /hpf Urine Bacteria (Auto) None Seen (None Seen) Adenovirus (PCR) (NotDetected) B. pertussis DNA (PCR) (NotDetected) B.parapertussis DNA PCR (NotDetected) C. pneumoniae DNA (PCR) (NotDetected) Coronavirus OC43 (PCR) (NotDetected) Coronavirus HKU1 (PCR) (NotDetected) Coronavirus 229E (PCR) (NotDetected) SARS-CoV-2 (PCR) (NotDetected) Coronavirus NL63 (PCR) (NotDetected) Human Metapneumovir PCR (NotDetected) Influenza Type A (PCR) (NotDetected) Influenza Type B (PCR) (NotDetected) M. pneumoniae (PCR) (NotDetected) Parainfluenza 1 (PCR) (NotDetected) Parainfluenza 2 (PCR) (NotDetected) Parainfluenza 3 (PCR) (NotDetected) Parainfluenza 4 (PCR) (NotDetected) RSV (PCR) (NotDetected) Entero/Rhino (PCR) (NotDetected) Medications Administered Current Inpatient Medications Atorvastatin Calcium (Atorvastatin 40 Mg Tab) 40 mg PO DAILY [facility] Stop: 02/06/24 08:59 Last Admin: 01/07/24 08:38 Dose: 40 mg Dicyclomine HCl (Dicyclomine Hcl 10 Mg Cap) 10 mg PO BID [facility] Stop: 02/06/24 08:59 Last Admin: 01/07/24 08:38 Dose: 10 mg Gabapentin (Gabapentin 300 Mg Cap) 300 mg PO TID [facility] Stop: 02/06/24 08:59 Last Admin: 01/07/24 08:38 Dose: 300 mg Piperacillin Sod/Tazobactam Sod (Zosyn) 4.5 gm in 100 mls @ 25 mls/hr IV Q8H [facility]; Protocol Stop: 01/17/24 03:59 Last Infusion: 01/07/24 08:36 Dose: Infused Lamotrigine (Lamotrigine 100 Mg Tab) 100 mg PO BID [facility]; Protocol Stop: 02/06/24 08:59 Last Admin: 01/07/24 08:39 Dose: 100 mg Levothyroxine Sodium (Levothyroxine Sodium 25 Mcg Tablet) 25 mcg PO DAILYBB [facility] Stop: 02/06/24 06:29 Last Admin: 01/07/24 04:20 Dose: 25 mcg Magnesium Oxide (Magnesium Oxide 400 Mg Tab) 400 mg PO QAM [facility] Stop: 02/06/24 08:59 Metoprolol Succinate (Metoprolol Succ 50mg Ext Rel Tab) 50 mg PO BID [facility] Stop: 02/06/24 20:59 Metoprolol Tartrate (Metoprolol Tartrate 1 Mg/Ml Vial) 5 mg IV Q6H PRN PRN Reason: Tachycardia Stop: 02/06/24 01:07 Nitroglycerin (Nitroglycerin Sl 0.4 Mg/Tab Tab) 0.4 mg SL Q5M PRN PRN Reason: Chest Pain Stop: 02/06/24 01:07 Pantoprazole Sodium (Pantoprazole 40 Mg Tab) 40 mg PO DAILY [facility] Stop: 02/06/24 08:59 Last Admin: 01/07/24 08:38 Dose: 40 mg Tamsulosin HCl (Tamsulosin Hcl 0.4 Mg Cap) 0.4 mg PO DAILY [facility] Stop: 02/06/24 08:59 Last Admin: 01/07/24 08:38 Dose: 0.4 mg Trimethoprim/Sulfamethoxazole (Sulfamethoxazole/Trimethoprim Ds 800/160mg Tab) 1 tab PO BID [facility] Stop: 02/06/24 08:59 Last Admin: 01/07/24 08:38 Dose: 1 tab Vibegron (Vibegron 75 Mg Tab) 75 mg PO DAILY [facility] Stop: 02/06/24 08:59 Last Admin: 01/07/24 08:39 Dose: 75 mg
[2024-01-07] MEDS: FUROSEMIDE INJ 20 MG/2 ML VIAL IV ONE (11:47)
[2024-01-07] MEDS: MAGNESIUM OXIDE 400 MG TAB PO SCH (11:47)
[2024-01-07] MEDS: METOPROLOL SUCC 25MG EXT REL TAB PO ONE (11:47)
[2024-01-07] MEDS: METOPROLOL SUCC 50MG EXT REL TAB PO SCH (20:04)
[2024-01-07] MEDS: FUROSEMIDE INJ 20 MG/2 ML VIAL IV SCH (20:17)
[2024-01-08 06:28] LABS: Hematocrit (blood only) 36.2 % (42.0-52.0); Hemoglobin 12.5 g/dl (14.0-18.0); Mean Corpuscular Hemoglobin 29.6 pg (25.0-34.0); Mean Corpuscular Hgb Conc 34.5 g/dL (32.0-36.0); Mean Corpuscular Volume 85.6 fL (80.0-100.0); Platelet Count 142 K/uL (130-400); RDW Coefficient of Variation 14.2 % (11.5-14.5); Red Blood Count 4.23 M/uL (4.70-6.10); White Blood Count 8.31 K/ul (4.8-10.8)
[2024-01-08 06:35] LABS: BUN Creatinine Ratio 11.7 (10-20); Calcium 7.9 mg/dl (8.6-10.3); Creatinine Clr Calc Pharmacy 54.8 ml/min; Magnesium 1.7 mg/dl (1.7-2.4); Phosphorus 3.8 mg/dl (2.5-4.9); Potassium 3.8 mmol/L (3.5-5.1)
[2024-01-08] MEDS: RIVAROXABAN 20 MG TAB PO SCH (08:37)
--- NOTE | 2024-01-08 09:16 | Cardiology Progress Note ---
Date of Service January 08, 2024 Assessment & Plan (1) Postoperative abscess: Plan: possible post operative abscess - Surgery following and recommended antibiotics for 7 days and follow up as outpatient. no need for surgical intervention at this time (2) Atrial fibrillation with rapid ventricular response: (3) Acute heart failure with preserved ejection fraction: (4) Pleural effusion: Plan 01/07/24 Patient here with generalized weakness, abdominal pain, SOB Found to have atrial fibrillation (chronic/known) with elevated rates. Patient has not been taking medications at home since discharge on 12/30. Metoprolol had been increased last admission to 50 mg BID to aid with afib rates. Resume 50 mg BID this morning. Patient has underlying pacemaker, last interrogated 2 weeks ago with 5.5-8.5 months of battery longevity. Patient follows with [facility]. Xarelto held on admission due to possible post op abscess and need for surgical intervention. surgery consulted for further evaluation. Currently patient is comfortable, without significant pain. WBC is normal. Started on antibiotics. He was also found to have larger b/l pleural effusions on admission consistent with acute HFpEF. Furosemide 20 mg x1 dose given on admission yesterday Urine outputs not measured? Currently oxygen status maintained on room air. Would repeat IV lasix 20 mg today. Monitor renal function and sodium. Sodium levels improved with IV lasix, likely dilutional. Magnesium low at 1.6. Supplementation ordered. Potassium at 4.3. 01/08/24: Patient with improved symptoms today. No abdominal pain. No SOB. Persistent afib with mildly elevated rates noted this morning. Tolerating higher dose metoprolol 50 mg BID. Consider increasing dose to 75 mg BID pending response to AM meds and magnesium supplement Supplement magnesium - 2 gm IV ordered this morning. Xarelto resumed as no intervention planned for possible post op abscess. Antibiotics initiated and f/u with surgery as outpatient. Volume status improving. Repeat chest xray this morning Continue furosemide 20 mg IV twice daily (AM and afternoon dosing) Monitor I+O's Will likely require low dose furosemide on discharge. Monitor renal function and sodium. Supplement potassium this morning 20 meq x1 Case discussed with Dr. Zimmer I spent a total of 30 minutes on the date of service in preparation, delivery, and documentation of the care provided to this patient, excluding any time spent in the performance of separately billed services. Elizabeth Fair PA-C Department of Cardiology, [facility] This chart was completed in part utilizing Speech Voice Recognition Software. Grammatical errors, random word insertions, pronoun errors, and incomplete sentences are an occasional consequence of this system due to software limitations, ambient noise, and hardware issues. Any formal questions or concerns about the content, text, or information contained within the body of this dictation should be directly addressed to the provider for clarification. Admission and Anticipated Discharge Date Admission Date: January 06, 2024 Supervising Physician Co-Signing Physician Notes Attending attestation: Case reviewed with the advanced practitioner. I have personally performed a history and physical examination on the patient. I have reviewed the advanced practitioner's documentation on the date of service referenced in note, and I agree with, and take responsibility for the plan of care. CXR this am with improved pleural effusions. Continue IV furosemide today. Will consider transition to oral diuretic tomorrow. I spent a total of 20 minutes coordinating, documenting, and providing care for this patient excluding time spent in the performance of separately billed services or time spent by another provider. Willian Zimmer, Subjective Patient resting in bed. Nursing students assisting patient at time of evaluation. He reports feeling "good" today. No SOB/CP. No abdominal pain. No edema. Review of Systems Review of Systems: All systems reviewed & are unremarkable except as noted in HPI & below Physical Exam Constitutional: WD/WN, vitals as above no acute distress Neck: trachea midline, no thyromegaly Respiratory: no respiratory distress Auscultation: + diminished lung sounds (B/L) Cardiovascular: Rate/Rhythm: + tachycardic and + irregularly irregular Heart Sounds: normal S1 and normal S2; no murmur Extremities: no edema Gastrointestinal (Abdomen): Percussion/Palpation: abdomen soft; abdomen nontender Musculoskeletal: no cyanosis or clubbing, extremities motor strength 5/5 Results & Data Vital Signs (Past 12 Hours) Vital Signs Temp Pulse Pulse Resp BP Pulse Ox O2 Del Method 01/08/24 07:47 36.5 C 108 H 21 102/71 93 Room Air 01/08/24 02:23 36.6 C 88 18 112/77 95 Room Air 01/07/24 22:23 36.8 C 103 H 18 97/63 L 94 Room Air 01/07/24 21:49 102 H Laboratory Results Cardiac Enzymes 01/07/24 01/07/24 Range/Units 10:46 17:21 Troponin I High Sens 6.6 7.0 (0-20) pg/ml CBC 01/08/24 Range/Units 06:04 WBC 8.31 (4.8-10.8) K/ul RBC 4.23 L (4.70-6.10) M/uL Hgb 12.5 L (14.0-18.0) g/dl Hct 36.2 L (42.0-52.0) % Plt Count 142 (130-400) K/uL Comprehensive Metabolic Panel 01/08/24 Range/Units 06:04 Sodium 132 L (136-145) mmol/L Potassium 3.8 (3.5-5.1) mmol/L Chloride 100 (98-107) mmol/L Carbon Dioxide 25 (21-32) mmol/L BUN 12 (6-23) mg/dl Creatinine 1.03 (0.6-1.4) mg/dl Glucose 84 (70-99(Fasting)) mg/dl Calcium 7.9 L (8.6-10.3) mg/dl Intake and Output 01/07/24 01/08/24 01/08/24 22:59 06:59 14:59 Intake Total 220 / 680 260 / 680 Output Total 400 / 850 0 / 850 Balance -180 / -170 260 / -170 Intake: IV 100 / 400 100 / 400 Piperacillin/Tazobactam 4.5 gm 100 / 300 100 / 300 In 100 ml @ 25 mls/hr IV Q8H [facility] Rx#:[id number] Oral 120 / 280 160 / 280 Output: Urine Amount (Catheter) 400 / 400 External 400 / 400 # Bowel Movements 0 / 0 Other: # Unmeasured Voids 1 Weight 71.5 kg 67.72 kg Weight Measurement Method Built in [facility] Diagnostic Findings Telemetry reviewed: Atrial fib rates ranging 90-120's Medications Administered Current Inpatient Medications Atorvastatin Calcium (Atorvastatin 40 Mg Tab) 40 mg PO DAILY [facility] Stop: 02/06/24 08:59 Last Admin: 01/08/24 08:32 Dose: 40 mg Dicyclomine HCl (Dicyclomine Hcl 10 Mg Cap) 10 mg PO BID [facility] Stop: 02/06/24 08:59 Last Admin: 01/08/24 08:33 Dose: 10 mg Furosemide (Furosemide Inj 20 Mg/2 Ml Vial) 20 mg IV [id number] [facility] Stop: 02/07/24 08:44 Gabapentin (Gabapentin 300 Mg Cap) 300 mg PO TID [facility] Stop: 02/06/24 08:59 Last Admin: 01/08/24 08:34 Dose: 300 mg Piperacillin Sod/Tazobactam Sod (Zosyn) 4.5 gm in 100 mls @ 25 mls/hr IV Q8H [facility]; Protocol Stop: 01/17/24 03:59 Last Admin: 01/08/24 04:02 Dose: 25 mls/hr Magnesium Sulfate/Dextrose (Magnesium Sulfate / D5w) 1 gm in 100 mls @ 50 mls/hr IV Q2H [facility] Stop: 01/08/24 12:44 Lamotrigine (Lamotrigine 100 Mg Tab) 100 mg PO BID [facility]; Protocol Stop: 02/06/24 08:59 Last Admin: 01/08/24 08:35 Dose: 100 mg Levothyroxine Sodium (Levothyroxine Sodium 25 Mcg Tablet) 25 mcg PO DAILYBB [facility] Stop: 02/06/24 06:29 Last Admin: 01/08/24 05:36 Dose: 25 mcg Magnesium Oxide (Magnesium Oxide 400 Mg Tab) 400 mg PO QAM [facility] Stop: 02/06/24 08:59 Last Admin: 01/08/24 08:36 Dose: 400 mg Metoprolol Succinate (Metoprolol Succ 50mg Ext Rel Tab) 50 mg PO BID [facility] Stop: 02/06/24 20:59 Last Admin: 01/08/24 08:37 Dose: 50 mg Metoprolol Tartrate (Metoprolol Tartrate 1 Mg/Ml Vial) 5 mg IV Q6H PRN PRN Reason: Tachycardia Stop: 02/06/24 01:07 Nitroglycerin (Nitroglycerin Sl 0.4 Mg/Tab Tab) 0.4 mg SL Q5M PRN PRN Reason: Chest Pain Stop: 02/06/24 01:07 Pantoprazole Sodium (Pantoprazole 40 Mg Tab) 40 mg PO DAILY [facility] Stop: 02/06/24 08:59 Last Admin: 01/08/24 08:39 Dose: 40 mg Rivaroxaban (Rivaroxaban 20 Mg Tab) 20 mg PO DAILY [facility] Stop: 02/07/24 08:59 Last Admin: 01/08/24 08:37 Dose: 20 mg Tamsulosin HCl (Tamsulosin Hcl 0.4 Mg Cap) 0.4 mg PO DAILY [facility] Stop: 02/06/24 08:59 Last Admin: 01/08/24 08:40 Dose: 0.4 mg Trimethoprim/Sulfamethoxazole (Sulfamethoxazole/Trimethoprim Ds 800/160mg Tab) 1 tab PO BID [facility] Stop: 02/06/24 08:59 Last Admin: 01/07/24 20:17 Dose: 1 tab Vibegron (Vibegron 75 Mg Tab) 75 mg PO DAILY [facility] Stop: 02/06/24 08:59 Last Admin: 01/08/24 08:39 Dose: 75 mg
[2024-01-08] MEDS: MAGNESIUM SULFATE / D5W 1 GM/100 ML BAG IV SCH (09:59)
[2024-01-08] MEDS: FUROSEMIDE INJ 20 MG/2 ML VIAL IV SCH (09:59)
[2024-01-08] MEDS: POTASSIUM CHLORIDE CRTAB 20 MEQ TABCR PO ONE (10:06)
--- NOTE | 2024-01-08 10:17 | XRay Report ---
XR chest 1V portable CLINICAL HISTORY: re-eval b/l pleural effusions TECHNIQUE: Single frontal radiograph of the chest was obtained. Comparison: Comparison is made to chest radiograph 01/06/2024 FINDINGS: Lines and tubes are stable. Calcified aortic knob is seen. The lungs are clear. No evidence of pleura l effusion or pneumothorax. IMPRESSION: Bilateral pleural effusions or not well seen on today's exam. Possible trace effusions remain. ACT 112: Negative or not required by law. Electronically signed by: Teo Melendez M.D. 01/08/2024 10:14 AM
--- NOTE | 2024-01-08 11:50 | Surgery Progress Note ---
Date of Service January 08, 2024 Assessment & Plan (1) Postoperative abscess: Plan: unlikely abscess prophylatic antibiotics for 7 days will see in my clinic 1 week will sign off Admission and Anticipated Discharge Date Admission Date: January 06, 2024 Subjective no complaints of abdominal pain CT scan appears as post op change taking po well Review of Systems Constitutional: no fever and no chills Gastrointestinal: no abdominal pain, no nausea and no vomiting Physical Exam Gastrointestinal (Abdomen): Inspection/Auscultation: abdomen normal to inspection and normal bowel sounds; abdomen not distended Percussion/Palpation: abdomen soft; abdomen nontender, no guarding and abdomen not rigid Results & Data Vital Signs (Past 12 Hours) Vital Signs Temp Pulse Resp BP Pulse Ox O2 Del Method 01/08/24 10:52 36.6 C 72 18 96/63 L 97 Room Air 01/08/24 07:47 36.5 C 108 H 21 102/71 93 Room Air 01/08/24 02:23 36.6 C 88 18 112/77 95 Room Air
--- NOTE | 2024-01-08 11:54 | Electrocardiogram Report ---
Test Reason : Blood Pressure : */* mmHG Vent. Rate : 102 BPM Atrial Rate : 144 BPM P-R Int : * ms QRS Dur : 82 ms QT Int : 390 ms P-R-T Axes : * 37 212 degrees QTcB Int : 508 ms Atrial fibrillation with rapid ventricular response Abnormal ECG When compared with ECG of 07-Jan-2024 05:31, No significant change was found Confirmed by Noe Gooden ([id number]) on 01/08/2024 11:54:04 AM Referred By: REFERRED SELF Confirmed By: Noe Gooden
--- NOTE | 2024-01-08 14:19 | Palliative Care Consultation ---
Date of Consultation January 08, 2024 Assessment & Plan (1) Cancer cachexia: (2) Cancer related pain: (3) Advanced care planning/counseling discussion: I met with Mr. Ge face to face at bedside for 45min Today he can much better relate his understanding of the reality of his situation vs what he hopes it would be: he tells me he is declining/things are changing for him and choices are limited. He accepts he cant return home. He doesnt have caregiver support and wifes health is now failing from exhaustion. He would like comfort but we discussed [facility]ci admission will likely need to be rehab trial in order to get it covered. I shared with him my worry that he is nearing his dying time and he agreed with me. He does however want and need to hold on to come hope of maybe being able to get back home if he can improve with some rehab but he als notes that if he worsens at rehab he would want comfort care and no return to hospital. I expressed my worries that he seems to be rapidly declining & I worry he may turn the corner to more active dying soon. He looks much worse than when I saw him on 12/30. 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 he has been grappling with mortality but notes he unafraid of , worries more about the dying process and suffering. We spoke about changes he might expect/ experience and how symptoms can be treated. he was reassured to hear he could have hospice added t his care at SNF if rehab does not work out for him. He wants the focus now on Comfort and QOL. I also called his and spoke with her for 15min in addition to the 45min with pt She is in agreement with the above and has advised CM of SNF preferences. She is relieved he arrived at this decision by himself and she was not forced to say she would not be able to bring him home. Extensive support and reassurance provided. total ACP time = 60min (4) Weakness generalized: (5) Palliative care by specialist: Plan ACP discussion as above SNF for rehab trial then [employer], no return to hospital, admit to hospice when rehab does not achieve desired goals Thank you for allowing us to participate in the ongoing care of this patient. Please page with any additional concerns. Sarthak Boucher [facility] Director, Palliative Medicine History of Present Illness Reason for Consultation: [facility] Attending Physician: Kira Silva MD History of Present Illness Greg is known to me from prior admission, DC home 12/31/23 when admitted for abd pain and poor appetite He insisted on returning home at that time though there were concerns he expected too much from his as his only caregiver. he readmitted 01/05 with continued declining appetite, issues swallowing and progressive weakness, needs 2 person assist for all care, cannot tolerate any activity without fatigue has not been taking all his meds d/t weakness, swallow issues has advised medical and nursing teams his care is too much for her on her own and they do not have other help. 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 coli bacteremia secondary to knee surgery on lifelong Bactrim, seizure disorder, dementia, bladder cancer status post surgery, recent cholecystectomy 12/24/2023 complicated by post op abscess Allergies Allergy/AdvReac Type Severity Reaction Status Date / Time azithromycin Allergy Severe Swelling Verified 12/06/23 07:56 [From Zithromax Z-Brady] of Lip/Tongue/Throat ethyl alcohol Allergy Intermediate "rubbing Verified 12/06/23 07:56 alcohol" caused blisters isopropyl alcohol Allergy Intermediate "rubbing Verified 12/06/23 07:56 alcohol" caused blisters latex Allergy Intermediate blisters Verified 12/06/23 07:56 carvedilol Allergy Verified 12/06/23 07:56 clopidogrel Allergy Verified 12/06/23 07:56 verapamil AdvReac Severe asystole Verified 12/06/23 07:56 Home Medications Medication Instructions Recorded Confirmed Type atorvastatin 40 mg tablet 40 mg PO DAILY 01/06/24 01/06/24 History dicyclomine 10 mg capsule 10 mg PO BID 01/06/24 01/06/24 History gabapentin 300 mg capsule 300 mg PO TID 01/06/24 01/06/24 History isosorbide mononitrate 60 mg 60 mg PO DAILY 01/06/24 01/06/24 History tablet,extended release 24 hr lamotrigine 100 mg tablet 100 mg PO BID 01/06/24 01/06/24 History levothyroxine 25 mcg tablet 25 mcg PO DAILY 01/06/24 01/06/24 History metoprolol succinate 25 mg 25 mg PO BID 01/06/24 01/06/24 History tablet,extended release 24 hr pantoprazole 40 mg tablet,delayed 40 mg PO DAILY 01/06/24 01/06/24 History release ramipril 5 mg capsule 5 mg PO DAILY 01/06/24 01/06/24 History rivaroxaban 20 mg tablet (Xarelto) 20 mg PO DAILY 01/06/24 01/06/24 History sulfamethoxazole 800 1 tab PO BID 01/06/24 01/06/24 History mg-trimethoprim 160 mg tablet tamsulosin 0.4 mg capsule 0.4 mg PO DAILY 01/06/24 01/06/24 History vibegron 75 mg tablet 75 mg PO DAILY 01/06/24 01/06/24 History lenvatinib 10 mg/day (10 mg x 1) 20 mg PO HS 01/07/24 01/07/24 History capsule Patient History Medical History Atrial fibrillation with RVR Cholelithiasis Right sided abdominal pain (HFpEF) heart failure with preserved ejection fraction Metastatic clear cell carcinoma of kidney Esophageal dilatation Weight loss over 35 pounds over past month. History of radiation exposure 1986 History of stroke 2001 - no residual effects. History of colon polyps Mass of colon CT scan [facility] 05/03/23. Hemorrhoids internal Kidney lesion lesions on kidneys per CT scan/ [place] 2-3 weeks ago/talk of samantha with kidney DrDorian - pt has not received follow up phone call. 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 Carney; on xarelto (currently on hold due to recatal bleeding) hx cardioversion x2 ? History of myocardial infarction x 2 (1986, 2001) History of esophageal dilatation Dysphagia Surgical History History of left-sided carotid endarterectomy History of hernia surgery x2 Pacemaker passing out/reason for pacemaker. last checked : "recent check by Dr. Zully cat"/[facility] History of tonsillectomy History of appendectomy History of left knee replacement + revision surgery History of cataract surgery rt/left History of parathyroidectomy History of bladder surgery TURBT H/O heart artery stent x 4 History of cardiac cath 05/2020 -- CP -- [facility] - no stents mult cardiac cath between [id number] (4 stents placed total) - [facility] and [facility] in [place], [place] History of colonoscopy History of esophagogastroduodenoscopy (EGD) Family History Father Prostate cancer Diabetes Heart disease Hypertension Mother Diabetes Hypertension Breast cancer Other No family history of adverse response to anesthesia Social History Smoking Status: Never smoker Second Hand Exposure: No; Do You Dip or Chew Tobacco: No; Hx Alcohol Use: No Hx Substance Use: No Preferred Language: [place] Communication Ability: Effective Communication Ability Comment: pt is [place]/pt does phone interview/per pt preference. 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 Feels Safe at Home: Yes Safety Concerns: Feels Safe At This Time Assistive Devices: Walker and Wheelchair Review of Systems Review of Systems: All systems reviewed & are unremarkable except as noted in Subjective Physical Exam Physical Exam: Bitemp wasting more frail appearing than 12/31/23 assessment; ++ cachectic male; +sunken facial features neck supple, no stridor pharynx pink, dentition intact + exertional/conversational resp distres s, lungs diminished s1s2 abd soft, NTP, BS+ global weakness, +OA/age related arthritic changes; needs help adjusting his blankets, opening lunch items and with feeding d/t weakness no clubbing or cyanosis AAOx3, [facility] delirium screen negative Results & Data Vital Signs (Past 12 Hours) Vital Signs Temp Pulse Resp BP Pulse Ox O2 Del Method 01/08/24 13:37 109/71 01/08/24 10:52 36.6 C 72 18 96/63 L 97 Room Air 01/08/24 07:47 36.5 C 108 H 21 102/71 93 Room Air 01/08/24 02:23 36.6 C 88 18 112/77 95 Room Air Laboratory Results 01/08/24 01/07/24 01/07/24 Range/Units 06:04 17:21 10:46 WBC 8.31 (4.8-10.8) K/ul RBC 4.23 L (4.70-6.10) M/uL Hgb 12.5 L (14.0-18.0) g/dl POC Hgb (14.0-18.0) g/dl Hct 36.2 L (42.0-52.0) % POC Hct (42-52) % MCV 85.6 (80.0-100.0) fL MCH 29.6 (25.0-34.0) pg MCHC 34.5 (32.0-36.0) g/dL RDW Std Deviation 43.0 (36.4-46.3) fL RDW Coeff of Seamus 14.2 (11.5-14.5) % Plt Count 142 (130-400) K/uL MPV 10.0 (9.4-12.4) fL Immature Gran % (Auto) % Neut % (Auto) % Lymph % (Auto) % [place] % (Auto) % Eos % (Auto) % Baso % (Auto) % Neut # (Auto) (1.40-6.50) K/uL Lymph # (Auto) (1.20-3.40) K/uL [place] # (Auto) (0.11-0.59) K/uL Eos # (Auto) (0.00-0.50) K/uL Baso # (Auto) (0.00-0.20) K/uL Immature Gran # (Auto) (0.01-0.20) K/uL PT (9.0-12.0) Seconds INR (0.9-1.1) POC Sodium (135-144) mmol/L Sodium 132 L (136-145) mmol/L POC Potassium (3.3-5.0) mmol/L Potassium 3.8 (3.5-5.1) mmol/L POC Chloride (101-112) mmol/L Chloride 100 (98-107) mmol/L Carbon Dioxide 25 (21-32) mmol/L POC Total CO2 (24-31) mmol/L Anion Gap 7 (3-11) POC Anion Gap (16-25) mmol/L POC BUN (7-18) mg/dl BUN 12 (6-23) mg/dl Creatinine 1.03 (0.6-1.4) mg/dl POC Creatinine (0.6-1.3) mg/dl Est Cr Clr Drug Dosing 54.8 ml/min eGFR 73.43 BUN/Creatinine Ratio 11.7 (10-20) Glucose 84 (70-99(Fasting)) mg/dl POC Glucose (other) (70-99) mg/dl Calcium 7.9 L (8.6-10.3) mg/dl POC Ioniz Calcium Dede (1.12-1.32) mmol/l Phosphorus 3.8 (2.5-4.9) mg/dl Magnesium 1.7 (1.7-2.4) mg/dl Total Bilirubin (0.2-1.0) mg/dl AST (13-39) U/L ALT (7-52) U/L Alkaline Phosphatase (34-104) U/L Troponin I High Sens 7.0 6.6 (0-20) pg/ml Total Protein (6.0-8.3) gm/dl Albumin (3.4-5.0) gm/dl Globulin (2.5-4.0) gm/dl Albumin/Globulin Ratio (0.9-2) Lipase (11-82) U/L TSH (0.300-4.500) uIu/ml Free T4 (0.61-1.60) ng/dl Urine Color Urine Appearance (Clear) Urine pH (4.5-7.5) Ur Specific [place] (1.000-1.030) Urine Protein (Negative) Urine Glucose (UA) (Negative) Urine Ketones (Negative) Urine Blood (Negative) Urine Nitrite (Negative) Urine Bilirubin (Negative) Urine Urobilinogen (Negative) Ur Leukocyte Esterase (Negative) Urine WBC (Auto) (0-5) /hpf Urine RBC (Auto) (0-2) /hpf U Hyaline Cast (Auto) (0-2) /lpf U Epithel Cells (Auto) (0-2) /hpf Urine Bacteria (Auto) (None Seen) Adenovirus (PCR) (NotDetected) B. pertussis DNA (PCR) (NotDetected) B.parapertussis DNA PCR (NotDetected) C. pneumoniae DNA (PCR) (NotDetected) Coronavirus OC43 (PCR) (NotDetected) Coronavirus HKU1 (PCR) (NotDetected) Coronavirus 229E (PCR) (NotDetected) SARS-CoV-2 (PCR) (NotDetected) Coronavirus NL63 (PCR) (NotDetected) Human Metapneumovir PCR (NotDetected) Influenza Type A (PCR) (NotDetected) Influenza Type B (PCR) (NotDetected) M. pneumoniae (PCR) (NotDetected) Parainfluenza 1 (PCR) (NotDetected) Parainfluenza 2 (PCR) (NotDetected) Parainfluenza 3 (PCR) (NotDetected) Parainfluenza 4 (PCR) (NotDetected) RSV (PCR) (NotDetected) Entero/Rhino (PCR) (NotDetected) 01/07/24 01/06/24 01/06/24 Range/Units 05:33 21:10 20:46 WBC 8.27 (4.8-10.8) K/ul RBC 4.72 (4.70-6.10) M/uL Hgb 13.7 L (14.0-18.0) g/dl POC Hgb (14.0-18.0) g/dl Hct 40.8 L (42.0-52.0) % POC Hct (42-52) % MCV 86.4 (80.0-100.0) fL MCH 29.0 (25.0-34.0) pg MCHC 33.6 (32.0-36.0) g/dL RDW Std Deviation 43.1 (36.4-46.3) fL RDW Coeff of Seamus 14.2 (11.5-14.5) % Plt Count 147 (130-400) K/uL MPV 9.6 (9.4-12.4) fL Immature Gran % (Auto) 0.4 % Neut % (Auto) 77.4 % Lymph % (Auto) 10.3 % [place] % (Auto) 9.6 % Eos % (Auto) 1.2 % Baso % (Auto) 1.1 % Neut # (Auto) 6.41 (1.40-6.50) K/uL Lymph # (Auto) 0.85 L (1.20-3.40) K/uL [place] # (Auto) 0.79 H (0.11-0.59) K/uL Eos # (Auto) 0.10 (0.00-0.50) K/uL Baso # (Auto) 0.09 (0.00-0.20) K/uL Immature Gran # (Auto) 0.03 (0.01-0.20) K/uL PT (9.0-12.0) Seconds INR (0.9-1.1) POC Sodium (135-144) mmol/L Sodium 131 L (136-145) mmol/L POC Potassium (3.3-5.0) mmol/L Potassium 4.3 (3.5-5.1) mmol/L POC Chloride (101-112) mmol/L Chloride 99 (98-107) mmol/L Carbon Dioxide 25 (21-32) mmol/L POC Total CO2 (24-31) mmol/L Anion Gap 7 (3-11) POC Anion Gap (16-25) mmol/L POC BUN (7-18) mg/dl BUN 9 (6-23) mg/dl Creatinine 0.86 (0.6-1.4) mg/dl POC Creatinine (0.6-1.3) mg/dl Est Cr Clr Drug Dosing 68.5 ml/min eGFR 87.53 BUN/Creatinine Ratio 10.5 (10-20) Glucose 85 (70-99(Fasting)) mg/dl POC Glucose (other) (70-99) mg/dl Calcium 8.2 L (8.6-10.3) mg/dl POC Ioniz Calcium Dede (1.12-1.32) mmol/l Phosphorus (2.5-4.9) mg/dl Magnesium 1.6 L (1.7-2.4) mg/dl Total Bilirubin (0.2-1.0) mg/dl AST (13-39) U/L ALT (7-52) U/L Alkaline Phosphatase (34-104) U/L Troponin I High Sens 6.8 (0-20) pg/ml Total Protein (6.0-8.3) gm/dl Albumin (3.4-5.0) gm/dl Globulin (2.5-4.0) gm/dl Albumin/Globulin Ratio (0.9-2) Lipase (11-82) U/L TSH (0.300-4.500) uIu/ml Free T4 (0.61-1.60) ng/dl Urine Color Yellow Urine Appearance Clear (Clear) Urine pH 7.5 (4.5-7.5) Ur Specific [place] 1.035 H (1.000-1.030) Urine Protein Trace H (Negative) Urine Glucose (UA) Negative (Negative) Urine Ketones Negative (Negative) Urine Blood Negative (Negative) Urine Nitrite Negative (Negative) Urine Bilirubin Negative (Negative) Urine Urobilinogen Positive H (Negative) Ur Leukocyte Esterase Negative (Negative) Urine WBC (Auto) 0-5 (0-5) /hpf Urine RBC (Auto) 0-2 (0-2) /hpf U Hyaline Cast (Auto) 0-2 (0-2) /lpf U Epithel Cells (Auto) 0-2 (0-2) /hpf Urine Bacteria (Auto) None Seen (None Seen) Adenovirus (PCR) Not Detected (NotDetected) B. pertussis DNA (PCR) Not Detected (NotDetected) B.parapertussis DNA PCR Not Detected (NotDetected) C. pneumoniae DNA (PCR) Not Detected (NotDetected) Coronavirus OC43 (PCR) Not Detected (NotDetected) Coronavirus HKU1 (PCR) Not Detected (NotDetected) Coronavirus 229E (PCR) Not Detected (NotDetected) SARS-CoV-2 (PCR) Not Detected (NotDetected) Coronavirus NL63 (PCR) Not Detected (NotDetected) Human Metapneumovir PCR Not Detected (NotDetected) Influenza Type A (PCR) Not Detected (NotDetected) Influenza Type B (PCR) Not Detected (NotDetected) M. pneumoniae (PCR) Not Detected (NotDetected) Parainfluenza 1 (PCR) Not Detected (NotDetected) Parainfluenza 2 (PCR) Not Detected (NotDetected) Parainfluenza 3 (PCR) Not Detected (NotDetected) Parainfluenza 4 (PCR) Not Detected (NotDetected) RSV (PCR) Not Detected (NotDetected) Entero/Rhino (PCR) Not Detected (NotDetected) 01/06/24 01/06/24 Range/Units 19:09 19:06 WBC 9.12 (4.8-10.8) K/ul RBC 5.30 (4.70-6.10) M/uL Hgb 15.6 (14.0-18.0) g/dl POC Hgb 16.7 (14.0-18.0) g/dl Hct 45.4 (42.0-52.0) % POC Hct 49 (42-52) % MCV 85.7 (80.0-100.0) fL MCH 29.4 (25.0-34.0) pg MCHC 34.4 (32.0-36.0) g/dL RDW Std Deviation 42.6 (36.4-46.3) fL RDW Coeff of Seamus 14.1 (11.5-14.5) % Plt Count 176 (130-400) K/uL MPV 9.6 (9.4-12.4) fL Immature Gran % (Auto) 0.4 % Neut % (Auto) 80.6 % Lymph % (Auto) 10.5 % [place] % (Auto) 6.9 % Eos % (Auto) 0.8 % Baso % (Auto) 0.8 % Neut # (Auto) 7.35 H (1.40-6.50) K/uL Lymph # (Auto) 0.96 L (1.20-3.40) K/uL [place] # (Auto) 0.63 H (0.11-0.59) K/uL Eos # (Auto) 0.07 (0.00-0.50) K/uL Baso # (Auto) 0.07 (0.00-0.20) K/uL Immature Gran # (Auto) 0.04 (0.01-0.20) K/uL PT 13.3 H (9.0-12.0) Seconds INR 1.2 H (0.9-1.1) POC Sodium 130 L (135-144) mmol/L Sodium 129 L (136-145) mmol/L POC Potassium 4.9 (3.3-5.0) mmol/L Potassium 5.0 (3.5-5.1) mmol/L POC Chloride 96 L (101-112) mmol/L Chloride 97 L (98-107) mmol/L Carbon Dioxide 24 (21-32) mmol/L POC Total CO2 26 (24-31) mmol/L Anion Gap 8 (3-11) POC Anion Gap 15.0 L (16-25) mmol/L POC BUN 9 (7-18) mg/dl BUN 9 (6-23) mg/dl Creatinine 0.92 (0.6-1.4) mg/dl POC Creatinine 1.0 (0.6-1.3) mg/dl Est Cr Clr Drug Dosing 64.0 ml/min eGFR 84.09 BUN/Creatinine Ratio 9.8 L (10-20) Glucose 93 (70-99(Fasting)) mg/dl POC Glucose (other) 95 (70-99) mg/dl Calcium 9.0 (8.6-10.3) mg/dl POC Ioniz Calcium Dede 1.09 L (1.12-1.32) mmol/l Phosphorus (2.5-4.9) mg/dl Magnesium 1.7 (1.7-2.4) mg/dl Total Bilirubin 1.4 H (0.2-1.0) mg/dl AST 26 (13-39) U/L ALT 15 (7-52) U/L Alkaline Phosphatase 196 H (34-104) U/L Troponin I High Sens 9.2 (0-20) pg/ml Total Protein 6.2 (6.0-8.3) gm/dl Albumin 3.7 (3.4-5.0) gm/dl Globulin 2.5 (2.5-4.0) gm/dl Albumin/Globulin Ratio 1.5 (0.9-2) Lipase 48 (11-82) U/L TSH 14.174 H (0.300-4.500) uIu/ml Free T4 0.86 (0.61-1.60) ng/dl Urine Color Urine Appearance (Clear) Urine pH (4.5-7.5) Ur Specific [place] (1.000-1.030) Urine Protein (Negative) Urine Glucose (UA) (Negative) Urine Ketones (Negative) Urine Blood (Negative) Urine Nitrite (Negative) Urine Bilirubin (Negative) Urine Urobilinogen (Negative) Ur Leukocyte Esterase (Negative) Urine WBC (Auto) (0-5) /hpf Urine RBC (Auto) (0-2) /hpf U Hyaline Cast (Auto) (0-2) /lpf U Epithel Cells (Auto) (0-2) /hpf Urine Bacteria (Auto) (None Seen) Adenovirus (PCR) (NotDetected) B. pertussis DNA (PCR) (NotDetected) B.parapertussis DNA PCR (NotDetected) C. pneumoniae DNA (PCR) (NotDetected) Coronavirus OC43 (PCR) (NotDetected) Coronavirus HKU1 (PCR) (NotDetected) Coronavirus 229E (PCR) (NotDetected) SARS-CoV-2 (PCR) (NotDetected) Coronavirus NL63 (PCR) (NotDetected) Human Metapneumovir PCR (NotDetected) Influenza Type A (PCR) (NotDetected) Influenza Type B (PCR) (NotDetected) M. pneumoniae (PCR) (NotDetected) Parainfluenza 1 (PCR) (NotDetected) Parainfluenza 2 (PCR) (NotDetected) Parainfluenza 3 (PCR) (NotDetected) Parainfluenza 4 (PCR) (NotDetected) RSV (PCR) (NotDetected) Entero/Rhino (PCR) (NotDetected) Diagnostic Findings Chest X-Ray 01/06/24 19:05 XR chest 1V portable CLINICAL HISTORY: weakness, FRANKEL COMPARISON STUDY: Chest CT August 20, 2023. Chest radiograph December 30, 2023. FINDINGS: There is no pneumothorax. Dual-lead right subclavian pacer is unchanged in position. Stable cardiomegaly. Moderate right and [id number] left pleural effusions have slightly progressed. There is associated bibasilar opacities. Interstitial thickening persists. IMPRESSION: 1. Cardiomegaly with persistent pulmonary edema. 2. Slight increase in moderate right and [id number] left pleural effusions with associated bibasilar opacities. ACT 112: Negative or not required by law. Electronically signed by: Andrew Hankins M.D. 01/07/2024 6:51 AM Abdomen/Pelvis CT 01/06/24 19:06 Exam(s): CT ABDOMEN + PELVIS With Contrast IV Amt: 117 ml opti 320 EXAM: CT Abdomen and Pelvis With Intravenous Contrast CLINICAL HISTORY: Reason for exam: upper abd pain, weak, post op shay. TECHNIQUE: Axial computed tomography images of the abdomen and pelvis with intravenous contrast. CTDI is 39 mGy and DLP is 721 mGy-cm. Automated exposure control was utilized for the study. A dose lowering technique was utilized adhering to the principles of ALARA. CONTRAST: Patient received 117 ml opti 320 of IV contrast COMPARISON: December 30, 2023 FINDINGS: Lung bases: Unremarkable. No mass. No consolidation. Pleural space: Bilateral pleural effusions right greater than left stable since prior exam. Heart: Trace pericardial effusion unchanged. ABDOMEN: Liver: Unremarkable. No mass. Gallbladder and bile ducts: Redemonstration of postoperative changes prior cholecystectomy with 4.4 x 4.5 cm air-fluid collection within the gallbladder fossa and a moderate amount of associated inflammatory change likely representing an abscess unchanged from prior exam. No ductal dilation. Pancreas: Unremarkable. No mass. No ductal dilation. Spleen: Unremarkable. No splenomegaly. Adrenals: Unremarkable. No mass. Kidneys and ureters: 3.2 x 3.8 cm hypodense mass within the upper pole left kidney stable. No hydronephrosis. Stomach and bowel: Unremarkable. No obstruction. No mucosal thickening. PELVIS: Appendix: No findings to suggest acute appendicitis. Bladder: Distended urinary bladder. Reproductive: Unremarkable as visualized. ABDOMEN and PELVIS: Intraperitoneal space: Unremarkable. No free air. No significant fluid collection. Bones/joints: No acute fracture. No dislocation. Soft tissues: Diffuse anasarca. Vasculature: Unremarkable. No abdominal aortic aneurysm. Lymph nodes: Unremarkable. No enlarged lymph nodes. IMPRESSION: 4.5 cm abscess within the gallbladder fossa this is relatively unchanged when compared with the prior exam 3.8 cm hypodensity within the upper pole left kidney stable when compared with prior study and may represent an underlying mass. Electronically signed by: Colt Clement MD 01/06/24 20:43 PM Chest CTA 01/06/24 19:06 Exam(s): CTA CHEST IV Amt: 117 ml opti 320 EXAM: CT Angiography Chest With Intravenous Contrast CLINICAL HISTORY: Reason for exam: PE, FRANKEL, afib, post op. TECHNIQUE: Axial computed tomographic angiography images of the chest with intravenous contrast. CTDI is 39 mGy and DLP is 721 mGy-cm. Automated exposure control was utilized for the study. A dose lowering technique was utilized adhering to the principles of ALARA. MIP reconstructed images were created and reviewed. COMPARISON: No relevant prior studies available. FINDINGS: Pulmonary arteries: Unremarkable. No pulmonary embolism. Aorta: Ascending thoracic aortic aneurysm measuring 3.9 cm. Lungs: Interlobular septal thickening with diffuse groundglass opacity. Compressive atelectasis of both lower lobes. Pleural space: Large bilateral pleural effusions right slightly greater than left. No pneumothorax. Heart: Coronary artery calcifications. No cardiomegaly. Trace pericardial effusion . No evidence of RV dysfunction. Bones/joints: No acute fracture. No dislocation. Soft tissues: Unremarkable. Lymph nodes: Unremarkable. No enlarged lymph nodes. Tubes, lines and devices: left chest wall intracardiac device. IMPRESSION: No acute findings in the visualized arteries of the chest. 3.9 cm ascending thoracic aortic aneurysm Large bilateral pleural effusions with interlobular septal thickening consistent with CHF. Trace pericardial effusion Electronically signed by: Colt Clement MD 01/06/24 20:[address] 01/06/24 19:09 Exam(s): CT HEAD Without Contrast EXAM: CT Head Without Intravenous Contrast CLINICAL HISTORY: Reason for exam: fall, weak. TECHNIQUE: Axial computed tomography images of the head/brain without intravenous contrast. CTDI is 39 mGy and DLP is 721 mGy-cm. Automated exposure control was utilized for the study. A dose lowering technique was utilized adhering to the principles of ALARA. COMPARISON: December 30, 2023 FINDINGS: Brain: Unremarkable. No hemorrhage. No significant white matter disease. No edema. Ventricles: Unremarkable. No ventriculomegaly. Bones/joints: Unremarkable. No acute fracture. Soft tissues: Unremarkable. Sinuses: Right frontal maxillary sinus inflammatory polyp. Mastoid air cells: Unremarkable as visualized. No mastoid effusion. IMPRESSION: No acute findings in the head/brain. Electronically signed by: Colt Clement MD 01/06/24 20:48 PM Chest X-Ray 01/08/24 09:28 XR chest 1V portable CLINICAL HISTORY: re-eval b/l pleural effusions TECHNIQUE: Single frontal radiograph of the chest was obtained. Comparison: Comparison is made to chest radiograph 01/06/2024 FINDINGS: Lines and tubes are stable. Calcified aortic knob is seen. The lungs are clear. No evidence of pleural effusion or pneumothorax. IMPRESSION: Bilateral pleural effusions or not well seen on today's exam. Possible trace effusions remain. ACT 112: Negative or not required by law. Electronically signed by: Teo Melendez M.D. 01/08/2024 10:14 AM PG Care Time/CCT Total # of Minutes Spent Total Time Spent with Patient: Total time spent is greater than 50% in coordination of care (as documented) at patient's floor/unit and/or counseling patient: I spent 120 minutes overall addressing this case: 10 min in medical data review/discussion with referring provider(s) and/or preparation for the visit 20 min in direct interaction with the patient/exam 60 min in Advance Care Planning/Goals of Care discussions as detailed above in note (must be >16min) 15 min in subsequent review and synthesis of assessment and plan 15 min communicating with other providers regarding the patient's case: nursing, care mgt, primary team Advanced Care Planning [id number] Advanced Care Planning 30 Min 11115 Advanced Care Planning Additional 30 [place] [address] IN/OBS CONSULT LVL 4,60M (25 - SIGNIFICANT, SEPARATELY IDENTIFIABLE ) Patient Type New Medical Decision Making High Complexity Diagnoses Cancer cachexia R64 Cancer related pain G89.3 Advanced care planning/counseling discussion Z71.89 Weakness generalized R53.1 Palliative care by specialist Z51.5 Additional Codes Advanced Care Planning - 21584 Advanced Care Planning 30 Min: 36725 Advanced Care Planning 30 Min ([id number]) Advanced Care Planning - 32503 Advanced Care Planning Additional 30 Min: 70974 Advanced Care Planning Additional 30 Min ([id number])
--- NOTE | 2024-01-08 15:30 | Hospitalist Progress Note ---
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 He was started on Synthyroid for subclinical hypothyroidism last admit. Patient at home not taking his medications because states having difficulty to swallow. As per he is also eating very little here and there and on soft diet. He is mostly bedbound ambulates short distance with assistance with walker. Today was having chest pain and shortness of breath which prompted him to come to the ER. His recent cholecystectomy site is also draining and the dressing is wet. Denies any abdominal pain. Says moving his bowels and bladder okay. No fevers. Currently chest pain and shortness of breath improved. No cough. No headache. No blurred vision. No runny nose or sore throat. Patient again says that he will go home tomorrow. says she could not take care of him at home currently. In the ER he was in rapid A-fib and after IV Lopressor heart rates improved. Abdominal CAT scan showing possible abscess at the recent cholecystectomy site and he was evaluated by surgery. 01/09/24- was seen by palliative care Poss. Postoperative abscess Recent cholecystectomy site N.p.o. IV Zosyn Surgery consulted - do not believe abscess but post- op fluid collection but recommend 7 day course of abx and close surg. follow up (Dr. Mast) To monitor for now. Rapid A-fib Not taking medication at home Improved after IV Lopressor IV Lopressor as needed Continue home metoprolol Xarelto Seems he was on sotalol and amiodarone in the past Consulted cardiology for further recommendations - Found to have atrial fibrillation (chronic/known) with elevated rates. Patient has not been taking medications at home since discharge on 12/30. Metoprolol had been increased last admission to 50 mg BID to aid with afib rates. Resume 50 mg BID this morning. Patient has underlying pacemaker, last interrogated 2 weeks ago with 5.5-8.5 months of battery longevity. Patient follows with [facility]. Acute CHF with preserved ejection fraction Large bilateral pleural effusions on the CT scan Received a dose of IV Lasix 20 mg in the ER Continue metoprolol Recently had echo Cardiology consulted - IV furosemide 20 mg twice daily to start Chest pain Currently resolved Possible from not taking his medications We will follow serial enzymes Echo as per cardiology Ascending thoracic aortic aneurysm 3.9 cm Needs follow-up Sick sinus syndrome Status post pacemaker. 5.5 months of battery life confirmed Follow-up with cardiology Dr. Carney History of CAD S/p stents On statin, Imdur, beta-hali Last admit Imdur on hold until seen by cardiology Hypertension On beta-hali Currently Imdur and ramipril on hold as patient is frequently hypotensive last admission will monitor Metastatic clear-cell renal carcinoma Status post recent ablation. [facility] Recently started Keytruda Will hold Lenvima due to current illness Subclinical hypothyroidism Started on Synthroid Needs follow-up GERD Protonix History of E. coli bacteremia secondary to knee surgery On lifelong Bactrim Seizure disorder Lamotrigine and gabapentin History of bladder cancer s/p surgery Dementia monitor for delirium Nutrition Having difficulty swallowing Will consult speech evaluation DVT prophylaxis - Xarelto Disposition Telemetry Social service to help with discharge planning as says she cannot care for him at home currently CODE STATUS okay for CPR and meds. Do not want to be intubated. Admission and Anticipated Discharge Date Admission Date: January 06, 2024 Subjective Pt was seen with at bedside. Also mormonism member also present and family agreeable to discussing while present. Discussion with palliative care today Review of Systems Review of Systems: All systems reviewed & are unremarkable except as noted in Subjective Physical Exam Physical Exam: General: Alert, oriented. No acute distress Psych: Appropriate mood and affect Neuro: difficulty with movements HEENT: NC/AT, voice hoarse CV: RRR Resp: no increased effort of breathing. Abdomen:Soft, nontender, Extremities: No edema in lower extremities bilaterally. Results & Data Results & Data Vital Signs (Past 12 Hours) Vital Signs Temp Pulse Resp BP Pulse Ox O2 Del Method 01/08/24 13:37 109/71 01/08/24 10:52 36.6 C 72 18 96/63 L 97 Room Air 01/08/24 07:47 36.5 C 108 H 21 102/71 93 Room Air
[2024-01-09 06:41] LABS: Hematocrit (blood only) 33.9 % (42.0-52.0); Hemoglobin 11.6 g/dl (14.0-18.0); Mean Corpuscular Hemoglobin 29.2 pg (25.0-34.0); Mean Corpuscular Hgb Conc 34.2 g/dL (32.0-36.0); Mean Corpuscular Volume 85.4 fL (80.0-100.0); Platelet Count 137 K/uL (130-400); RDW Coefficient of Variation 14.3 % (11.5-14.5); RDW Standard Deviation 43.1 fL (36.4-46.3); Red Blood Count 3.97 M/uL (4.70-6.10); White Blood Count 6.07 K/ul (4.8-10.8)
[2024-01-09 07:03] LABS: BUN Creatinine Ratio 11.3 (10-20); Calcium 7.8 mg/dl (8.6-10.3); Magnesium 1.9 mg/dl (1.7-2.4); Phosphorus 2.8 mg/dl (2.5-4.9); Potassium 3.8 mmol/L (3.5-5.1)
--- NOTE | 2024-01-09 11:34 | Cardiology Progress Note ---
Date of Service January 09, 2024 Assessment & Plan (1) Postoperative abscess: Plan: possible post operative abscess - Surgery following and recommended antibiotics for 7 days and follow up as outpatient. no need for surgical intervention at this time (2) Atrial fibrillation with rapid ventricular response: (3) Acute heart failure with preserved ejection fraction: (4) Pleural effusion: Plan 01/07/24 Patient here with generalized weakness, abdominal pain, SOB Found to have atrial fibrillation (chronic/known) with elevated rates. Patient has not been taking medications at home since discharge on 12/30. Metoprolol had been increased last admission to 50 mg BID to aid with afib rates. Resume 50 mg BID this morning. Patient has underlying pacemaker, last interrogated 2 weeks ago with 5.5-8.5 months of battery longevity. Patient follows with [facility]ology. Xarelto held on admission due to possible post op abscess and need for surgical intervention. surgery consulted for further evaluation. Currently patient is comfortable, without significant pain. WBC is normal. Started on antibiotics. He was also found to have larger b/l pleural effusions on admission consistent with acute HFpEF. Furosemide 20 mg x1 dose given on admission yesterday Urine outputs not measured? Currently oxygen status maintained on room air. Would repeat IV lasix 20 mg today. Monitor renal function and sodium. Sodium levels improved with IV lasix, likely dilutional. Magnesium low at 1.6. Supplementation ordered. Potassium at 4.3. 01/08/24: Patient with improved symptoms today. No abdominal pain. No SOB. Persistent afib with mildly elevated rates noted this morning. Tolerating higher dose metoprolol 50 mg BID. Consider increasing dose to 75 mg BID pending response to AM meds and magnesium supplement Supplement magnesium - 2 gm IV ordered this morning. Xarelto resumed as no intervention planned for possible post op abscess. Antibiotics initiated and f/u with surgery as outpatient. Volume status improving. Repeat chest xray this morning Continue furosemide 20 mg IV twice daily (AM and afternoon dosing) Monitor I+O's Will likely require low dose furosemide on discharge. Monitor renal function and sodium. Supplement potassium this morning 20 meq x1 01/09/24: Improved cardiac symptoms. Chest xray yesterday with improved b/l pleural effusions. Patient was mildly hypotensive this morning. AM furosemide held. Will discontinue IV furosemide and start oral furosemide 20 mg tomorrow with potassium 10 meq daily. Afib rates have improved. Continue metoprolol 50 mg BID. Continue supplemental magnesium. Continue xarelto. F/U with surgery as outpatient s/p lap shay. On antibiotics Patient to be discharged to short term rehab/possible SNF. Family also considering hospice care. No further cardiac testing warranted. Will sign off. Please contact [facility] hand provider with additional questions or concerns. Case discussed with Dr. Zimmer I spent a total of 30 minutes on the date of service in preparation, delivery, and documentation of the care provided to this patient, excluding any time spent in the performance of separately billed services. Elizabeth Fair PA-C Department of Cardiology, [facility] This chart was completed in part utilizing Speech Voice Recognition Software. Grammatical errors, random word insertions, pronoun errors, and incomplete sentences are an occasional consequence of this system due to software limitations, ambient noise, and hardware issues. Any formal questions or concerns about the content, text, or information contained within the body of this dictation should be directly addressed to the provider for clarification. Admission and Anticipated Discharge Date Admission Date: January 06, 2024 Supervising Physician Co-Signing Physician Notes Attending attestation: Case reviewed with the advanced practitioner. I have personally performed a history and physical examination on the patient. I have reviewed the advanced practitioner's documentation on the date of service referenced in note, and I agree with, and take responsibility for the plan of care. I spent a total of 20 minutes coordinating, documenting, and providing care for this patient excluding time spent in the performance of separately billed services or time spent by another provider. Willian Zimmer, DO Subjective Patient resting in bed comfortably. Denies acute SOB/CP. No dizziness. No abdominal pain. Mildly hypotensive this morning. IV lasix held. Chest xray yesterday with interval improvement in b/l pleural effusions Review of Systems Review of Systems: All systems reviewed & are unremarkable except as noted in HPI & below Physical Exam Constitutional: WD/WN, vitals as above no acute distress Neck: trachea midline, no thyromegaly Respiratory: no respiratory distress Auscultation: + diminished lung sounds (B/L) Cardiovascular: Rate/Rhythm: + irregularly irregular Heart Sounds: normal S1 and normal S2; no murmur Vessels: + JVD Extremities: no edema Gastrointestinal (Abdomen): Percussion/Palpation: abdomen soft; abdomen nontender Musculoskeletal: no cyanosis or clubbing, extremities motor strength 5/5 Results & Data Vital Signs (Past 12 Hours) Vital Signs Temp Pulse Resp BP Pulse Ox O2 Del Method 01/09/24 10:48 36.4 C L 86 18 111/77 94 Room Air 01/09/24 08:00 Room Air 01/09/24 07:39 36.4 C L 102 H 16 95/68 L 94 Room Air 01/09/24 03:51 36.6 C 66 18 91/66 L 92 Room Air 01/08/24 23:33 36.9 C 84 18 91/56 L 94 Room Air Laboratory Results CBC 01/09/24 Range/Units 06:03 WBC 6.07 (4.8-10.8) K/ul RBC 3.97 L (4.70-6.10) M/uL Hgb 11.6 L (14.0-18.0) g/dl Hct 33.9 L (42.0-52.0) % Plt Count 137 (130-400) K/uL Comprehensive Metabolic Panel 01/09/24 Range/Units 06:03 Sodium 131 L (136-145) mmol/L Potassium 3.8 (3.5-5.1) mmol/L Chloride 97 L (98-107) mmol/L Carbon Dioxide 26 (21-32) mmol/L BUN 12 (6-23) mg/dl Creatinine 1.06 (0.6-1.4) mg/dl Glucose 90 (70-99(Fasting)) mg/dl Calcium 7.8 L (8.6-10.3) mg/dl Intake and Output 01/08/24 01/09/24 01/09/24 22:59 06:59 14:59 Intake Total 340 / 785.833 160 / 785.833 100 / 100 Output Total 650 / 952 0 / 952 Balance -310 / -166.167 160 / -166.167 100 / 100 Intake: IV 100 / 485.833 100 / 485.833 100 / 100 Piperacillin/Tazobactam 4.5 gm 100 / 300 100 / 300 100 / 100 In 100 ml @ 25 mls/hr IV Q8H [facility] Rx#:[id number] Oral 240 / 300 60 / 300 Output: Urine Amount (Catheter) 650 / 650 External 650 / 650 # Bowel Movements 0 / 2 0 / 2 Other: # Unmeasured Voids 1 Weight 70 kg Weight Measurement Method Built in [facility] Diagnostic Findings Telemetry reviewed: Persistent afib, rates ranging 80-110's. Chest xray reviewed from 01/08/24: IMPRESSION: Bilateral pleural effusions are not well seen on today's exam. Possible trace effusions remain. Medications Administered Current Inpatient Medications Atorvastatin Calcium (Atorvastatin 40 Mg Tab) 40 mg PO DAILY [facility] Stop: 02/06/24 08:59 Last Admin: 01/09/24 08:00 Dose: 40 mg Dicyclomine HCl (Dicyclomine Hcl 10 Mg Cap) 10 mg PO BID [facility] Stop: 02/06/24 08:59 Last Admin: 01/09/24 08:00 Dose: 10 mg Furosemide (Furosemide 20 Mg Tab) 20 mg PO QAM [facility] Stop: 02/09/24 08:59 Gabapentin (Gabapentin 300 Mg Cap) 300 mg PO TID [facility] Stop: 02/06/24 08:59 Last Admin: 01/09/24 08:00 Dose: 300 mg Piperacillin Sod/Tazobactam Sod (Zosyn) 4.5 gm in 100 mls @ 25 mls/hr IV Q8H [facility]; Protocol Stop: 01/17/24 03:59 Last Infusion: 01/09/24 08:40 Dose: Infused Lamotrigine (Lamotrigine 100 Mg Tab) 100 mg PO BID [facility]; Protocol Stop: 02/06/24 08:59 Last Admin: 01/09/24 08:01 Dose: 100 mg Levothyroxine Sodium (Levothyroxine Sodium 25 Mcg Tablet) 25 mcg PO DAILYBB [facility] Stop: 02/06/24 06:29 Last Admin: 01/09/24 06:09 Dose: 25 mcg Magnesium Oxide (Magnesium Oxide 400 Mg Tab) 400 mg PO QAM [facility] Stop: 02/06/24 08:59 Last Admin: 01/09/24 08:01 Dose: 400 mg Metoprolol Succinate (Metoprolol Succ 50mg Ext Rel Tab) 50 mg PO BID [facility] Stop: 02/06/24 20:59 Last Admin: 01/09/24 08:02 Dose: Not Given Metoprolol Tartrate (Metoprolol Tartrate 1 Mg/Ml Vial) 5 mg IV Q6H PRN PRN Reason: Tachycardia Stop: 02/06/24 01:07 Nitroglycerin (Nitroglycerin Sl 0.4 Mg/Tab Tab) 0.4 mg SL Q5M PRN PRN Reason: Chest Pain Stop: 02/06/24 01:07 Pantoprazole Sodium (Pantoprazole 40 Mg Tab) 40 mg PO DAILY [facility] Stop: 02/06/24 08:59 Last Admin: 01/09/24 08:02 Dose: 40 mg Rivaroxaban (Rivaroxaban 20 Mg Tab) 20 mg PO DAILY [facility] Stop: 02/07/24 08:59 Last Admin: 01/09/24 08:02 Dose: 20 mg Tamsulosin HCl (Tamsulosin Hcl 0.4 Mg Cap) 0.4 mg PO DAILY [facility] Stop: 02/06/24 08:59 Last Admin: 01/09/24 08:03 Dose: 0.4 mg Trimethoprim/Sulfamethoxazole (Sulfamethoxazole/Trimethoprim Ds 800/160mg Tab) 1 tab PO BID [facility] Stop: 02/06/24 08:59 Last Admin: 01/09/24 08:02 Dose: 1 tab Vibegron (Vibegron 75 Mg Tab) 75 mg PO DAILY [facility] Stop: 02/06/24 08:59 Last Admin: 01/09/24 08:03 Dose: 75 mg
--- NOTE | 2024-01-09 14:35 | Hospitalist Progress Note ---
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 He was started on Synthroid for subclinical hypothyroidism last admit. Patient at home not taking his medications because states having difficulty to swallow. As per he is also eating very little here and there and on soft diet. He is mostly bedbound ambulates short distance with assistance with walker. Was having chest pain and shortness of breath which prompted him to come to the ER. His recent cholecystectomy site is also draining and the dressing is wet. Denies any abdominal pain. Says moving his bowels and bladder. No fevers. Patient again says that he will go home tomorrow. says she could not take care of him at home currently. In the ER he was in rapid A-fib and after IV Lopressor heart rates improved. Abdominal CAT scan showing possible abscess at the recent cholecystectomy site and he was evaluated by surgery. Palliative Care has since been consulted, appreciate recs. He was treated for the following: Poss. Postoperative abscess Recent cholecystectomy site Treated with IV Zosyn Day 3/7 Surgery consulted - do not believe abscess but post- op fluid collection but recommend 7 day course of abx and close surg. follow up (Dr. Mast) To monitor for now. Rapid A-fib Not taking medication at home Improved after IV Lopressor IV Lopressor as needed Continue home metoprolol Xarelto Seems he was on sotalol and amiodarone in the past Consulted cardiology for further recommendations - recommended/stated the following on 01/08: "Improved cardiac symptoms. Chest xray yesterday with improved b/l pleural effusions. Patient was mildly hypotensive this morning. AM furosemide held. Will discontinue IV furosemide and start oral furosemide 20 mg tomorrow with potassium 10 meq daily. Afib rates have improved. Continue metoprolol 50 mg BID. Continue supplemental magnesium. Continue xarelto. F/U with surgery as outpatient s/p lap shay. On antibiotics Patient to be discharged to short term rehab/possible SNF. Family also considering hospice care. No further cardiac testing warranted..." Continue to monitor on telemetry Acute CHF with preserved ejection fraction Large bilateral pleural effusions on the CT scan Received a dose of IV Lasix 20 mg in the ER Continue metoprolol Recently had echo Cardiology consulted - IV furosemide 20 mg twice daily to start Transitioned to po lasix 20mg daily with KCl 10mEq daily Continue to monitor volume status Chest pain Currently resolved Possible from not taking his medications serial enzymes negative Echo as per cardiology Ascending thoracic aortic aneurysm 3.9 cm Needs pcp follow-up Sick sinus syndrome Status post pacemaker. 5.5 months of battery life confirmed Follow-up with cardiology Dr. Carney History of CAD S/p stents On statin, Imdur, beta-hali Last admit Imdur on hold until seen by cardiology Hypertension On beta-hali Currently Imdur and ramipril on hold as patient is frequently hypotensive last admission will monitor History of bladder cancer s/p surgery Metastatic clear-cell renal carcinoma Status post recent ablation. [facility] Recently started Keytruda Will hold Lenvima due to current illness Subclinical hypothyroidism Started on Synthroid Needs follow-up GERD Protonix History of E. coli bacteremia secondary to knee surgery On lifelong Bactrim Seizure disorder Lamotrigine and gabapentin Dementia monitor for delirium Delirium precautions. Frequent reorientation, avoid sedating medication Nutrition Having difficulty swallowing Will consult speech evaluation Diet: regular, minced and moist DVT prophylaxis - Xarelto CODE STATUS okay for CPR and meds. Do not want to be intubated Dispo: SNF/acute rehab/hospice if not successful Admission and Anticipated Discharge Date Admission Date: January 06, 2024 Subjective Patient was seen sitting in the chair at bedside Difficult to understand speech but notes that he was up and trying to move Review of Systems Review of Systems: All systems reviewed & are unremarkable except as noted in Subjective Physical Exam Physical Exam: General: Alert, oriented. No acute distress Psych: Appropriate mood and affect Neuro: difficulty with movements HEENT: NC/AT, voice hoarse CV: RRR Resp: no increased effort of breathing. Abdomen:Soft, nontender, Extremities: No edema in lower extremities bilaterally. Results & Data Results & Data Vital Signs (Past 12 Hours) Vital Signs Temp Pulse Resp BP Pulse Ox O2 Del Method 01/09/24 10:48 36.4 C L 86 18 111/77 94 Room Air 01/09/24 08:00 Room Air 01/09/24 07:39 36.4 C L 102 H 16 95/68 L 94 Room Air 01/09/24 03:51 36.6 C 66 18 91/66 L 92 Room Air
[2024-01-10] MEDS: MELATONIN 3 MG TAB PO PRN (01:58)
[2024-01-10 05:44] LABS: Hematocrit (blood only) 32.9 % (42.0-52.0); Mean Corpuscular Hemoglobin 29.4 pg (25.0-34.0); Mean Corpuscular Hgb Conc 33.4 g/dL (32.0-36.0); Platelet Count 131 K/uL (130-400); RDW Coefficient of Variation 14.6 % (11.5-14.5); RDW Standard Deviation 45.5 fL (36.4-46.3); Red Blood Count 3.74 M/uL (4.70-6.10); White Blood Count 5.38 K/ul (4.8-10.8)
[2024-01-10 05:58] LABS: BUN Creatinine Ratio 10.5 (10-20); Calcium 7.8 mg/dl (8.6-10.3); Creatinine Clr Calc Pharmacy 61.4 ml/min; Magnesium 1.9 mg/dl (1.7-2.4); Phosphorus 2.7 mg/dl (2.5-4.9); Potassium 3.8 mmol/L (3.5-5.1)
--- NOTE | 2024-01-10 08:22 | Communication Note ---
Date of Service: January 10, 2024 Clarification: Hold parameters of metoprolol succinate changed to hold for systolic BP less than 90 mm Hg. HR less than 60. Has pacemaker so bradycardia should not be an issue. Best to try to administer the medication in the hospital to make sure it is a good option for home dosing prior to discharge.
[2024-01-10] MEDS: POTASSIUM CHLORIDE 10 MEQ TABCR PO SCH (08:55)
[2024-01-10] MEDS: FUROSEMIDE 20 MG TAB PO SCH (09:07)
--- NOTE | 2024-01-10 13:30 | Hospitalist Progress Note ---
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 He was started on Synthroid for subclinical hypothyroidism last admit. Patient at home not taking his medications because states having difficulty to swallow. As per he is also eating very little here and there and on soft diet. He is mostly bedbound ambulates short distance with assistance with walker. Was having chest pain and shortness of breath which prompted him to come to the ER. His recent cholecystectomy site is also draining and the dressing is wet. Denies any abdominal pain. Says moving his bowels and bladder. No fevers. Patient again says that he will go home tomorrow. says she could not take care of him at home currently. In the ER he was in rapid A-fib and after IV Lopressor heart rates improved. Abdominal CAT scan showing possible abscess at the recent cholecystectomy site and he was evaluated by surgery. Palliative Care has since been consulted, appreciate recs. He was treated for the following: Poss. Postoperative abscess Recent cholecystectomy site Treated with IV Zosyn Day 3/7 Surgery consulted - do not believe abscess but post- op fluid collection but recommend 7 day course of abx and close surg. follow up (Dr. Mast) To monitor for now. Rapid A-fib Not taking medication at home Improved after IV Lopressor IV Lopressor as needed Continue home metoprolol Xarelto Seems he was on sotalol and amiodarone in the past Consulted cardiology for further recommendations - recommended/stated the following on 01/08: "Improved cardiac symptoms. Chest xray yesterday with improved b/l pleural effusions. Patient was mildly hypotensive this morning. AM furosemide held. Will discontinue IV furosemide and start oral furosemide 20 mg tomorrow with potassium 10 meq daily. Afib rates have improved. Continue metoprolol 50 mg BID. Continue supplemental magnesium. Continue xarelto. F/U with surgery as outpatient s/p lap shay. On antibiotics Patient to be discharged to short term rehab/possible SNF. Family also considering hospice care. No further cardiac testing warranted..." Continue to monitor on telemetry Acute CHF with preserved ejection fraction Large bilateral pleural effusions on the CT scan Received a dose of IV Lasix 20 mg in the ER Continue metoprolol Recently had echo Cardiology consulted - IV furosemide 20 mg twice daily to start Transitioned to po lasix 20mg daily with KCl 10mEq daily Continue to monitor volume status Chest pain Currently resolved Possible from not taking his medications serial enzymes negative Echo as per cardiology Ascending thoracic aortic aneurysm 3.9 cm Needs pcp follow-up Sick sinus syndrome Status post pacemaker. 5.5 months of battery life confirmed Follow-up with cardiology Dr. Carney History of CAD S/p stents On statin, Imdur, beta-hali Last admit Imdur on hold until seen by cardiology Hypertension On beta-hali Currently Imdur and ramipril on hold as patient is frequently hypotensive last admission will monitor History of bladder cancer s/p surgery Metastatic clear-cell renal carcinoma Status post [place] [facility] [place] Key[place] Will hold Lenvima due to current illness Subclinical hypothyroidism Started on Synthroid Needs follow-up GERD Protonix History of E. coli bacteremia secondary to knee surgery On lifelong Bactrim Seizure disorder Lamotrigine and gabapentin Dementia monitor for delirium Delirium precautions. Frequent reorientation, avoid sedating medications Nutrition Having difficulty swallowing Will consult speech evaluation Diet: regular, minced and moist DVT prophylaxis - Xarelto CODE STATUS okay for CPR and meds. Do not want to be intubated Dispo: SNF/acute rehab/hospice if not successful Admission and Anticipated Discharge Date Admission Date: January 06, 2024 Subjective Patient was seen sitting in bed Denied acute concerns Review of Systems Review of Systems: All systems reviewed & are unremarkable except as noted in Subjective Physical Exam Physical Exam: General: Alert, oriented. No acute distress Psych: Appropriate mood and affect Neuro: difficulty with movements HEENT: NC/AT, voice hoarse CV: RRR Resp: no increased effort of breathing. Abdomen:Soft, nontender Extremities:waffle boots on lower extremities bilaterally. Results & Data Results & Data Vital Signs (Past 12 Hours) Vital Signs Temp Pulse Resp BP BP Pulse Ox O2 Del Method 01/10/24 11:31 36.6 C 95 H 18 95/67 L 96 Room Air 01/10/24 07:55 36.4 C L 91 H 18 93/60 L 94 Room Air 01/10/24 05:09 97/63 L 01/10/24 04:05 91/60 L 01/10/24 03:57 89/60 L 01/10/24 03:36 36.7 C 86 14 81/53 L 80/34 L 93 Room Air
[2024-01-10] MEDS: AMOXICILLIN/CLAVULANATE 875 MG TAB PO SCH (17:22)
[2024-01-11 06:08] LABS: Hematocrit (blood only) 34.7 % (42.0-52.0); Hemoglobin 11.6 g/dl (14.0-18.0); Mean Corpuscular Hemoglobin 29.3 pg (25.0-34.0); Mean Corpuscular Hgb Conc 33.4 g/dL (32.0-36.0); Mean Corpuscular Volume 87.6 fL (80.0-100.0); Mean Platelet Volume 9.9 fL (9.4-12.4); Platelet Count 135 K/uL (130-400); RDW Coefficient of Variation 14.9 % (11.5-14.5); RDW Standard Deviation 46.6 fL (36.4-46.3); Red Blood Count 3.96 M/uL (4.70-6.10); White Blood Count 6.08 K/ul (4.8-10.8)
[2024-01-11 06:25] LABS: Calcium 8.1 mg/dl (8.6-10.3); Creatinine Clr Calc Pharmacy 65.5 ml/min; Magnesium 1.9 mg/dl (1.7-2.4); Phosphorus 2.8 mg/dl (2.5-4.9); Potassium 4.3 mmol/L (3.5-5.1)
--- NOTE | 2024-01-11 10:08 | Hospitalist Progress Note ---
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 He was started on Synthroid for subclinical hypothyroidism last admit. Patient at home not taking his medications because states having difficulty to swallow. As per he is also eating very little here and there and on soft diet. He is mostly bedbound ambulates short distance with assistance with walker. Was having chest pain and shortness of breath which prompted him to come to the ER. His recent cholecystectomy site is also draining and the dressing is wet. Denies any abdominal pain. Says moving his bowels and bladder. No fevers. Patient again says that he will go home tomorrow. says she could not take care of him at home currently. In the ER he was in rapid A-fib and after IV Lopressor heart rates improved. Abdominal CAT scan showing possible abscess at the recent cholecystectomy site and he was evaluated by surgery. Palliative Care has since been consulted, appreciate recs. He was treated for the following: Poss. Postoperative abscess Recent cholecystectomy site Treated with IV Zosyn Day 3/7 Surgery consulted - do not believe abscess but post- op fluid collection but recommend 7 day course of abx and close surg. follow up (Dr. Mast) To monitor for now. Rapid A-fib Not taking medication at home Improved after IV Lopressor IV Lopressor as needed Continue home metoprolol Xarelto Seems he was on sotalol and amiodarone in the past Consulted cardiology for further recommendations - recommended/stated the following on 01/08: "Improved cardiac symptoms. Chest xray yesterday with improved b/l pleural effusions. Patient was mildly hypotensive this morning. AM furosemide held. Will discontinue IV furosemide and start oral furosemide 20 mg tomorrow with potassium 10 meq daily. Afib rates have improved. Continue metoprolol 50 mg BID. Continue supplemental magnesium. Continue xarelto. F/U with surgery as outpatient s/p lap shay. On antibiotics Patient to be discharged to short term rehab/possible SNF. Family also considering hospice care. No further cardiac testing warranted..." Continue to monitor on telemetry Acute CHF with preserved ejection fraction Large bilateral pleural effusions on the CT scan Received a dose of IV Lasix 20 mg in the ER Continue metoprolol Recently had echo Cardiology consulted - IV furosemide 20 mg twice daily to start Transitioned to po lasix 20mg daily with KCl 10mEq daily Continue to monitor volume status Chest pain Currently resolved Possible from not taking his medications serial enzymes negative Echo as per cardiology Ascending thoracic aortic aneurysm 3.9 cm Needs pcp follow-up Sick sinus syndrome Status post pacemaker. 5.5 months of battery life confirmed Follow-up with cardiology Dr. Carney History of CAD S/p stents On statin, Imdur, beta-hali Last admit Imdur on hold until seen by cardiology Hypertension On beta-hali Currently Imdur and ramipril on hold as patient is frequently hypotensive last admission will monitor History of bladder cancer s/p surgery Metastatic clear-cell renal carcinoma Status post recent [place] [facility] [place] Keytruda Will hold Lenvima due to current illness Subclinical hypothyroidism Started on Synthroid Needs follow-up GERD Protonix History of E. coli bacteremia secondary to knee surgery On lifelong Bactrim Seizure disorder Lamotrigine and gabapentin Dementia monitor for delirium Delirium precautions. Frequent reorientation, avoid sedating medications Nutrition Having difficulty swallowing Will consult speech evaluation Diet: regular, minced and moist DVT prophylaxis - Xarelto CODE STATUS okay for CPR and meds. Do not want to be intubated Dispo: SNF/acute rehab/hospice if not successful Admission and Anticipated Discharge Date Admission Date: January 06, 2024 Subjective Patient was seen sitting up in bed. Appears anxious this morning, states he has not heard from his . Asking that his be contacted and asked to call him. Patient's called and updated. States she spoken to him twice this morning. States she is actually on a wait in to see him. Per nursing patient having bowel movements, still has not been having much of an appetite and intake. Review of Systems Review of Systems: All systems reviewed & are unremarkable except as noted in Subjective Physical Exam Physical Exam: General: Alert, oriented. No acute distress Psych: Appropriate mood and affect Neuro: difficulty with movements HEENT: NC/AT, voice hoarse CV: RRR Resp: no increased effort of breathing. Abdomen:Soft, nontender Extremities:waffle boots on lower extremities bilaterally. Results & Data Results & Data Vital Signs (Past 12 Hours) Vital Signs Temp Pulse Pulse Resp BP BP Pulse Ox 01/11/24 07:55 01/11/24 07:24 36.9 C 107 H 19 110/75 95 01/11/24 02:56 37.0 C 95 H 18 94/61 L 91 01/10/24 23:18 65 01/10/24 22:44 36.6 C 99 H 16 92/64 L 91 O2 Del Method O2 Flow Rate 01/11/24 07:55 Nasal Cannula 2 01/11/24 07:24 Nasal Cannula 2 01/11/24 02:56 Nasal Cannula 2.0 01/10/24 23:18 01/10/24 22:44 Room Air Diagnostic Findings Chest X-Ray 01/06/24 19:05 XR chest 1V portable CLINICAL HISTORY: weakness, FRANKEL COMPARISON STUDY: Chest CT August 20, 2023. Chest radiograph December 30, 2023. FINDINGS: There is no pneumothorax. Dual-lead right subclavian pacer is unchanged in position. Stable cardiomegaly. Moderate right and [id number] left pleural effusions have slightly progressed. There is associated bibasilar opacities. Interstitial thickening persists. IMPRESSION: 1. Cardiomegaly with persistent pulmonary edema. 2. Slight increase in moderate right and [id number] left pleural effusions with associated bibasilar opacities. ACT 112: Negative or not required by law. Electronically signed by: Andrew Hankins M.D. 01/07/2024 6:51 AM Abdomen/Pelvis CT 01/06/24 19:06 Exam(s): CT ABDOMEN + PELVIS With Contrast IV Amt: 117 ml opti 320 EXAM: CT Abdomen and Pelvis With Intravenous Contrast CLINICAL HISTORY: Reason for exam: upper abd pain, weak, post op shay. TECHNIQUE: Axial computed tomography images of the abdomen and pelvis with intravenous contrast. CTDI is 39 mGy and DLP is 721 mGy-cm. Automated exposure control was utilized for the study. A dose lowering technique was utilized adhering to the principles of ALARA. CONTRAST: Patient received 117 ml opti 320 of IV contrast COMPARISON: December 30, 2023 FINDINGS: Lung bases: Unremarkable. No mass. No consolidation. Pleural space: Bilateral pleural effusions right greater than left stable since prior exam. Heart: Trace pericardial effusion unchanged. ABDOMEN: Liver: Unremarkable. No mass. Gallbladder and bile ducts: Redemonstration of postoperative changes prior cholecystectomy with 4.4 x 4.5 cm air-fluid collection within the gallbladder fossa and a moderate amount of associated inflammatory change likely representing an abscess unchanged from prior exam. No ductal dilation. Pancreas: Unremarkable. No mass. No ductal dilation. Spleen: Unremarkable. No splenomegaly. Adrenals: Unremarkable. No mass. Kidneys and ureters: 3.2 x 3.8 cm hypodense mass within the upper pole left kidney stable. No hydronephrosis. Stomach and bowel: Unremarkable. No obstruction. No mucosal thickening. PELVIS: Appendix: No findings to suggest acute appendicitis. Bladder: Distended urinary bladder. Reproductive: Unremarkable as visualized. ABDOMEN and PELVIS: Intraperitoneal space: Unremarkable. No free air. No significant fluid collection. Bones/joints: No acute fracture. No dislocation. Soft tissues: Diffuse anasarca. Vasculature: Unremarkable. No abdominal aortic aneurysm. Lymph nodes: Unremarkable. No enlarged lymph nodes. IMPRESSION: 4.5 cm abscess within the gallbladder fossa this is relatively unchanged when compared with the prior exam 3.8 cm hypodensity within the upper pole left kidney stable when compared with prior study and may represent an underlying mass. Electronically signed by: Colt Clement MD 01/06/24 20:43 PM Chest CTA 01/06/24 19:06 Exam(s): CTA CHEST IV Amt: 117 ml opti 320 EXAM: CT Angiography Chest With Intravenous Contrast CLINICAL HISTORY: Reason for exam: PE, FRANKEL, afib, post op. TECHNIQUE: Axial computed tomographic angiography images of the chest with intravenous contrast. CTDI is 39 mGy and DLP is 721 mGy-cm. Automated exposure control was utilized for the study. A dose lowering technique was utilized adhering to the principles of ALARA. MIP reconstructed images were created and reviewed. COMPARISON: No relevant prior studies available. FINDINGS: Pulmonary arteries: Unremarkable. No pulmonary embolism. Aorta: Ascending thoracic aortic aneurysm measuring 3.9 cm. Lungs: Interlobular septal thickening with diffuse groundglass opacity. Compressive atelectasis of both lower lobes. Pleural space: Large bilateral pleural effusions right slightly greater than left. No pneumothorax. Heart: Coronary artery calcifications. No cardiomegaly. Trace pericardial effusion . No evidence of RV dysfunction. Bones/joints: No acute fracture. No dislocation. Soft tissues: Unremarkable. Lymph nodes: Unremarkable. No enlarged lymph nodes. Tubes, lines and devices: left chest wall intracardiac device. IMPRESSION: No acute findings in the visualized arteries of the chest. 3.9 cm ascending thoracic aortic aneurysm Large bilateral pleural effusions with interlobular septal thickening consistent with CHF. Trace pericardial effusion Electronically signed by: Colt Clement MD 01/06/24 20:[address] 01/06/24 19:09 Exam(s): CT HEAD Without Contrast EXAM: CT Head Without Intravenous Contrast CLINICAL HISTORY: Reason for exam: fall, weak. TECHNIQUE: Axial computed tomography images of the head/brain without intravenous contrast. CTDI is 39 mGy and DLP is 721 mGy-cm. Automated exposure control was utilized for the study. A dose lowering technique was utilized adhering to the principles of ALARA. COMPARISON: December 30, 2023 FINDINGS: Brain: Unremarkable. No hemorrhage. No significant white matter disease. No edema. Ventricles: Unremarkable. No ventriculomegaly. Bones/joints: Unremarkable. No acute fracture. Soft tissues: Unremarkable. Sinuses: Right frontal maxillary sinus inflammatory polyp. Mastoid air cells: Unremarkable as visualized. No mastoid effusion. IMPRESSION: No acute findings in the head/brain. Electronically signed by: Colt Clement MD 01/06/24 20:48 PM Chest X-Ray 01/08/24 09:28 XR chest 1V portable CLINICAL HISTORY: re-eval b/l pleural effusions TECHNIQUE: Single frontal radiograph of the chest was obtained. Comparison: Comparison is made to chest radiograph 01/06/2024 FINDINGS: Lines and tubes are stable. Calcified aortic knob is seen. The lungs are clear. No evidence of pleural effusion or pneumothorax. IMPRESSION: Bilateral pleural effusions or not well seen on today's exam. Possible trace effusions remain. ACT 112: Negative or not required by law. Electronically signed by: Teo Melendez M.D. 01/08/2024 10:14 AM
--- NOTE | 2024-01-11 14:33 | Nephrology Consultation ---
Date of Consultation January 11, 2024 Assessment & Plan (1) Hyponatremia: Hyponatremia likely due to SIADH. Baseline sodium in the low 130's. Sodium has dropped to 129. - will start urea 15 g bid. -Fluid limit 1.2 L daily -allow patient to solid foods. (2) Acute heart failure with preserved ejection fraction: Patient appears euvolemic now. he is barely eating. Will change to regular diet. History of Present Illness Reason for Consultation: Hyponatremia Requesting Physician: Kira Silva MD Attending Physician: Kira Silva MD History of Present Illness This is 78-year-old male being seen for hyponatremia Pmast med history of metastatic clear-cell carcinoma of the kidney on Keytruda , HFpEF, A-fib with RVR, CAD status post stenting, CVA, PVD status post surgery, SSS status post pacemaker, HTN, HLD, history of chronic E. coli bacteremia secondary to knee surgery on lifelong Bactrim, seizure disorder, dementia, bladder cancer status post surgery, recent cholecystectomy 12/24/2023 who was admitted for weakness and found to UTI. Admission sodium 131 but down to 129 today. He is not eating much. No nausea or vomiting. No Pain. no leg swelling. was at the bedside and provided additional history. noted that patient likes salt and he is being given low sodium diet here. Allergies Allergy/AdvReac Type Severity Reaction Status Date / Time azithromycin Allergy Severe Swelling Verified 12/06/23 07:56 [From Zithromax Z-Brady] of Lip/Tongue/Throat ethyl alcohol Allergy Intermediate "rubbing Verified 12/06/23 07:56 alcohol" caused blisters isopropyl alcohol Allergy Intermediate "rubbing Verified 12/06/23 07:56 alcohol" caused blisters latex Allergy Intermediate blisters Verified 12/06/23 07:56 carvedilol Allergy Verified 12/06/23 07:56 clopidogrel Allergy Verified 12/06/23 07:56 verapamil AdvReac Severe asystole Verified 12/06/23 07:56 Home Medications Medication Instructions Recorded Confirmed Type atorvastatin 40 mg tablet 40 mg PO DAILY 01/06/24 01/06/24 History dicyclomine 10 mg capsule 10 mg PO BID 01/06/24 01/06/24 History gabapentin 300 mg capsule 300 mg PO TID 01/06/24 01/06/24 History isosorbide mononitrate 60 mg 60 mg PO DAILY 01/06/24 01/06/24 History tablet,extended release 24 hr lamotrigine 100 mg tablet 100 mg PO BID 01/06/24 01/06/24 History levothyroxine 25 mcg tablet 25 mcg PO DAILY 01/06/24 01/06/24 History metoprolol succinate 25 mg 25 mg PO BID 01/06/24 01/06/24 History tablet,extended release 24 hr pantoprazole 40 mg tablet,delayed 40 mg PO DAILY 01/06/24 01/06/24 History release ramipril 5 mg capsule 5 mg PO DAILY 01/06/24 01/06/24 History rivaroxaban 20 mg tablet (Xarelto) 20 mg PO DAILY 01/06/24 01/06/24 History sulfamethoxazole 800 1 tab PO BID 01/06/24 01/06/24 History mg-trimethoprim 160 mg tablet tamsulosin 0.4 mg capsule 0.4 mg PO DAILY 01/06/24 01/06/24 History vibegron 75 mg tablet 75 mg PO DAILY 01/06/24 01/06/24 History lenvatinib 10 mg/day (10 mg x 1) 20 mg PO HS 01/07/24 01/07/24 History capsule Patient History Medical History Atrial fibrillation with RVR Cholelithiasis Right sided abdominal pain (HFpEF) heart failure with preserved ejection fraction Metastatic clear cell carcinoma of kidney Esophageal dilatation Weight loss over 35 pounds over past month. History of radiation exposure 1986 History of stroke 2001 - no residual effects. History of colon polyps Mass of colon CT scan [facility] 05/03/23. Hemorrhoids internal Kidney lesion lesions on kidneys per CT scan/ [place] 2-3 weeks ago/talk of samantha with kidney DrDorian - pt has not received follow up phone call. Rectal bleeding Neuropathy On anticoagulant therapy Hypothyroidism Prophylactic antibiotic mcfp use of antibiotic>hx artificial joint infection Osteoarthritis History of bladder cancer treated surgically COUNCIL (hard of hearing) reads lips Seizure-like activity hx 2015 - neuro work up neg for seizures - no issues since (follows with [facility]) HLD (hyperlipidemia) HTN (hypertension) History of atrial fibrillation follows with Dr. Carney; on xarelto (currently on hold due to recatal bleeding) hx cardioversion x2 ? History of myocardial infarction x 2 (1986, 2001) History of esophageal dilatation Dysphagia Surgical History History of left-sided carotid endarterectomy History of hernia surgery x2 Pacemaker passing out/reason for pacemaker. last checked : "recent check by Dr. Carney"/[facility] History of tonsillectomy History of appendectomy History of left knee replacement + revision surgery History of cataract surgery rt/left History of parathyroidectomy History of bladder surgery TURBT H/O heart artery stent x 4 History of cardiac cath 05/2020 -- CP -- [facility] - no stents mult cardiac cath between [id number] (4 stents placed total) - [facility] and [facility] in [place], [place] History of colonoscopy History of esophagogastroduodenoscopy (EGD) Family History Father Prostate cancer Diabetes Heart disease Hypertension Mother Diabetes Hypertension Breast cancer Other No family history of adverse response to anesthesia Social History Smoking Status: Never smoker Second Hand Exposure: No; Do You Dip or Chew Tobacco: No; Hx Alcohol Use: No Hx Substance Use: No Preferred Language: Swedish Communication Ability: Effective Communication Ability Comment: pt is tonto apache/pt does phone interview/per pt preference. 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 Gastrointestinal: Abdomen is soft, non distended, non tender, bowel sounds are present CVS: Regular rate and rhythm. No murmurs, rubs or gallops Musculoskeletal: No joint or muscle tenderness Extremities: Non tender, no edema, peripheral pulses are present Neuro: Oriented, no tremors, no focal neurological deficits Skin: No rashes Results & Data Vital Signs (Past 12 Hours) Vital Signs Temp Pulse Resp BP BP Pulse Ox O2 Del Method 01/11/24 11:00 36.5 C 98 H 19 105/71 95 Room Air 01/11/24 07:55 Nasal Cannula 01/11/24 07:24 36.9 C 107 H 19 110/75 95 Nasal Cannula 01/11/24 02:56 37.0 C 95 H 18 94/61 L 91 Nasal Cannula O2 Flow Rate 01/11/24 11:00 01/11/24 07:55 2 01/11/24 07:24 2 01/11/24 02:56 2.0 Laboratory Results 01/11/24 05:20 01/11/24 05:20 WBC 6.08 RBC 3.96 L MCV 87.6 MCH 29.3 MCHC 33.4 RDW Std Deviation 46.6 H RDW Coeff of Seamus 14.9 H Plt Count 135 MPV 9.9 Phosphorus 2.8
[2024-01-11] MEDS: UREA (UREA-NA) 15 GM PACK PO SCH (14:59)
[2024-01-12 06:19] LABS: Basophils # (auto) 0.03 K/uL (0.00-0.20); Basophils % (auto) 0.5 %; Eosinophils # (auto) 0.04 K/uL (0.00-0.50); Eosinophils % (auto) 0.7 %; Hemoglobin 11.1 g/dl (14.0-18.0); Immature Granulocytes # (auto) 0.01 K/uL (0.01-0.20); Immature Granulocytes % (auto) 0.2 %; Lymphocytes # (auto) 0.49 K/uL (1.20-3.40); Lymphocytes % (auto) 8.2 %; Mean Corpuscular Hemoglobin 28.8 pg (25.0-34.0); Mean Corpuscular Hgb Conc 32.6 g/dL (32.0-36.0); Mean Corpuscular Volume 88.1 fL (80.0-100.0); Mean Platelet Volume 9.7 fL (9.4-12.4); Monocytes # (auto) 0.54 K/uL (0.11-0.59); Neutrophils % (auto) 81.4 %; Platelet Count 146 K/uL (130-400); RDW Coefficient of Variation 15.1 % (11.5-14.5); RDW Standard Deviation 47.2 fL (36.4-46.3); Red Blood Count 3.86 M/uL (4.70-6.10); White Blood Count 6.01 K/ul (4.8-10.8)
[2024-01-12 06:39] LABS: Albumin Globulin Ratio 1.5 (0.9-2); Albumin Level 2.9 gm/dl (3.4-5.0); BUN Creatinine Ratio 25.3 (10-20); Bilirubin,Total 0.6 mg/dl (0.2-1.0); Calcium 8.2 mg/dl (8.6-10.3); Globulin 1.9 gm/dl (2.5-4.0); Magnesium 1.9 mg/dl (1.7-2.4); Phosphorus 2.7 mg/dl (2.5-4.9); Potassium 4.4 mmol/L (3.5-5.1); Total Protein 4.8 gm/dl (6.0-8.3)
--- NOTE | 2024-01-12 09:39 | Nephrology Progress Note ---
Date of Service January 12, 2024 Assessment & Plan (1) Hyponatremia: Plan: Hyponatremia likely due to SIADH. Baseline sodium in the low 130's. Sodium has dropped to 129. - will continue urea 15 g bid. -Fluid limit 1.2 L daily -allow patient to add salt to his food. (2) Acute heart failure with preserved ejection fraction: Plan: Patient appears euvolemic now. he is barely eating. Encourage high protein diet. Can add protein shakes with each meal Admission and Anticipated Discharge Date Admission Date: January 06, 2024 Subjective Patient seen for hyponatremia. He feels better today. Patient Denies nausea, vomiting or pain today. Na up to 130 Review of Systems 2 Review of Systems: All other systems were reviewed and negative except as noted in HPI Physical Exam 2 Physical Exam: General exam: Appears comfortable, no acute distress HEENT: Pupils are equal and reactive to light Neck: No JVD, neck is supple trachea is midline Respiratory system: Clear breath sounds bilaterally. Gastrointestinal: Abdomen is soft, non distended, non tender, bowel sounds are present CVS: Regular rate and rhythm. No murmurs, rubs or gallops Musculoskeletal: No joint or muscle tenderness Extremities: Non tender, no edema, peripheral pulses are present Neuro: Oriented, no tremors, no focal neurological deficits Skin: No rashes Results & Data Vital Signs (Past 12 Hours) Vital Signs Temp Pulse Pulse Resp BP BP Pulse Ox 01/12/24 08:00 93 H 01/12/24 08:00 01/12/24 07:07 36.7 C 101 H 17 96/69 L 94 01/12/24 03:18 36.3 C L 97 H 16 93/63 L 93 01/11/24 22:53 93 H O2 Del Method 01/12/24 08:00 01/12/24 08:00 Room Air 01/12/24 07:07 Room Air 01/12/24 03:18 Room Air 01/11/24 22:53 Laboratory Results 01/12/24 05:31 01/12/24 05:31 WBC 6.01 RBC 3.86 L MCV 88.1 MCH 28.8 MCHC 32.6 RDW Std Deviation 47.2 H RDW Coeff of Seamus 15.1 H Plt Count 146 MPV 9.7 Phosphorus 2.7 Albumin 2.9 L
--- NOTE | 2024-01-12 12:16 | Hospitalist Progress Note ---
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 He was started on Synthroid for subclinical hypothyroidism last admit. Patient at home not taking his medications because states having difficulty to swallow. As per he is also eating very little here and there and on soft diet. He is mostly bedbound ambulates short distance with assistance with walker. Was having chest pain and shortness of breath which prompted him to come to the ER. His recent cholecystectomy site is also draining and the dressing is wet. Denies any abdominal pain. Says moving his bowels and bladder. No fevers. Patient again says that he will go home tomorrow. says she could not take care of him at home currently. In the ER he was in rapid A-fib and after IV Lopressor heart rates improved. Abdominal CAT scan showing possible abscess at the recent cholecystectomy site and he was evaluated by surgery. Palliative Care has since been consulted, appreciate recs. He was treated for the following: Poss. Postoperative abscess Recent cholecystectomy site Treated with IV Zosyn Day 3/7 Surgery consulted - do not believe abscess but post- op fluid collection but recommend 7 day course of abx and close surg. follow up (Dr. Mast) To monitor for now. Rapid A-fib Not taking medication at home Improved after IV Lopressor IV Lopressor as needed Continue home metoprolol Xarelto Seems he was on sotalol and amiodarone in the past Consulted cardiology for further recommendations - recommended/stated the following on 01/08: "Improved cardiac symptoms. Chest xray yesterday with improved b/l pleural effusions. Patient was mildly hypotensive this morning. AM furosemide held. Will discontinue IV furosemide and start oral furosemide 20 mg tomorrow with potassium 10 meq daily. Afib rates have improved. Continue metoprolol 50 mg BID. Continue supplemental magnesium. Continue xarelto. F/U with surgery as outpatient s/p lap shay. On antibiotics Patient to be discharged to short term rehab/possible SNF. Family also considering hospice care. No further cardiac testing warranted..." Continue to monitor on telemetry Acute CHF with preserved ejection fraction Large bilateral pleural effusions on the CT scan Received a dose of IV Lasix 20 mg in the ER Continue metoprolol Recently had echo Cardiology consulted - IV furosemide 20 mg twice daily to start Transitioned to po lasix 20mg daily with KCl 10mEq daily Continue to monitor volume status Chest pain Currently resolved Possible from not taking his medications serial enzymes negative Echo as per cardiology Hyponatremia Sodium has been trending down, from 131 to 129 Nephrology consulted, appreciate recs Urine sodium and urine osmolality ordered Continue to monitor Pressure ulcer of left and right buttock, stage 2, POA wound care following, appreciate recs Severe Malnutrition pt with decreased appetite speech eval noting recs for minced and moist diet engineer internship consult Ascending thoracic aortic aneurysm Currently 3.9 cm Needs pcp follow-up Sick sinus syndrome Status post pacemaker. 5.5 months of battery life confirmed Follow-up with cardiology Dr. Carney History of CAD S/p stents On statin, Imdur, beta-hali Last admit Imdur on hold until seen by cardiology Hypertension On beta-hali Currently Imdur and ramipril on hold as patient is frequently hypotensive last admission will monitor History of bladder cancer s/p surgery Metastatic clear-cell renal carcinoma Status post recent ablation. [facility] [place] Recently started Keytruda Will hold Lenvima due to current illness Subclinical hypothyroidism Started on Synthroid Needs follow-up GERD Protonix History of E. coli bacteremia secondary to knee surgery On lifelong Bactrim Seizure disorder Lamotrigine and gabapentin Dementia monitor for delirium Delirium precautions. Frequent reorientation, avoid sedating medications Nutrition Having difficulty swallowing Will consult speech evaluation Diet: regular, minced and moist DVT prophylaxis - Xarelto CODE STATUS okay for CPR and meds. Does not want to be intubated Dispo: SNF/acute rehab/hospice Admission and Anticipated Discharge Date Admission Date: January 06, 2024 Subjective patient was seen sitting up in bed, breakfast tray in front of him appears on touch However appropriation he is having an increased appetite today Otherwise denies acute concerns Later notified by nursing that patient's was requesting that case manage ment trying to get him into hospice at the [facility] in [place] would like that done tomorrow if possible. Case management notified as well as palliative care Pursuing case management she will be working with the patient and his to transfer into a facility under his insurance first and then transition to hospice. PT OT orders are in for further evaluation. Review of Systems Review of Systems: All systems reviewed & are unremarkable except as noted in Subjective Physical Exam Physical Exam: General: Alert, oriented. No acute distress Psych: Appropriate mood and affect Neuro: difficulty with movements HEENT: NC/AT, voice hoarse CV: RRR Resp: no increased effort of breathing. Abdomen:Soft, nontender Extremities:waffle boots on lower extremities bilaterally. Results & Data Results & Data Vital Signs (Past 12 Hours) Vital Signs Temp Pulse Pulse Resp BP BP Pulse Ox 01/12/24 11:53 36.5 C 102 H 18 107/73 94 01/12/24 08:00 93 H 01/12/24 08:00 01/12/24 07:07 36.7 C 101 H 17 96/69 L 94 01/12/24 03:18 36.3 C L 97 H 16 93/63 L 93 O2 Del Method 01/12/24 11:53 Room Air 01/12/24 08:00 01/12/24 08:00 Room Air 01/12/24 07:07 Room Air 01/12/24 03:18 Room Air
[2024-01-12] MEDS: DICYCLOMINE HCL 10 MG CAP PO ONE (15:44)
[2024-01-13 06:00] LABS: Basophils # (auto) 0.01 K/uL (0.00-0.20); Basophils % (auto) 0.2 %; Eosinophils # (auto) 0.01 K/uL (0.00-0.50); Eosinophils % (auto) 0.2 %; Hematocrit (blood only) 34.6 % (42.0-52.0); Hemoglobin 11.6 g/dl (14.0-18.0); Immature Granulocytes # (auto) 0.02 K/uL (0.01-0.20); Immature Granulocytes % (auto) 0.4 %; Lymphocytes # (auto) 0.59 K/uL (1.20-3.40); Lymphocytes % (auto) 11.5 %; Mean Corpuscular Hemoglobin 28.9 pg (25.0-34.0); Mean Corpuscular Hgb Conc 33.5 g/dL (32.0-36.0); Mean Corpuscular Volume 86.3 fL (80.0-100.0); Mean Platelet Volume 9.6 fL (9.4-12.4); Monocytes # (auto) 0.57 K/uL (0.11-0.59); Monocytes % (auto) 11.1 %; Neutrophils # (auto) 3.94 K/uL (1.40-6.50); Neutrophils % (auto) 76.6 %; Platelet Count 151 K/uL (130-400); RDW Coefficient of Variation 15.3 % (11.5-14.5); Red Blood Count 4.01 M/uL (4.70-6.10); White Blood Count 5.14 K/ul (4.8-10.8)
[2024-01-13 06:19] LABS: Albumin Globulin Ratio 1.5 (0.9-2); BUN Creatinine Ratio 28.9 (10-20); Bilirubin,Total 0.6 mg/dl (0.2-1.0); Calcium 8.6 mg/dl (8.6-10.3); Magnesium 1.9 mg/dl (1.7-2.4); Phosphorus 2.9 mg/dl (2.5-4.9); Potassium 4.5 mmol/L (3.5-5.1)
--- NOTE | 2024-01-13 08:03 | Nephrology Progress Note ---
Date of Service January 13, 2024 Assessment & Plan (1) Hyponatremia: Plan: Hyponatremia likely due to SIADH. Baseline sodium in the low 130's. Sodium had dropped to 129, up to 130 today. Transition to hospice planned in next few days - will continue urea 15 g bid now and at d/c -Fluid limit 1.2 L daily -encourage salty snacks >>encourage protein >> at least 60 gm daily >> use protein powder, encourage protein shakes -off of lasix now and will stop K supplements as well; may need to consider resuming depending on status -with transition to hospice, likely to stop labs but will follow until then, pending clinical status Care coordinated w/ Dr Silva re medications, labs, neph f/u > we are in agreement. (2) Acute heart failure with preserved ejection fraction: Plan: Patient appears euvolemic now. he is barely eating. Encourage high protein diet. Can add protein shakes with each meal as tolerated Admission and Anticipated Discharge Date Admission Date: January 06, 2024 Subjective seen on am rounds. no c/o pain or sob or more distended abdomen. hardly eating. lots of pedialyte at bedside Review of Systems 2 Review of Systems: All systems reviewed & are unremarkable except as noted in Subjective Physical Exam 2 Constitutional: well developed, + cachectic, + frail appearing and + lethargic; no acute distress ENMT: Mouth: + dry oral mucous membranes Neck: no nuchal rigidity Respiratory: normal respiratory effort Auscultation: + diminished lung sounds Cardiovascular: Rate/Rhythm: regular rhythm and + tachycardic Extremities: no edema Gastrointestinal (Abdomen): Inspection/Auscultation: + abdomen distended and normal bowel sounds Percussion/Palpation: abdomen soft; abdomen nontender Musculoskeletal: Extremities: strength 5/5 throughout Skin: no rashes, warm and dry Neurologic: chakraborty, minimal speech, no tremor Results & Data Vital Signs (Past 12 Hours) Vital Signs Temp Pulse Pulse Resp BP BP Pulse Ox 01/13/24 07:25 36.9 C 104 H 16 109/75 96 01/13/24 02:52 36.6 C 91 H 16 95/63 L 92 01/12/24 23:59 99 H 01/12/24 22:39 36.5 C 95 H 18 96/64 L 96 01/12/24 20:01 O2 Del Method 01/13/24 07:25 Room Air 01/13/24 02:52 Room Air 01/12/24 23:59 01/12/24 22:39 Room Air 01/12/24 20:01 Room Air Laboratory Results 01/13/24 05:43 01/13/24 05:43
--- NOTE | 2024-01-13 11:37 | Hospitalist Progress Note ---
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 He was started on Synthroid for subclinical hypothyroidism last admit. Patient at home not taking his medications because states having difficulty to swallow. As per he is also eating very little here and there and on soft diet. He is mostly bedbound ambulates short distance with assistance with walker. Was having chest pain and shortness of breath which prompted him to come to the ER. His recent cholecystectomy site is also draining and the dressing is wet. Denies any abdominal pain. Says moving his bowels and bladder. No fevers. Patient again says that he will go home tomorrow. says she could not take care of him at home currently. In the ER he was in rapid A-fib and after IV Lopressor heart rates improved. Abdominal CAT scan showing possible abscess at the recent cholecystectomy site and he was evaluated by surgery. Palliative Care has since been consulted, appreciate recs. Pt currently waiting on SNF placement to then transition to hospice. He was treated for the following: Poss. Postoperative abscess Recent cholecystectomy site Treated with IV Zosyn-->transitioned to po Augmentin on Jan 09 for an additional 4 days of treatment to complete 7/7 days Surgery consulted - do not believe abscess but post- op fluid collection but recommend 7 day course of abx and close surg. follow up (Dr. Mast) To monitor for now. Rapid A-fib Not taking medication at home Improved after IV Lopressor IV Lopressor as needed Continue home metoprolol Xarelto Seems he was on sotalol and amiodarone in the past Consulted cardiology for further recommendations - recommended/stated the following on 01/08: "Improved cardiac symptoms. Chest xray yesterday with improved b/l pleural effusions. Patient was mildly hypotensive this morning. AM furosemide held. Will discontinue IV furosemide and start oral furosemide 20 mg tomorrow with potassium 10 meq daily. Afib rates have improved. Continue metoprolol 50 mg BID. Continue supplemental magnesium. Continue xarelto. F/U with surgery as outpatient s/p lap shay. On antibiotics Patient to be discharged to short term rehab/possible SNF. Family also considering hospice care. No further cardiac testing warranted..." Continue to monitor on telemetry Acute CHF with preserved ejection fraction Large bilateral pleural effusions on the CT scan Received a dose of IV Lasix 20 mg in the ER Continue metoprolol Recently had echo Cardiology consulted - IV furosemide 20 mg twice daily to start Transitioned to po lasix 20mg daily with KCl 10mEq daily Continue to monitor volume status Chest pain Currently resolved Possible from not taking his medications serial enzymes negative Echo as per cardiology Hyponatremia Sodium has been trending down, from 131 to 129 Nephrology consulted, appreciate recs Urine sodium and urine osmolality ordered Continue to monitor Pressure ulcer of left and right buttock, stage 2, POA wound care following, appreciate recs Severe Malnutrition pt with decreased appetite speech eval noting recs for minced and moist diet color maker formulator consult Ascending thoracic aortic aneurysm Currently 3.9 cm Needs pcp follow-up Sick sinus syndrome Status post pacemaker. 5.5 months of battery life confirmed Follow-up with cardiology Dr. Carney History of CAD S/p stents On statin, Imdur, beta-hali Last admit Imdur on hold until seen by cardiology Hypertension On beta-hali Currently Imdur and ramipril on hold as patient is frequently hypotensive last admission will monitor History of bladder cancer s/p surgery Metastatic clear-cell renal carcinoma Status post recent ablation. [facility] [place] Recently started Keytruda Will hold Lenvima due to current illness Subclinical hypothyroidism Started on Synthroid Needs follow-up GERD Protonix History of E. coli bacteremia secondary to knee surgery On lifelong Bactrim Seizure disorder Lamotrigine and gabapentin Dementia monitor for delirium Delirium precautions. Frequent reorientation, avoid sedating medications Nutrition Having difficulty swallowing Will consult speech evaluation Diet: regular, minced and moist DVT prophylaxis - Xarelto CODE STATUS okay for CPR and meds. Does not want to be intubated Dispo: SNF/acute rehab/hospice Admission and Anticipated Discharge Date Admission Date: January 06, 2024 Subjective patient was seen sitting up in bed Denied acute concerns States he is excited with his improved ability to move Review of Systems Review of Systems: All systems reviewed & are unremarkable except as noted in Subjective Physical Exam Physical Exam: General: Alert, oriented. No acute distress Psych: Appropriate mood and affect Neuro: difficulty with movements HEENT: NC/AT, voice hoarse CV: RRR Resp: no increased effort of breathing. Abdomen:Soft, nontender Extremities:waffle boots on lower extremities bilaterally. Results & Data Results & Data Vital Signs (Past 12 Hours) Vital Signs Temp Pulse Pulse Resp BP BP Pulse Ox 01/13/24 11:19 36.4 C L 93 H 17 90/61 L 97 01/13/24 08:14 01/13/24 07:25 36.9 C 104 H 16 109/75 96 01/13/24 02:52 36.6 C 91 H 16 95/63 L 92 01/12/24 23:59 99 H O2 Del Method 01/13/24 11:19 Room Air 01/13/24 08:14 Room Air 01/13/24 07:25 Room Air 01/13/24 02:52 Room Air 01/12/24 23:59
[2024-01-14 06:06] LABS: Basophils # (auto) 0.02 K/uL (0.00-0.20); Basophils % (auto) 0.4 %; Hematocrit (blood only) 34.4 % (42.0-52.0); Hemoglobin 11.4 g/dl (14.0-18.0); Immature Granulocytes # (auto) 0.01 K/uL (0.01-0.20); Immature Granulocytes % (auto) 0.2 %; Lymphocytes # (auto) 0.54 K/uL (1.20-3.40); Lymphocytes % (auto) 10.4 %; Mean Corpuscular Hemoglobin 29.4 pg (25.0-34.0); Mean Corpuscular Hgb Conc 33.1 g/dL (32.0-36.0); Mean Corpuscular Volume 88.7 fL (80.0-100.0); Mean Platelet Volume 9.9 fL (9.4-12.4); Monocytes # (auto) 0.57 K/uL (0.11-0.59); Neutrophils # (auto) 4.04 K/uL (1.40-6.50); Platelet Count 153 K/uL (130-400); RDW Coefficient of Variation 15.6 % (11.5-14.5); RDW Standard Deviation 49.1 fL (36.4-46.3); Red Blood Count 3.88 M/uL (4.70-6.10); White Blood Count 5.18 K/ul (4.8-10.8)
[2024-01-14 06:32] LABS: Albumin Globulin Ratio 1.7 (0.9-2); BUN Creatinine Ratio 26.7 (10-20); Bilirubin,Total 0.6 mg/dl (0.2-1.0); Calcium 8.4 mg/dl (8.6-10.3); Creatinine Clr Calc Pharmacy 65.5 ml/min; Globulin 1.8 gm/dl (2.5-4.0); Magnesium 1.8 mg/dl (1.7-2.4); Potassium 4.3 mmol/L (3.5-5.1); Total Protein 4.8 gm/dl (6.0-8.3)
--- NOTE | 2024-01-14 11:25 | Hospitalist Progress Note ---
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 He was started on Synthroid for subclinical hypothyroidism last admit. Patient at home not taking his medications because states having difficulty to swallow. As per he is also eating very little here and there and on soft diet. He is mostly bedbound ambulates short distance with assistance with walker. Was having chest pain and shortness of breath which prompted him to come to the ER. His recent cholecystectomy site is also draining and the dressing is wet. Denies any abdominal pain. Says moving his bowels and bladder. No fevers. Patient again says that he will go home tomorrow. says she could not take care of him at home currently. In the ER he was in rapid A-fib and after IV Lopressor heart rates improved. Abdominal CAT scan showing possible abscess at the recent cholecystectomy site and he was evaluated by surgery. Palliative Care has since been consulted, appreciate recs. Pt currently waiting on SNF placement to then transition to hospice. He was treated for the following: Poss. Postoperative abscess Recent cholecystectomy site Treated with IV Zosyn-->transitioned to po Augmentin on Jan 09 for an additional 4 days of treatment to complete 7/7 days Surgery consulted - do not believe abscess but post- op fluid collection but recommend 7 day course of abx and close surg. follow up (Dr. Mast) To monitor for now. Rapid A-fib Not taking medication at home Improved after IV Lopressor IV Lopressor as needed Continue home metoprolol Xarelto Seems he was on sotalol and amiodarone in the past Consulted cardiology for further recommendations - recommended/stated the following on 01/08: "Improved cardiac symptoms. Chest xray yesterday with improved b/l pleural effusions. Patient was mildly hypotensive this morning. AM furosemide held. Will discontinue IV furosemide and start oral furosemide 20 mg tomorrow with potassium 10 meq daily. Afib rates have improved. Continue metoprolol 50 mg BID. Continue supplemental magnesium. Continue xarelto. F/U with surgery as outpatient s/p lap shay. On antibiotics Patient to be discharged to short term rehab/possible SNF. Family also considering hospice care. No further cardiac testing warranted..." Continue to monitor on telemetry Acute CHF with preserved ejection fraction Large bilateral pleural effusions on the CT scan Received a dose of IV Lasix 20 mg in the ER Continue metoprolol Recently had echo Cardiology consulted - IV furosemide 20 mg twice daily to start Transitioned to po lasix 20mg daily with KCl 10mEq daily Continue to monitor volume status Chest pain Currently resolved Possible from not taking his medications serial enzymes negative Echo as per cardiology Hyponatremia Sodium has been trending down, from 131 to 129 Nephrology consulted, appreciate recs Urine sodium and urine osmolality ordered Continue to monitor Pressure ulcer of left and right buttock, stage 2, POA wound care following, appreciate recs Severe Malnutrition pt with decreased appetite speech eval noting recs for minced and moist diet ophthalmic nurse consult Ascending thoracic aortic aneurysm Currently 3.9 cm Needs pcp follow-up Sick sinus syndrome Status post pacemaker. 5.5 months of battery life confirmed Follow-up with cardiology Dr. Carney History of CAD S/p stents On statin, Imdur, beta-hali Last admit Imdur on hold until seen by cardiology Hypertension On beta-hali Currently Imdur and ramipril on hold as patient is frequently hypotensive last admission will monitor History of bladder cancer s/p surgery Metastatic clear-cell renal carcinoma Status post recent ablation. [facility] [place] Recently started Keytruda Will hold Lenvima due to current illness Subclinical hypothyroidism Started on Synthroid Needs follow-up GERD Protonix History of E. coli bacteremia secondary to knee surgery On lifelong Bactrim Seizure disorder Lamotrigine and gabapentin Dementia monitor for delirium Delirium precautions. Frequent reorientation, avoid sedating medications Nutrition Having difficulty swallowing Will consult speech evaluation Diet: regular, minced and moist DVT prophylaxis - Xarelto CODE STATUS okay for CPR and meds. Does not want to be intubated Dispo: SNF/acute rehab/hospice Admission and Anticipated Discharge Date Admission Date: January 06, 2024 Subjective Patient was seen sitting up at bedside Denied acute concerns today Multiple discussions with his . First on the phone after she was requesting possible transfer to a [facility] for further evaluation. advised that there is currently no medical reason and unlikely they will accept. later discussion with and family meeting area On second floor. would like patient to go home with hospice services. Advised that palliative care would be updated. Palliative care was contacted at and advised that they would follow-up with the patient. Case management also aware. Review of Systems Review of Systems: All systems reviewed & are unremarkable except as noted in Subjective Physical Exam Physical Exam: General: Alert, oriented. No acute distress Psych: Appropriate mood and affect Neuro: difficulty with movements HEENT: NC/AT, voice hoarse CV: RRR Resp: no increased effort of breathing. Abdomen:Soft, nontender Extremities:waffle boots on lower extremities bilaterally. Results & Data Results & Data Vital Signs (Past 12 Hours) Vital Signs Temp Pulse Resp BP BP Pulse Ox O2 Del Method 01/14/24 08:37 103 H 100/67 01/14/24 07:50 Room Air 01/14/24 07:09 36.8 C 98 H 17 99/64 L 94 Room Air 01/14/24 04:04 36.5 C 103 H 16 95/65 L 93 Room Air 01/13/24 23:28 36.7 C 105 H 17 103/72 96 Room Air
--- NOTE | 2024-01-14 11:54 | Nephrology Progress Note ---
Date of Service January 14, 2024 Assessment & Plan (1) Hyponatremia: Plan: 1) Hyponatremia: Plan: Hyponatremia likely due to SIADH. Baseline sodium in the low 130's. Sodium had dropped to 129, up to 132 today. Transition to hospice planned in next few days - will continue urea 15 g bid now and at d/c -Fluid limit 1.2 L daily -encourage salty snacks >>encourage protein >> at least 60 gm daily >> use protein powder, encourage protein shakes -off of lasix now and will stop K supplements as well; may need to consider resuming depending on status -with transition to hospice, likely to stop labs but will follow until then, pending clinical status Care coordinated w/ Dr Silva re medications, labs, neph f/u > we are in agreement. (2) Acute heart failure with preserved ejection fraction: Plan: (2) Acute heart failure with preserved ejection fraction: Plan: Patient appears euvolemic now. he is barely eating. Encourage high protein diet. Can add protein shakes with each meal as tolerated Admission and Anticipated Discharge Date Admission Date: January 06, 2024 Subjective Comfortable,Oral intake contineus to be very poor. No new concerns Physical Exam 2 Physical Exam: Very cachetic, and ill appearing No pedal edema Chest clear Results & Data Vital Signs (Past 12 Hours) Vital Signs Temp Pulse Resp BP BP Pulse Ox O2 Del Method 01/14/24 08:37 103 H 100/67 01/14/24 07:50 Room Air 01/14/24 07:09 36.8 C 98 H 17 99/64 L 94 Room Air 01/14/24 04:04 36.5 C 103 H 16 95/65 L 93 Room Air Laboratory Results 01/14/24 05:29 01/14/24 05:29
[2024-01-14] MEDS ORDERED: oxyCODONE HCL IR 5 MG TAB (IMMEDIATE RELEASE) PO PRN (15:56)
[2024-01-14] MEDS ORDERED: NYSTATIN SUSP 500,000 U/5 ML UDC PO PRN (16:05)
[2024-01-14] MEDS: oxyCODONE/ACETAMINOPHEN 5mg/325mg TAB PO SCH (20:19)
--- NOTE | 2024-01-15 17:16 | Nephrology Progress Note ---
Date of Service January 15, 2024 Assessment & Plan (1) Hyponatremia: Plan: 1) Hyponatremia: Plan: Hyponatremia likely due to SIADH. Baseline sodium in the low 130's. Sodium had dropped to 129, up to 132 yesterday. Transition to hospice planned in next few days reportedly planned w/ no labs today; volume status acceptable for now - will continue urea 15 g bid now -Fluid limit 1.2 L daily -encourage salty snacks >>encourage protein >> at least 60 gm daily >> use protein powder, encourage protein shakes -off of lasix now and will stop K supplements as well; may need to consider resuming depending on status -with possible transition to hospice, likely to stop labs/urea/ fluid limit will sign off; no neph f/u needed; agree w/ attending's plan to revisit/clarify goals of care for this patient Care coordinated w/ Dr Gallegos re medications, labs, neph f/u, prognosis > we are in agreement. (2) Acute heart failure with preserved ejection fraction: Plan: (2) Acute heart failure with preserved ejection fraction: Plan: Patient appears euvolemic now. he is barely eating. Encourage high protein diet. Can add protein shakes with each meal as tolerated Admission and Anticipated Discharge Date Admission Date: January 06, 2024 Subjective pt seen and evaluated on AM rounds; he is very confused and somewhat agitated this am michael about being so far from home; denies pain or n/v or sob Review of Systems Review of Systems: Unobtainable due to cognitive status (limited by anxiety) Physical Exam Constitutional: well developed, + acute distress (mild re current situation), + cachectic and + frail appearing ENMT: Mouth: + dry oral mucous membranes Neck: no nuchal rigidity Respiratory: normal respiratory effort Auscultation: + diminished lung sounds Cardiovascular: Rate/Rhythm: regular rhythm and + tachycardic Extremities: no edema Gastrointestinal (Abdomen): Inspection/Auscultation: + abdomen distended and normal bowel sounds Percussion/Palpation: abdomen soft; abdomen nontender Musculoskeletal: Extremities: strength 5/5 throughout Skin: no rashes, warm and dry Results & Data Vital Signs (Past 12 Hours) Vital Signs Temp Pulse Pulse Resp BP Pulse Ox O2 Del Method 01/15/24 15:29 37.1 C 104 H 18 96/67 L 95 Room Air 01/15/24 11:35 36.7 C 95 H 18 93/61 L 96 Room Air 01/15/24 11:03 94 H 01/15/24 08:00 Room Air 01/15/24 07:42 36.7 C 97 H 20 114/76 92 Room Air Laboratory Results no labs done today
--- NOTE | 2024-01-15 17:31 | Hospitalist Progress Note ---
Date of Service January 15, 2024 Assessment & Plan (1) Postoperative abscess: Plan: Mr. 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 He was started on Synthroid for subclinical hypothyroidism last admit. Patient was readmitted on 01/05 for sob and weakness. It was noted that recent cholecystectomy site on admission. In the ER he was in rapid A-fib and after IV Lopressor heart rates improved. Abdominal CAT scan showing possible abscess at the recent cholecystectomy site and he was evaluated by surgery who did not feel that it was an abscess and completed 7 days of abx. Patient's course complicated by hyponatremia and acute HFpEF. Ultimately, patient being evaluated by hospice tomorrow for possible transition home. Continue management, not ready for comfort measures #Post op fluid collection, c/f abscess Recent cholecystectomy site completed po abx evaluated by surgery--low suspicion for abscess #A fib RVR Not taking medication at home Improved after IV Lopressor IV Lopressor as needed Continue home metoprolol Xarelto Seems he was on sotalol and amiodarone in the past Consulted cardiology for further recommendations - recommended/stated the following on 01/08: Continue metoprolol 50 mg BID. Continue supplemental magnesium. Continue xarelto. F/U with surgery as outpatient s/p lap shay. Hold furosemide #Acute CHF with preserved ejection fraction resolved Large bilateral pleural effusions on the CT scan Received a dose of IV Lasix 20 mg in the ER Continue metoprolol Recently had echo Cardiology consulted - IV furosemide 20 mg twice daily to start held furosemide iso hyponatremia #Chest pain Currently resolved Possible from not taking his medications serial enzymes negative #Hyponatremia Sodium has been trending down, from 131 to 129 Nephrology consulted, appreciate recs On urea BID Repeat BMP in am #Pressure ulcer of left and right buttock, stage 2, POA wound care following, appreciate recs #Severe Malnutrition pt with decreased appetite speech eval noting 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 5.5 months of battery life confirmed Follow-up with cardiology Dr. Carney #History of CAD S/p stents On statin, Imdur, beta-hali Last admit Imdur on hold until seen by cardiology #Hypertension On beta-hali, continue History of bladder cancer s/p surgery Metastatic clear-cell renal carcinoma Status post recent ablation. [facility] [place] Recently started Keytruda Will hold Lenvima due to current illness #Subclinical hypothyroidism Started on Synthroid Needs follow-up #GERD Protonix #History of E. coli bacteremia secondary to knee surgery On lifelong Bactrim #Seizure disorder Lamotrigine and gabapentin #Dementia monitor for delirium Delirium precautions. Frequent reorientation, avoid sedating medications #Nutrition Having difficulty swallowing Will consult speech evaluation: aspiration precautions, minced and moist Diet: regular, minced and moist DVT prophylaxis - Xarelto CODE STATUS okay for CPR and meds. Does not want to be intubated Dispo: SNF/acute rehab/hospice Admission and Anticipated Discharge Date Admission Date: January 06, 2024 Subjective Discussed with patient Became tearful---does not wish to go to rehab, cries that he just wishes to go home Denies any other symptoms, just utter sadness to be admitted and doesn't wish to " in the hospital" Physical Exam Constitutional: WD/WN, vitals as above Respiratory: normal respiratory effort, lungs clear to auscultation Cardiovascular: tachycardic Results & Data Results & Data Vital Signs (Past 12 Hours) Vital Signs Temp Pulse Pulse Resp BP Pulse Ox O2 Del Method 01/15/24 15:29 37.1 C 104 H 18 96/67 L 95 Room Air 01/15/24 11:35 36.7 C 95 H 18 93/61 L 96 Room Air 01/15/24 11:03 94 H 01/15/24 08:00 Room Air 01/15/24 07:42 36.7 C 97 H 20 114/76 92 Room Air Medications Administered Home Medications Medication Instructions Recorded Confirmed Last Taken atorvastatin 40 mg tablet 40 mg PO DAILY 01/06/24 01/06/24 Unknown dicyclomine 10 mg capsule 10 mg PO BID 01/06/24 01/06/24 Unknown gabapentin 300 mg capsule 300 mg PO TID 01/06/24 01/06/24 Unknown isosorbide mononitrate 60 mg 60 mg PO DAILY 01/06/24 01/06/24 Unknown tablet,extended release 24 hr lamotrigine 100 mg tablet 100 mg PO BID 01/06/24 01/06/24 Unknown levothyroxine 25 mcg tablet 25 mcg PO DAILY 01/06/24 01/06/24 Unknown metoprolol succinate 25 mg 25 mg PO BID 01/06/24 01/06/24 Unknown tablet,extended release 24 hr pantoprazole 40 mg tablet,delayed 40 mg PO DAILY 01/06/24 01/06/24 Unknown release ramipril 5 mg capsule 5 mg PO DAILY 01/06/24 01/06/24 Unknown rivaroxaban 20 mg tablet (Xarelto) 20 mg PO DAILY 01/06/24 01/06/24 Unknown sulfamethoxazole 800 1 tab PO BID 01/06/24 01/06/24 Unknown mg-trimethoprim 160 mg tablet tamsulosin 0.4 mg capsule 0.4 mg PO DAILY 01/06/24 01/06/24 Unknown vibegron 75 mg tablet 75 mg PO DAILY 01/06/24 01/06/24 Unknown lenvatinib 10 mg/day (10 mg x 1) 20 mg PO HS 01/07/24 01/07/24 Unknown capsule Active Medications Generic Name Dose Route Start Last Admin Trade Name Yoni PRN Reason Stop Dose Admin Dicyclomine HCl 10 mg 01/07/24 09:00 01/15/24 10:00 Dicyclomine Hcl 10 Mg Cap PO 02/06/24 08:59 10 mg BID STEVE Administration Gabapentin 300 mg 01/07/24 09:00 01/15/24 14:03 Gabapentin 300 Mg Cap PO 02/06/24 08:59 300 mg TID STEVE Administration Lamotrigine 100 mg 01/07/24 09:00 01/15/24 09:59 Lamotrigine 100 Mg Tab PO 02/06/24 08:59 100 mg BID STEVE Administration Protocol Levothyroxine Sodium 25 mcg 01/07/24 06:30 01/15/24 06:03 Levothyroxine Sodium 25 Mcg Tablet PO 02/06/24 06:29 25 mcg DAILYBB STEVE Administration Magnesium Oxide 400 mg 01/07/24 09:00 01/15/24 09:59 Magnesium Oxide 400 Mg Tab PO 02/06/24 08:59 400 mg QAM STEVE Administration Melatonin 3 mg 01/10/24 01:50 01/12/24 21:39 Melatonin 3 Mg Tab PO 02/09/24 01:49 3 mg HS PRN Administration Sleep Metoprolol Succinate 50 mg 01/07/24 21:00 01/15/24 10:00 Metoprolol Succ 50mg Ext Rel Tab PO 02/06/24 20:59 50 mg BID STEVE Administration Oxycodone/Acetaminophen 0.5 tab 01/14/24 21:00 01/15/24 13:51 Oxycodone/Acetaminophen 5mg/325mg Tab PO 01/28/24 20:59 Not Given TID STEVE Pantoprazole Sodium 40 mg 01/07/24 09:00 01/15/24 10:02 Pantoprazole 40 Mg Tab PO 02/06/24 08:59 40 mg DAILY STEVE Administration Rivaroxaban 20 mg 01/08/24 09:00 01/15/24 10:00 Rivaroxaban 20 Mg Tab PO 02/07/24 08:59 20 mg DAILY STEVE Administration Tamsulosin HCl 0.4 mg 01/07/24 09:00 01/15/24 10:00 Tamsulosin Hcl 0.4 Mg Cap PO 02/06/24 08:59 0.4 mg DAILY STEVE Administration Trimethoprim/Sulfamethoxazole 1 tab 01/07/24 09:00 01/15/24 10:01 Sulfamethoxazole/Trimethoprim Ds 800/160mg Tab PO 02/06/24 08:59 1 tab BID STEVE Administration Urea 15 gm 01/11/24 14:45 01/15/24 09:59 Urea (Urea-Na) 15 Gm Pack PO 02/10/24 14:44 15 gm BID STEVE Administration Vibegron 75 mg 01/07/24 09:00 01/15/24 10:00 Vibegron 75 Mg Tab PO 02/06/24 08:59 75 mg DAILY STEVE Administration
[2024-01-15] MEDS: SULFAMETHOXAZOLE/TRIMETHOPRIM DS 800/160MG TAB PO SCH (20:45)
[2024-01-16 06:43] LABS: BUN Creatinine Ratio 18.7 (10-20); Calcium 8.6 mg/dl (8.6-10.3); Creatinine Clr Calc Pharmacy 64.7 ml/min; Potassium 4.5 mmol/L (3.5-5.1)
[2024-01-16 11:43] VITALS: RESP 18; TEMP 98.1; O2SAT 95
--- NOTE | 2024-01-16 13:43 | Discharge Summary ---
Discharge Summary Date of Service January 16, 2024 Principal Dx & Hospital Course #1 = Principal Diagnosis (1) Postoperative abscess: Mr. 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 He was started on Synthroid for subclinical hypothyroidism last admit. Patient was readmitted on 01/05 for sob and weakness. It was noted that recent cholecystectomy site on admission. In the ER he was in rapid A-fib and after IV Lopressor heart rates improved. Abdominal CAT scan showing possible abscess at the recent cholecystectomy site and he was evaluated by surgery who did not feel that it was an abscess and completed 7 days of abx. Patient's course complicated by hyponatremia and acute HFpEF. Patient evaluated by hospice and ultimately decided to go home with hospice. #Post op fluid collection, c/f abscess Recent cholecystectomy site completed po abx evaluated by surgery--low suspicion for abscess #A fib RVR Not taking medication at home Improved after IV Lopressor IV Lopressor as needed Continue home metoprolol Xarelto Seems he was on sotalol and amiodarone in the past Consulted cardiology for further recommendations - recommended/stated the following on 01/08: Continue metoprolol 50 mg BID. Continue xarelto. #Acute CHF with preserved ejection fraction resolved Large bilateral pleural effusions on the CT scan Received a dose of IV Lasix 20 mg in the ER Continue metoprolol Recently had echo Cardiology consulted held furosemide iso hyponatremia #Chest pain Currently resolved Possible from not taking his medications serial enzymes negative #Hyponatremia Sodium has been trending down, from 131 to 129 Nephrology consulted, appreciate recs stop on hospice #Pressure ulcer of left and right buttock, stage 2, POA wound care following, appreciate recs #Severe Malnutrition pt with decreased appetite speech eval noting recs for minced and moist diet #Ascending thoracic aortic aneurysm Currently 3.9 cm Needs pcp follow-up #Sick sinus syndrome Status post pacemaker. 5.5 months of battery life confirmed Follow-up with cardiology Dr. Carney #History of CAD S/p stents On statin, Imdur, beta-hali d/c imdur and ramipril #Hypertension On beta-hali, continue #History of bladder cancer s/p surgery #Metastatic clear-cell renal carcinoma Status post recent ablation. [facility] [place] Recently started Keytruda Will hold Lenvima due to current illness #Subclinical hypothyroidism Started on Synthroid Needs follow-up #GERD Protonix #History of E. coli bacteremia secondary to knee surgery On lifelong Bactrim #Seizure disorder Lamotrigine and gabapentin #Dementia monitor for delirium Delirium precautions. 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 He was started on Synthyroid for subclinical hypothyroidism last admit. Patient at home not taking his medications because states having difficulty to swallow. As per he is also eating very little here and there and on soft diet. He is mostly bedbound ambulates short distance with assistance with walker. Today was having chest pain and shortness of breath which prompted him to come to the ER. His recent cholecystectomy site is also draining and the dressing is wet. Denies any abdominal pain. Says moving his bowels and bladder okay. No fevers. Currently chest pain and shortness of breath improved. No cough. No headache. No blurred vision. No runny nose or sore throat. Patient again says that he will go home tomorrow. says she could not take care of him at home currently. In the ER he was in rapid A-fib and after IV Lopressor heart rates improved. Abdominal CAT scan showing possible abscess at the recent cholecystectomy site and he was evaluated by surgery. Past medical history. As mentioned above Past surgical history. History of left carotid endarterectomy. History of hernia surgery x 2. Status post pacemaker. History of tonsillectomy. History of appendectomy. History of left knee replacement. Fusion surgery. History of bilateral cataract surgeries. History of parathyroidectomy. History of bladder surgery. TURP. History of heart stent x 4. Multiple cardiac cath. History of colonoscopy and EGD. Social history. . No smoking. No substance use. No alcohol use. Family history. Father had prostate cancer. Diabetes. Heart disease. Hypertension. Mother had diabetes. Hypertension. Breast cancer. Admission Exam Per Admitting Provider General- Not in distress. Hard of hearing Head- atraumatic Eyes- PERRL. ENT- oropharynx clear Neck- supple, no JVD. Lungs- clear to auscultation mild bibasilar crackles. Heart- irregular rhythm; no murmur, no gallop. Abdomen- normal bowel sounds, soft, nontender, drainage seen form recent lap shay site Extremities- no pretibial edema, no erythema seen Neuro- alert, oriented ; PERRL, no facial palsy; no dysarthria; moves extremities Discharge Exam Constitutional cachectic, excited to go home Respiratory normal respiratory effort, lungs clear to auscultation Cardiovascular irregularly irregular Gastrointestinal (Abdomen) normal bowel sounds, soft, nontender, no hepatosplenomegaly Updated Medication List Medication Instructions Recorded Confirmed Type dicyclomine 10 mg capsule 10 mg PO BID 01/06/24 01/06/24 History gabapentin 300 mg capsule 300 mg PO TID 01/06/24 01/06/24 History lamotrigine 100 mg tablet 100 mg PO BID 01/06/24 01/06/24 History levothyroxine 25 mcg tablet 25 mcg PO DAILY 01/06/24 01/06/24 History pantoprazole 40 mg tablet,delayed 40 mg PO DAILY 01/06/24 01/06/24 History release rivaroxaban 20 mg tablet (Xarelto) 20 mg PO DAILY 01/06/24 01/06/24 History sulfamethoxazole 800 1 tab PO BID 01/06/24 01/06/24 History mg-trimethoprim 160 mg tablet tamsulosin 0.4 mg capsule 0.4 mg PO DAILY 01/06/24 01/06/24 History vibegron 75 mg tablet 75 mg PO DAILY 01/06/24 01/06/24 History lenvatinib 10 mg/day (10 mg x 1) 20 mg PO HS 01/07/24 01/07/24 History capsule metoprolol succinate 25 mg 50 mg (2 x 25 mg) PO BID #60 tabs 01/16/24 Rx tablet,extended release 24 hr oxycodone-acetaminophen 5 mg-325 0.5 tab PO TID #15 tabs 01/16/24 Rx mg tablet (Percocet) Hospital Stay Data Consultations 01/06/24 21:21 ED Decision to Admit Stat 01/07/24 01:08 Consult General Surgery Routine 01/07/24 08:00 Consult Cardiology Routine 01/08/24 09:33 Consult Palliative Care Routine 01/11/24 08:23 Consult Nephrology Routine Diagnostic Imagining Performed 01/06/24 19:06 CT abd pelvis IV con only Stat CT angio chest PE protocol Stat 01/06/24 19:09 CT head/brain wo con Stat Discharge Instructions Given to Patient (Per Discharging Provider) You were admitted for weakness and noted to have multiple problems. Your atrial fibrillation was poorly controlled -Increase your metoprolol to 25mg two times a day You completed antibiotics for surgical site infection You can discontinue the following -atorvastatin -Imdur -Ramipril You can continue other medications as prescribed or adjusted by the Hospice nurse. Total Time Total Time Spent Total Time Spent (In Minutes): 45
[2024-01-16 14:17] VITALS: BP 95/59; PULSE 97
== END 2024-01-16 16:12 | disposition hospice, home (50) | DRG 862 ==
LOC: ED 18:41 → 2S 23:51 → SUATTDRO 23:51 → 2S 01-07 00:43